=== PATIENT | female | born 1985 | race Caucasian/White ===

== ENCOUNTER 2024-08-16 07:22 | Inpatient (IN) | payer OTHER ==
[~2024-08-16] VITALS: Ht 152.4 cm; Wt 67.4 kg
--- NOTE | 2024-08-16 07:36 | ED.PDOC ---
GI ASSESSMENT HPI Comments 38 year old female MARIZA presents to the ED with chief complaint of N/V, abdominal pain, and dysuria. Patient reports that she has been experiencing dysuria and flank pain for the past 2 days, being diagnosed with a UTI and prescribed Cipro. Patient relays that she soon started to experience associated nausea, vomiting, and suprapubic pain, being unable to swallow her antibiotics. Patient denies any fever, chills, hematuria, diarrhea, hematemesis, or SOB. Time Seen by MD: 07:24 Primary Care Provider: JOURDAN Reviewed Notes: Nurses Notes, Canceling And Cutting Control Clerk Notes, Medications, Allergies Allergies: Coded Allergies: Codeine (Verified Allergy, Unknown, 03/25/14) Sulfamethoxazole w/Trimethoprim (Verified Allergy, Unknown, 03/25/14) Home Meds Unable to Obtain Active Prescriptions or Reported Meds Information Source: Patient, Emergency Med Personnel Mode of Arrival: EMS Timing: Days Duration: Since onset Prehospital treatment: None Quality: Sharp Vomitus: Watery Stool: Normal Severity: Moderate Recent: None Pain Location: Suprapubic Associated sign and symptoms: Nausea, Vomiting, Abdominal Pain, Other (Flank pain, dysuria) Past Medical History PAST MEDICAL HISTORY: UTI'S Past Medical History (Other): Spinal Bifida, Paraplegia, staghorn calculi Surgical History (Other): Bladder expansion surgery BOX STACKER History: No Pertinent BOX STACKER History Family History Family History: Reviewed,noncontributory to illness, Unknown Social History Smoker: Non-Smoker Alcohol: Denies ETOH Use Drugs: Marijuana Lives In: Home Constitutional: reports: weakness; denies: chills, diaphoresis, fatigue, fever, malaise, sweats, others EENTM: denies: blurred vision, double vision, ear bleeding, ear discharge, ear drainage, ear pain, ear ringing, eye pain, eye redness, hearing loss, mouth pain, mouth swelling, nasal discharge, nose bleeding, nose congestion, nose pain, photophobia, tearing, throat pain, throat swelling, voice changes, others Respiratory: denies: cough, hemoptysis, orthopnea, SOB at rest, shortness of breath, SOB with excertion, stridor, wheezing, others Cardiovascular: denies: chest pain, dizzy spells, diaphoresis, Dyspnea on exertion, edema, irregular heart beat, left arm pain, lightheadedness, palpitations, PND, syncope, others Gastrointestinal: reports: abdominal pain, nausea, vomiting; denies: abdomen distended, blood streaked bowels, constipated, diarrhea, dysphagia, difficulty swallowing, hematemesis, melena, poor appetite, poor fluid intake, rectal bleeding, rectal pain, others Genitourinary: reports: dysuria, flank pain; denies: abnormal vagina bleeding, burning, dyspareunia, frequency, hematuria, incontinence, pain, , vagina discharge, urgency, others Neurological: denies: dizziness, fainting, headache, left sided numbness, left sided weakness, numbness, paresthesia, pre-existing deficit, right sided numbness, right sided weakness, seizure, speech problems, tingling, tremors, weakness, others Musculoskeletal: denies: back pain, gout, joint pain, joint swelling, muscle pain, muscle stiffness, neck pain, others Integumetry: denies: bruises, change in color, change in hair/nails, dryness, laceration, lesions, lumps, rash, wounds, others Allergic/Immunocompromised: denies: Difficulty Healing, Frequent Infections, Hives, Itching, others Hematologic/Lymphatic: denies: anemia, blood clots, easy bleeding, easy bruising, swollen glands, others Endocrine: denies: excessive hunger, excessive sweating, excessive thirst, excessive urination, flushing, intolerance to cold, intolerance to heat, unexplained weight gain, unexplained weight loss, others Psychiatric: denies: anxiety, bipolar disorder, depression, hopeless, panic disorder, schizophrenia, sleepless, suicidal, others All Other Systems: Reviewed and Negative Physical Exam General Appearance: Normal, Other (Appears uncomfortable, holding emesis bag) HEENT: Normal ENT Inspection, Pharynx Normal, TMs Normal Neck: Full Range of Motion, Non-Tender, Normal, Normal Inspection Respiratory: Chest Non-Tender, Lungs Clear, No Accessory Muscle Use, No Respiratory Distress, Normal Breath Sounds Cardiovascular: No Edema, No JVD, No Murmur, No Gallop, Normal Peripheral Pulses, Regular Rate/Rhythm Breast Exam: Deferred Gastrointestinal: No Organomegaly, Non Tender, No Pulsatile Mass, Soft, Other (Rt CVA tenderness. Decreased bowel sounds.) Genitalia: Deferred Pelvic: Deferred Rectal: Deferred Extremities: No calf tenderness, Normal capillary refill, Normal inspection, Normal range of motion, Non-tender, No pedal edema Musculoskeletal : Apperance: Normal Neurologic: Alert, university registrar II-XII nml as Tested, Normal Affect, Normal Mood, No Sensory Deficits, Other (Paraplegic) Cerebellar Function: Normal Reflexes: Normal Skin: Dry, Normal Color, Warm Lymphatic: No Adenopathy Was a procedure done? Was a procedure done?: No GI differential Dx Differential Diagnosis: Appendicitis, Bowel Obstruction, Cholangitis, Cholecystitis, Constipation, Diverticular disease, Ectopic , Gastritis/PUD, Gastroenteritis, Hepatitis, Inflammatory BD, Ischemic Bowel, Ovarian cyst/torsion, Pancreatitis, Urinary Obstruction, UTI, Urolithiasis, Dehydration, Electrolyte Imbalance, Food Poisoning, , Hypovolemia, Impaction, Renal Failure, Ischemic Bowel, Anemia, Stress Ulcer, Kidney Stone Other Differential Diagnosis Pyelonephritis X-Ray, Labs, Meds, VS Vital Signs Date Time Temp Pulse Resp B/P (MAP) Pulse Ox O2 Delivery O2 Flow Rate FiO2 08/16/24 10:00 97.9 92 24 154/82 (106) 98 97.9 08/16/24 07:45 97.9 88 19 162/91 (114) 98 97.9 08/16/24 07:45 88 19 98 Room Air* 0 21 08/16/24 07:44 99.0 80 26 141/79 (99) 95 99.0 Lab Test 08/16/24 09:54 08/16/24 07:53 Range/Units Urine Color Dark-brown Yellow Urine Clarity Ex.turbid Clear Urine pH 7.5 5.0-9.0 Urine Specific [place] 1.018 1.001-1.035 Urine Protein 2+ H Negative Urine Ketones Negative Negative Urine Blood 1+ H Negative /uL Urine Nitrite Negative Negative Urine Bilirubin Negative Negative Urine Urobilinogen Normal Negative mg/dL Urine Leukocyte Esterase 3+ Negative /uL Urine RBC 104 0 - 4 /hpf Urine WBC Clumps Present None Seen /hpf Urine Microscopic WBC 760 H 0-5 /HPF Urine Squamous Epithelial Cells None seen <5 /hpf Urine Bacteria Many H None Seen /hpf Urine Mucus Many None Seen Urine Glucose Normal Normal mg/dL Urine Test Negative Negative White Blood Count 17.5 H 4.4-10.8 10^3/uL Red Blood Count 3.81 L 4.0-5.20 10^6/uL Hemoglobin 8.9 L 12.2-16.2 g/dL Hematocrit 31.4 L 36.0-46.0 % Mean Corpuscular Volume 82.5 80.0-100.0 fL Mean Corpuscular Hemoglobin 23.4 L 28.0-32.0 pg Mean Corpuscular Hemoglobin Concent 28.4 L 32.0-36.0 g/dL Red Cell Distribution Width 21.6 H 11.8-14.3 % Platelet Count 749 H 140-450 10^3/uL Mean Platelet Volume 6.2 L 6.9-10.8 fL Neutrophils (%) (Auto) 92.2 H 37.0-80.0 % Lymphocytes (%) (Auto) 2.4 L 10.0-50.0 % Monocytes (%) (Auto) 4.9 0.0-12.0 % Eosinophils (%) (Auto) 0.1 0.0-7.0 % Basophils (%) (Auto) 0.4 0.0-2.0 % Neutrophils # (Auto) 16.1 H 1.6-8.6 10 ^3/uL Lymphocytes # (Auto) 0.4 0.4-5.4 10 ^3/uL Monocytes # (Auto) 0.9 0-1.3 10 ^3/uL Eosinophils # (Auto) 0 0-0.8 10 ^3/uL Basophils # (Auto) 0.1 0-0.2 10 ^3/uL Nucleated Red Blood Cells 0.2 % Platelet Estimate Increased Reticulocyte Count (auto) 1.80 H 0.5-1.5 % Sodium Level 136 136-145 mmol/L Potassium Level 4.5 3.5-5.1 mmol/L Chloride Level 117 H 98-107 mmol/L Carbon Dioxide Level < 10 *L 20-31 mmol/L Anion Gap 9.32024 5-15 Blood Urea Nitrogen 85 *H 9-23 mg/dL Creatinine 4.13 H 0.550-1.02 mg/dL Glomerular Filtration Rate Calc 14 >90 mL/min BUN/Creatinine Ratio 20.6 H 10.0-20.0 Serum Glucose 158 H 74-106 mg/dL Lactic Acid Level 1.2 0.4-2.0 mmol/L Calcium Level 8.6 L 8.7-10.4 mg/dL Iron Level 28 L 50-170 ug/dL Total Iron Binding Capacity 310 250-425 ug/dL Percent Iron Saturation 9.0 L 15-50 % Ferritin 30.0 10-291 ng/mL Aspartate Amino Transferase (AST) < 8 L 13-40 U/L Alanine Aminotransferase (ALT) 10 7-40 U/L Lactate Dehydrogenase 134 120-246 U/L Vitamin B12 Level 573 211-911 pg/mL Folic Acid Pending Current Medications Medications (Trade) Dose Ordered Sig/Leeanne Route Start Time Stop Time Status Last Admin Sodium Chloride 1,700 ml @ 1,700 mls/hr ONCE ONCE IV 08/16/24 07:30 08/16/24 08:29 DC 08/16/24 08:03 Ketorolac Tromethamine (Toradol Injection) 15 mg ONCE ONCE IV 08/16/24 07:30 08/16/24 07:32 DC 08/16/24 08:03 Ondansetron HCl (Zofran) 4 mg ONCE ONCE IV 08/16/24 07:30 08/16/24 07:32 DC 08/16/24 08:03 Cefepime HCl 50 ml @ 12.5 mls/hr DAILY IV 08/16/24 10:15 08/16/24 10:18 Time of 1ST Reevaluation: 08:24 Reevaluation 1ST: Improved Time of 2ND Reevaluation: 08:56 Reevaluation 2ND: Improved Patient Education/Counseling: Diagnosis, Treatment, Prognosis, Need For Follow Up Family Education/Counseling: No Family Present Additional Information Previous visits: 12/17/15 for Pyelonephritis The following tests were ordered, and results were reviewed by me: CT Abd/Pel, Preg urine, UA, BMP, CBC Additional Information was gathered from interviewing the following independent historians: EMS I reviewed and agreed with the following test results read by other providers: CT Abd/Pel I discussed treatment and results with medical personnel and: Patient Comprehensive systems review obtained and negative except for what is stated in the HPI. pt denies history of renal failure. last labs were from 2016, with normal renal functions. pt now appears septic. she has a history of pyelonephritis and s tones. she has Anthony, severe dehydration. she is also anemic and acidotic, which may suggest the renal failure may be chronic, or these changes are secondary to sepsis. she has elevated wbc, plat, all acute inflammatory reactants, but dehydration also plays a part. i have started sepsis orders, including lactate, ivf, abx. pt will be admitted for anthony, sepsis Sepsis Sepsis Reasesment Focused Exam Sepsis focused exam: focus exam completed (stable BP, cap refill<2 secs, alert oriented), time: (929) Departure 1 Departure Time of Disposition: 13:26 Impression: Primary Impression: Sepsis Qualified Codes: A41.9 - Sepsis, unspecified organism Additional Impressions: Acute renal failure Qualified Codes: N17.9 - Acute kidney failure, unspecified Anemia Qualified Codes: D64.9 - Anemia, unspecified Dehydration UTI with possible pyelonephritis Disposition: ADMITTED INPATIENT Admit to: Tele Condition: Serious e-Prescriptions Unable to Obtain Active Prescriptions or Reported Meds Discharged With: Self Critical Care Note Critical Care Time?: Yes (1 hr-critical care time only) Critical care comment: Due to concerns for patients condition deteriorating, the care required my highest level of attention and readiness to intervene. I assessed the patient, reviewed the medical records, ordered the appropriate tests and treatments, then reassessed for results and responsiveness. I communicated with medical personnel and consultants and formulated a plan of care. Total critical care time excludes any procedures Stability Stability form required: No Heart Score Heart Score: Heart Score Response (Comments) Value History N/A 0 EKG N/A 0 Age N/A 0 Risk Factors N/A 0 Troponin N/A 0 Total 0 I personally scribed for CELESTINA GONZALEZ MD ([email or web address]) on 08/16/24 at 07:36. Electronically submitted by Jay Michel ([email or web address]). CELESTINA GONZALEZ MD Aug 16, 2024 07:36
[2024-08-16 07:45] VITALS: PULSE 88; RESP 19; O2SAT 98
[2024-08-16] MEDS: ONDANSETRON HCL 4 MG/2 ML VIAL IV ONE (08:03)
[2024-08-16] MEDS: KETOROLAC TROMETH 30 MG/ML 1ML VIAL IV ONE (08:03)
[2024-08-16] MEDS: SODIUM CHLORIDE 0.9% 1,700 ML IV ONE (08:03)
[2024-08-16 08:36] LABS: Anion Gap 9.00001 (5-15); Potassium 4.5 mmol/L (3.5-5.1); Sodium 136 mmol/L (136-145)
[2024-08-16 08:37] LABS: Basophils # (auto) 0.1 10 ^3/uL (0-0.2); Eosinophils # (auto) 0 10 ^3/uL (0-0.8); Eosinophils % (auto) 0.1 % (0.0-7.0); Lymphocytes # (auto) 0.4 10 ^3/uL (0.4-5.4); White Blood Cell 17.5 10^3/uL (4.4-10.8)
[2024-08-16 08:39] LABS: Basophils % (auto) 0.4 % (0.0-2.0); Hematocrit 31.4 % (36.0-46.0); Hemoglobin 8.9 g/dL (12.2-16.2); Lymphocytes % (auto) 2.4 % (10.0-50.0); Mean Corpuscular Hemoglobin 23.4 pg (28.0-32.0); Mean Corpuscular Hgb Conc. 28.4 g/dL (32.0-36.0); Mean Corpuscular Volume 82.5 fL (80.0-100.0); Monocytes # (auto) 0.9 10 ^3/uL (0-1.3); Monocytes % (auto) 4.9 % (0.0-12.0); Neutrophils # (auto) 16.1 10 ^3/uL (1.6-8.6); Neutrophils % (auto) 92.2 % (37.0-80.0); Nucleated Red Blood Cells % 0.2 %; Platelet Count (auto) 749 10^3/uL (140-450); Red Blood Cells 3.81 10^6/uL (4.0-5.20); Red Cell Distribution Width 21.6 % (11.8-14.3)
[2024-08-16 08:42] LABS: BUN/Creatinine Ratio 20.6 (10.0-20.0)
[2024-08-16 08:44] LABS: Chloride 117 mmol/L (98-107)
[2024-08-16 08:45] LABS: Blood Urea Nitrogen 85 mg/dL (9-23); Calcium 8.6 mg/dL (8.7-10.4); Carbon Dioxide < 10 mmol/L (20-31); Glucose 158 mg/dL (74-106)
[2024-08-16 09:19] LABS: Platelet Estimate Increased
[2024-08-16 10:11] LABS: Urine Bacteria MANY /hpf (None Seen); Urine Blood 1+ /uL (Negative); Urine Clarity Ex.Turbid (Clear); Urine Color Dark-Brown (Yellow); Urine Mucus MANY (None Seen); Urine Protein, UAD 2+ (Negative); Urine Specific Gravity 1.018 (1.001-1.035); Urine Squamous Epithelial Cell None Seen /hpf (<5); Urine Urobilinogen Normal (Negative); Urine WBC 760 /HPF (0-5); Urine WBC Clumps PRESENT /hpf (None Seen); Urine pH 7.5 (5.0-9.0)
[2024-08-16] MEDS: CEFEPIME 1GM/ 50ML 50 ML IV SCH (10:18)
[2024-08-16] MEDS ORDERED: hydrALAZINE HCL 20 MG/ML VL IV PRN (10:30)
[2024-08-16] MEDS ORDERED: SODIUM CHLORIDE 0.9% 1,000 ML IV SCH (10:30)
--- NOTE | 2024-08-16 10:31 | DVHHP2 ---
History of Present Illness Reason for Visit: bladder infection History of Present Illness This 38-year-old female with past medical history of spina bifida, paraplegia, staghorn calculi, s/p bladder expansion, tobacco and marijuana use, presents to the ED with a chief complaint of abdominal pain. The patient reports symptoms s tarted two days ago with suprapubic pain, dysuria, nausea, and vomiting. The patient reports recently given Cipro for UTI. The patient denies fever, chills, chest pain, or flank pain. Past Medical History As stated in HPI Past Surgical History Bladder expansion Family History None reported Past Social History Smoking cigarettes 1/2 PPD Marijuana Review of Systems Constitutional: Yes: Malaise; No: Fever, Chills, Sweats, Weakness, Other Eyes: No: Pain, Vision change, Conjunctivae inflammation, Eyelid inflammation, Other, Redness ENT: No: Ear pain, Ear discharge, Nose pain, Nose discharge, Nose congestion, Mouth pain, Mouth swelling, Throat pain, Throat swelling, Other Respiratory: No: Cough, Dry, Shortness of breath, SOB with excertion, Wheezing, Hemoptysis, Pleuritic Pain, Sputum, Wheezing, Other Cardiovascular: No: Chest Pain, Palpitations, Orthopnea, Paroxysmal Noc. Dyspnea, Edema, Lt Headedness, Other Gastrointestinal: Nausea, Vomiting, Abdominal Pain; No: Diarrhea, Constipation, Melena, Hematochezia, Other Genitourinary: Dysuria, Hematuria Musculoskeletal: No: other, neck pain, shoulder pain, arm pain, back pain, hand pain, leg pain, foot pain Skin: No: Rash, Lesions, Jaundice, Bruising, Other Neurological: No: Weakness, Numbness, Incoordination, Change in speech, Confusion, Seizures, Other Allergies: Coded Allergies: Codeine (Verified Allergy, Unknown, 03/25/14) Sulfamethoxazole w/Trimethoprim (Verified Allergy, Unknown, 03/25/14) Medications Current Medications Medications Dose Ordered Sig/Leeanne Route Start Time Stop Time Status Last Admin Dose Admin Cefepime HCl 50 ml @ 12.5 mls/hr DAILY IV 08/16/24 10:15 08/16/24 10:18 12.5 MLS/HR Exam Vital Signs Vital Signs Date Time Temp Pulse Resp B/P (MAP) Pulse Ox O2 Delivery O2 Flow Rate FiO2 08/16/24 10:00 92 24 154/82 (106) 98 08/16/24 07:45 97.9 97.9 08/16/24 07:45 Room Air* 0 21 General Appearance: Alert, Oriented X3, Cooperative, mild distress HEENT: Atraumatic, PERRLA Respiratory: Clear to auscultation, Normal air movement Cardiovascular: Regular rate, Normal S1, Normal S2 Abdominal: Normal bowel sounds, Soft, No tenderness Neuro: Other (Paraplegia) Psych/Mental Status: Mental status NL Labs/Xrays Labs Test 08/16/24 09:54 08/16/24 07:53 Range/Units Urine Color Dark-brown Yellow Urine Clarity Ex.turbid Clear Urine pH 7.5 5.0-9.0 Urine Specific [place] 1.018 1.001-1.035 Urine Protein 2+ H Negative Urine Ketones Negative Negative Urine Blood 1+ H Negative /uL Urine Nitrite Negative Negative Urine Bilirubin Negative Negative Urine Urobilinogen Normal Negative mg/dL Urine Leukocyte Esterase 3+ Negative /uL Urine RBC 104 0 - 4 /hpf Urine WBC Clumps Present None Seen /hpf Urine Microscopic WBC 760 H 0-5 /HPF Urine Squamous Epithelial Cells None seen <5 /hpf Urine Bacteria Many H None Seen /hpf Urine Mucus Many None Seen Urine Glucose Normal Normal mg/dL Urine Test Negative Negative White Blood Count 17.5 H 4.4-10.8 10^3/uL Red Blood Count 3.81 L 4.0-5.20 10^6/uL Hemoglobin 8.9 L 12.2-16.2 g/dL Hematocrit 31.4 L 36.0-46.0 % Mean Corpuscular Volume 82.5 80.0-100.0 fL Mean Corpuscular Hemoglobin 23.4 L 28.0-32.0 pg Mean Corpuscular Hemoglobin Concent 28.4 L 32.0-36.0 g/dL Red Cell Distribution Width 21.6 H 11.8-14.3 % Platelet Count 749 H 140-450 10^3/uL Mean Platelet Volume 6.2 L 6.9-10.8 fL Neutrophils (%) (Auto) 92.2 H 37.0-80.0 % Lymphocytes (%) (Auto) 2.4 L 10.0-50.0 % Monocytes (%) (Auto) 4.9 0.0-12.0 % Eosinophils (%) (Auto) 0.1 0.0-7.0 % Basophils (%) (Auto) 0.4 0.0-2.0 % Neutrophils # (Auto) 16.1 H 1.6-8.6 10 ^3/uL Lymphocytes # (Auto) 0.4 0.4-5.4 10 ^3/uL Monocytes # (Auto) 0.9 0-1.3 10 ^3/uL Eosinophils # (Auto) 0 0-0.8 10 ^3/uL Basophils # (Auto) 0.1 0-0.2 10 ^3/uL Nucleated Red Blood Cells 0.2 % Platelet Estimate Increased Sodium Level 136 136-145 mmol/L Potassium Level 4.5 3.5-5.1 mmol/L Chloride Level 117 H 98-107 mmol/L Carbon Dioxide Level < 10 *L 20-31 mmol/L Anion Gap 9.26068 5-15 Blood Urea Nitrogen 85 *H 9-23 mg/dL Creatinine 4.13 H 0.550-1.02 mg/dL Glomerular Filtration Rate Calc 14 >90 mL/min BUN/Creatinine Ratio 20.6 H 10.0-20.0 Serum Glucose 158 H 74-106 mg/dL Lactic Acid Level 1.2 0.4-2.0 mmol/L Calcium Level 8.6 L 8.7-10.4 mg/dL Assessment/Plan Assessment/Plan # Sepsis, like due to complicated UTI # acute cystitis Admit to Medical unit Cefepime IV fluid Blood and urine culture # acute renal failure # hematuria # proteinuria # rule out kidney stones given hx of staghorn calculi # hx of bladder expansion Nephrology consult Kidney ultrasound IV fluid Avoid nephrotoxins # anemia Iron logistics engineer H&H # tobacco depend, 1/2 PPD # marijuana use Nicotine patch Smoking cessation and marijuana use counseled # spina bifida # paraplegic Medical plan discussed with patient and RN Plan discussed with: Patient My Orders Orders - LOWELL SCHMITZ Procedure Category Date Status Time *[facility] CONS 08/16/24 Transmitted -[place] 10:17 Kidney US 08/16/24 Logged 10:18 Sodium Chloride 0.9% PHA 08/16/24 Logged 10:30 Urine Bacterial BRI 08/16/24 Logged Culture 10:18 Admit ADMIT 08/16/24 Transmitted 10:18 Code Status CODE 08/16/24 Transmitted 10:18 Renal DIET 08/16/24 Transmitted Standard(2gna,3gk,Lopho) Lunch Hydrocodone-Acet PHA 08/16/24 Logged 5/325mg Tab ([place] 10:30 Ondansetron Hcl PHA 08/16/24 Logged (Zofran) 10:30 Complete Blood Count LAB 08/17/24 Verified 04:00 Comprehensive LAB 08/17/24 Verified Metabolic Panel 04:00 Condition: Fair DIANNA 08/16/24 In Process 10:18 Acetaminophen Tablet PHA 08/16/24 Logged (Tylenol Tablet) 10:30 Morphine Sulfate PHA 08/16/24 Logged Injection 10:30 Hydralazine Injection PHA 08/16/24 Logged (Apresoline Inject 10:30 Date of Service: Aug 16, 2024 Billing Provider: LOWELL SCHMITZ Common Visit Codes: [id number] INP/OBS CARE (HIGH) LOWELL SCHMITZP Aug 16, 2024 10:31
[2024-08-16 11:12] LABS: Alanine Aminotransferase 10 U/L (7-40)
[2024-08-16 11:13] LABS: Aspartate Aminotransferase < 8 U/L (13-40)
--- NOTE | 2024-08-16 11:23 | DVH ---
CLINICAL INFORMATION: 38 years old, Female; right flank pain. TECHNIQUE: Axial CT images of the abdomen and pelvis were obtained without IV contrast. Coronal and s agittal reformatted images were obtained, reviewed, and stored. Evaluation of the parenchymal organs is limited without IV contrast. Evaluation of the bowel and mesentery is limited without oral contras t. All CT scans at this medical facility are performed using dose modulation techniques as appropriat e to a performed exam including the following: Automated exposure control was utilized; adjustment of the MA and/or KV according to patient size; and use of iterative reconstruction technique. CTDIvol = 7.18 mGy DLP = 393.2 mGy-cm COMPARISON: None FINDINGS: Lung bases: Lung bases are clear. Liver: Grossly unremarkable in its noncontrast enhanced appearance. No abnormal density or focal lesi on identified. Biliary: No calcified gallstones or biliary ductal dilatation. Spleen: Unremarkable. Pancreas: Grossly unremarkable in its noncontrast enhanced appearance. Adrenal glands: Unremarkable. No mass. Kidneys and bladder: Markedly abnormal left kidney with markedly dilated renal collecting system and hydroureter with moderate to marked stranding adjacent to the left kidney and along the course of the left ureter. There are multiple left renal calculi, including staghorn calculi. A large staghorn kyleigh culus in the midpole of the left kidney measures up to 4.4 cm in greatest dimension. There is moderat e right hydronephrosis and hydroureter with no right ureteral calculus. The bladder is lobulated and irregular in contour, and there is moderate bladder wall thickening and mild adjacent stranding. Por tions of the bladder extend into the right anterior pelvis. Aorta/Vascular: No aneurysm or significant calcification. Retroperitoneum: No mass or lymphadenopathy. Bowel/mesentery: No small bowel obstruction. Appendix is visualized and appears unremarkable. Pelvic organs: Grossly unremarkable. Abdominal wall: No mass or hernia. Bones: Bilateral dislocations, with a femoral heads positioned superiorly with respect to the acetabu lar fossae. IMPRESSION: 1. Severe left hydronephrosis and hydroureter with moderate to marked inflammatory stranding adjacent to the left kidney and along the course of the left ureter, suspected ascending urinary tract infect ion in the appropriate clinical setting. Multiple left renal calculi, including staghorn calculi. No ureteral calculi are seen. Correlate with clinical findings. 2. Moderate right hydronephrosis and hydroureter with no obstructing right ureteral calculus 3. Bladder wall thickening and stranding, suspected cystitis in the appropriate clinical setting. 4. Lobulated contour of the right kidney, may be due to multiple 5. Renal lesions, although poorly delineated on noncontrast enhanced exam. 6. Bilateral hip dislocations, possibly chronic. Correlate with clinical findings. 7. Additional findings as detailed above
--- NOTE | 2024-08-16 11:35 | DVH ---
CLINICAL INFORMATION: 38 years old, Female; acute renal failure. TECHNIQUE: Grayscale sonographic imaging of the kidneys and bladder was performed, assisted by color Doppler technique. COMPARISON: None FINDINGS: The right kidney measures 8.8 cm in length. Moderate hydronephrosis. Increased cortical echogenicity of the right kidney with cortical thickness within the range of normal. The left kidney measures 17.7 cm in length. Severe left hydronephrosis. Multiple large left renal c alculi, corresponding to staghorn calculi on same day CT exam. Increased echogenicity of the left cece al cortex and areas of cortical thinning. Prevoid bladder volume measured 78 mL. No bladder wall thickening or mass visualized. Reported histor y of bladder expansion surgery, with lobulated, irregular contour of the bladder better seen on same- day CT. Bladder wall thickening up to 8.4 mm. IMPRESSION: 1. Markedly enlarged left kidney. 2. Bilateral hydronephrosis, left greater than right. 3. Left renal calculi. 4. Abnormal increased echogenicity of both kidneys. 5. Bladder wall thickening. 6. Additional findings as described above.
[2024-08-16] MEDS: NICOTINE 14 MG/24HR TOPICAL PATCH TD ONE (11:42)
[2024-08-16] MEDS: ONDANSETRON HCL 4 MG/2 ML VIAL IV PRN (11:43)
--- NOTE | 2024-08-16 11:45 | DVHINCON2 ---
Date of service: Aug 16, 2024 Reason for Consultation Acute kidney injury History of Present Illness Patient was a poor historian and has not followed up with medical doctors . 38-year-old female past medical history of spinal bifida, paraplegia, chronic urinary retention who is straight caths multiple times per day presents to the hospital complaining of several days of weakness with nausea and decreased p.o. intake. She notes that she has had less urine output over the last several days. She was denying any history of diabetes in his not on any medication for it. She denies any history of kidney disease however has not seen a doctor for regular routine labs in more than a year. She presents to the hospital with creatinine greater than three and severe metabolic acidosis. Urinalysis shows evidence of the urinary tract infection Allergies: Coded Allergies: Codeine (Verified Allergy, Unknown, 03/25/14) Sulfamethoxazole w/Trimethoprim (Verified Allergy, Unknown, 03/25/14) Home Meds Unable to Obtain Active Prescriptions or Reported Meds Current Medications Current Medications Medications (Trade) Dose Ordered Sig/Leeanne Route PRN Reason Start Time Stop Time Status Last Admin Cefepime HCl 50 ml @ 12.5 mls/hr DAILY IV 08/16/24 10:15 08/16/24 10:18 Sodium Chloride 1,000 ml @ 100 mls/hr Q10H IV 08/16/24 10:30 08/16/24 11:29 DC Acetaminophen/ Hydrocodone Bitart ([place]unden 5/325MG Tab) 1 tab Q4HP PRN PO MODERATE PAIN (4-6 PAIN SCALE) 08/16/24 10:30 UNV Ondansetron HCl (Zofran) 4 mg Q4HP PRN IV NAUSEA / VOMITING 08/16/24 10:30 Acetaminophen (Tylenol Tablet) 650 mg Q6HP PRN PO PAIN SCALE 1-3 OR TEMP>100.4 08/16/24 10:30 Morphine Sulfate 2 mg Q4HPRN PRN IV SEVERE PAIN (7-10 PAIN SCALE) 08/16/24 10:30 UNV Hydralazine HCl (Apresoline Injection) 10 mg Q6HP PRN IV SBP>150 08/16/24 10:30 Nicotine (Nicoderm 14MG/ 24HR) 1 patch DAILY TD 08/17/24 10:00 Lactated Ringer's 1,000 ml @ 100 mls/hr Q10H IV 08/16/24 11:15 Family History: Family history: Diabetes mellitus G8 MOTHER, Onset:30's - 40 Family history: Hypertension G8 MOTHER, Onset:30's - 40 Ischemic heart disease No Family History of: Alcoholism Cancer Cancer of colon Chronic obstructive lung disease (situation) Family history: Alzheimer's disease Family history: Arthritis Family history: Asthma Family history: Autoimmune disease (situation) Family history: Blood disorder Family history: Cardiovascular disease Family history: Congenital anomaly Family history: Coronary thrombosis Family history: Depression (situation) Family history: Diabetes in Family history: Glaucoma Family history: Hypercholesterolemia (situation) Family history: Osteoporosis Family history: Suicide (situation) Family history: Thyroid disorder Malignant melanoma Malignant neoplasm of breast Malignant neoplasm of lung Malignant neoplasm of ovary Prostate cancer Renal stone Seizure disorder (situation) Stroke Review of Systems Weakness and decreased p.o. intake H&P Exam Vital Signs/I&O Vital Sign Date Time Temp Pulse Resp B/P (MAP) Pulse Ox O2 Delivery O2 Flow Rate FiO2 08/16/24 10:00 97.9 92 24 154/82 (106) 98 97.9 08/16/24 07:45 Room Air* 0 21 Physical Exam Middle-aged female Appears stated age Decreased muscle tone Paraplegia Does not to appear to be in respiratory distress Labs/Diagnostic Data Labs/Diagnostic Data Laboratory Tests Test 08/16/24 09:54 08/16/24 07:53 Range/Units Urine Color Dark-brown Yellow Urine Clarity Ex.turbid Clear Urine pH 7.5 5.0-9.0 Urine Specific [place] 1.018 1.001-1.035 Urine Protein 2+ H Negative Urine Ketones Negative Negative Urine Blood 1+ H Negative /uL Urine Nitrite Negative Negative Urine Bilirubin Negative Negative Urine Urobilinogen Normal Negative mg/dL Urine Leukocyte Esterase 3+ Negative /uL Urine RBC 104 0 - 4 /hpf Urine WBC Clumps Present None Seen /hpf Urine Microscopic WBC 760 H 0-5 /HPF Urine Squamous Epithelial Cells None seen <5 /hpf Urine Bacteria Many H None Seen /hpf Urine Mucus Many None Seen Urine Glucose Normal Normal mg/dL Urine Test Negative Negative White Blood Count 17.5 H 4.4-10.8 10^3/uL Red Blood Count 3.81 L 4.0-5.20 10^6/uL Hemoglobin 8.9 L 12.2-16.2 g/dL Hematocrit 31.4 L 36.0-46.0 % Mean Corpuscular Volume 82.5 80.0-100.0 fL Mean Corpuscular Hemoglobin 23.4 L 28.0-32.0 pg Mean Corpuscular Hemoglobin Concent 28.4 L 32.0-36.0 g/dL Red Cell Distribution Width 21.6 H 11.8-14.3 % Platelet Count 749 H 140-450 10^3/uL Mean Platelet Volume 6.2 L 6.9-10.8 fL Neutrophils (%) (Auto) 92.2 H 37.0-80.0 % Lymphocytes (%) (Auto) 2.4 L 10.0-50.0 % Monocytes (%) (Auto) 4.9 0.0-12.0 % Eosinophils (%) (Auto) 0.1 0.0-7.0 % Basophils (%) (Auto) 0.4 0.0-2.0 % Neutrophils # (Auto) 16.1 H 1.6-8.6 10 ^3/uL Lymphocytes # (Auto) 0.4 0.4-5.4 10 ^3/uL Monocytes # (Auto) 0.9 0-1.3 10 ^3/uL Eosinophils # (Auto) 0 0-0.8 10 ^3/uL Basophils # (Auto) 0.1 0-0.2 10 ^3/uL Nucleated Red Blood Cells 0.2 % Platelet Estimate Increased Reticulocyte Count (auto) 1.80 H 0.5-1.5 % Sodium Level 136 136-145 mmol/L Potassium Level 4.5 3.5-5.1 mmol/L Chloride Level 117 H 98-107 mmol/L Carbon Dioxide Level < 10 *L 20-31 mmol/L Anion Gap 9.11646 5-15 Blood Urea Nitrogen 85 *H 9-23 mg/dL Creatinine 4.13 H 0.550-1.02 mg/dL Glomerular Filtration Rate Calc 14 >90 mL/min BUN/Creatinine Ratio 20.6 H 10.0-20.0 Serum Glucose 158 H 74-106 mg/dL Lactic Acid Level 1.2 0.4-2.0 mmol/L Calcium Level 8.6 L 8.7-10.4 mg/dL Iron Level 28 L 50-170 ug/dL Total Iron Binding Capacity 310 250-425 ug/dL Percent Iron Saturation 9.0 L 15-50 % Aspartate Amino Transferase (AST) < 8 L 13-40 U/L Alanine Aminotransferase (ALT) 10 7-40 U/L Lactate Dehydrogenase 134 120-246 U/L Assessment Acute kidney injury multifactorial in the setting of prerenal sepsis as well as chronic obstruction Chronic kidney disease due to chronic urinary retention however baseline is unknown Sepsis secondary to urinary tract infection Metabolic acidosis Paraplegia and spina bifida Anemia due to iron deficiency Recommend aggressive IV fluid hydration due to volume depletion Place Marte catheter due to chronic urinary retention and continue strict Is&Os Send urine culture and continue with IV antibiotics Recommend IV iron replacement due to significant anemia This is presumed JOSE we will do trial of medical therapy to assess for response Guarded prognosis Rest of care as per primary medical doctor Plan discussed with: Patient RILEY NAIR MD Aug 16, 2024 11:45
[2024-08-16] MEDS: MORPHINE SULFATE INJ 2 MG/ml SYRG IV PRN (12:24)
[2024-08-16 12:36] LABS: Potassium 4.9 mmol/L (3.5-5.1); Sodium 138 mmol/L (136-145)
[2024-08-16 12:37] LABS: Anion Gap 7.00001 (5-15)
[2024-08-16 12:49] LABS: Blood Urea Nitrogen 77 mg/dL (9-23); Calcium 8.5 mg/dL (8.7-10.4); Chloride 121 mmol/L (98-107); Glucose 107 mg/dL (74-106)
[2024-08-16 12:52] LABS: Carbon Dioxide < 10 mmol/L (20-31)
--- NOTE | 2024-08-16 14:02 | DVH ---
EXAM: XY CHEST XRAY 1 VIEW TECHNIQUE: Single frontal chest radiograph CLINICAL HISTORY: sob COMPARISON: None Findings/Impression: Frontal chest radiograph demonstrates no acute osseous or superficial soft tissue abnormalities. The trachea is midline. The cardiac silhouette and mediastinum are within normal limits. No pneumothorax, pleural effusions, or consolidations.
[2024-08-16] MEDS: LACTATED RINGER'S 1,000 ML IV SCH ×2 (14:30→18:00)
[2024-08-16] MEDS: IRON SUCROSE COMPLEX 110 ML IV SCH (14:30)
[2024-08-16 15:12] LABS: Albumin 3.7 g/dL (3.2-4.8); Anion Gap 8.00001 (5-15); Glucose 100 mg/dL (74-106); Potassium 4.8 mmol/L (3.5-5.1); Sodium 139 mmol/L (136-145); Total Protein 7.4 g/dL (5.7-8.2)
[2024-08-16 15:18] LABS: Alanine Aminotransferase < 9 U/L (7-40); Alkaline Phosphatase 183 U/L (46-116); Aspartate Aminotransferase 11 U/L (13-40); Bilirubin, Total < 0.2 mg/dL (0.2-1.0); Calcium 8.5 mg/dL (8.7-10.4); Chloride 121 mmol/L (98-107)
[2024-08-16 15:19] LABS: Blood Urea Nitrogen 82 mg/dL (9-23); Carbon Dioxide < 10 mmol/L (20-31)
[2024-08-16] MEDS: SODIUM BICARB 8.4% 50Meq/50ml SYR Vial IV ONE ×3 (16:04→20:26)
[2024-08-16] MEDS: acetaZOLAMIDE SODIUM 500 MG VL IV ONE (17:12)
[2024-08-16] MEDS: HYDROcodone-ACET 5/325MG TAB PO PRN (17:13)
[2024-08-16 17:43] VITALS: BP 145/73; PULSE 111; RESP 20; TEMP 97.5; O2SAT 98
[2024-08-16 18:21] VITALS: PULSE 111; RESP 20; O2SAT 98
--- NOTE | 2024-08-16 18:43 | DVHINCON2 ---
Date of service: Aug 16, 2024 Referring Physician Hospitalist Reason for Consultation bilateral hydronephrosis History of Present Illness History Source: Patient, RN Notes, MD Notes, Old Records Exam Limitations: Physical impairment HPI 38 YO female PMH spina bifida, paraplegia, UTI, kidney stones admitted for sepsis. pt has bilateral renal stones and bilateral hydro right >left with s/s of ascending infection/pyelonephritis. Hx of bladder augmentation surgery patient self caths Home Meds Unable to Obtain Active Prescriptions or Reported Meds Past Medical History Patient Family History: Family history: Diabetes mellitus G8 MOTHER, Onset: - Family history: Hypertension G8 MOTHER, Onset: - Ischemic heart disease No Family History of: Alcoholism Cancer Cancer of colon Chronic obstructive lung disease (situation) Family history: Alzheimer's disease Family history: Arthritis Family history: Asthma Family history: Autoimmune disease (situation) Family history: Blood disorder Family history: Cardiovascular disease Family history: Congenital anomaly Family history: Coronary thrombosis Family history: Depression (situation) Family history: Diabetes in Family history: Glaucoma Family history: Hypercholesterolemia (situation) Family history: Osteoporosis Family history: Suicide (situation) Family history: Thyroid disorder Malignant melanoma Malignant neoplasm of breast Malignant neoplasm of lung Malignant neoplasm of ovary Prostate cancer Renal stone Seizure disorder (situation) Stroke Smoker: Positive Drugs: Marijuana Review of Systems Gastrointestinal: Nausea, Vomiting, Abdominal Pain Genitourinary: Pain H&P Exam Vital Signs Vital Signs Date Time Temp Pulse Resp B/P (MAP) Pulse Ox O2 Delivery O2 Flow Rate FiO2 08/16/24 17:12 126/86 08/16/24 14:00 92 18 99 08/16/24 12:00 97.9 97.9 08/16/24 07:45 Room Air* 0 21 General Appeara: Mild distress Pulmonary/Respiratory: Normal inspection, Normal breath sounds, Chest non- tender, Lungs clear Neuro/Mental St: Alert, Oriented Skin Exam: Normal inspection, Normal color, Warm/dry Labs/Xrays [address] [address] Ph: [phone] DIAGNOSTIC IMAGING Diagnostic Imaging Report : [id number] Signed PATIENT: MARLIN MILLER ACCT: [id number] UNIT: [id number] : 1985 LOC: OVERFLOW ROOM / BED: [facility] / A AGE / SEX: 38 / F ADM STATUS: ADM IN SERVICE 1018 ORDERING PHYSICIAN: LOWELL SCHMITZ PE TEACHER PROCEDURE(s): KIDUS - KIDNEY REASON: acute renal failure ORDER NUMBER(s): [id number], ACCESSION NUMBER(s): [id number] CLINICAL INFORMATION: 38 years old, Female; acute renal failure. TECHNIQUE: Grayscale sonographic imaging of the kidneys and bladder was performed, assisted by color Doppler technique. COMPARISON: None FINDINGS: The right kidney measures 8.8 cm in length. Moderate hydronephrosis. Increased cortical echogenicity of the right kidney with cortical thickness within the range of normal. The left kidney measures 17.7 cm in length. Severe left hydronephrosis. Multiple large left renal calculi, corresponding to staghorn calculi on same day CT exam. Increased echogenicity of the left renal cortex and areas of cortical thinning. Prevoid bladder volume measured 78 mL. No bladder wall thickening or mass visualized. Reported history of bladder expansion surgery, with lobulated, irregular contour of the bladder better seen on same-day CT. Bladder wall t hickening up to 8.4 mm. IMPRESSION: 1. Markedly enlarged left kidney. 2. Bilateral hydronephrosis, left greater than right. 3. Left renal calculi. 4. Abnormal increased echogenicity of both kidneys. 5. Bladder wall thickening. 6. Additional findings as described above. ATED BY: IBAN PINO DO DICTATED DATE/TIME: 08/16/24 113 SIGNED BY: IBAN PINO DO SIGNED DATE/TIME: 08/16/24 113 CC: [place] [id number] Ph: [phone] DIAGNOSTIC IMAGING Diagnostic Imaging Report : [id number] Signed PATIENT: MARLIN MILLER ACCT: [id number] UNIT: [id number] : 1985 [facility] AGE / SEX: 38 / F ADM STATUS: ADM IN SERVICE 0729 ORDERING PHYSICIAN: CELESTINA GONZALEZ MD PROCEDURE(s): ABPL - CT AB PEL WO CON-NO ORAL OR IV REASON: right flank pain ORDER NUMBER(s): [id number], ACCESSION NUMBER(s): [id number] CLINICAL INFORMATION: 38 years old, Female; right flank pain. TECHNIQUE: Axial CT images of the abdomen and pelvis were obtained without IV contrast. Coronal and sagittal reformatted images were obtained, reviewed, and stored. Evaluation of the parenchymal organs is limited without IV contrast. Evaluation of the bowel and mesentery is limited without oral contrast. All CT scans at this medical facility are performed using dose modulation techniques as appropriate to a performed exam including the following: Automated exposure control was utilized; adjustment of the MA and/or KV according to patient size; and use of iterative reconstruction technique. CTDIvol = 7.18 mGy DLP = 393.2 mGy-cm COMPARISON: None FINDINGS: Lung bases: Lung bases are clear. Liver: Grossly unremarkable in its noncontrast enhanced appearance. No abnormal density or focal lesion identified. Biliary: No calcified gallstones or biliary ductal dilatation. Spleen: Unremarkable. Pancreas: Grossly unremarkable in its noncontrast enhanced appearance. Adrenal glands: Unremarkable. No mass. Kidneys and bladder: Markedly abnormal left kidney with markedly dilated renal collecting system and hydroureter with moderate to marked stranding adjacent to the left kidney and along the course of the left ureter. There are multiple left renal calculi, including staghorn calculi. A large staghorn calculus in the midpole of the left kidney measures up to 4.4 cm in greatest dimension. There is moderate right hydronephrosis and hydroureter with no right ureteral calculus. The bladder is lobulated and irregular in contour, and there is moderate bladder wall thickening and mild adjacent stranding. Portions of the bladder extend into the right anterior pelvis. Aorta/Vascular: No aneurysm or significant calcification. Retroperitoneum: No mass or lymphadenopathy. Bowel/mesentery: No small bowel obstruction. Appendix is visualized and appears unremarkable. Pelvic organs: Grossly unremarkable. Abdominal wall: No mass or hernia. Bones: Bilateral dislocations, with a femoral heads positioned superiorly with respect to the acetabular fossae. IMPRESSION: 1. Severe left hydronephrosis and hydroureter with moderate to marked inflammatory stranding adjacent to the left kidney and along the course of the left ureter, suspected ascending urinary tract infection in the appropriate clinical setting. Multiple left renal calculi, including staghorn calculi. No ureteral calculi are seen. Correlate with clinical findings. 2. Moderate right hydronephrosis and hydroureter with no obstructing right ureteral calculus 3. Bladder wall thickening and stranding, suspected cystitis in the appropriate clinical setting. 4. Lobulated contour of the right kidney, may be due to multiple 5. Renal lesions, although poorly delineated on noncontrast enhanced exam. 6. Bilateral hip dislocations, possibly chronic. Correlate with clinical findings. 7. Additional findings as detailed above ATED BY: IBAN PINO DO DICTATED DATE/TIME: 08/16/24 112 SIGNED BY: IBAN PINO DO SIGNED DATE/TIME: 08/16/24 112 CC: Labs Test 08/16/24 14:43 08/16/24 14:09 08/16/24 11:56 08/16/24 09:54 Range/Units Sodium Level 139 136-145 mmol/L Potassium Level 4.8 3.5-5.1 mmol/L Chloride Level 121 H 98-107 mmol/L Carbon Dioxide Level < 10 *L 20-31 mmol/L Anion Gap 8.39907 5-15 Blood Urea Nitrogen 82 *H 9-23 mg/dL Creatinine 3.90 H 0.550-1.02 mg/dL Glomerular Filtration Rate Calc 15 >90 mL/min BUN/Creatinine Ratio 21.0 H 10.0-20.0 Serum Glucose 100 74-106 mg/dL Calcium Level 8.5 L 8.7-10.4 mg/dL Total Bilirubin < 0.2 L 0.2-1.0 mg/dL Aspartate Amino Transferase (AST) 11 L 13-40 U/L Alanine Aminotransferase (ALT) < 9 7-40 U/L Alkaline Phosphatase 183 H 46-116 U/L Total Protein 7.4 5.7-8.2 g/dL Albumin 3.7 3.2-4.8 g/dL Blood Gas Specimen Type Arterial Blood Gas Sample Site Right radial Blood Gas Patient Temperature 37.0 Arterial Blood Date Drawn [id number] Arterial Blood pH 7.160 *L 7.350-7.450 Arterial Blood Partial Pressure CO2 < 12.6 *L 32.0-45.0 mmHg Arterial Blood Partial Pressure O2 117.7 H 83.0-108.0 mmHg Arterial Blood Oxygen Saturation 92.6 L 94.0-98.0 % Arterial Blood Oxyhemoglobin 92.1 L 94.0-98.0 % Arterial Blood Carboxyhemoglobin 0.5 0.5-1.5 % Arterial Blood Methemoglobin 0.0 0.0-1.5 % Geraldo Test Yes Blood Gas Total Hemoglobin 7.30 L 12.0-16.0 g/dL Blood Gas Liter Flow 0.00 Blood Gas Modality Room air FiO2 % 21.0 Blood Gas Critical Value Read Back Yes Blood Gas Notified Whom Laina henderson Blood Gas Notified Time [id number] Blood Gas Notified By antonio toure Hemoglobin A1c 4.3 <5.7 % A1C Urine Color Dark-brown Yellow Urine Clarity Ex.turbid Clear Urine pH 7.5 5.0-9.0 Urine Specific [place] 1.018 1.001-1.035 Urine Protein 2+ H Negative Urine Ketones Negative Negative Urine Blood 1+ H Negative /uL Urine Nitrite Negative Negative Urine Bilirubin Negative Negative Urine Urobilinogen Normal Negative mg/dL Urine Leukocyte Esterase 3+ Negative /uL Urine RBC 104 0 - 4 /hpf Urine WBC Clumps Present None Seen /hpf Urine Microscopic WBC 760 H 0-5 /HPF Urine Squamous Epithelial Cells None seen <5 /hpf Urine Bacteria Many H None Seen /hpf Urine Mucus Many None Seen Urine Glucose Normal Normal mg/dL Urine Test Negative Negative Test 08/16/24 07:53 Range/Units White Blood Count 17.5 H 4.4-10.8 10^3/uL Red Blood Count 3.81 L 4.0-5.20 10^6/uL Hemoglobin 8.9 L 12.2-16.2 g/dL Hematocrit 31.4 L 36.0-46.0 % Mean Corpuscular Volume 82.5 80.0-100.0 fL Mean Corpuscular Hemoglobin 23.4 L 28.0-32.0 pg Mean Corpuscular Hemoglobin Concent 28.4 L 32.0-36.0 g/dL Red Cell Distribution Width 21.6 H 11.8-14.3 % Platelet Count 749 H 140-450 10^3/uL Mean Platelet Volume 6.2 L 6.9-10.8 fL Neutrophils (%) (Auto) 92.2 H 37.0-80.0 % Lymphocytes (%) (Auto) 2.4 L 10.0-50.0 % Monocytes (%) (Auto) 4.9 0.0-12.0 % Eosinophils (%) (Auto) 0.1 0.0-7.0 % Basophils (%) (Auto) 0.4 0.0-2.0 % Neutrophils # (Auto) 16.1 H 1.6-8.6 10 ^3/uL Lymphocytes # (Auto) 0.4 0.4-5.4 10 ^3/uL Monocytes # (Auto) 0.9 0-1.3 10 ^3/uL Eosinophils # (Auto) 0 0-0.8 10 ^3/uL Basophils # (Auto) 0.1 0-0.2 10 ^3/uL Nucleated Red Blood Cells 0.2 % Platelet Estimate Increased Reticulocyte Count (auto) 1.80 H 0.5-1.5 % Lactic Acid Level 1.2 0.4-2.0 mmol/L Phosphorus Level 6.5 H 2.4-5.1 mg/dL Iron Level 28 L 50-170 ug/dL Total Iron Binding Capacity 310 250-425 ug/dL Percent Iron Saturation 9.0 L 15-50 % Ferritin 30.0 10-291 ng/mL Lactate Dehydrogenase 134 120-246 U/L Vitamin B12 Level 573 211-911 pg/mL Assessment/Plan Problem List: (1) UTI with possible pyelonephritis (2) Staghorn calculus (3) Leukocytosis (4) Nausea & vomiting (5) Sepsis (6) acute dehydration (7) Malnutrition (8) history of spina bifida (9) Acute renal failure (10) Anemia Plan NPO AFTER MIDNIGHT CONSULT ID - BROAD SPECTRUM ABX EMPIRICALLY IR CONSULTED OR BILATERAL PCN PLACEMENT MEDICAL MANAGEMENT OF OTHER CONDITIONS NEPHROLOGY RECS APPRECIATED AGREE WITH VERO FOR DECOMPRESSION AND I&OS Plan discussed with: Patient, Other TIMA MARX GOLF C[employer] MECHANIC Aug 16, 2024 18:43
[2024-08-16 20:00] VITALS: PULSE 109; RESP 20
[2024-08-16 21:00] VITALS: BP 116/80; PULSE 107; RESP 20; TEMP 98.5; O2SAT 98
[2024-08-16 21:37] LABS: Anion Gap 19 (5-15); Sodium 144 mmol/L (136-145)
[2024-08-16 21:43] LABS: BUN/Creatinine Ratio 20.1 (10.0-20.0); Glucose 80 mg/dL (74-106)
[2024-08-16 21:47] LABS: Blood Urea Nitrogen 73 mg/dL (9-23); Calcium 7.4 mg/dL (8.7-10.4); Carbon Dioxide 15 mmol/L (20-31); Chloride 110 mmol/L (98-107); Potassium 2.7 mmol/L (3.5-5.1)
[2024-08-16] MEDS: POTASSIUM CHL 20MEQ/50ML 50 ML IV SCH (23:05)
[2024-08-17] VITALS (14 sets, daily range): BP systolic 96–120; BP diastolic 65–88; PULSE 98–114; RESP 12–20; TEMP 98.2–99.2; O2SAT 94–100
[2024-08-17 06:57] LABS: Basophils # (auto) 0 10 ^3/uL (0-0.2); Basophils % (auto) 0.2 % (0.0-2.0); Eosinophils # (auto) 0 10 ^3/uL (0-0.8); Hematocrit 22.7 % (36.0-46.0); Monocytes # (auto) 0.6 10 ^3/uL (0-1.3); Nucleated Red Blood Cells % 0.1 %; Red Blood Cells 2.76 10^6/uL (4.0-5.20)
[2024-08-17 06:59] LABS: Eosinophils % (auto) 0.3 % (0.0-7.0); Lymphocytes # (auto) 0.4 10 ^3/uL (0.4-5.4); Lymphocytes % (auto) 3.5 % (10.0-50.0); Mean Corpuscular Hemoglobin 24.1 pg (28.0-32.0); Mean Corpuscular Hgb Conc. 29.4 g/dL (32.0-36.0); Mean Corpuscular Volume 82.1 fL (80.0-100.0); Monocytes % (auto) 4.9 % (0.0-12.0); Neutrophils # (auto) 10.8 10 ^3/uL (1.6-8.6); Neutrophils % (auto) 91.1 % (37.0-80.0); Platelet Count (auto) 434 10^3/uL (140-450); White Blood Cell 11.8 10^3/uL (4.4-10.8)
[2024-08-17 07:22] LABS: Anion Gap 14 (5-15); Aspartate Aminotransferase 15 U/L (13-40); BUN/Creatinine Ratio 19.8 (10.0-20.0); Glucose 87 mg/dL (74-106); Sodium 141 mmol/L (136-145)
[2024-08-17 07:24] LABS: Carbon Dioxide 18 mmol/L (20-31); Chloride 109 mmol/L (98-107); Potassium 2.7 mmol/L (3.5-5.1)
[2024-08-17 07:25] LABS: Alanine Aminotransferase 9 U/L (7-40); Albumin 2.6 g/dL (3.2-4.8); Alkaline Phosphatase 133 U/L (46-116); Bilirubin, Total < 0.2 mg/dL (0.2-1.0); Blood Urea Nitrogen 71 mg/dL (9-23); Calcium 6.1 mg/dL (8.7-10.4); Total Protein 5.2 g/dL (5.7-8.2)
[2024-08-17 07:28] LABS: Red Cell Distribution Width 21.1 % (11.8-14.3)
[2024-08-17 07:31] LABS: Hemoglobin 6.7 g/dL (12.2-16.2)
[2024-08-17] MEDS ORDERED: POTASSIUM CHL 20MEQ/100ML 100 ML IV SCH (08:30)
[2024-08-17 09:02] LABS: Triglycerides 132 mg/dL (< 150)
[2024-08-17 09:03] LABS: LDL Cholesterol 65 mg/dL (< 100)
[2024-08-17 09:04] LABS: Cholesterol 104 mg/dL (< 200)
[2024-08-17 09:05] LABS: HDL Cholesterol 21 mg/dL (40-59)
[2024-08-17 09:08] LABS: Anisocytosis Slight; Hypochromia Moderate; Platelet Estimate Adequate
[2024-08-17] MEDS: fentaNYL CITRATE 100 MCG/2 ML VL ONE (09:34)
[2024-08-17] MEDS: MIDAZOLAM HCL 2MG/2ML 2ml VIAL (1mg/ml) ONE (09:35)
[2024-08-17] MEDS: LIDOCAINE 2%HCL (LOCAL ANESTH.) INJ 20ML MDV ONE ×2 (09:35→15:08)
[2024-08-17] MEDS: POTASSIUM CHL 20MEQ/50ML 50 ML IV SCH (09:42)
[2024-08-17] MEDS: PANTOPRAZOLE 40 MG/10 ML VIAL INJ IV SCH (10:00)
[2024-08-17] MEDS: NICOTINE 14 MG/24HR TOPICAL PATCH TD SCH (10:00)
[2024-08-17 10:11] LABS: INR 1.22 (0.9-1.15); Partial Thromboplastin Time 48.1 SEC (24.5-34.5); Prothrombin Time 12.7 sec (9.3-11.8)
[2024-08-17 10:15] LABS: % Iron Saturation 169.6 % (15-50)
[2024-08-17 10:18] LABS: Folate (Folic Acid) 13.21 ng/mL (>5.38)
[2024-08-17] MEDS: MAGNESIUM SULFATE 1GM/100ML 100 ML IV ONE (10:30)
[2024-08-17] MEDS: SEVELAMER 800 MG TAB PO SCH (12:00)
[2024-08-17] MEDS ORDERED: D5W 5% IV ONE ×2 (13:00→17:30)
[2024-08-17] MEDS ORDERED: DEFEROXAMINE IV ONE ×2 (13:00→17:30)
[2024-08-17] MEDS: SODIUM BICARBONATE 650 MG TAB PO SCH (14:00)
[2024-08-17] MEDS: ONDANSETRON HCL 4 MG/2 ML VIAL ONE (15:18)
--- NOTE | 2024-08-17 16:20 | DVHPNRES ---
Progress Note Date Seen: Aug 17, 2024 Resident Creating Document: MIGUEL KRUEGER RESIDENT Medical Necessity Reason Pt with a Central, PICC or Fol: No Subjective Review of Systems Patient is a 38-year-old female with past medical history of paraplegia, staghorn renal calculi, hydronephrosis, status post bladder expansion, tobacco and marijuana use who came to the hospital with a chief complaint of generalized abdominal pain which was mainly located in the suprapubic area radiating to right and upper quadrant abdominal pain. With further evaluation patient found to have urinary infection with bilateral renal calculi, status post nephrostomy tube, received a IV iron, Lasix to IV iron overload. No any other new complaints. ROS Eyes: No Pain, No Vision change, No Conjunctivae inflammation, No Eyelid inflammation, No Other, No Redness ENT: No Ear pain, No Ear discharge, No Nose pain, No Nose discharge, No Nose congestion, No Mouth pain, No Mouth swelling, No Throat pain, No Throat swelling, No Other Cardiovascular: No Chest Pain, No Palpitations, No Orthopnea, No Paroxysmal Noc. Dyspnea, No Edema, No Lt Headedness, No Other Respiratory: No Cough, No Dry, No Shortness of breath, No SOB with excertion, No Wheezing, No Hemoptysis, No Pleuritic Pain, No Sputum, No Other Gastrointestinal: No Nausea, Vomiting, Abdominal Pain, No Diarrhea, No Constipation, No Melena, No Hematochezia, No Other Genitourinary: Dysuria, No Frequency, No Incontinence, No Hematuria, No Retention, No Other Musculoskeletal: No other, No neck pain, No shoulder pain, No arm pain, No back pain, No hand pain, No leg pain, No foot pain Skin: No Rash, No Lesions, No Jaundice, No Bruising, No Other Objective vital signs Vital Sign Date Time Temp Pulse Resp B/P (MAP) Pulse Ox O2 Delivery O2 Flow Rate FiO2 08/17/24 11:48 111 15 96/66 (76) 95 08/17/24 09:00 98.6 98.6 08/17/24 08:00 Room Air* 0 21 Total Intake and Output 08/16/24 08/16/24 08/17/24 14:59 22:59 06:59 Intake Total 1750.0 ml 610 ml 1450 ml Output Total 300 ml 450 ml 1550 ml Balance 1450.0 ml 160 ml -100 ml medications Current Medications Medications Dose Ordered Sig/Leeanne Route Start Time Stop Time Status Last Admin Dose Admin Cefepime HCl 50 ml @ 12.5 mls/hr DAILY IV 08/16/24 10:15 08/16/24 10:18 12.5 MLS/HR Acetaminophen/ Hydrocodone Bitart 1 tab Q4HP PRN PO 08/16/24 10:30 08/17/24 03:30 1 TAB Ondansetron HCl 4 mg Q4HP PRN IV 08/16/24 10:30 08/17/24 11:46 4 MG Acetaminophen 650 mg Q6HP PRN PO 08/16/24 10:30 Morphine Sulfate 2 mg Q4HPRN PRN IV 08/16/24 10:30 08/17/24 01:53 2 MG Hydralazine HCl 10 mg Q6HP PRN IV 08/16/24 10:30 Nicotine 1 patch DAILY TD 08/17/24 10:00 Lactated Ringer's 1,000 ml @ 150 mls/hr Q6H40M IV 08/16/24 18:00 08/17/24 02:27 150 MLS/HR Pantoprazole Sodium 40 mg DAILY IV 08/17/24 10:00 Sevelamer HCl 800 mg TIDWM PO 08/17/24 12:00 Sodium Bicarbonate 650 mg TID PO 08/17/24 14:00 Potassium Chloride 100 ml @ 50 mls/hr Q2H IV 08/17/24 08:30 08/17/24 12:29 UNV Ergocalciferol 50,000 unit Q7D PO 08/17/24 12:00 Examination General Appearance: Cooperative. Well developed. Well nourished. NAD Head Exam: Normal inspection Neck Exam: Normal inspection. Non-tender. Normal alignment Pulmonary/Respiratory: Chest non-tender. Clear bilateral breath sounds Cardiovascular/Chest: Regular rate and rhythm. No murmurs. No JVD. Peripheral Pulses: 2+ Radial (R). 2+ Radial (L). 2+ Pedal (R). 2+ Pedal (L) Abdominal Exam: Normal bowel sounds. Soft. Nontender. No hepatosplenomegaly. No masses Ankle Exam: Negative ankle edema Lower extremities: Negative lower extremity edema Neuro/Mental Status: A&O x4. Coherent, paraplegia Thoughts/Psych: Normal thought pattern. Appropriate mood and affect. Good judgement and insight Appearance: In no acute distress Skin Exam: Normal inspection. Normal color. Warm. Dry laboratory and microbiology Laboratory Tests 08/17/24 06:33 Test 08/17/24 06:33 Range/Units Serum Glucose 87 74-106 mg/dL Microbiology Date/Time Source Procedure Growth Status 08/16/24 10:05 Blood Blood Culture - Preliminary NO GROWTH AFTER 24 HOURS OF INCUBATION. Resulted 08/16/24 09:54 Voided Urine Urine Culture - Preliminary Resulted Labs and/or images reviewed: Labs reviewed by me, Image(s) reviewed by me Problem List/Assessment/Plan Problem List/Assessment/Plan Sepsis due to UTI -IV cefepime -IV LR 150 mL/hour -pending urine culture -urologic consultation: Plan for bilateral nephrostomy ultrasound-guided -radiologic consultation has been done Acute complication or cystitis -see the management of sepsis Hematuria likely due to above -Continue with ABx JOSE likely related to hemodynamically mediated and obstruction with CKD unknown stage -continue monitor kidney function, status post Marte insertion -CT scan showed bilateral renal calculi with hydronephrosis. -continue IV fluid -trend kidney function -follow nephrology recommendation Metabolic acidosis due to CKD -sodium bicarbonate Left-sided staghorn calculi with moderate hydronephrosis -as per urology Moderate right hydronephrosis and hydroureter -as per Neurology Severe anemia of chronic disease, status post IV iron load -received 5 bags of IV iron, status post deferoxamine -repeat Iron panel Chronic bilateral hip dislocation -Stable History of spina bifida with Paraplegia -Stable Hypomagnesemia -IV mag Hypokalemia -IV potassium 40 meq Hyperphosphatemia -sevelamer 800 mg p.o. t.i.d. Vitamin-D deficiency -Vitamin d 50,000 IU every week once Marijuana use disorder -counseled on cessation for 16 minutes PUD prophylaxis with Protonix Goals of care discussion for 20 minutes, full code status. Plan discussed with Dr. Howell Plan discussed with: Patient, Other (RN; mother) My Orders My Orders Orders - MIGUEL KRUEGER Procedure Category Date Status Time Stool Occult Blood LAB 08/17/24 Logged 07:57 Type And Screen BBK 08/17/24 In Process 07:57 Pantoprazole PHA 08/17/24 In Process (Protonix) 10:00 Sevelamer (Renagel) PHA 08/17/24 In Process 12:00 Sodium Bicarb Tab PHA 08/17/24 In Process 14:00 Drug Screen LAB 08/17/24 Logged 08:34 Ergocalciferol PHA 08/17/24 In Process (Vitamin D 50,000 12:00 Comprehensive LAB 08/17/24 Logged Metabolic Panel 13:09 Addendum Addendum Addendum I was physically present for the avendano portions of the service provided to patient by THE RESIDENT. I have reviewed the documentation, discussed the case with resident and agree with the resident's documentation except as noted. Also the patient's clinical case was discussed with the patient's nurse. This medical document was created using an electronic medical record system with computerized dictation system. Although this document has been carefully reviewed, there might still be some phonetic and typographical errors. These areas are purely typographical due to imperfections of the software programs, and do not reflect any compromise in the patient's medical care. Late signature. Date of Service: Aug 17, 2024 Billing Provider: DEBORAH HOWELL MD Common Visit Codes: [id number] INP/OBS CARE(HIGH) Secondary Visit Codes: 65318-[id number] CHNG SMOKING >10MIN (Counseled on marijuana use cessation for 16 minutes), [id number] CARE PLAN 30 MINUTES (20 minutes) MIGUEL KRUEGER RESIDENT Aug 17, 2024 16:20 DEBORAH HOWELL MD Aug 19, 2024 06:09
[2024-08-17] MEDS: ERGOCALCIFEROL 50,000 UNIT(1.25MG) CAP PO SCH (17:52)
--- NOTE | 2024-08-17 18:50 | DVHPN2 ---
Progress Note Date Seen: Aug 17, 2024 Medical Necessity Reason Pt with a Central, PICC or Fol: No Subjective Patient reports: No new complaints Review of Systems: Deferred Objective vital signs Vital Sign Date Time Temp Pulse Resp B/P (MAP) Pulse Ox O2 Delivery O2 Flow Rate FiO2 08/17/24 18:48 106 20 107/65 08/17/24 16:58 99 08/17/24 16:48 98.8 98.8 08/17/24 08:00 Room Air* 0 21 Total Intake and Output 08/16/24 08/16/24 08/17/24 15:00 23:00 07:00 Intake Total 1750.0 ml 610 ml 1450 ml Output Total 300 ml 450 ml 1550 ml Balance 1450.0 ml 160 ml -100 ml medications Current Medications Medications Dose Ordered Sig/Leeanne Route Start Time Stop Time Status Last Admin Dose Admin Cefepime HCl 50 ml @ 12.5 mls/hr DAILY IV 08/16/24 10:15 08/16/24 10:18 12.5 MLS/HR Acetaminophen/ Hydrocodone Bitart 1 tab Q4HP PRN PO 08/16/24 10:30 08/17/24 16:57 1 TAB Ondansetron HCl 4 mg Q4HP PRN IV 08/16/24 10:30 08/17/24 11:46 4 MG Acetaminophen 650 mg Q6HP PRN PO 08/16/24 10:30 Morphine Sulfate 2 mg Q4HPRN PRN IV 08/16/24 10:30 08/17/24 18:48 2 MG Hydralazine HCl 10 mg Q6HP PRN IV 08/16/24 10:30 Nicotine 1 patch DAILY TD 08/17/24 10:00 Lactated Ringer's 1,000 ml @ 150 mls/hr Q6H40M IV 08/16/24 18:00 08/17/24 02:27 150 MLS/HR Pantoprazole Sodium 40 mg DAILY IV 08/17/24 10:00 Sevelamer HCl 800 mg TIDWM PO 08/17/24 12:00 08/17/24 17:53 800 MG Sodium Bicarbonate 650 mg TID PO 08/17/24 14:00 Potassium Chloride 100 ml @ 50 mls/hr Q2H IV 08/17/24 08:30 08/17/24 12:29 UNV Ergocalciferol 50,000 unit Q7D PO 08/17/24 12:00 08/17/24 17:52 50,000 UNIT Examination: GENERAL:Normal, LUNGS:Normal, MSK:Abnormal, NEURO:Normal, :Abnormal laboratory and microbiology Laboratory Tests 08/17/24 06:33 Test 08/17/24 06:33 Range/Units Serum Glucose 87 74-106 mg/dL Microbiology Date/Time Source Procedure Growth Status 08/16/24 10:05 Blood Blood Culture - Preliminary NO GROWTH AFTER 24 HOURS OF INCUBATION. Resulted 08/16/24 09:54 Voided Urine Urine Culture - Preliminary Resulted Problem List/Assessment/Plan Problem List/Assessment/Plan Acute kidney injury multifactorial in the setting of prerenal sepsis as well as chronic obstruction Chronic kidney disease due to chronic urinary retention however baseline is unknown Sepsis secondary to urinary tract infection Metabolic acidosis Paraplegia and spina bifida Anemia due to iron deficiency s/p iron overload and desferoxime recs today pcnt uop + will f/u Plan discussed with: Patient, Other (mom) HAYLIE GRAY MD Aug 17, 2024 18:50
[2024-08-17] MEDS: DEFEROXAMINE IV ONE (21:56)
[2024-08-17] MEDS: D5W 5% IV ONE (21:56)
[2024-08-17 22:05] LABS: Basophils # (auto) 0 10 ^3/uL (0-0.2); Basophils % (auto) 0.2 % (0.0-2.0); Eosinophils # (auto) 0 10 ^3/uL (0-0.8); Lymphocytes # (auto) 0.4 10 ^3/uL (0.4-5.4); Lymphocytes % (auto) 3.6 % (10.0-50.0); Monocytes # (auto) 0.5 10 ^3/uL (0-1.3); Monocytes % (auto) 4.8 % (0.0-12.0); Neutrophils # (auto) 10.1 10 ^3/uL (1.6-8.6); Neutrophils % (auto) 91.4 % (37.0-80.0); White Blood Cell 11.1 10^3/uL (4.4-10.8)
[2024-08-17 22:06] LABS: Hematocrit 26.3 % (36.0-46.0); Hemoglobin 8.3 g/dL (12.2-16.2); Mean Corpuscular Hemoglobin 25.3 pg (28.0-32.0); Mean Corpuscular Hgb Conc. 31.5 g/dL (32.0-36.0); Mean Corpuscular Volume 80.5 fL (80.0-100.0); Nucleated Red Blood Cells % 0.1 %; Platelet Count (auto) 402 10^3/uL (140-450); Red Blood Cells 3.27 10^6/uL (4.0-5.20)
[2024-08-17 22:07] LABS: Red Cell Distribution Width 20.8 % (11.8-14.3)
[2024-08-17 22:13] LABS: Potassium 3.9 mmol/L (3.5-5.1); Sodium 143 mmol/L (136-145)
[2024-08-17 22:14] LABS: Anion Gap 14 (5-15)
[2024-08-17 22:19] LABS: BUN/Creatinine Ratio 17.6 (10.0-20.0); Glucose 95 mg/dL (74-106)
[2024-08-17 22:22] LABS: Blood Urea Nitrogen 65 mg/dL (9-23); Calcium 6.7 mg/dL (8.7-10.4); Carbon Dioxide 20 mmol/L (20-31); Chloride 109 mmol/L (98-107)
[2024-08-18] VITALS (9 sets, daily range): BP systolic 101–120; BP diastolic 64–76; PULSE 105–118; RESP 16–20; TEMP 98.4–100.5; O2SAT 93–96
[2024-08-18 06:28] LABS: Basophils # (auto) 0 10 ^3/uL (0-0.2); Basophils % (auto) 0.1 % (0.0-2.0); Eosinophils # (auto) 0 10 ^3/uL (0-0.8); Eosinophils % (auto) 0.1 % (0.0-7.0); Hemoglobin 7.8 g/dL (12.2-16.2); Lymphocytes # (auto) 0.3 10 ^3/uL (0.4-5.4); Platelet Count (auto) 357 10^3/uL (140-450); White Blood Cell 7.2 10^3/uL (4.4-10.8)
[2024-08-18 06:32] LABS: Hematocrit 24.9 % (36.0-46.0); Lymphocytes % (auto) 4.4 % (10.0-50.0); Mean Corpuscular Hemoglobin 25.2 pg (28.0-32.0); Mean Corpuscular Hgb Conc. 31.3 g/dL (32.0-36.0); Mean Corpuscular Volume 80.3 fL (80.0-100.0); Monocytes # (auto) 0.3 10 ^3/uL (0-1.3); Monocytes % (auto) 4.4 % (0.0-12.0); Neutrophils # (auto) 6.6 10 ^3/uL (1.6-8.6); Nucleated Red Blood Cells % 0.1 %; Red Cell Distribution Width 21.3 % (11.8-14.3)
[2024-08-18 06:56] LABS: % Iron Saturation 21.3 % (15-50)
[2024-08-18] MEDS: MAGNESIUM SULFATE 1GM/100ML 100 ML IV SCH (08:40)
--- NOTE | 2024-08-18 09:02 | ECG ---
[facility] Test Date: 2024-08-18 Test Time: 09:01:00 Pat Name: MARLIN MILLER Department: Respiratoy Room: 0240 A Gender: F Substitute Teacher: EDITH : 1985 Requested By: MIGUEL KRUEGER Order Number: [id number] Reading MD: Collin Santamaria Measurements Intervals [place] Rate: 113 P: 49 [place]: 116 QRS: 44 QRSD: 92 T: 40 QT: 386 QTc: 530 Interpretive Statements Sinus tachycardia Prolonged QT interval Electronically Signed On 08-19-2024 15:52:31 PDT by Collin Santamaria Please click the below link to view image of tracing.
[2024-08-18] MEDS: PROCHLORPERAZINE EDISYLATE 5 MG/ML 2ML VIAL IV ONE (10:50)
--- NOTE | 2024-08-18 10:50 | DVH ---
XY PERCUTANEOUS NEPHROSTOMY, HISTORY: NEPH TUBE PROCEDURE: Informed consent was obtained. The patient was placed on the fluoroscopic table in a prone position and IV sedation administered. The bilateral flank was prepped with chlorhexidine which was allowed to dry and draped in the usual sterile fashion. Time out was performed. and the soft tissues infiltrated with 1% lidocaine local anesthetic. Utilizing ultrasound guidance, a 21 gauge Accu Stick needle was advanced from a posterolateral approach into an left upper pole calyx, and a small amount of contrast was injected under fluoroscopy to confirm positioning. Over a mandril wire, exchange was made to a non-vascular access set, through which was advanced an 0.035 wire. Following serial dilatio n, an 8.5 Latvian multipurpose nephrostomy catheter was placed with tip pigtailed within the renal pel vis. Position was confirmed with antegrade nephrostogram. The catheter was secured in place and conne cted to gravity drainage. Utilizing ultrasound guidance, a 21 gauge Accu Stick needle was advanced from a posterolateral approa ch into an right lower pole calyx, and a small amount of contrast was injected under fluoroscopy to c onfirm positioning. Over a mandril wire, exchange was made to a non-vascular access set, through whic h was advanced an 0.035 wire. Following serial dilation, an 8.[address] [place]vian multipurpose nephrost[address] was placed with tip pigtailed within the renal pelvis. Position was confirmed with antegrade neph rostogram. The catheter was secured in place and connected to gravity drainage. A sterile dressing wa s applied. No immediate complication was identified. DAP 832 FLUOROSCOPY TIME: 6.2 minutes. CONTRAST USED: 20 mL . SEDATION: Dr. Daphnie Rao was personally responsible for the administration of moderate sedation during the procedure performed, including the use of an independent trained observer who had no other duties during the procedure. The drugs utilized were IV fentanyl and versed (see nursing log for details). The total time of supervision by the attending physician was approximately 60 minutes. FINDINGS: Moderately dilated left renal collecting system with debris and foul urine. Placement of th e left-sided nephrostomy tube into the renal pelvis. Severely dilated right renal collecting system w ith placement of a right-sided nephrostomy tube into the renal pelvis. IMPRESSION: Moderately dilated left renal collecting system with debris and foul urine. A sample is collected for analysis. Placement of the left-sided nephrostomy tube into the renal pelvis. Severely dilated right renal collecting system with placement of a right-sided nephrostomy tube into the renal pelvis. PLAN: Routine catheter care. Routine catheter exchanges every 3 months.
--- NOTE | 2024-08-18 14:33 | DVHPNRES ---
Progress Note Date Seen: Aug 18, 2024 Resident Creating Document: MIGUEL KRUEGER RESIDENT Medical Necessity Reason Pt with a Central, PICC or Fol: No Subjective Review of Systems Patient is a 38-year-old female with past medical history of paraplegia, staghorn renal calculi, hydronephrosis, status post bladder expansion, tobacco and marijuana use who came to the hospital with a chief complaint of generalized abdominal pain which was mainly located in the suprapubic area radiating to right and upper quadrant abdominal pain. With further evaluation patient found to have urinary infection with bilateral renal calculi, status post nephrostomy tube, received a IV iron, IV iron overload. No any other new complaints. S/P nephrostomy tube bilateral. Clear urine drained from right nephrostomy, hematuria from left nephrostomy tube. Pain from the same lab nephrostomy tube. Denying any other complaints. ROS Eyes: No Pain, No Vision change, No Conjunctivae inflammation, No Eyelid inflammation, No Other, No Redness ENT: No Ear pain, No Ear discharge, No Nose pain, No Nose discharge, No Nose congestion, No Mouth pain, No Mouth swelling, No Throat pain, No Throat swelling, No Other Cardiovascular: No Chest Pain, No Palpitations, No Orthopnea, No Paroxysmal Noc. Dyspnea, No Edema, No Lt Headedness, No Other Respiratory: No Cough, No Dry, No Shortness of breath, No SOB with excertion, No Wheezing, No Hemoptysis, No Pleuritic Pain, No Sputum, No Other Gastrointestinal: No Nausea, Vomiting, Abdominal Pain, No Diarrhea, No Constipation, No Melena, No Hematochezia, No Other Genitourinary: Dysuria, No Frequency, No Incontinence, No Hematuria, No Retention, No Other Musculoskeletal: No other, No neck pain, No shoulder pain, No arm pain, No back pain, No hand pain, No leg pain, No foot pain Skin: No Rash, No Lesions, No Jaundice, No Bruising, No Other Objective vital signs Vital Sign Date Time Temp Pulse Resp B/P (MAP) Pulse Ox O2 Delivery O2 Flow Rate FiO2 08/18/24 13:00 99.4 112 19 110/68 (82) 94 99.4 08/18/24 08:00 Room Air* 0 21 Total Intake and Output 08/17/24 08/17/24 08/18/24 15:00 23:00 07:00 Intake Total 350 ml 250 ml Output Total 800 ml 750 ml Balance -450 ml -500 ml medications Current Medications Medications Dose Ordered Sig/Leeanne Route Start Time Stop Time Status Last Admin Dose Admin Cefepime HCl 50 ml @ 12.5 mls/hr DAILY IV 08/16/24 10:15 08/18/24 12:00 12.5 MLS/HR Acetaminophen/ Hydrocodone Bitart 1 tab Q4HP PRN PO 08/16/24 10:30 08/18/24 05:03 1 TAB Ondansetron HCl 4 mg Q4HP PRN IV 08/16/24 10:30 Hold 08/18/24 01:31 4 MG Acetaminophen 650 mg Q6HP PRN PO 08/16/24 10:30 Morphine Sulfate 2 mg Q4HPRN PRN IV 08/16/24 10:30 08/18/24 09:12 2 MG Hydralazine HCl 10 mg Q6HP PRN IV 08/16/24 10:30 Nicotine 1 patch DAILY TD 08/17/24 10:00 08/18/24 08:41 1 PATCH Lactated Ringer's 1,000 ml @ 150 mls/hr Q6H40M IV 08/16/24 18:00 08/18/24 05:03 150 MLS/HR Pantoprazole Sodium 40 mg DAILY IV 08/17/24 10:00 08/18/24 08:40 40 MG Sevelamer HCl 800 mg TIDWM PO 08/17/24 12:00 08/18/24 12:08 800 MG Sodium Bicarbonate 650 mg TID PO 08/17/24 14:00 08/18/24 14:01 650 MG Potassium Chloride 100 ml @ 50 mls/hr Q2H IV 08/17/24 08:30 08/17/24 12:29 UNV Ergocalciferol 50,000 unit Q7D PO 08/17/24 12:00 08/17/24 17:52 50,000 UNIT Prochlorperazine Edisylate 5 mg Q4HPRN PRN IV 08/18/24 13:00 Examination General Appearance: Cooperative. Well developed. Well nourished. NAD Head Exam: Normal inspection Neck Exam: Normal inspection. Non-tender. Normal alignment Pulmonary/Respiratory: Chest non-tender. Clear bilateral breath sounds Cardiovascular/Chest: Regular rate and rhythm. No murmurs. No JVD. Peripheral Pulses: 2+ Radial (R). 2+ Radial (L). 2+ Pedal (R). 2+ Pedal (L) Abdominal Exam: Bilateral nephrostomy tube in place; normal bowel sounds. Soft. Nontender. No hepatosplenomegaly. No masses Ankle Exam: Negative ankle edema Lower extremities: Negative lower extremity edema with sub-grown lower extremities Neuro/Mental Status: A&O x4. Coherent, paraplegia Thoughts/Psych: Normal thought pattern. Appropriate mood and affect. Good judgement and insight Appearance: In no acute distress Skin Exam: Normal inspection. Normal color. Warm. Dry laboratory and microbiology Laboratory Tests 08/18/24 05:36 08/17/24 21:51 Test 08/17/24 21:51 Range/Units Serum Glucose 95 74-106 mg/dL Microbiology Date/Time Source Procedure Growth Status 08/16/24 10:05 Blood Blood Culture - Preliminary NO GROWTH AFTER 48 HOURS OF INCUBATION. Resulted 08/16/24 09:54 Voided Urine Urine Culture - Final Complete Labs and/or images reviewed: Labs reviewed by me, Image(s) reviewed by me Problem List/Assessment/Plan Problem List/Assessment/Plan Sepsis due to UTI -IV cefepime -IV LR 150 mL/hour -pending urine culture -urologic consultation: Plan for bilateral nephrostomy ultrasound-guided -radiologic consultation has been done Acute complication or cystitis -see the management of sepsis Hematuria likely due to above -Continue with ABx JOSE likely related to hemodynamically mediated and obstruction with CKD unknown stage -continue monitor kidney function, status post Marte insertion -CT scan showed bilateral renal calculi with hydronephrosis. -continue IV fluid -trend kidney function -follow nephrology recommendation Metabolic acidosis due to CKD -sodium bicarbonate Left-sided staghorn calculi with moderate hydronephrosis -as per urology Moderate right hydronephrosis and hydroureter -as per Neurology Severe anemia of chronic disease, status post IV iron load -received 5 bags of IV iron, status post deferoxamine -repeat Iron panel Chronic bilateral hip dislocation -Stable History of spina bifida with Paraplegia -Stable Hypomagnesemia -IV mag Hypokalemia -IV potassium 40 meq Hyperphosphatemia -sevelamer 800 mg p.o. t.i.d. Vitamin-D deficiency -Vitamin d 50,000 IU every week once Sinus tachycardia with QTC prolongation -Continue monitor Marijuana use disorder -counseled on cessation PUD prophylaxis with Protonix Plan discussed with Dr. Howell Plan discussed with: Patient, Other (RN) My Orders My Orders Orders - MIGUEL KRUEGER RESIDENT Procedure Category Date Status Time Prochlorperazine Inj PHA 08/18/24 In Process (Compazine Inj) 13:00 Addendum Addendum Addendum I was physically present for the avendano portions of the service provided to patient by THE RESIDENT. I have reviewed the documentation, discussed the case with resident and agree with the resident's documentation except as noted. Also the patient's clinical case was discussed with the patient's nurse. This medical document was created using an electronic medical record system with computerized dictation system. Although this document has been carefully reviewed, there might still be some phonetic and typographical errors. These areas are purely typographical due to imperfections of the software programs, and do not reflect any compromise in the patient's medical care. Late signature. Date of Service: Aug 18, 2024 Billing Provider: DEBORAH HOWELL MD Common Visit Codes: [id number] INP/OBS CARE(HIGH) MIGUEL KRUEGER RESIDENT Aug 18, 2024 14:33 DEBORAH HOWELL MD Aug 19, 2024 06:12
--- NOTE | 2024-08-18 19:01 | DVHPN2 ---
Progress Note Date Seen: Aug 18, 2024 Medical Necessity Reason Pt with a Central, PICC or Fol: Yes Subjective Patient reports: Other (pain left side pcnt site) Objective vital signs Vital Sign Date Time Temp Pulse Resp B/P (MAP) Pulse Ox O2 Delivery O2 Flow Rate FiO2 08/18/24 18:38 100.1 100.1 08/18/24 17:00 118 16 116/68 (84) 96 08/18/24 08:00 Room Air* 0 21 Total Intake and Output 08/17/24 08/17/24 08/18/24 15:00 23:00 07:00 Intake Total 350 ml 250 ml Output Total 800 ml 750 ml Balance -450 ml -500 ml medications Current Medications Medications Dose Ordered Sig/Leeanne Route Start Time Stop Time Status Last Admin Dose Admin Cefepime HCl 50 ml @ 12.5 mls/hr DAILY IV 08/16/24 10:15 08/18/24 12:00 12.5 MLS/HR Acetaminophen/ Hydrocodone Bitart 1 tab Q4HP PRN PO 08/16/24 10:30 08/18/24 05:03 1 TAB Ondansetron HCl 4 mg Q4HP PRN IV 08/16/24 10:30 Hold 08/18/24 01:31 4 MG Acetaminophen 650 mg Q6HP PRN PO 08/16/24 10:30 Morphine Sulfate 2 mg Q4HPRN PRN IV 08/16/24 10:30 08/18/24 09:12 2 MG Hydralazine HCl 10 mg Q6HP PRN IV 08/16/24 10:30 Nicotine 1 patch DAILY TD 08/17/24 10:00 08/18/24 08:41 1 PATCH Lactated Ringer's 1,000 ml @ 150 mls/hr Q6H40M IV 08/16/24 18:00 08/18/24 17:36 150 MLS/HR Pantoprazole Sodium 40 mg DAILY IV 08/17/24 10:00 08/18/24 08:40 40 MG Sevelamer HCl 800 mg TIDWM PO 08/17/24 12:00 08/18/24 17:36 800 MG Sodium Bicarbonate 650 mg TID PO 08/17/24 14:00 08/18/24 14:01 650 MG Potassium Chloride 100 ml @ 50 mls/hr Q2H IV 08/17/24 08:30 08/17/24 12:29 UNV Ergocalciferol 50,000 unit Q7D PO 08/17/24 12:00 08/17/24 17:52 50,000 UNIT Prochlorperazine Edisylate 5 mg Q4HPRN PRN IV 08/18/24 13:00 laboratory and microbiology Laboratory Tests 08/18/24 05:36 08/17/24 21:51 Test 08/17/24 21:51 Range/Units Serum Glucose 95 74-106 mg/dL Microbiology Date/Time Source Procedure Growth Status 08/16/24 10:05 Blood Blood Culture - Preliminary NO GROWTH AFTER 48 HOURS OF INCUBATION. Resulted 08/16/24 09:54 Voided Urine Urine Culture - Final Complete Problem List/Assessment/Plan Problem List/Assessment/Plan Acute kidney injury multifactorial in the setting of prerenal sepsis as well as chronic obstruction Chronic kidney disease due to chronic urinary retention however baseline is unknown Sepsis secondary to urinary tract infection Metabolic acidosis Paraplegia and spina bifida Anemia due to iron deficiency s/p iron overload and desferoxime recs s/p b/l pcnt uop + will f/u Plan discussed with: Patient HAYLIE GRAY MD Aug 18, 2024 19:01
[2024-08-18] MEDS: LACTATED RINGER'S 1,000 ML IV SCH (19:15)
[2024-08-18] MEDS: MELATONIN 5 MG TAB PO ONE (22:10)
[2024-08-19] VITALS (9 sets, daily range): BP systolic 106–121; BP diastolic 68–80; PULSE 70–115; RESP 15–19; TEMP 98.1–99.1; O2SAT 93–98
[2024-08-19] MEDS: PROCHLORPERAZINE EDISYLATE 5 MG/ML 2ML VIAL IV PRN (05:24)
[2024-08-19 06:07] LABS: Basophils # (auto) 0 10 ^3/uL (0-0.2); Basophils % (auto) 0.2 % (0.0-2.0); Eosinophils # (auto) 0 10 ^3/uL (0-0.8); Eosinophils % (auto) 0.5 % (0.0-7.0); Hematocrit 24.6 % (36.0-46.0); Hemoglobin 7.7 g/dL (12.2-16.2); Lymphocytes # (auto) 0.4 10 ^3/uL (0.4-5.4); Lymphocytes % (auto) 4.8 % (10.0-50.0); Mean Corpuscular Hemoglobin 24.8 pg (28.0-32.0); Mean Corpuscular Hgb Conc. 31.1 g/dL (32.0-36.0); Mean Corpuscular Volume 79.7 fL (80.0-100.0); Monocytes # (auto) 0.7 10 ^3/uL (0-1.3); Monocytes % (auto) 8.8 % (0.0-12.0); Neutrophils # (auto) 6.6 10 ^3/uL (1.6-8.6); Neutrophils % (auto) 85.7 % (37.0-80.0); Nucleated Red Blood Cells % 0.1 %; Platelet Count (auto) 334 10^3/uL (140-450); Red Blood Cells 3.09 10^6/uL (4.0-5.20); Red Cell Distribution Width 20.7 % (11.8-14.3); White Blood Cell 7.7 10^3/uL (4.4-10.8)
[2024-08-19 06:15] LABS: Chloride 103 mmol/L (98-107)
[2024-08-19 06:20] LABS: Carbon Dioxide 21 mmol/L (20-31)
[2024-08-19 06:26] LABS: BUN/Creatinine Ratio 15.4 (10.0-20.0); Glucose 102 mg/dL (74-106); Magnesium 1.7 mg/dL (1.6-2.6)
[2024-08-19 06:33] LABS: Blood Urea Nitrogen 55 mg/dL (9-23); Calcium 7.7 mg/dL (8.7-10.4); Potassium 2.9 mmol/L (3.5-5.1)
[2024-08-19 06:37] LABS: Anion Gap 10 (5-15); Sodium 134 mmol/L (136-145)
[2024-08-19] MEDS: MAGNESIUM OXIDE 400 MG TAB PO ONE (08:24)
--- NOTE | 2024-08-19 13:25 | DVHPNRES ---
Progress Note Date Seen: Aug 19, 2024 Resident Creating Document: MIGUEL KRUEGER RESIDENT Medical Necessity Reason Pt with a Central, PICC or Fol: Yes Subjective Review of Systems Patient is a 38-year-old female with past medical history of paraplegia, staghorn renal calculi, hydronephrosis, status post bladder expansion, tobacco and marijuana use who came to the hospital with a chief complaint of generalized abdominal pain which was mainly located in the suprapubic area radiating to right and upper quadrant abdominal pain. With further evaluation patient found to have urinary infection with bilateral renal calculi, status post nephrostomy tube, received a IV iron, IV iron overload. No any other new complaints. S/P nephrostomy tube bilateral. Draining both nephrostomy tubes, also presence of urine in urinary bag with Marte catheter. Patient's abdominal pain is improving. Able to tolerate water and diet. Denying any other complaints . No fever, no chills, no nausea, no vomiting. ROS: Eyes: No Pain, No Vision change, No Conjunctivae inflammation, No Eyelid inflammation, No Other, No Redness ENT: No Ear pain, No Ear discharge, No Nose pain, No Nose discharge, No Nose congestion, No Mouth pain, No Mouth swelling, No Throat pain, No Throat swelling, No Other Cardiovascular: No Chest Pain, No Palpitations, No Orthopnea, No Paroxysmal Noc. Dyspnea, No Edema, No Lt Headedness, No Other Respiratory: No Cough, No Dry, No Shortness of breath, No SOB with excertion, No Wheezing, No Hemoptysis, No Pleuritic Pain, No Sputum, No Other Gastrointestinal: No Nausea, Vomiting, Abdominal Pain, No Diarrhea, No Constipation, No Melena, No Hematochezia, No Other Genitourinary: Dysuria, No Frequency, No Incontinence, No Hematuria, No Retention, No Other Musculoskeletal: No other, No neck pain, No shoulder pain, No arm pain, No back pain, No hand pain, No leg pain, No foot pain Skin: No Rash, No Lesions, No Jaundice, No Bruising, No Other Objective vital signs Vital Sign Date Time Temp Pulse Resp B/P (MAP) Pulse Ox O2 Delivery O2 Flow Rate FiO2 08/19/24 09:00 98.6 70 17 108/80 (89) 96 98.6 08/19/24 08:00 Room Air* 0 21 Total Intake and Output 08/18/24 08/18/24 08/19/24 15:00 23:00 07:00 Intake Total 100 ml 50 ml 400 ml Output Total 350 ml 1050 ml 2150 ml Balance -250 ml -1000 ml -1750 ml medications Current Medications Medications Dose Ordered Sig/Leeanne Route Start Time Stop Time Status Last Admin Dose Admin Cefepime HCl 50 ml @ 12.5 mls/hr DAILY IV 08/16/24 10:15 08/19/24 08:23 12.5 MLS/HR Acetaminophen/ Hydrocodone Bitart 1 tab Q4HP PRN PO 08/16/24 10:30 08/19/24 05:24 1 TAB Acetaminophen 650 mg Q6HP PRN PO 08/16/24 10:30 Morphine Sulfate 2 mg Q4HPRN PRN IV 08/16/24 10:30 08/18/24 09:12 2 MG Hydralazine HCl 10 mg Q6HP PRN IV 08/16/24 10:30 Nicotine 1 patch DAILY TD 08/17/24 10:00 08/19/24 08:24 1 PATCH Pantoprazole Sodium 40 mg DAILY IV 08/17/24 10:00 08/19/24 08:22 40 MG Sevelamer HCl 800 mg TIDWM PO 08/17/24 12:00 08/19/24 12:00 800 MG Sodium Bicarbonate 650 mg TID PO 08/17/24 14:00 08/19/24 05:02 650 MG Potassium Chloride 100 ml @ 50 mls/hr Q2H IV 08/17/24 08:30 08/17/24 12:29 UNV Ergocalciferol 50,000 unit Q7D PO 08/17/24 12:00 08/17/24 17:52 50,000 UNIT Prochlorperazine Edisylate 5 mg Q4HPRN PRN IV 08/18/24 13:00 08/19/24 10:28 5 MG Lactated Ringer's 1,000 ml @ 75 mls/hr [id number] IV 08/18/24 19:15 08/19/24 05:02 75 MLS/HR Examination General Appearance: Cooperative. Well developed. Well nourished. NAD Head Exam: Normal inspection Neck Exam: Normal inspection. Non-tender. Normal alignment Pulmonary/Respiratory: Chest non-tender. Clear bilateral breath sounds Cardiovascular/Chest: Regular rate and rhythm. No murmurs. No JVD. Peripheral Pulses: 2+ Radial (R). 2+ Radial (L). 2+ Pedal (R). 2+ Pedal (L) Abdominal Exam: Bilateral nephrostomy tube in place with draining urine in bags; normal bowel sounds. Soft. Nontender. No hepatosplenomegaly. No masses Ankle Exam: Negative ankle edema Lower extremities: Negative lower extremity edema with sub-grown lower extremities Neuro/Mental Status: A&O x4. Coherent, paraplegia Thoughts/Psych: Normal thought pattern. Appropriate mood and affect. Good judgement and insight Appearance: In no acute distress Skin Exam: Normal inspection. Normal color. Warm. Dry laboratory and microbiology Laboratory Tests 08/19/24 05:20 Test 08/19/24 05:20 Range/Units Serum Glucose 102 74-106 mg/dL Microbiology Date/Time Source Procedure Growth Status 08/17/24 15:45 Aspirate Gram Stain - Final Resulted 08/17/24 15:45 Aspirate Body Fluid Culture - Preliminary Resulted 08/16/24 10:05 Blood Blood Culture - Preliminary NO GROWTH AFTER 72 HOURS OF INCUBATION. Resulted 08/16/24 09:54 Voided Urine Urine Culture - Final Complete Labs and/or images reviewed: Labs reviewed by me, Image(s) reviewed by me Problem List/Assessment/Plan Problem List/Assessment/Plan Sepsis due to UTI -IV cefepime -IV LR 150 mL/hour -pending urine culture -urologic consultation: Plan for bilateral nephrostomy ultrasound-guided -radiologic consultation has been done Acute complication or cystitis -see the management of sepsis Hematuria likely due to above -Continue with ABx JOSE likely related to hemodynamically mediated and obstruction with CKD unknown stage -continue monitor kidney function, status post Marte insertion -CT scan showed bilateral renal calculi with hydronephrosis. -continue IV fluid -trend kidney function -follow nephrology recommendation Metabolic acidosis due to CKD -sodium bicarbonate Left-sided staghorn calculi with moderate hydronephrosis -as per urology Moderate right hydronephrosis and hydroureter -as per Neurology Severe anemia of chronic disease, status post IV iron load, IV Iron toxicity -received 5 bags of IV iron, status post deferoxamine -repeat Iron panel:Iron level normalized 51 Chronic bilateral hip dislocation -Stable History of spina bifida with Paraplegia -Stable Hypomagnesemia -IV mag Hypokalemia -IV potassium 40 meq repeat Hyperphosphatemia -sevelamer 800 mg p.o. t.i.d. Vitamin-D deficiency -Vitamin d 50,000 IU every week once Sinus tachycardia with QTC prolongation -Continue monitor Marijuana use disorder -counseled on cessation PUD prophylaxis with Protonix Plan discussed with Dr. Howell Plan discussed with: Patient, Other (RN) Addendum Addendum Addendum I was physically present for the avendano portions of the service provided to patient by THE RESIDENT. I have reviewed the documentation, discussed the case with resident and agree with the resident's documentation except as noted. Also the patient's clinical case was discussed with the patient's nurse. This medical document was created using an electronic medical record system with computerized dictation system. Although this document has been carefully reviewed, there might still be some phonetic and typographical errors. These areas are purely typographical due to imperfections of the software programs, and do not reflect any compromise in the patient's medical care. Late signature. Date of Service: Aug 19, 2024 Billing Provider: DEBORAH HOWELL MD Common Visit Codes: [id number] INP/OBS CARE(HIGH) MIGUEL KRUEGER RESIDENT Aug 19, 2024 13:25 DEBORAH HOWELL MD August 21, 2024 09:26
[2024-08-19] MEDS: POTASSIUM CHL 20 Meq TABLET PO ONE (13:45)
[2024-08-19] MEDS: POTASSIUM CHL 20MEQ/50ML 50 ML IV SCH (14:44)
[2024-08-19] MEDS: LACTATED RINGER'S 1,000 ML IV SCH (17:45)
--- NOTE | 2024-08-19 18:07 | DVHPN2 ---
Progress Note Date Seen: Aug 19, 2024 Medical Necessity Reason Pt with a Central, PICC or Fol: Yes Subjective Patient reports: No new complaints Review of Systems: :Abnormal Objective vital signs Vital Sign Date Time Temp Pulse Resp B/P (MAP) Pulse Ox O2 Delivery O2 Flow Rate FiO2 08/19/24 17:00 98.7 104 17 111/76 (88) 95 98.7 08/19/24 08:00 Room Air* 0 21 Total Intake and Output 08/18/24 08/18/24 08/19/24 15:00 23:00 07:00 Intake Total 100 ml 50 ml 400 ml Output Total 350 ml 1050 ml 2150 ml Balance -250 ml -1000 ml -1750 ml medications Current Medications Medications Dose Ordered Sig/Leeanne Route Start Time Stop Time Status Last Admin Dose Admin Cefepime HCl 50 ml @ 12.5 mls/hr DAILY IV 08/16/24 10:15 08/19/24 08:23 12.5 MLS/HR Acetaminophen/ Hydrocodone Bitart 1 tab Q4HP PRN PO 08/16/24 10:30 08/19/24 05:24 1 TAB Acetaminophen 650 mg Q6HP PRN PO 08/16/24 10:30 Morphine Sulfate 2 mg Q4HPRN PRN IV 08/16/24 10:30 08/18/24 09:12 2 MG Hydralazine HCl 10 mg Q6HP PRN IV 08/16/24 10:30 Nicotine 1 patch DAILY TD 08/17/24 10:00 08/19/24 08:24 1 PATCH Pantoprazole Sodium 40 mg DAILY IV 08/17/24 10:00 08/19/24 08:22 40 MG Sevelamer HCl 800 mg TIDWM PO 08/17/24 12:00 08/19/24 12:00 800 MG Sodium Bicarbonate 650 mg TID PO 08/17/24 14:00 08/19/24 14:44 650 MG Potassium Chloride 100 ml @ 50 mls/hr Q2H IV 08/17/24 08:30 08/17/24 12:29 UNV Ergocalciferol 50,000 unit Q7D PO 08/17/24 12:00 08/17/24 17:52 50,000 UNIT Prochlorperazine Edisylate 5 mg Q4HPRN PRN IV 08/18/24 13:00 08/19/24 10:28 5 MG Lactated Ringer's 1,000 ml @ 75 mls/hr [id number] IV 08/19/24 17:45 Examination: :Abnormal laboratory and microbiology Laboratory Tests 08/19/24 05:20 Test 08/19/24 05:20 Range/Units Serum Glucose 102 74-106 mg/dL Microbiology Date/Time Source Procedure Growth Status 08/17/24 15:45 Aspirate Gram Stain - Final Resulted 08/17/24 15:45 Aspirate Body Fluid Culture - Preliminary Resulted 08/16/24 10:05 Blood Blood Culture - Preliminary NO GROWTH AFTER 72 HOURS OF INCUBATION. Resulted 08/16/24 09:54 Voided Urine Urine Culture - Final Complete Problem List/Assessment/Plan Problem List/Assessment/Plan Acute kidney injury multifactorial in the setting of sepsis as well as chronic obstruction Chronic kidney disease due to chronic urinary retention however baseline is unknown Sepsis secondary to urinary tract infection //staghorn calciuli Metabolic acidosis Paraplegia and spina bifida Anemia due to iron deficiency s/p iron overload and desferoxime recs s/p b/l pcnt uop + in b/l NT will f/u k replace outpt anthony f/u Plan discussed with: Other My Orders My Orders Orders - HAYLIE GRAY MD Procedure Category Date Status Time Lactated Ringer's PHA 08/19/24 In Process 17:45 HAYLIE GRAY MD Aug 19, 2024 18:07
[2024-08-19] MEDS: MELATONIN 5 MG TAB PO ONE (21:16)
[2024-08-20] VITALS (8 sets, daily range): BP systolic 113–120; BP diastolic 69–82; PULSE 94–114; RESP 17–19; TEMP 97.8–98.6; O2SAT 95–99
[2024-08-20 06:31] LABS: Basophils # (auto) 0 10 ^3/uL (0-0.2); Chloride 106 mmol/L (98-107); Eosinophils # (auto) 0 10 ^3/uL (0-0.8); Monocytes # (auto) 0.8 10 ^3/uL (0-1.3); Neutrophils # (auto) 10.5 10 ^3/uL (1.6-8.6); Sodium 136 mmol/L (136-145); White Blood Cell 11.8 10^3/uL (4.4-10.8)
[2024-08-20 06:32] LABS: Anion Gap 8 (5-15); Carbon Dioxide 22 mmol/L (20-31)
[2024-08-20 06:35] LABS: Basophils % (auto) 0.1 % (0.0-2.0); Calcium 7.8 mg/dL (8.7-10.4); Eosinophils % (auto) 0.3 % (0.0-7.0); Hematocrit 24.3 % (36.0-46.0); Hemoglobin 7.5 g/dL (12.2-16.2); Lymphocytes # (auto) 0.4 10 ^3/uL (0.4-5.4); Lymphocytes % (auto) 3.6 % (10.0-50.0); Mean Corpuscular Hemoglobin 24.8 pg (28.0-32.0); Mean Corpuscular Hgb Conc. 31.1 g/dL (32.0-36.0); Mean Corpuscular Volume 79.7 fL (80.0-100.0); Monocytes % (auto) 6.9 % (0.0-12.0); Neutrophils % (auto) 89.1 % (37.0-80.0); Nucleated Red Blood Cells % 0.1 %; Platelet Count (auto) 327 10^3/uL (140-450); Potassium 3.2 mmol/L (3.5-5.1); Red Blood Cells 3.04 10^6/uL (4.0-5.20); Red Cell Distribution Width 20.1 % (11.8-14.3)
[2024-08-20 06:37] LABS: BUN/Creatinine Ratio 14.4 (10.0-20.0); Glucose 98 mg/dL (74-106)
[2024-08-20 06:38] LABS: Blood Urea Nitrogen 51 mg/dL (9-23)
[2024-08-20] MEDS: POTASSIUM EFFERVESENT TAB 25 MEQ PO ONE (07:06)
[2024-08-20] MEDS ORDERED: POTASSIUM EFFERVESENT TAB 25 MEQ PO ONE (07:45)
[2024-08-20] MEDS: MAGNESIUM OXIDE 400 MG TAB PO ONE (08:38)
--- NOTE | 2024-08-20 10:49 | DVHPN2 ---
Progress Note Date Seen: August 20, 2024 Medical Necessity Reason Pt with a Central, PICC or Fol: Yes Subjective Patient reports: No new complaints Review of Systems: Deferred Objective vital signs Vital Sign Date Time Temp Pulse Resp B/P (MAP) Pulse Ox O2 Delivery O2 Flow Rate FiO2 08/20/24 09:04 97.8 94 17 116/76 (89) 99 97.8 08/19/24 19:40 Room Air* 0 21 Total Intake and Output 08/19/24 08/19/24 08/20/24 15:00 23:00 07:00 Intake Total 50 ml 600 ml 800 ml Output Total 1900 ml 1950 ml Balance 50 ml -1300 ml -1150 ml medications Current Medications Medications Dose Ordered Sig/Leeanne Route Start Time Stop Time Status Last Admin Dose Admin Cefepime HCl 50 ml @ 12.5 mls/hr DAILY IV 08/16/24 10:15 08/20/24 08:30 12.5 MLS/HR Acetaminophen/ Hydrocodone Bitart 1 tab Q4HP PRN PO 08/16/24 10:30 08/20/24 04:03 1 TAB Acetaminophen 650 mg Q6HP PRN PO 08/16/24 10:30 Morphine Sulfate 2 mg Q4HPRN PRN IV 08/16/24 10:30 08/20/24 05:15 2 MG Hydralazine HCl 10 mg Q6HP PRN IV 08/16/24 10:30 Nicotine 1 patch DAILY TD 08/17/24 10:00 08/20/24 08:30 1 PATCH Pantoprazole Sodium 40 mg DAILY IV 08/17/24 10:00 08/20/24 08:30 40 MG Sevelamer HCl 800 mg TIDWM PO 08/17/24 12:00 08/19/24 18:21 800 MG Sodium Bicarbonate 650 mg TID PO 08/17/24 14:00 08/20/24 05:15 650 MG Potassium Chloride 100 ml @ 50 mls/hr Q2H IV 08/17/24 08:30 08/17/24 12:29 UNV Ergocalciferol 50,000 unit Q7D PO 08/17/24 12:00 08/17/24 17:52 50,000 UNIT Prochlorperazine Edisylate 5 mg Q4HPRN PRN IV 08/18/24 13:00 08/20/24 08:30 5 MG Lactated Ringer's 1,000 ml @ 75 mls/hr [id number] IV 08/19/24 17:45 08/19/24 21:32 75 MLS/HR Examination Patient has two nephrostomy tubes and Marte catheter General-not in any distress HEENT-normocephalic, no icterus, no pallor, neck supple Respiratory-fair air entry bilateral, no rhonchi, no wheeze [id number] heard, no murmurs appreciated Abdominal-soft, nontender, nondistended Musculoskeletal-no pedal edema, laboratory and microbiology Laboratory Tests 08/20/24 05:35 Test 08/20/24 05:35 Range/Units Serum Glucose 98 74-106 mg/dL Microbiology Date/Time Source Procedure Growth Status 08/17/24 15:45 Aspirate Gram Stain - Final Resulted 08/17/24 15:45 Aspirate Body Fluid Culture - Preliminary Resulted 08/16/24 10:05 Blood Blood Culture - Preliminary NO GROWTH AFTER 72 HOURS OF INCUBATION. Resulted 08/16/24 09:54 Voided Urine Urine Culture - Final Complete Problem List/Assessment/Plan Problem List/Assessment/Plan Acute kidney injury multifactorial in the setting of sepsis as well as chronic obstruction Chronic kidney disease due to chronic urinary retention however baseline is unknown Sepsis secondary to urinary tract infection //staghorn calculi Metabolic acidosis Paraplegia and spina bifida Anemia due to iron deficiency s/p iron overload and desferoxime recs s/p b/l pcnt uop + in b/l NT will f/u k replace outpt anthony f/u Stable for discharge from Nephrology standpoint with close outpatient Acute kidney injury follow-up No indication for dialysis for now Antibiotics for UTI Plan discussed with: Patient My Orders My Orders Orders - HAYLIE GRAY MD Procedure Category Date Status Time Lactated Ringer's PHA 08/19/24 In Process 17:45 HAYLIE GRAY MD August 20, 2024 10:49
--- NOTE | 2024-08-20 17:46 | DVHPNRES ---
Progress Note Date Seen: August 20, 2024 Resident Creating Document: MIGUEL KRUEGER RESIDENT Medical Necessity Reason Pt with a Central, PICC or Fol: Yes Subjective Review of Systems Patient is a 38-year-old female with past medical history of paraplegia, staghorn renal calculi, hydronephrosis, status post bladder expansion, tobacco and marijuana use who came to the hospital with a chief complaint of generalized abdominal pain which was mainly located in the suprapubic area radiating to right and upper quadrant abdominal pain. With further evaluation patient found to have urinary infection with bilateral renal calculi, status post nephrostomy tube, received a IV iron, IV iron overload. No any other new complaints. S/P nephrostomy tube bilateral. Draining both nephrostomy tube, also presence of urine in urinary bag with Marte catheter. Patient is feeling well, but complaining of generalized weakness. Plan for continue physical therapy ROS: Eyes: No Pain, No Vision change, No Conjunctivae inflammation, No Eyelid inflammation, No Other, No Redness ENT: No Ear pain, No Ear discharge, No Nose pain, No Nose discharge, No Nose congestion, No Mouth pain, No Mouth swelling, No Throat pain, No Throat swelling, No Other Cardiovascular: No Chest Pain, No Palpitations, No Orthopnea, No Paroxysmal Noc. Dyspnea, No Edema, No Lt Headedness, No Other Respiratory: No Cough, No Dry, No Shortness of breath, No SOB with excertion, No Wheezing, No Hemoptysis, No Pleuritic Pain, No Sputum, No Other Gastrointestinal: No Nausea, Vomiting, Abdominal Pain, No Diarrhea, No Constipation, No Melena, No Hematochezia, No Other Genitourinary: Dysuria, No Frequency, No Incontinence, No Hematuria, No Retention, No Other Musculoskeletal: No other, No neck pain, No shoulder pain, No arm pain, No back pain, No hand pain, No leg pain, No foot pain Skin: No Rash, No Lesions, No Jaundice, No Bruising, No Other Objective vital signs Vital Sign Date Time Temp Pulse Resp B/P (MAP) Pulse Ox O2 Delivery O2 Flow Rate FiO2 08/20/24 17:00 98.6 114 18 117/69 (85) 96 98.6 08/20/24 08:00 Room Air* 0 21 Total Intake and Output 08/19/24 08/19/24 08/20/24 15:00 23:00 07:00 Intake Total 50 ml 600 ml 800 ml Output Total 1900 ml 1950 ml Balance 50 ml -1300 ml -1150 ml medications Current Medications Medications Dose Ordered Sig/Leeanne Route Start Time Stop Time Status Last Admin Dose Admin Cefepime HCl 50 ml @ 12.5 mls/hr DAILY IV 08/16/24 10:15 08/20/24 08:30 12.5 MLS/HR Acetaminophen/ Hydrocodone Bitart 1 tab Q4HP PRN PO 08/16/24 10:30 08/20/24 13:47 1 TAB Acetaminophen 650 mg Q6HP PRN PO 08/16/24 10:30 Morphine Sulfate 2 mg Q4HPRN PRN IV 08/16/24 10:30 08/20/24 11:12 2 MG Hydralazine HCl 10 mg Q6HP PRN IV 08/16/24 10:30 Nicotine 1 patch DAILY TD 08/17/24 10:00 08/20/24 08:30 1 PATCH Pantoprazole Sodium 40 mg DAILY IV 08/17/24 10:00 08/20/24 08:30 40 MG Sevelamer HCl 800 mg TIDWM PO 08/17/24 12:00 08/20/24 13:38 800 MG Sodium Bicarbonate 650 mg TID PO 08/17/24 14:00 08/20/24 13:38 650 MG Potassium Chloride 100 ml @ 50 mls/hr Q2H IV 08/17/24 08:30 08/17/24 12:29 UNV Ergocalciferol 50,000 unit Q7D PO 08/17/24 12:00 08/17/24 17:52 50,000 UNIT Prochlorperazine Edisylate 5 mg Q4HPRN PRN IV 08/18/24 13:00 08/20/24 08:30 5 MG Lactated Ringer's 1,000 ml @ 75 mls/hr [id number] IV 08/19/24 17:45 08/19/24 21:32 75 MLS/HR Examination General Appearance: Cooperative. Well developed. Well nourished. NAD Head Exam: Normal inspection Neck Exam: Normal inspection. Non-tender. Normal alignment Pulmonary/Respiratory: Chest non-tender. Clear bilateral breath sounds Cardiovascular/Chest: Regular rate and rhythm. No murmurs. No JVD. Peripheral Pulses: 2+ Radial (R). 2+ Radial (L). 2+ Pedal (R). 2+ Pedal (L) Abdominal Exam: Increase urine output, Bilateral nephrostomy tube in place with draining urine in bags; normal bowel sounds. Soft. Nontender. No hepatosplenomegaly. No masses Ankle Exam: Negative ankle edema Lower extremities: Negative lower extremity edema with sub-grown lower extremities Neuro/Mental Status: A&O x4. Coherent, paraplegia Thoughts/Psych: Normal thought pattern. Appropriate mood and affect. Good judgement and insight Appearance: In no acute distress Skin Exam: Normal inspection. Normal color. Warm. Dry laboratory and microbiology Laboratory Tests 08/20/24 05:35 Test 08/20/24 05:35 Range/Units Serum Glucose 98 74-106 mg/dL Microbiology Date/Time Source Procedure Growth Status 08/17/24 15:45 Aspirate Gram Stain - Final Resulted 08/17/24 15:45 Aspirate Body Fluid Culture - Preliminary Resulted 08/16/24 10:05 Blood Blood Culture - Preliminary NO GROWTH AFTER 72 HOURS OF INCUBATION. Resulted 08/16/24 09:54 Voided Urine Urine Culture - Final Complete Labs and/or images reviewed: Labs reviewed by me, Image(s) reviewed by me Problem List/Assessment/Plan Problem List/Assessment/Plan Sepsis due to UTI -IV cefepime -IV LR 150 mL/hour -No growth in urine and blood culture -urologic consultation: Plan for bilateral nephrostomy ultrasound-guided -radiologic consultation has been done Acute complication or cystitis -see the management of sepsis Hematuria likely due to above -Continue with ABx JOSE likely related to hemodynamically mediated and obstruction with CKD unknown stage -continue monitor kidney function, status post Marte insertion -CT scan showed bilateral renal calculi with hydronephrosis. -continue IV fluid -trend kidney function -follow nephrology recommendation Metabolic acidosis due to CKD -sodium bicarbonate Left-sided staghorn calculi with moderate hydronephrosis -as per urology Moderate right hydronephrosis and hydroureter -as per Neurology Severe anemia of chronic disease, status post IV iron load, IV Iron toxicity -received 5 bags of IV iron, status post deferoxamine -repeat Iron panel:Iron level normalized 51 Chronic bilateral hip dislocation -Stable History of spina bifida with Paraplegia -Stable Hypomagnesemia -IV mag Hypokalemia -IV potassium 40 meq repeat Hyperphosphatemia -sevelamer 800 mg p.o. t.i.d. Vitamin-D deficiency -Vitamin d 50,000 IU every week once Sinus tachycardia with QTC prolongation -Continue monitor Marijuana use disorder -counseled on cessation PUD prophylaxis with Protonix Plan for PT today, Possible Dc tomorrow Plan discussed with Dr. Howell Plan discussed with: Patient, Other (RN) My Orders My Orders Orders - MIGUEL KRUEGER RESIDENT Procedure Category Date Status Time Pt Request For Service PT 08/20/24 Logged 08:59 Dietary Evaluation Review Comments: 1. Disagree with Renal Standard diet for JOSE, +hypokalmeia; would change to Regular diet 2. Suggest daily bowel regimen while on opiods, +constipation 3. Monitor BMP/lytes - consistently low K, liberalize diet and replace per protocol to WNL 4. PO intakes improving; will assess need for ONS on FU Expected Outcomes/Goals: Improved lab values, adequate nutrition. Addendum Addendum Addendum I was physically present for the avendano portions of the service provided to patient by THE RESIDENT. I have reviewed the documentation, discussed the case with resident and agree with the resident's documentation except as noted. Also the patient's clinical case was discussed with the patient's nurse. This medical document was created using an electronic medical record system with computerized dictation system. Although this document has been carefully reviewed, there might still be some phonetic and typographical errors. These areas are purely typographical due to imperfections of the software programs, and do not reflect any compromise in the patient's medical care. Late signature. Date of Service: August 20, 2024 Billing Provider: DBEORAH HOWELL MD Common Visit Codes: [id number] INP/OBS CARE(HIGH) MIGUEL KRUEGER RESIDENT August 20, 2024 17:46 DEBORAH HOWELL MD August 21, 2024 09:22
[2024-08-21] VITALS (8 sets, daily range): BP systolic 106–128; BP diastolic 70–98; PULSE 101–127; RESP 16–19; TEMP 98–98.8; O2SAT 91–97
[2024-08-21 06:46] LABS: Eosinophils # (auto) 0.1 10 ^3/uL (0-0.8); Hemoglobin 8.1 g/dL (12.2-16.2); Lymphocytes # (auto) 0.6 10 ^3/uL (0.4-5.4); Lymphocytes % (auto) 3.6 % (10.0-50.0)
[2024-08-21 06:47] LABS: Basophils # (auto) 0.1 10 ^3/uL (0-0.2); Basophils % (auto) 0.4 % (0.0-2.0); Eosinophils % (auto) 0.6 % (0.0-7.0); Hematocrit 26.9 % (36.0-46.0); Mean Corpuscular Volume 83.2 fL (80.0-100.0); Monocytes # (auto) 1.5 10 ^3/uL (0-1.3); Monocytes % (auto) 8.4 % (0.0-12.0); Neutrophils # (auto) 15.5 10 ^3/uL (1.6-8.6); Nucleated Red Blood Cells % 0.1 %; Platelet Count (auto) 344 10^3/uL (140-450); Red Blood Cells 3.23 10^6/uL (4.0-5.20); White Blood Cell 17.8 10^3/uL (4.4-10.8)
[2024-08-21 06:49] LABS: Red Cell Distribution Width 20.4 % (11.8-14.3)
[2024-08-21 06:56] LABS: Chloride 105 mmol/L (98-107); Potassium 3.6 mmol/L (3.5-5.1); Sodium 136 mmol/L (136-145)
[2024-08-21 06:57] LABS: Anion Gap 11 (5-15)
[2024-08-21 07:03] LABS: BUN/Creatinine Ratio 13.4 (10.0-20.0); Blood Urea Nitrogen 45 mg/dL (9-23); Carbon Dioxide 20 mmol/L (20-31); Glucose 89 mg/dL (74-106)
--- NOTE | 2024-08-21 11:22 | DVHPNRES ---
Progress Note Date Seen: August 21, 2024 Resident Creating Document: MIGUEL KRUEGER RESIDENT Medical Necessity Reason Pt with a Central, PICC or Fol: Yes Subjective Review of Systems Patient is a 38-year-old female with past medical history of paraplegia, staghorn renal calculi, hydronephrosis, status post bladder expansion, tobacco and marijuana use who came to the hospital with a chief complaint of generalized abdominal pain which was mainly located in the suprapubic area radiating to right and upper quadrant abdominal pain. With further evaluation patient found to have urinary infection with bilateral renal calculi, status post nephrostomy tube, received a IV iron, IV iron overload. No any other new complaints. S/P nephrostomy tube bilateral. Draining both nephrostomy tube, also presence of urine in urinary bag with Marte catheter. Patient is feeling well, but complaining of generalized weakness. Plan for continue physical therapy, elevated WBC , But no fever, chills, no abdominal pain. ROS: Eyes: No Pain, No Vision change, No Conjunctivae inflammation, No Eyelid inflammation, No Other, No Redness ENT: No Ear pain, No Ear discharge, No Nose pain, No Nose discharge, No Nose congestion, No Mouth pain, No Mouth swelling, No Throat pain, No Throat swelling, No Other Cardiovascular: No Chest Pain, No Palpitations, No Orthopnea, No Paroxysmal Noc. Dyspnea, No Edema, No Lt Headedness, No Other Respiratory: No Cough, No Dry, No Shortness of breath, No SOB with excertion, No Wheezing, No Hemoptysis, No Pleuritic Pain, No Sputum, No Other Gastrointestinal: No Nausea, Vomiting, Abdominal Pain, No Diarrhea, No Constipation, No Melena, No Hematochezia, No Other Genitourinary: Dysuria, No Frequency, No Incontinence, No Hematuria, No Retention, No Other Musculoskeletal: No other, No neck pain, No shoulder pain, No arm pain, No back pain, No hand pain, No leg pain, No foot pain Skin: No Rash, No Lesions, No Jaundice, No Bruising, No Other Objective vital signs Vital Sign Date Time Temp Pulse Resp B/P (MAP) Pulse Ox O2 Delivery O2 Flow Rate FiO2 08/21/24 09:39 92 18 117/75 08/21/24 09:00 98.1 97 98.1 08/21/24 08:00 Room Air* 0 21 Total Intake and Output 08/20/24 08/20/24 08/21/24 15:00 23:00 07:00 Intake Total 50 ml 1850 ml 1600 ml Output Total 1250 ml 2125 ml Balance 50 ml 600 ml -525 ml medications Current Medications Medications Dose Ordered Sig/Leeanne Route Start Time Stop Time Status Last Admin Dose Admin Cefepime HCl 50 ml @ 12.5 mls/hr DAILY IV 08/16/24 10:15 08/21/24 09:01 12.5 MLS/HR Acetaminophen/ Hydrocodone Bitart 1 tab Q4HP PRN PO 08/16/24 10:30 08/20/24 22:26 1 TAB Acetaminophen 650 mg Q6HP PRN PO 08/16/24 10:30 Morphine Sulfate 2 mg Q4HPRN PRN IV 08/16/24 10:30 08/21/24 09:39 2 MG Hydralazine HCl 10 mg Q6HP PRN IV 08/16/24 10:30 Nicotine 1 patch DAILY TD 08/17/24 10:00 08/21/24 09:01 1 PATCH Pantoprazole Sodium 40 mg DAILY IV 08/17/24 10:00 08/21/24 09:01 40 MG Sevelamer HCl 800 mg TIDWM PO 08/17/24 12:00 08/21/24 09:01 800 MG Sodium Bicarbonate 650 mg TID PO 08/17/24 14:00 08/21/24 05:14 650 MG Potassium Chloride 100 ml @ 50 mls/hr Q2H IV 08/17/24 08:30 08/17/24 12:29 UNV Ergocalciferol 50,000 unit Q7D PO 08/17/24 12:00 08/17/24 17:52 50,000 UNIT Prochlorperazine Edisylate 5 mg Q4HPRN PRN IV 08/18/24 13:00 08/21/24 05:54 5 MG Lactated Ringer's 1,000 ml @ 75 mls/hr [id number] IV 08/19/24 17:45 08/20/24 18:11 75 MLS/HR Examination General Appearance: Cooperative. Well developed. Well nourished. NAD Head Exam: Normal inspection Neck Exam: Normal inspection. Non-tender. Normal alignment Pulmonary/Respiratory: Chest non-tender. Clear bilateral breath sounds Cardiovascular/Chest: Regular rate and rhythm. No murmurs. No JVD. Peripheral Pulses: 2+ Radial (R). 2+ Radial (L). 2+ Pedal (R). 2+ Pedal (L) Abdominal Exam: Increase urine output, clear urine,no hematuria, Bilateral nephrostomy tube in place with draining urine in bags; normal bowel sounds. Soft. Nontender. No hepatosplenomegaly. No masses Ankle Exam: Negative ankle edema Lower extremities: Negative lower extremity edema with sub-grown lower extremities Neuro/Mental Status: A&O x4. Coherent, paraplegia Thoughts/Psych: Normal thought pattern. Appropriate mood and affect. Good judgement and insight Appearance: In no acute distress laboratory and microbiology Laboratory Tests 08/21/24 05:33 Test 08/21/24 05:33 Range/Units Serum Glucose 89 74-106 mg/dL Microbiology Date/Time Source Procedure Growth Status 08/17/24 15:45 Aspirate Gram Stain - Final Complete 08/17/24 15:45 Aspirate Body Fluid Culture - Final Complete 08/16/24 10:05 Blood Blood Culture - Final NO GROWTH AFTER 5 DAYS OF INCUBATION. Complete 08/16/24 09:54 Voided Urine Urine Culture - Final Complete Labs and/or images reviewed: Labs reviewed by me, Image(s) reviewed by me Problem List/Assessment/Plan Problem List/Assessment/Plan Sepsis due to UTI -IV cefepime -IV LR 150 mL/hour -No growth in urine and blood culture -Urologic consultation: Plan for bilateral nephrostomy ultrasound-guided -Radiologic consultation has been done Acute complication or cystitis -see the management of sepsis Hematuria likely due to above -Continue with ABx JOSE likely related to hemodynamically mediated and obstruction with CKD unknown stage -continue monitor kidney function, status post Marte insertion -CT scan showed bilateral renal calculi with hydronephrosis. -continue IV fluid -trend kidney function -follow nephrology recommendation Metabolic acidosis due to CKD -sodium bicarbonate Left-sided staghorn calculi with moderate hydronephrosis -as per urology Moderate right hydronephrosis and hydroureter -as per Neurology Severe anemia of chronic disease, status post IV iron load, IV Iron toxicity -received 5 bags of IV iron, status post deferoxamine -repeat Iron panel:Iron level normalized 51 Chronic bilateral hip dislocation -Stable History of spina bifida with Paraplegia -Stable Hypomagnesemia -IV mag Hypokalemia -IV potassium 40 meq repeat Hyperphosphatemia -sevelamer 800 mg p.o. t.i.d. Vitamin-D deficiency -Vitamin d 50,000 IU every week once Sinus tachycardia with QTC prolongation -Continue monitor Marijuana use disorder -counseled on cessation PUD prophylaxis with Protonix Continue Physical therapy, elevated WBC, repeat urine culture and urine analysis. Plan discussed with Dr. Howell Plan discussed with: Patient, Other (RN) Dietary Evaluation Review Comments: 1. Disagree with Renal Standard diet for JOSE, +hypokalmeia; would change to Regular diet 2. Suggest daily bowel regimen while on opiods, +constipation 3. Monitor BMP/lytes - consistently low K, liberalize diet and replace per protocol to WNL 4. PO intakes improving; will assess need for ONS on FU Expected Outcomes/Goals: Improved lab values, adequate nutrition. Addendum Addendum Addendum I was physically present for the avendano portions of the service provided to patient by THE RESIDENT. I have reviewed the documentation, discussed the case with resident and agree with the resident's documentation except as noted. Also the patient's clinical case was discussed with the patient's nurse. This medical document was created using an electronic medical record system with computerized dictation system. Although this document has been carefully reviewed, there might still be some phonetic and typographical errors. These areas are purely typographical due to imperfections of the software programs, and do not reflect any compromise in the patient's medical care. Late signature. Date of Service: August 21, 2024 Billing Provider: DEBORAH HOWELL MD Common Visit Codes: [id number] INP/OBS CARE(HIGH) MIGUEL KRUEGER RESIDENT August 21, 2024 11:22 DEBORAH HOWELL MD August 22, 2024 05:07
--- NOTE | 2024-08-21 13:36 | DVHPN2 ---
Progress Note Date Seen: August 21, 2024 Medical Necessity Reason Pt with a Central, PICC or Fol: Yes Subjective Patient reports: No new complaints, Feels better Review of Systems: HEENT:Normal, CVS:Normal, RESPIRATORY:Normal, GI:Normal, :Normal, MSK:Normal, NEURO:Normal Objective vital signs Vital Sign Date Time Temp Pulse Resp B/P (MAP) Pulse Ox O2 Delivery O2 Flow Rate FiO2 08/21/24 09:39 92 18 117/75 08/21/24 09:00 98.1 97 98.1 08/21/24 08:00 Room Air* 0 21 Total Intake and Output 08/20/24 08/20/24 08/21/24 15:00 23:00 07:00 Intake Total 50 ml 1850 ml 1600 ml Output Total 1250 ml 2125 ml Balance 50 ml 600 ml -525 ml medications Current Medications Medications Dose Ordered Sig/Leeanne Route Start Time Stop Time Status Last Admin Dose Admin Cefepime HCl 50 ml @ 12.5 mls/hr DAILY IV 08/16/24 10:15 08/21/24 09:01 12.5 MLS/HR Acetaminophen/ Hydrocodone Bitart 1 tab Q4HP PRN PO 08/16/24 10:30 08/20/24 22:26 1 TAB Acetaminophen 650 mg Q6HP PRN PO 08/16/24 10:30 Morphine Sulfate 2 mg Q4HPRN PRN IV 08/16/24 10:30 08/21/24 09:39 2 MG Hydralazine HCl 10 mg Q6HP PRN IV 08/16/24 10:30 Nicotine 1 patch DAILY TD 08/17/24 10:00 08/21/24 09:01 1 PATCH Pantoprazole Sodium 40 mg DAILY IV 08/17/24 10:00 08/21/24 09:01 40 MG Sevelamer HCl 800 mg TIDWM PO 08/17/24 12:00 08/21/24 12:39 800 MG Sodium Bicarbonate 650 mg TID PO 08/17/24 14:00 08/21/24 12:39 650 MG Potassium Chloride 100 ml @ 50 mls/hr Q2H IV 08/17/24 08:30 08/17/24 12:29 UNV Ergocalciferol 50,000 unit Q7D PO 08/17/24 12:00 08/17/24 17:52 50,000 UNIT Prochlorperazine Edisylate 5 mg Q4HPRN PRN IV 08/18/24 13:00 08/21/24 12:38 5 MG Lactated Ringer's 1,000 ml @ 75 mls/hr [id number] IV 08/19/24 17:45 08/20/24 18:11 75 MLS/HR Examination: GENERAL:Normal, NECK:Normal, MSK:Abnormal, NEURO:Normal, :Abnormal laboratory and microbiology Laboratory Tests 08/21/24 05:33 Test 08/21/24 05:33 Range/Units Serum Glucose 89 74-106 mg/dL Microbiology Date/Time Source Procedure Growth Status 08/17/24 15:45 Aspirate Gram Stain - Final Complete 08/17/24 15:45 Aspirate Body Fluid Culture - Final Complete 08/16/24 10:05 Blood Blood Culture - Final NO GROWTH AFTER 5 DAYS OF INCUBATION. Complete 08/16/24 09:54 Voided Urine Urine Culture - Final Complete Problem List/Assessment/Plan Problem List/Assessment/Plan Acute kidney injury multifactorial in the setting of sepsis as well as chronic obstruction Chronic kidney disease due to chronic urinary retention however baseline is unknown Sepsis secondary to urinary tract infection //staghorn calculi Metabolic acidosis Paraplegia and spina bifida Anemia due to iron deficiency s/p iron overload and desferoxime recs s/p b/l pcnt uop + in b/l NT will f/u k replace outpt jose f/u Stable for discharge from Nephrology standpoint with close outpatient Acute kidney injury follow-up No indication for dialysis for now Antibiotics for UTI urology f/u on ivf Plan discussed with: Patient, Other Dietary Evaluation Review Comments: 1. Disagree with Renal Standard diet for JOSE, +hypokalmeia; would change to Regular diet 2. Suggest daily bowel regimen while on opiods, +constipation 3. Monitor BMP/lytes - consistently low K, liberalize diet and replace per protocol to WNL 4. PO intakes improving; will assess need for ONS on FU Expected Outcomes/Goals: Improved lab values, adequate nutrition. HAYLIE GRAY MD August 21, 2024 13:36
[2024-08-21] MEDS: LACTULOSE 20Gm/30ML SOLN PO ONE (19:52)
[2024-08-21] MEDS: MEROPENEM 1GM IVPB 50 ML IV SCH (21:04)
[2024-08-22] VITALS (9 sets, daily range): BP systolic 109–131; BP diastolic 77–93; PULSE 93–128; RESP 17–19; TEMP 97.8–99.4; O2SAT 95–97
[2024-08-22] MEDS: MELATONIN 5 MG TAB PO SCH ×2 (00:28→21:50)
[2024-08-22 05:50] LABS: Basophils # (auto) 0 10 ^3/uL (0-0.2); Eosinophils # (auto) 0 10 ^3/uL (0-0.8); Eosinophils % (auto) 0.1 % (0.0-7.0); Hematocrit 23.5 % (36.0-46.0); Hemoglobin 7.2 g/dL (12.2-16.2); Lymphocytes # (auto) 0.5 10 ^3/uL (0.4-5.4); Lymphocytes % (auto) 3.2 % (10.0-50.0); Mean Corpuscular Hemoglobin 25.1 pg (28.0-32.0); Mean Corpuscular Hgb Conc. 30.8 g/dL (32.0-36.0); Mean Corpuscular Volume 81.4 fL (80.0-100.0); Monocytes # (auto) 1.4 10 ^3/uL (0-1.3); Monocytes % (auto) 8.6 % (0.0-12.0); Neutrophils # (auto) 14.1 10 ^3/uL (1.6-8.6); Neutrophils % (auto) 88.1 % (37.0-80.0); Platelet Count (auto) 307 10^3/uL (140-450); Red Blood Cells 2.89 10^6/uL (4.0-5.20); Red Cell Distribution Width 20.3 % (11.8-14.3)
[2024-08-22 06:04] LABS: Chloride 107 mmol/L (98-107); Potassium 3.7 mmol/L (3.5-5.1); Sodium 139 mmol/L (136-145)
[2024-08-22 06:05] LABS: Anion Gap 10 (5-15); Carbon Dioxide 22 mmol/L (20-31)
[2024-08-22 06:10] LABS: BUN/Creatinine Ratio 13.3 (10.0-20.0); Glucose 91 mg/dL (74-106)
[2024-08-22 06:14] LABS: Blood Urea Nitrogen 41 mg/dL (9-23)
[2024-08-22] MEDS: ONDANSETRON HCL 4 MG/2 ML VIAL IV PRN (09:17)
[2024-08-22] MEDS: POLYETHYLENE GLYCOL 17 GM PWDR PO SCH (09:18)
--- NOTE | 2024-08-22 13:35 | DVHPNRES ---
Progress Note Date Seen: August 22, 2024 Resident Creating Document: LOCO SÁNCHEZ RESIDENT Medical Necessity Reason Pt with a Central, PICC or Fol: Yes Subjective Review of Systems Patient is a 38-year-old female with past medical history of paraplegia, staghorn renal calculi, hydronephrosis, status post bladder expansion, tobacco and marijuana use who came to the hospital with a chief complaint of generalized abdominal pain which was mainly located in the suprapubic area radiating to right and upper quadrant abdominal pain. With further evaluation patient found to have urinary infection with bilateral renal calculi, status post nephrostomy tube, received a IV iron, IV iron overload. No any other new complaints. S/P nephrostomy tube bilateral. Draining both nephrostomy tube, also presence of urine in urinary bag with Marte catheter. Patient is feeling well, but complaining of generalized weakness. Plan for continue physical therapy, elevated WBC , but no fever, chills, no abdominal pain. Objective vital signs Vital Sign Date Time Temp Pulse Resp B/P (MAP) Pulse Ox O2 Delivery O2 Flow Rate FiO2 08/22/24 08:55 98.5 115 18 125/86 (99) 95 98.5 08/22/24 08:05 Room Air* 0 21 Total Intake and Output 08/21/24 08/21/24 08/22/24 15:00 23:00 07:00 Intake Total 50 ml 1200 ml 600 ml Output Total 800 ml 450 ml Balance 50 ml 400 ml 150 ml medications Current Medications Medications Dose Ordered Sig/Leeanne Route Start Time Stop Time Status Last Admin Dose Admin Acetaminophen/ Hydrocodone Bitart 1 tab Q4HP PRN PO 08/16/24 10:30 08/21/24 17:08 1 TAB Acetaminophen 650 mg Q6HP PRN PO 08/16/24 10:30 Morphine Sulfate 2 mg Q4HPRN PRN IV 08/16/24 10:30 08/22/24 05:59 2 MG Hydralazine HCl 10 mg Q6HP PRN IV 08/16/24 10:30 Nicotine 1 patch DAILY TD 08/17/24 10:00 08/22/24 09:18 1 PATCH Pantoprazole Sodium 40 mg DAILY IV 08/17/24 10:00 08/22/24 09:18 40 MG Sevelamer HCl 800 mg TIDWM PO 08/17/24 12:00 08/22/24 11:40 800 MG Sodium Bicarbonate 650 mg TID PO 08/17/24 14:00 08/22/24 05:41 650 MG Potassium Chloride 100 ml @ 50 mls/hr Q2H IV 08/17/24 08:30 08/17/24 12:29 UNV Ergocalciferol 50,000 unit Q7D PO 08/17/24 12:00 08/17/24 17:52 50,000 UNIT Prochlorperazine Edisylate 5 mg Q4HPRN PRN IV 08/18/24 13:00 Hold 08/21/24 12:38 5 MG Polyethylene Glycol 17 gm DAILY PO 08/22/24 10:00 08/22/24 09:18 17 GM Meropenem 50 ml @ 17 mls/hr Q12HR IV 08/21/24 22:00 08/22/24 09:18 17 MLS/HR Melatonin 5 mg HS PO 08/22/24 22:00 Melatonin 5 mg NOW PO 08/22/24 00:30 08/22/24 00:28 5 MG Ondansetron HCl 4 mg Q8HPRN PRN IV 08/22/24 08:30 08/22/24 09:17 4 MG Examination Examination General Appearance: Cooperative. Well developed. Well nourished. NAD Head Exam: Normal inspection Neck Exam: Normal inspection. Non-tender. Normal alignment Pulmonary/Respiratory: Chest non-tender. Clear bilateral breath sounds Cardiovascular/Chest: Regular rate and rhythm. No murmurs. No JVD. Peripheral Pulses: 2+ Radial (R). 2+ Radial (L). 2+ Pedal (R). 2+ Pedal (L) Abdominal Exam: Increase urine output, clear urine,no hematuria, Bilateral nephrostomy tube in place with draining urine in bags; normal bowel sounds. Soft. Nontender. No hepatosplenomegaly. No masses Ankle Exam: Negative ankle edema Lower extremities: Negative lower extremity edema with sub-grown lower extremities Neuro/Mental Status: A&O x4. Coherent, paraplegia Thoughts/Psych: Normal thought pattern. Appropriate mood and affect. Good judgement and insight Appearance: In no acute distress laboratory and microbiology Laboratory Tests 08/22/24 05:15 Test 08/22/24 05:15 Range/Units Serum Glucose 91 74-106 mg/dL Microbiology Date/Time Source Procedure Growth Status 08/17/24 15:45 Aspirate Gram Stain - Final Complete 08/17/24 15:45 Aspirate Body Fluid Culture - Final Complete 08/16/24 10:05 Blood Blood Culture - Final NO GROWTH AFTER 5 DAYS OF INCUBATION. Complete 08/16/24 09:54 Voided Urine Urine Culture - Final Complete Labs and/or images reviewed: Labs reviewed by me, Image(s) reviewed by me Problem List/Assessment/Plan Problem List/Assessment/Plan Assessment and plan: Sepsis due to UTI -IV cefepime -IV LR 150 mL/hour -No growth in urine and blood culture -Urologic consultation: Plan for bilateral nephrostomy ultrasound-guided -Radiologic consultation has been done Acute complication or cystitis -see the management of sepsis Hematuria likely due to above -Continue with ABx JOSE likely related to hemodynamically mediated and obstruction with CKD unknown stage -continue monitor kidney function, status post Marte insertion -CT scan showed bilateral renal calculi with hydronephrosis. -continue IV fluid -trend kidney function -follow nephrology recommendation Metabolic acidosis due to CKD -sodium bicarbonate Left-sided staghorn calculi with moderate hydronephrosis -as per urology Moderate right hydronephrosis and hydroureter -as per Urology Severe anemia of chronic disease, status post IV iron load, IV Iron toxicity -received 5 bags of IV iron, status post deferoxamine -repeat Iron panel:Iron level normalized 51 Chronic bilateral hip dislocation -Stable History of spina bifida with Paraplegia -Stable Hypomagnesemia -IV mag Hypokalemia -IV potassium 40 meq repeat Hyperphosphatemia -sevelamer 800 mg p.o. t.i.d. Vitamin-D deficiency -Vitamin d 50,000 IU every week once Sinus tachycardia with QTC prolongation -Continue monitor Marijuana and tobacco use disorder -counseled on cessation PUD prophylaxis with Protonix Continue Physical therapy, elevated WBC, pending repeat urine cultures. Plan discussed with Dr. Howell Plan discussed with: Patient, Other (Nurse) My Orders My Orders Orders - LOCO SÁNCHEZ RESIDENT Procedure Category Date Status Time Ondansetron Hcl PHA 08/22/24 In Process (Zofran) 08:30 Dietary Evaluation Review Comments: 1. Disagree with Renal Standard diet for JOSE, +hypokalmeia; would change to Regular diet 2. Suggest daily bowel regimen while on opiods, +constipation 3. Monitor BMP/lytes - consistently low K, liberalize diet and replace per protocol to WNL 4. PO intakes improving; will assess need for ONS on FU Expected Outcomes/Goals: Improved lab values, adequate nutrition. Addendum Addendum Addendum I was physically present for the avendano portions of the service provided to patient by THE RESIDENT. I have reviewed the documentation, discussed the case with resident and agree with the resident's documentation except as noted. Also the patient's clinical case was discussed with the patient's nurse. This medical document was created using an electronic medical record system with computerized dictation system. Although this document has been carefully reviewed, there might still be some phonetic and typographical errors. These areas are purely typographical due to imperfections of the software programs, and do not reflect any compromise in the patient's medical care. Late signature. Date of Service: August 22, 2024 Billing Provider: DEBORAH HOWELL MD Common Visit Codes: [id number] INP/OBS CARE(HIGH) LOCO SÁNCHEZ RESIDENT August 22, 2024 13:35 DEBORAH HOWELL MD August 23, 2024 12:36
--- NOTE | 2024-08-22 15:15 | DVHPN2 ---
Progress Note Date Seen: August 22, 2024 Medical Necessity Reason Pt with a Central, PICC or Fol: Yes Subjective Patient reports: No new complaints, Other Review of Systems: Deferred Objective vital signs Vital Sign Date Time Temp Pulse Resp B/P (MAP) Pulse Ox O2 Delivery O2 Flow Rate FiO2 08/22/24 13:00 98.1 116 17 128/93 (105) 95 98.1 08/22/24 08:05 Room Air* 0 21 Total Intake and Output 08/21/24 08/21/24 08/22/24 15:00 23:00 07:00 Intake Total 50 ml 1200 ml 600 ml Output Total 800 ml 450 ml Balance 50 ml 400 ml 150 ml medications Current Medications Medications Dose Ordered Sig/Leeanne Route Start Time Stop Time Status Last Admin Dose Admin Acetaminophen/ Hydrocodone Bitart 1 tab Q4HP PRN PO 08/16/24 10:30 08/21/24 17:08 1 TAB Acetaminophen 650 mg Q6HP PRN PO 08/16/24 10:30 Morphine Sulfate 2 mg Q4HPRN PRN IV 08/16/24 10:30 08/22/24 05:59 2 MG Hydralazine HCl 10 mg Q6HP PRN IV 08/16/24 10:30 Nicotine 1 patch DAILY TD 08/17/24 10:00 08/22/24 09:18 1 PATCH Pantoprazole Sodium 40 mg DAILY IV 08/17/24 10:00 08/22/24 09:18 40 MG Sevelamer HCl 800 mg TIDWM PO 08/17/24 12:00 08/22/24 11:40 800 MG Sodium Bicarbonate 650 mg TID PO 08/17/24 14:00 08/22/24 13:37 650 MG Potassium Chloride 100 ml @ 50 mls/hr Q2H IV 08/17/24 08:30 08/17/24 12:29 UNV Ergocalciferol 50,000 unit Q7D PO 08/17/24 12:00 08/17/24 17:52 50,000 UNIT Prochlorperazine Edisylate 5 mg Q4HPRN PRN IV 08/18/24 13:00 Hold 08/21/24 12:38 5 MG Polyethylene Glycol 17 gm DAILY PO 08/22/24 10:00 08/22/24 09:18 17 GM Meropenem 50 ml @ 17 mls/hr Q12HR IV 08/21/24 22:00 08/22/24 09:18 17 MLS/HR Melatonin 5 mg HS PO 08/22/24 22:00 Melatonin 5 mg NOW PO 08/22/24 00:30 08/22/24 00:28 5 MG Ondansetron HCl 4 mg Q8HPRN PRN IV 08/22/24 08:30 08/22/24 09:17 4 MG Examination: GENERAL:Normal, MSK:Abnormal, NEURO:Normal, :Abnormal laboratory and microbiology Laboratory Tests 08/22/24 05:15 Test 08/22/24 05:15 Range/Units Serum Glucose 91 74-106 mg/dL Microbiology Date/Time Source Procedure Growth Status 08/17/24 15:45 Aspirate Gram Stain - Final Complete 08/17/24 15:45 Aspirate Body Fluid Culture - Final Complete 08/16/24 10:05 Blood Blood Culture - Final NO GROWTH AFTER 5 DAYS OF INCUBATION. Complete 08/16/24 09:54 Voided Urine Urine Culture - Final Complete Problem List/Assessment/Plan Problem List/Assessment/Plan Acute kidney injury multifactorial in the setting of sepsis as well as chronic obstruction Chronic kidney disease due to chronic urinary retention however baseline is unknown Sepsis secondary to urinary tract infection //staghorn calculi Metabolic acidosis Paraplegia and spina bifida Anemia due to iron deficiency s/p iron overload and desferoxime recs s/p b/l pcnt No indication for dialysis for now Antibiotics for UTI on ivf Plan discussed with: Patient, Other Dietary Evaluation Review Comments: 1. Disagree with Renal Standard diet for JOSE, +hypokalmeia; would change to Regular diet 2. Suggest daily bowel regimen while on opiods, +constipation 3. Monitor BMP/lytes - consistently low K, liberalize diet and replace per protocol to WNL 4. PO intakes improving; will assess need for ONS on FU Expected Outcomes/Goals: Improved lab values, adequate nutrition. HAYLIE GRAY MD August 22, 2024 15:15
[2024-08-23] VITALS (8 sets, daily range): BP systolic 100–126; BP diastolic 70–88; PULSE 92–125; RESP 16–20; TEMP 98–98.9; O2SAT 93–98
[2024-08-23 05:59] LABS: Basophils # (auto) 0 10 ^3/uL (0-0.2); Basophils % (auto) 0.1 % (0.0-2.0); Eosinophils # (auto) 0 10 ^3/uL (0-0.8); Hemoglobin 7.8 g/dL (12.2-16.2); Monocytes # (auto) 1.4 10 ^3/uL (0-1.3); Monocytes % (auto) 8.5 % (0.0-12.0)
[2024-08-23 06:01] LABS: Eosinophils % (auto) 0.2 % (0.0-7.0); Hematocrit 25.2 % (36.0-46.0); Lymphocytes # (auto) 0.6 10 ^3/uL (0.4-5.4); Lymphocytes % (auto) 3.6 % (10.0-50.0); Mean Corpuscular Hemoglobin 25.2 pg (28.0-32.0); Mean Corpuscular Volume 81.3 fL (80.0-100.0); Neutrophils # (auto) 14.9 10 ^3/uL (1.6-8.6); Neutrophils % (auto) 87.6 % (37.0-80.0); Platelet Count (auto) 353 10^3/uL (140-450); Red Cell Distribution Width 19.8 % (11.8-14.3); White Blood Cell 16.9 10^3/uL (4.4-10.8)
[2024-08-23 06:02] LABS: Chloride 103 mmol/L (98-107); Potassium 3.8 mmol/L (3.5-5.1)
[2024-08-23 06:03] LABS: Anion Gap 11 (5-15); Carbon Dioxide 21 mmol/L (20-31)
[2024-08-23 06:08] LABS: BUN/Creatinine Ratio 12.8 (10.0-20.0); Glucose 89 mg/dL (74-106)
[2024-08-23 06:09] LABS: Blood Urea Nitrogen 39 mg/dL (9-23); Calcium 8.4 mg/dL (8.7-10.4); Sodium 135 mmol/L (136-145)
--- NOTE | 2024-08-23 07:59 | DVHPN2 ---
Subjective Complaining of urine leaking from left nephrostomy tube with hematuria in the urine bag of the left nephrostomy tube Reviewed: Care Plan, H&P, Labs, Medications, Previous Orders, Radiology, Other (Consultation) Changes from previous H/P or p: Changes Objective Vitals Vital Signs Date Time Temp Pulse Resp B/P (MAP) Pulse Ox O2 Delivery O2 Flow Rate FiO2 08/23/24 06:06 107 18 124/37 08/23/24 05:00 98.0 96 98.0 08/22/24 20:00 Room Air* 0 21 Intake/Output Intake and Output 08/23/24 06:59 Intake Total 2540 ml Output Total 2600 ml Balance -60 ml Intake Oral 2440 ml IV Total 100 ml Output Urine Total 100 ml Drainage Total 1500 ml Other 1000 ml General Appearance: Alert, Oriented X3, Cooperative, No acute distress HEENT: Atraumatic Lungs: Clear to auscultation, Normal air movement Cardiovascular: Regular rate, Normal S1, Normal S2 Abdomen: Normal bowel sounds, Soft, Other (Leaking left nephrostomy tube with hematuria in the left nephrostomy tube urine bag; clear urine from the right nephrostomy tube and Marte's catheter; mild bilateral CVA tenderness) Genitourinary: Other (Marte's in place) Extremities: Other (Deformed lower extremities) Neuro: Cranial nerves 3-12 NL, Other (Paraplegia due to deformed lower extremities secondary to spina bifida) Psych/Mental Status: Mental status NL, Mood NL Medications Current Medications Medications Dose Ordered Sig/Leeanne Route Start Time Stop Time Status Last Admin Dose Admin Acetaminophen/ Hydrocodone Bitart 1 tab Q4HP PRN PO 08/16/24 10:30 08/21/24 17:08 1 TAB Acetaminophen 650 mg Q6HP PRN PO 08/16/24 10:30 Morphine Sulfate 2 mg Q4HPRN PRN IV 08/16/24 10:30 08/23/24 05:36 2 MG Hydralazine HCl 10 mg Q6HP PRN IV 08/16/24 10:30 Nicotine 1 patch DAILY TD 08/17/24 10:00 08/22/24 09:18 1 PATCH Pantoprazole Sodium 40 mg DAILY IV 08/17/24 10:00 08/22/24 09:18 40 MG Sevelamer HCl 800 mg TIDWM PO 08/17/24 12:00 08/22/24 18:08 800 MG Sodium Bicarbonate 650 mg TID PO 08/17/24 14:00 08/23/24 05:33 650 MG Potassium Chloride 100 ml @ 50 mls/hr Q2H IV 08/17/24 08:30 08/17/24 12:29 UNV Ergocalciferol 50,000 unit Q7D PO 08/17/24 12:00 08/17/24 17:52 50,000 UNIT Prochlorperazine Edisylate 5 mg Q4HPRN PRN IV 08/18/24 13:00 Hold 08/21/24 12:38 5 MG Polyethylene Glycol 17 gm DAILY PO 08/22/24 10:00 08/22/24 09:18 17 GM Meropenem 50 ml @ 17 mls/hr Q12HR IV 08/21/24 22:00 08/22/24 21:50 17 MLS/HR Melatonin 5 mg HS PO 08/22/24 22:00 08/22/24 21:50 5 MG Melatonin 5 mg NOW PO 08/22/24 00:30 08/22/24 00:28 5 MG Ondansetron HCl 4 mg Q8HPRN PRN IV 08/22/24 08:30 08/22/24 09:17 4 MG Laboratory Results Laboratory Tests 08/23/24 05:25 Chemistry Test 08/23/24 05:25 Calcium Level 8.4 mg/dL (8.7-10.4) L Urinalysis Test 08/16/24 09:54 Urine Color Dark-brown (Yellow) Urine Clarity Ex.turbid (Clear) Urine pH 7.5 (5.0-9.0) Urine Specific [place] 1.018 (1.001-1.035) Urine Protein 2+ (Negative) H Urine Ketones Negative (Negative) Urine Blood 1+ /uL (Negative) H Urine Nitrite Negative (Negative) Urine Bilirubin Negative (Negative) Urine Urobilinogen Normal mg/dL (Negative) Urine Leukocyte Esterase 3+ /uL (Negative) Urine RBC 104 /hpf (0 - 4) Urine WBC Clumps Present /hpf (None Seen) Urine Microscopic WBC 760 /HPF (0-5) H Urine Squamous Epithelial Cells None seen /hpf (<5) Urine Bacteria Many /hpf (None Seen) H Urine Mucus Many (None Seen) Urine Glucose Normal mg/dL (Normal) Urine Test Negative (Negative) Microbiology Microbiology Date/Time Source Procedure Growth Status 08/17/24 15:45 Aspirate Gram Stain - Final Complete 08/17/24 15:45 Aspirate Body Fluid Culture - Final Complete 08/16/24 10:05 Blood Blood Culture - Final NO GROWTH AFTER 5 DAYS OF INCUBATION. 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 calculus status post bilateral nephrostomy tubes by IR JOSE and CKD; multifactorial in the setting of sepsis (vasomotor nephropathy) as well as bilateral obstructive uropathy CKD in the setting of bilateral urinary obstruction due to staghorn calculi; unknown baseline of renal function Sepsis with leukocytosis and metabolic acidosis due to complicated UTI Metabolic acidosis due to above; on sodium bicarbonate by Nephrology Iron-deficiency anemia due to hematuria; status post iron overload (given five of daily doses at the same time) and status post deferoxamine (antidote of iron toxicity); status post transfusion 1 unit of packed RBCs Marijuana and tobacco use disorder Paraplegia due to spina bifida; no active issues Prolonged QTc with episodic tachycardia; to avoid QTc prolonging agents Electrolytes abnormalities Overweight Urology ordered abdomen/pelvis CT along with KUB for leaking left nephrostomy tube Nephrology is following Reviewed the available imaging studies Reviewed lab work Reviewed cultures; reordered urine cultures due to worsening leukocytosis Avoid nephrotoxic agents Continue IV antibiotics Stable hemoglobin Renal function; slowly improving Continue nicotine patch Counseled on tobacco on marijuana use cessation To replace/correct electrolytes as indicated Counseled on the importance of adopting healthy lifestyle with diet and exercise in order to lose weight Telemetry Continue monitoring Late Entry. This medical document was created using an electronic medical record system with computerized dictation system. Although this document has been carefully reviewed, there might still be some phonetic and typographical errors. These areas are purely typographical due to imperfections of the software programs, and do not reflect any compromise in the patient's medical care. Plan discussed with: Patient, Other (Nurse) Date of Service: August 23, 2024 Billing Provider: DEBORAH HOWELL MD Common Visit Codes: [id number] INP/OBS CARE(HIGH) DEBORAH HOWELL MD August 23, 2024 07:59
--- NOTE | 2024-08-23 14:10 | DVHPN2 ---
Progress Note Date Seen: August 23, 2024 Medical Necessity Reason Pt with a Central, PICC or Fol: Yes Subjective Patient reports: Other Review of Systems: Deferred Objective vital signs Vital Sign Date Time Temp Pulse Resp B/P (MAP) Pulse Ox O2 Delivery O2 Flow Rate FiO2 08/23/24 13:00 98.2 124 17 121/79 (93) 95 98.2 08/23/24 08:00 Room Air* 0 21 Total Intake and Output 08/22/24 08/22/24 08/23/24 15:00 23:00 07:00 Intake Total 50 ml 2200 ml 290 ml Output Total 1725 ml 875 ml Balance 50 ml 475 ml -585 ml medications Current Medications Medications Dose Ordered Sig/Leeanne Route Start Time Stop Time Status Last Admin Dose Admin Acetaminophen/ Hydrocodone Bitart 1 tab Q4HP PRN PO 08/16/24 10:30 08/21/24 17:08 1 TAB Acetaminophen 650 mg Q6HP PRN PO 08/16/24 10:30 Morphine Sulfate 2 mg Q4HPRN PRN IV 08/16/24 10:30 08/23/24 10:06 2 MG Hydralazine HCl 10 mg Q6HP PRN IV 08/16/24 10:30 Nicotine 1 patch DAILY TD 08/17/24 10:00 08/23/24 10:09 1 PATCH Pantoprazole Sodium 40 mg DAILY IV 08/17/24 10:00 08/23/24 10:07 40 MG Sevelamer HCl 800 mg TIDWM PO 08/17/24 12:00 08/23/24 12:11 800 MG Sodium Bicarbonate 650 mg TID PO 08/17/24 14:00 08/23/24 13:47 650 MG Potassium Chloride 100 ml @ 50 mls/hr Q2H IV 08/17/24 08:30 08/17/24 12:29 UNV Ergocalciferol 50,000 unit Q7D PO 08/17/24 12:00 08/17/24 17:52 50,000 UNIT Polyethylene Glycol 17 gm DAILY PO 08/22/24 10:00 08/23/24 10:11 17 GM Meropenem 50 ml @ 17 mls/hr Q12HR IV 08/21/24 22:00 08/23/24 10:11 17 MLS/HR Melatonin 5 mg HS PO 08/22/24 22:00 5/3/25 21:50 5 MG Melatonin 5 mg NOW PO 08/22/24 00:30 08/22/24 00:28 5 MG Ondansetron HCl 4 mg Q4HPRN PRN IV 08/23/24 12:00 laboratory and microbiology Laboratory Tests 08/23/24 05:25 Test 08/23/24 05:25 Range/Units Serum Glucose 89 74-106 mg/dL Microbiology Date/Time Source Procedure Growth Status 08/17/24 15:45 Aspirate Gram Stain - Final Complete 08/17/24 15:45 Aspirate Body Fluid Culture - Final Complete 08/16/24 10:05 Blood Blood Culture - Final NO GROWTH AFTER 5 DAYS OF INCUBATION. Complete 08/16/24 09:54 Voided Urine Urine Culture - Final Complete Problem List/Assessment/Plan Problem List/Assessment/Plan Acute kidney injury multifactorial in the setting of sepsis as well as chronic obstruction Chronic kidney disease due to chronic urinary retention however baseline is unknown Sepsis secondary to urinary tract infection //staghorn calculi Metabolic acidosis Paraplegia and spina bifida Anemia due to iron deficiency s/p iron overload and desferoxime recs s/p b/l pcnt-- No indication for dialysis for now Antibiotics for UTI on ivf improving renal funtion urology f/u Plan discussed with: Patient Dietary Evaluation Review Comments: 1. Disagree with Renal Standard diet for JOSE, +hypokalmeia; would change to Regular diet 2. Suggest daily bowel regimen while on opiods, +constipation 3. Monitor BMP/lytes - consistently low K, liberalize diet and replace per protocol to WNL 4. PO intakes improving; will assess need for ONS on FU Expected Outcomes/Goals: Improved lab values, adequate nutrition. HAYLIE GRAY MD August 23, 2024 14:10
--- NOTE | 2024-08-23 15:14 | DVH ---
Exam: XY KUB ABDOMEN SINGLE VIEW Indication: nephrostomy tubes Comparison: None Technique: 1 radiographic views of the abdomen. Findings: Bilateral nephrostomies. Marte catheter. Nonobstructive bowel gas pattern noted. Large volume colonic stool. There is no definite evidence for pneumoperitoneum. No abnormal calcifications noted. Impression: Large volume colonic stool.
[2024-08-23] MEDS: ALPRAZolam 0.5 MG TAB PO ONE (17:21)
--- NOTE | 2024-08-23 17:56 | DVH ---
CLINICAL HISTORY: obstructive uropathy s/p bilateral nephrostomy TECHNIQUE: CT of the abdomen and pelvis was performed without intravenous contrast. This exam was per formed according to our departmental dose optimization program. Up-to-date CT equipment and radiation dose reduction techniques are utilized as appropriate. CTDI: 9.16 DLP: 481.3 WID: COMPARISON: CT CT AB PEL WO CON-NO ORAL OR IV on DOS: 08/16/24 FINDINGS: Lower Thorax: There is eventration of the left hemidiaphragm. Normal-sized heart. Linear basilar left lower lobe scarring or atelectasis. Linear basilar right lower lobe atelectasis or scarring. Hypoden sity of the blood pool relative to the myocardium indicative of anemia. Liver and Biliary system: Normal-sized liver. No definite hepatic lesion. Decompressed gallbladder. T here is no biliary ductal dilatation. Spleen: Unremarkable. Adrenal Glands and Kidneys: Normal adrenal glands. Placement of posterior approach bilateral percutan eous nephrostomy tubes. Resolution of hydronephrosis. Bilateral urothelial thickening is seen. Redemo nstration of multiple low-attenuation areas within the left kidney. A staghorn appearing calculus ag ain seen in the mid and lower pole of the left kidney. Additional nonobstructing left renal calculi. There is soft tissue stranding in the left renal pelvis and about the left ureter and in the left per inephric space. There has been development of a multiloculated fluid and gas collection in the laboratory geneticist ior left pararenal space measuring 11.4 x 3.9 cm on series 2, image 37. Atrophic cortices of the bila teral kidneys. Bilateral renal cortical scarring. Pancreas and Retroperitoneum: Lipomatosis in the left perinephric space. Mildly prominent retroperito smitha lymph nodes. Normal pancreas. Aorta and Major Vessels: Aortoiliac vessels are normal in caliber. Bowel, Mesentery and Peritoneal space: Normal caliber small and large bowel. Moderate retained stool in the colon. Prior appendectomy. No free air or fluid collection. Pelvis: Urinary bladder is decompressed about a Marte catheter. A few mildly prominent pelvic lymph n odes. The uterus and ovaries are grossly unremarkable. Abdominal wall and Osseous Structures: No destructive osseous lesion. Body wall edema is present. Chr onic posterior /superior dislocation of the bilateral hips. IMPRESSION: 1. Placement of posterior approach bilateral percutaneous nephrostomy tubes with resolution of hydron ephrosis. 2. Development of a loculated fluid and gas collection in the posterior left pararenal space likely a bscess. 3. Persistent multiple low-attenuation areas within the left kidney and staghorn appearing calculus i n the mid and lower pole of the left kidney as well as additional left nonobstructing renal calculi. 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 The le ft perirenal lipomatosis and soft tissue stranding is unchanged. 4. Bilateral urothelial thickening which may be reactive in the setting of percutaneous nephrostomy t ubes, scarring, or related to infection. Correlate with urinalysis. 5. Anemia suggested. Correlate with CBC. 6. Marte catheter decompresses the urinary bladder. 7. Moderate retained stool in the colon. 8. 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
[2024-08-23] MEDS: ONDANSETRON HCL 4 MG/2 ML VIAL IV PRN (18:43)
[2024-08-24] VITALS (8 sets, daily range): BP systolic 98–109; BP diastolic 63–75; PULSE 76–121; RESP 16–20; TEMP 97.9–99.5; O2SAT 93–99
[2024-08-24 07:06] LABS: Anion Gap 9 (5-15); Basophils # (auto) 0 10 ^3/uL (0-0.2); Basophils % (auto) 0.1 % (0.0-2.0); Carbon Dioxide 20 mmol/L (20-31); Chloride 105 mmol/L (98-107); Eosinophils # (auto) 0.1 10 ^3/uL (0-0.8); Eosinophils % (auto) 1.2 % (0.0-7.0); Hemoglobin 7.4 g/dL (12.2-16.2); Red Blood Cells 2.93 10^6/uL (4.0-5.20)
[2024-08-24 07:12] LABS: BUN/Creatinine Ratio 11.4 (10.0-20.0); Glucose 92 mg/dL (74-106)
[2024-08-24 07:14] LABS: Blood Urea Nitrogen 36 mg/dL (9-23); Calcium 8.3 mg/dL (8.7-10.4); Hematocrit 24.4 % (36.0-46.0); Lymphocytes # (auto) 0.7 10 ^3/uL (0.4-5.4); Lymphocytes % (auto) 5.8 % (10.0-50.0); Mean Corpuscular Hemoglobin 25.3 pg (28.0-32.0); Mean Corpuscular Hgb Conc. 30.4 g/dL (32.0-36.0); Mean Corpuscular Volume 83.3 fL (80.0-100.0); Monocytes # (auto) 1.9 10 ^3/uL (0-1.3); Monocytes % (auto) 16.3 % (0.0-12.0); Neutrophils # (auto) 8.8 10 ^3/uL (1.6-8.6); Neutrophils % (auto) 76.6 % (37.0-80.0); Platelet Count (auto) 336 10^3/uL (140-450); Red Cell Distribution Width 19.8 % (11.8-14.3); Sodium 134 mmol/L (136-145); White Blood Cell 11.5 10^3/uL (4.4-10.8)
--- NOTE | 2024-08-24 10:24 | DVHPN2 ---
Progress Note - Dictate Date Seen: August 24, 2024 Medical Necessity Reason Pt with a Central, PICC or Fol: Yes The following are medically ne: Wilcox Catheter Reason for wilcox catheter: Bladder Retention/Obstruc, Total Immobilization vital signs Vital Sign Date Time Temp Pulse Resp B/P (MAP) Pulse Ox O2 Delivery O2 Flow Rate FiO2 08/24/24 09:51 101 16 110/82 08/24/24 09:15 98.1 97 98.1 08/24/24 08:00 Room Air* 0 21 Total Intake and Output 08/23/24 08/23/24 08/24/24 15:00 23:00 07:00 Intake Total 50 ml 2025 ml 850 ml Output Total 1100 ml 250 ml Balance 50 ml 925 ml 600 ml medications Current Medications Medications Dose Ordered Sig/Leeanne Route Start Time Stop Time Status Last Admin Dose Admin Acetaminophen/ Hydrocodone Bitart 1 tab Q4HP PRN PO 08/16/24 10:30 08/21/24 17:08 1 TAB Acetaminophen 650 mg Q6HP PRN PO 08/16/24 10:30 Morphine Sulfate 2 mg Q4HPRN PRN IV 08/16/24 10:30 08/24/24 09:51 2 MG Hydralazine HCl 10 mg Q6HP PRN IV 08/16/24 10:30 Nicotine 1 patch DAILY TD 08/17/24 10:00 08/24/24 09:51 1 PATCH Pantoprazole Sodium 40 mg DAILY IV 08/17/24 10:00 08/23/24 10:07 40 MG Sevelamer HCl 800 mg TIDWM PO 08/17/24 12:00 08/24/24 08:21 800 MG Sodium Bicarbonate 650 mg TID PO 08/17/24 14:00 08/24/24 05:45 650 MG Potassium Chloride 100 ml @ 50 mls/hr Q2H IV 08/17/24 08:30 08/17/24 12:29 UNV Ergocalciferol 50,000 unit Q7D PO 08/17/24 12:00 08/17/24 17:52 50,000 UNIT Polyethylene Glycol 17 gm DAILY PO 08/22/24 10:00 08/24/24 09:49 17 GM Meropenem 50 ml @ 17 mls/hr Q12HR IV 08/21/24 22:00 08/24/24 09:52 17 MLS/HR Melatonin 5 mg HS PO 08/22/24 22:00 08/23/24 21:57 5 MG Melatonin 5 mg NOW PO 08/22/24 00:30 08/22/24 00:28 5 MG Ondansetron HCl 4 mg Q4HPRN PRN IV 08/23/24 12:00 08/23/24 18:43 4 MG objective marked improvement in hydronephrosis bilaterally persistent left renal staghorn left perirenal gas and fluid collection concerning for abscess bilateral cortical scarring, urothelial thickening, and XGP appearance of left kidney wilcox catheter in place with decompressed bladder laboratory and microbiology Laboratory Tests 08/24/24 05:42 Test 08/24/24 05:42 Range/Units Serum Glucose 92 74-106 mg/dL Assessment/Plan obstructive uropathy with left staghorn - post bilateral PCN with improved hydro perinephric absess on the left - IR consulted for drainage chronic pyelonephritis/XGP changes - left kidney appears chronically damaged possibly non functional - NM renal scan ordered bilateral urothelial thickening - likely reactive anemia - likely chronic Plan - consider left nephrectomy on outpt basis is confirmed to be non functional Problems(with codes): (1) Spina bifida (2) Anemia (3) Sepsis (4) Staghorn calculus (5) Nausea & vomiting (6) UTI with possible pyelonephritis (7) Nephrostomy status Prognosis fair Dietary Evaluation Review Comments: 1. Disagree with Renal Standard diet for JOSE, +hypokalmeia; would change to Regular diet 2. Suggest daily bowel regimen while on opiods, +constipation 3. Monitor BMP/lytes - consistently low K, liberalize diet and replace per protocol to WNL 4. PO intakes improving; will assess need for ONS on FU Expected Outcomes/Goals: Improved lab values, adequate nutrition. Plan discussed with: Patient, Other Total Time (mins): 28 TIMA MARX NP August 24, 2024 10:24
--- NOTE | 2024-08-24 16:04 | DVHPN2 ---
Progress Note Date Seen: August 24, 2024 Medical Necessity Reason Pt with a Central, PICC or Fol: Yes The following are medically ne: Wilcox Catheter Reason for wilcox catheter: Bladder Retention/Obstruc, Total Immobilization Subjective Patient reports: Other (events noted) Review of Systems: Deferred Objective vital signs Vital Sign Date Time Temp Pulse Resp B/P (MAP) Pulse Ox O2 Delivery O2 Flow Rate FiO2 08/24/24 15:12 115 16 109/75 08/24/24 13:00 98.3 99 98.3 08/24/24 08:00 Room Air* 0 21 Total Intake and Output 08/23/24 08/23/24 08/24/24 15:00 23:00 07:00 Intake Total 50 ml 2025 ml 850 ml Output Total 1100 ml 250 ml Balance 50 ml 925 ml 600 ml medications Current Medications Medications Dose Ordered Sig/Leeanne Route Start Time Stop Time Status Last Admin Dose Admin Acetaminophen/ Hydrocodone Bitart 1 tab Q4HP PRN PO 08/16/24 10:30 08/21/24 17:08 1 TAB Acetaminophen 650 mg Q6HP PRN PO 08/16/24 10:30 Morphine Sulfate 2 mg Q4HPRN PRN IV 08/16/24 10:30 08/24/24 15:12 2 MG Hydralazine HCl 10 mg Q6HP PRN IV 08/16/24 10:30 Nicotine 1 patch DAILY TD 08/17/24 10:00 08/24/24 09:51 1 PATCH Pantoprazole Sodium 40 mg DAILY IV 08/17/24 10:00 08/23/24 10:07 40 MG Sevelamer HCl 800 mg TIDWM PO 08/17/24 12:00 08/24/24 11:26 800 MG Sodium Bicarbonate 650 mg TID PO 08/17/24 14:00 08/24/24 15:04 650 MG Potassium Chloride 100 ml @ 50 mls/hr Q2H IV 08/17/24 08:30 08/17/24 12:29 UNV Ergocalciferol 50,000 unit Q7D PO 08/17/24 12:00 08/24/24 11:26 50,000 UNIT Polyethylene Glycol 17 gm DAILY PO 08/22/24 10:00 08/24/24 09:49 17 GM Meropenem 50 ml @ 17 mls/hr Q12HR IV 08/21/24 22:00 08/24/24 09:52 17 MLS/HR Melatonin 5 mg HS PO 08/22/24 22:00 08/23/24 21:57 5 MG Melatonin 5 mg NOW PO 08/22/24 00:30 08/22/24 00:28 5 MG Ondansetron HCl 4 mg Q4HPRN PRN IV 08/23/24 12:00 08/23/24 18:43 4 MG Examination: GENERAL:Normal, LUNGS:Normal, :Abnormal laboratory and microbiology Laboratory Tests 08/24/24 05:42 Test 08/24/24 05:42 Range/Units Serum Glucose 92 74-106 mg/dL Microbiology Date/Time Source Procedure Growth Status 08/23/24 12:50 Other Urine Culture - Preliminary Resulted 08/17/24 15:45 Aspirate Gram Stain - Final Complete 08/17/24 15:45 Aspirate Body Fluid Culture - Final Complete 08/16/24 10:05 Blood Blood Culture - Final NO GROWTH AFTER 5 DAYS OF INCUBATION. Complete 08/16/24 09:54 Voided Urine Urine Culture - Final Complete Problem List/Assessment/Plan Problem List/Assessment/Plan Acute kidney injury multifactorial in the setting of sepsis as well as chronic obstruction Chronic kidney disease due to chronic urinary retention however baseline is unknown Sepsis secondary to urinary tract infection //staghorn calculi Metabolic acidosis Paraplegia and spina bifida Anemia due to iron deficiency s/p iron overload and desferoxime Perinephric abscess recs IR consulted for perinephric abscess, CT scan findings noted hydronephrosis resolved s/p b/l pcnt-- No indication for dialysis for now Antibiotics for UTI on ivf improving renal funtion urology f/u Plan discussed with: Patient Dietary Evaluation Review Comments: 1. Disagree with Renal Standard diet for JOSE, +hypokalmeia; would change to Regular diet 2. Suggest daily bowel regimen while on opiods, +constipation 3. Monitor BMP/lytes - consistently low K, liberalize diet and replace per protocol to WNL 4. PO intakes improving; will assess need for ONS on FU Expected Outcomes/Goals: Improved lab values, adequate nutrition. HAYLIE GRAY MD August 24, 2024 16:04
--- NOTE | 2024-08-24 16:14 | DVHPNRES ---
Progress Note Date Seen: August 24, 2024 Resident Creating Document: MIGUEL KRUEGER RESIDENT Medical Necessity Reason Pt with a Central, PICC or Fol: Yes The following are medically ne: Wilcox Catheter Reason for wilcox catheter: Bladder Retention/Obstruc, Total Immobilization Subjective Review of Systems Patient is a 38-year-old female with past medical history of paraplegia, staghorn renal calculi, hydronephrosis, status post bladder expansion, tobacco and marijuana use who came to the hospital with a chief complaint of generalized abdominal pain which was mainly located in the suprapubic area radiating to right and upper quadrant abdominal pain. With further evaluation patient found to have urinary infection with bilateral renal calculi, status post nephrostomy tube, received a IV iron, IV iron overload. No any other new complaints. S/P nephrostomy tube bilateral. Draining both nephrostomy tube, also presence of urine in urinary bag with Wilcox catheter. Patient complaining of left flank pain, located at the insertion of left nephrostomy tube. However patient denying any other complaint chronic fever, chills, other complaint ROS: Eyes: No Pain, No Vision change, No Conjunctivae inflammation, No Eyelid inflammation, No Other, No Redness ENT: No Ear pain, No Ear discharge, No Nose pain, No Nose discharge, No Nose congestion, No Mouth pain, No Mouth swelling, No Throat pain, No Throat swelling, No Other Cardiovascular: No Chest Pain, No Palpitations, No Orthopnea, No Paroxysmal Noc. Dyspnea, No Edema, No Lt Headedness, No Other Respiratory: No Cough, No Dry, No Shortness of breath, No SOB with excertion, No Wheezing, No Hemoptysis, No Pleuritic Pain, No Sputum, No Other Gastrointestinal: No Nausea, Vomiting, Abdominal Pain, No Diarrhea, No Constipation, No Melena, No Hematochezia, No Other Genitourinary: Dysuria, No Frequency, No Incontinence, No Hematuria, No Retention, No Other Musculoskeletal: No other, No neck pain, No shoulder pain, No arm pain, No back pain, No hand pain, No leg pain, No foot pain Skin: No Rash, No Lesions, No Jaundice, No Bruising, No Other Objective vital signs Vital Sign Date Time Temp Pulse Resp B/P (MAP) Pulse Ox O2 Delivery O2 Flow Rate FiO2 08/24/24 15:12 115 16 109/75 5/5/25 13:00 98.3 99 98.3 08/24/24 08:00 Room Air* 0 21 Total Intake and Output 08/23/24 08/23/24 08/24/24 15:00 23:00 07:00 Intake Total 50 ml 2025 ml 850 ml Output Total 1100 ml 250 ml Balance 50 ml 925 ml 600 ml medications Current Medications Medications Dose Ordered Sig/Leeanne Route Start Time Stop Time Status Last Admin Dose Admin Acetaminophen/ Hydrocodone Bitart 1 tab Q4HP PRN PO 08/16/24 10:30 08/21/24 17:08 1 TAB Acetaminophen 650 mg Q6HP PRN PO 08/16/24 10:30 Morphine Sulfate 2 mg Q4HPRN PRN IV 08/16/24 10:30 08/24/24 15:12 2 MG Hydralazine HCl 10 mg Q6HP PRN IV 08/16/24 10:30 Nicotine 1 patch DAILY TD 08/17/24 10:00 08/24/24 09:51 1 PATCH Pantoprazole Sodium 40 mg DAILY IV 08/17/24 10:00 08/23/24 10:07 40 MG Sevelamer HCl 800 mg TIDWM PO 08/17/24 12:00 08/24/24 11:26 800 MG Sodium Bicarbonate 650 mg TID PO 08/17/24 14:00 08/24/24 15:04 650 MG Potassium Chloride 100 ml @ 50 mls/hr Q2H IV 08/17/24 08:30 08/17/24 12:29 UNV Ergocalciferol 50,000 unit Q7D PO 08/17/24 12:00 08/24/24 11:26 50,000 UNIT Polyethylene Glycol 17 gm DAILY PO 08/22/24 10:00 08/24/24 09:49 17 GM Meropenem 50 ml @ 17 mls/hr Q12HR IV 08/21/24 22:00 08/24/24 09:52 17 MLS/HR Melatonin 5 mg HS PO 08/22/24 22:00 08/23/24 21:57 5 MG Melatonin 5 mg NOW PO 08/22/24 00:30 08/22/24 00:28 5 MG Ondansetron HCl 4 mg Q4HPRN PRN IV 08/23/24 12:00 08/23/24 18:43 4 MG Examination General Appearance: Cooperative. Well developed. Well nourished. NAD Head Exam: Normal inspection Neck Exam: Normal inspection. Non-tender. Normal alignment Pulmonary/Respiratory: Chest non-tender. Clear bilateral breath sounds Cardiovascular/Chest: Regular rate and rhythm. No murmurs. No JVD. Peripheral Pulses: 2+ Radial (R). 2+ Radial (L). 2+ Pedal (R). 2+ Pedal (L) Abdominal Exam: Increase urine output, clear urine,no hematuria, Bilateral nephrostomy tube in place with draining urine in bags; normal bowel sounds. Soft. Nontender. No hepatosplenomegaly. No masses Ankle Exam: Negative ankle edema Lower extremities: Negative lower extremity edema with sub-grown lower extremities Neuro/Mental Status: A&O x4. Coherent, paraplegia Thoughts/Psych: Normal thought pattern. Appropriate mood and affect. Good judgement and insight Appearance: In no acute distress laboratory and microbiology Laboratory Tests 08/24/24 05:42 Test 08/24/24 05:42 Range/Units Serum Glucose 92 74-106 mg/dL Microbiology Date/Time Source Procedure Growth Status 08/23/24 12:50 Other Urine Culture - Preliminary Resulted 08/17/24 15:45 Aspirate Gram Stain - Final Complete 08/17/24 15:45 Aspirate Body Fluid Culture - Final Complete 08/16/24 10:05 Blood Blood Culture - Final NO GROWTH AFTER 5 DAYS OF INCUBATION. Complete 08/16/24 09:54 Voided Urine Urine Culture - Final Complete Problem List/Assessment/Plan Problem List/Assessment/Plan Sepsis due to UTI -IV cefepime -IV LR 150 mL/hour -No growth in urine and blood culture -Urologic consultation: Plan for bilateral nephrostomy ultrasound-guided -Radiologic consultation has been done Acute left peripnephric abscess -Iv abx:meropenam -IR consulted for drainage Non functional left kidney -Outpatient folloe up for nepretomy Acute complication or cystitis -see the management of sepsis Hematuria likely due to above -Continue with ABx JOSE likely related to hemodynamically mediated and obstruction with CKD unknown stage -continue monitor kidney function, status post Wilcox insertion -CT scan showed bilateral renal calculi with hydronephrosis. -continue IV fluid -trend kidney function -follow nephrology recommendation Metabolic acidosis due to CKD -sodium bicarbonate Left-sided staghorn calculi with moderate hydronephrosis -as per urology Moderate right hydronephrosis and hydroureter -as per Neurology Severe anemia of chronic disease, status post IV iron load, IV Iron toxicity -received 5 bags of IV iron, status post deferoxamine -repeat Iron panel:Iron level normalized 51 Chronic bilateral hip dislocation -Stable History of spina bifida with Paraplegia -Stable Hypomagnesemia -IV mag Hypokalemia -IV potassium 40 meq repeat Hyperphosphatemia -sevelamer 800 mg p.o. t.i.d. Vitamin-D deficiency -Vitamin d 50,000 IU every week once Sinus tachycardia with QTC prolongation -Continue monitor Marijuana use disorder -counseled on cessation PUD prophylaxis with Protonix plan discussed with Dr Solis Plan discussed with: Patient Dietary Evaluation Review Comments: 1. Disagree with Renal Standard diet for JOSE, +hypokalmeia; would change to Regular diet 2. Suggest daily bowel regimen while on opiods, +constipation 3. Monitor BMP/lytes - consistently low K, liberalize diet and replace per protocol to WNL 4. PO intakes improving; will assess need for ONS on FU Expected Outcomes/Goals: Improved lab values, adequate nutrition. Date of Service: August 24, 2024 Billing Provider: RAJWINDER SOLIS DO Common Visit Codes: [id number] INP/OBS CARE(HIGH) MIGUEL KRUEGER RESIDENT August 24, 2024 16:14 RAJWINDER SOLIS DO August 24, 2024 20:34
[2024-08-25] VITALS (9 sets, daily range): BP systolic 103–118; BP diastolic 61–84; PULSE 98–111; RESP 16–20; TEMP 97.8–98.4; O2SAT 95–99
--- NOTE | 2024-08-25 11:52 | DVHPN2 ---
Progress Note Date Seen: August 25, 2024 Resident Creating Document: URMILA HASKINS RESIDENT Medical Necessity Reason Pt with a Central, PICC or Fol: Yes The following are medically ne: Wilcox Catheter Reason for wilcox catheter: Bladder Retention/Obstruc, Total Immobilization Subjective Review of Systems This is a 38-year-old female with past medical history of paraplegia, staghorn calculi, hydronephrosis who presented to the ER with chief complaint of suprapubic pain. Patient was diagnosed with UTI along with bilateral kidney stones. Nephrology was consulted. Patient underwent bilateral nephrostomy tube placement 08/18 by IR, repeat CT scan showed resolving hydronephrosis. Left perirenal abscess was also seen on the repeat CT scan for which IR was consulted but patient declined any treatment. Prelim urine cultures are negative. Prelim blood cultures are negative. Patient was started on IV cefepime which was switched to IV meropenem. Given the iron-deficiency, patient received 5 bags of iron and later iron chelator deferoxamine. Patient seen and examined at the bedside. Overnight, left nephrostomy tube draining 275 cc, right draining 350 cc. Patient agreed to be seen by IR. Creatinine downtrending Objective vital signs Vital Sign Date Time Temp Pulse Resp B/P (MAP) Pulse Ox O2 Delivery O2 Flow Rate FiO2 08/25/24 09:10 104 16 105/75 08/25/24 08:47 97.9 97 97.9 08/25/24 07:43 Room Air* 0 21 Total Intake and Output 08/24/24 08/24/24 08/25/24 15:00 23:00 07:00 Intake Total 50 ml 1400 ml 550 ml Output Total 450 ml 800 ml 550 ml Balance -400 ml 600 ml 0 ml medications Current Medications Medications Dose Ordered Sig/Leeanne Route Start Time Stop Time Status Last Admin Dose Admin Acetaminophen/ Hydrocodone Bitart 1 tab Q4HP PRN PO 08/16/24 10:30 08/21/24 17:08 1 TAB Acetaminophen 650 mg Q6HP PRN PO 08/16/24 10:30 Morphine Sulfate 2 mg Q4HPRN PRN IV 08/16/24 10:30 08/25/24 09:10 2 MG Hydralazine HCl 10 mg Q6HP PRN IV 08/16/24 10:30 Nicotine 1 patch DAILY TD 08/17/24 10:00 08/25/24 09:10 1 PATCH Pantoprazole Sodium 40 mg DAILY IV 08/17/24 10:00 08/25/24 09:11 40 MG Sevelamer HCl 800 mg TIDWM PO 08/17/24 12:00 08/25/24 08:21 800 MG Sodium Bicarbonate 650 mg TID PO 08/17/24 14:00 08/25/24 05:21 650 MG Potassium Chloride 100 ml @ 50 mls/hr Q2H IV 08/17/24 08:30 08/17/24 12:29 UNV Ergocalciferol 50,000 unit Q7D PO 08/17/24 12:00 08/24/24 11:26 50,000 UNIT Polyethylene Glycol 17 gm DAILY PO 08/22/24 10:00 08/25/24 09:09 17 GM Meropenem 50 ml @ 17 mls/hr Q12HR IV 08/21/24 22:00 08/25/24 09:11 17 MLS/HR Melatonin 5 mg HS PO 08/22/24 22:00 08/24/24 23:42 5 MG Melatonin 5 mg NOW PO 08/22/24 00:30 08/22/24 00:28 5 MG Ondansetron HCl 4 mg Q4HPRN PRN IV 08/23/24 12:00 08/23/24 18:43 4 MG Examination Patient lying in bed, in no acute distress General: Well-built, afebrile, mucosae are moist Cardiovascular: Regular S1 and S2. No murmurs, gallops or rubs. No JVD elevation. No pedal edema Respiratory: Normal B/L air entry on room air. Clear lung sounds on auscultation Abdomen: Soft, nontender, nondistended, normoactive bowel sounds, no rebound tenderness, no organomegaly, no masses. Bilateral nephrostomy tube draining serous Genitourinary: Deferred MSK/skin: Skin is dry and warm Lower side Psych/Mental Status: A/Ox3 laboratory and microbiology Laboratory Tests 08/24/24 05:42 Test 08/24/24 05:42 Range/Units Serum Glucose 92 74-106 mg/dL Microbiology Date/Time Source Procedure Growth Status 08/23/24 12:50 Other Urine Culture - Final Complete 08/17/24 15:45 Aspirate Gram Stain - Final Complete 08/17/24 15:45 Aspirate Body Fluid Culture - Final Complete 08/16/24 10:05 Blood Blood Culture - Final NO GROWTH AFTER 5 DAYS OF INCUBATION. Complete 08/16/24 09:54 Voided Urine Urine Culture - Final Complete Labs and/or images reviewed: Labs reviewed by me, Image(s) reviewed by me Problem List/Assessment/Plan Problem List/Assessment/Plan Acute kidney injury multifactorial in the setting of sepsis as well as chronic obstruction Chronic kidney disease due to chronic urinary retention however baseline is unknown Sepsis secondary to urinary tract infection //staghorn calculi Bilateral hydronephrosis secondary to above Acute left perinephric abscess Chronic bilateral hip dislocation Metabolic acidosis Paraplegia and spina bifida Anemia due to iron deficiency s/p iron overload and desferoxime Hypomagnesemia Hypokalemia Plan Patient refusing IR guided abscess drainage, risk and benefits discussed with the patient. Bilateral percutaneous nephrostomy tube draining serous secretion Prelim urine and blood cultures were negative Continue IV meropenem, holding IV fluids No indication for dialysis for now Creatinine decreased to 2.84 from 3.9 on arrival Plan discussed with patient in which all questions have been answered Plan discussed with Dr. Gray Addendum Patient seen and examined, plan discussed with resident. Agree with above, we will follow closely Plan discussed with: Patient Dietary Evaluation Review Comments: 1. Disagree with Renal Standard diet for JOSE, +hypokalmeia; would change to Regular diet 2. Suggest daily bowel regimen while on opiods, +constipation 3. Monitor BMP/lytes - consistently low K, liberalize diet and replace per protocol to WNL 4. PO intakes improving; will assess need for ONS on FU Expected Outcomes/Goals: Improved lab values, adequate nutrition. URMILA HASKINS RESIDENT August 25, 2024 11:52 HAYLIE GRAY MD August 25, 2024 16:55
[2024-08-25 12:15] LABS: Alanine Aminotransferase 12 U/L (7-40); Anion Gap 10 (5-15); Aspartate Aminotransferase 14 U/L (13-40); Chloride 106 mmol/L (98-107); Glucose 96 mg/dL (74-106); Potassium 4.5 mmol/L (3.5-5.1); Total Protein 6.8 g/dL (5.7-8.2)
[2024-08-25 12:18] LABS: Albumin 3.1 g/dL (3.2-4.8); Alkaline Phosphatase 130 U/L (46-116); Bilirubin, Total 0.2 mg/dL (0.2-1.0); Blood Urea Nitrogen 34 mg/dL (9-23); Calcium 8.1 mg/dL (8.7-10.4); Carbon Dioxide 18 mmol/L (20-31); Sodium 134 mmol/L (136-145)
--- NOTE | 2024-08-25 15:07 | DVHPNRES ---
Progress Note Date Seen: August 25, 2024 Resident Creating Document: MIGUEL KRUEGER RESIDENT Medical Necessity Reason Pt with a Central, PICC or Fol: Yes The following are medically ne: Wilcox Catheter Reason for wilcox catheter: Bladder Retention/Obstruc, Total Immobilization Subjective Review of Systems Patient is a 38-year-old female with past medical history of paraplegia, staghorn renal calculi, hydronephrosis, status post bladder expansion, tobacco and marijuana use who came to the hospital with a chief complaint of generalized abdominal pain which was mainly located in the suprapubic area radiating to right and upper quadrant abdominal pain. With further evaluation patient found to have urinary infection with bilateral renal calculi, status post nephrostomy tube, received a IV iron, IV iron overload. No any other new complaints. S/P nephrostomy tube bilateral. Draining both nephrostomy tube, also presence of urine in urinary bag with Wilcox catheter. Continue to have pain over left nephrostomy tube inserion site, No fever Refused IR intervention for abscess for today ROS: Eyes: No Pain, No Vision change, No Conjunctivae inflammation, No Eyelid inflammation, No Other, No Redness ENT: No Ear pain, No Ear discharge, No Nose pain, No Nose discharge, No Nose congestion, No Mouth pain, No Mouth swelling, No Throat pain, No Throat swelling, No Other Cardiovascular: No Chest Pain, No Palpitations, No Orthopnea, No Paroxysmal Noc. Dyspnea, No Edema, No Lt Headedness, No Other Respiratory: No Cough, No Dry, No Shortness of breath, No SOB with excertion, No Wheezing, No Hemoptysis, No Pleuritic Pain, No Sputum, No Other Gastrointestinal: No Nausea, Vomiting, Abdominal Pain, No Diarrhea, No Constipation, No Melena, No Hematochezia, No Other Genitourinary: Dysuria, No Frequency, No Incontinence, No Hematuria, No Retention, No Other Musculoskeletal: No other, No neck pain, No shoulder pain, No arm pain, No back pain, No hand pain, No leg pain, No foot pain Skin: No Rash, No Lesions, No Jaundice, No Bruising, No Other Objective vital signs Vital Sign Date Time Temp Pulse Resp B/P (MAP) Pulse Ox O2 Delivery O2 Flow Rate FiO2 08/25/24 14:13 102 16 107/73 08/25/24 13:00 98.3 96 98.3 08/25/24 07:43 Room Air* 0 21 Total Intake and Output 08/24/24 08/24/24 08/25/24 15:00 23:00 07:00 Intake Total 50 ml 1400 ml 550 ml Output Total 450 ml 800 ml 550 ml Balance -400 ml 600 ml 0 ml medications Current Medications Medications Dose Ordered Sig/Leeanne Route Start Time Stop Time Status Last Admin Dose Admin Acetaminophen/ Hydrocodone Bitart 1 tab Q4HP PRN PO 08/16/24 10:30 08/21/24 17:08 1 TAB Acetaminophen 650 mg Q6HP PRN PO 08/16/24 10:30 Morphine Sulfate 2 mg Q4HPRN PRN IV 08/16/24 10:30 08/25/24 14:13 2 MG Hydralazine HCl 10 mg Q6HP PRN IV 08/16/24 10:30 Nicotine 1 patch DAILY TD 08/17/24 10:00 08/25/24 09:10 1 PATCH Pantoprazole Sodium 40 mg DAILY IV 08/17/24 10:00 08/25/24 09:11 40 MG Sevelamer HCl 800 mg TIDWM PO 08/17/24 12:00 08/25/24 14:11 800 MG Sodium Bicarbonate 650 mg TID PO 08/17/24 14:00 08/25/24 14:11 650 MG Potassium Chloride 100 ml @ 50 mls/hr Q2H IV 08/17/24 08:30 08/17/24 12:29 UNV Ergocalciferol 50,000 unit Q7D PO 08/17/24 12:00 08/24/24 11:26 50,000 UNIT Polyethylene Glycol 17 gm DAILY PO 08/22/24 10:00 08/25/24 09:09 17 GM Meropenem 50 ml @ 17 mls/hr Q12HR IV 08/21/24 22:00 08/25/24 09:11 17 MLS/HR Melatonin 5 mg HS PO 08/22/24 22:00 08/24/24 23:42 5 MG Melatonin 5 mg NOW PO 08/22/24 00:30 08/22/24 00:28 5 MG Ondansetron HCl 4 mg Q4HPRN PRN IV 08/23/24 12:00 08/23/24 18:43 4 MG Examination General Appearance: Cooperative. Well developed. Well nourished. NAD Head Exam: Normal inspection Neck Exam: Normal inspection. Non-tender. Normal alignment Pulmonary/Respiratory: Chest non-tender. Clear bilateral breath sounds Cardiovascular/Chest: Regular rate and rhythm. No murmurs. No JVD. Peripheral Pulses: 2+ Radial (R). 2+ Radial (L). 2+ Pedal (R). 2+ Pedal (L) Abdominal Exam: Increase urine output, clear urine,no hematuria, Bilateral nephrostomy tube in place with draining urine in bags; normal bowel sounds. Soft. Nontender. No hepatosplenomegaly. No masses Ankle Exam: Negative ankle edema Lower extremities: Negative lower extremity edema with sub-grown lower extremities Neuro/Mental Status: A&O x4. Coherent, paraplegia Thoughts/Psych: Normal thought pattern. Appropriate mood and affect. Good judgement and insight Appearance: In no acute distress laboratory and microbiology Laboratory Tests 08/25/24 11:39 08/24/24 05:42 Test 08/25/24 11:39 Range/Units Serum Glucose 96 74-106 mg/dL Microbiology Date/Time Source Procedure Growth Status 08/23/24 12:50 Other Urine Culture - Final Complete 08/17/24 15:45 Aspirate Gram Stain - Final Complete 08/17/24 15:45 Aspirate Body Fluid Culture - Final Complete 08/16/24 10:05 Blood Blood Culture - Final NO GROWTH AFTER 5 DAYS OF INCUBATION. Complete 08/16/24 09:54 Voided Urine Urine Culture - Final Complete Problem List/Assessment/Plan Problem List/Assessment/Plan Sepsis due to UTI -IV meropenam -No growth in urine and blood culture -Urologic consultation: s/p bilateral nephrostomy tube -Radiologic consultation has been done Acute left peripnephric abscess -Iv abx:meropenam -IR consulted for drainage:patient refused treatment Non functional left kidney -Outpatient folloe up for nepretomy Acute complication or cystitis -see the management of sepsis Hematuria likely due to above -Continue with ABx JOSE likely related to hemodynamically mediated and obstruction with CKD unknown stage -continue monitor kidney function, status post Wilcox insertion -CT scan showed bilateral renal calculi with hydronephrosis. -continue IV fluid -trend kidney function -follow nephrology recommendation Metabolic acidosis due to CKD -sodium bicarbonate Left-sided staghorn calculi with moderate hydronephrosis -as per urology Moderate right hydronephrosis and hydroureter -as per Neurology Severe anemia of chronic disease, status post IV iron load, IV Iron toxicity -received 5 bags of IV iron, status post deferoxamine -repeat Iron panel:Iron level normalized 51 Chronic bilateral hip dislocation -Stable History of spina bifida with Paraplegia -Stable Hypomagnesemia -IV mag Hypokalemia -IV potassium 40 meq repeat Hyperphosphatemia -sevelamer 800 mg p.o. t.i.d. Vitamin-D deficiency -Vitamin d 50,000 IU every week once Sinus tachycardia with QTC prolongation -Continue monitor Marijuana use disorder -counseled on cessation PUD prophylaxis with Protonix plan discussed with Dr David Plan discussed with: Patient Dietary Evaluation Review Comments: 1. Disagree with Renal Standard diet for JOSE, +hypokalmeia; would change to Regular diet 2. Suggest daily bowel regimen while on opiods, +constipation 3. Monitor BMP/lytes - consistently low K, liberalize diet and replace per protocol to WNL 4. PO intakes improving; will assess need for ONS on FU Expected Outcomes/Goals: Improved lab values, adequate nutrition. Date of Service: August 25, 2024 Billing Provider: SID DAVID MD Common Visit Codes: [id number] INP/OBS CARE(HIGH) MIGUEL KRUEGER RESIDENT August 25, 2024 15:07 SID DAVID MD August 26, 2024 08:36
[2024-08-26] VITALS (8 sets, daily range): BP systolic 101–127; BP diastolic 69–82; PULSE 74–119; RESP 16–20; TEMP 97.3–98.2; O2SAT 96–99
[2024-08-26 07:38] LABS: Basophils # (auto) 0 10 ^3/uL (0-0.2); Eosinophils # (auto) 0.3 10 ^3/uL (0-0.8); Hemoglobin 7.6 g/dL (12.2-16.2); Lymphocytes # (auto) 0.6 10 ^3/uL (0.4-5.4); Nucleated Red Blood Cells % 0.1 %
[2024-08-26 07:39] LABS: Basophils % (auto) 0.3 % (0.0-2.0); Eosinophils % (auto) 3.4 % (0.0-7.0); Hematocrit 24.9 % (36.0-46.0); Lymphocytes % (auto) 6.4 % (10.0-50.0); Mean Corpuscular Hemoglobin 25.6 pg (28.0-32.0); Mean Corpuscular Hgb Conc. 30.6 g/dL (32.0-36.0); Mean Corpuscular Volume 83.9 fL (80.0-100.0); Monocytes # (auto) 1.4 10 ^3/uL (0-1.3); Monocytes % (auto) 14.4 % (0.0-12.0); Neutrophils # (auto) 7.3 10 ^3/uL (1.6-8.6); Neutrophils % (auto) 75.5 % (37.0-80.0); Platelet Count (auto) 435 10^3/uL (140-450); Red Blood Cells 2.97 10^6/uL (4.0-5.20); Red Cell Distribution Width 19.4 % (11.8-14.3); White Blood Cell 9.7 10^3/uL (4.4-10.8)
[2024-08-26 08:00] LABS: Alanine Aminotransferase 10 U/L (7-40); Anion Gap 9 (5-15); Aspartate Aminotransferase 14 U/L (13-40); BUN/Creatinine Ratio 13.4 (10.0-20.0); Chloride 105 mmol/L (98-107); Glucose 99 mg/dL (74-106); Potassium 4.3 mmol/L (3.5-5.1); Total Protein 6.7 g/dL (5.7-8.2)
[2024-08-26 08:07] LABS: Albumin 3.1 g/dL (3.2-4.8); Alkaline Phosphatase 126 U/L (46-116); Bilirubin, Total < 0.2 mg/dL (0.2-1.0); Blood Urea Nitrogen 38 mg/dL (9-23); Calcium 7.8 mg/dL (8.7-10.4); Carbon Dioxide 19 mmol/L (20-31); Sodium 133 mmol/L (136-145)
[2024-08-26] MEDS: LACTULOSE 20Gm/30ML SOLN PO ONE (13:39)
[2024-08-26] MEDS: hydrOXYzine HCL 10 MG TAB PO ONE (13:40)
--- NOTE | 2024-08-26 14:04 | DVHPN2 ---
Progress Note Date Seen: August 26, 2024 Resident Creating Document: URMILA HASKINS RESIDENT Medical Necessity Reason Pt with a Central, PICC or Fol: Yes The following are medically ne: Wilcox Catheter Reason for wilcox catheter: Bladder Retention/Obstruc, Total Immobilization Subjective Review of Systems This is a 38-year-old female with past medical history of paraplegia, staghorn calculi, hydronephrosis who presented to the ER with chief complaint of suprapubic pain. Patient was diagnosed with UTI along with bilateral kidney stones. Nephrology was consulted. Patient underwent bilateral nephrostomy tube placement 08/18 by IR, repeat CT scan showed resolving hydronephrosis. Left perirenal abscess was also seen on the repeat CT scan for which IR was consulted but patient declined any treatment. Prelim urine cultures are negative. Prelim blood cultures are negative. Patient was started on IV cefepime which was switched to IV meropenem. Given the iron-deficiency, patient received 5 bags of iron and later iron chelator deferoxamine. 08/25 - Patient seen and examined at the bedside. Overnight, left nephrostomy tube draining 275 cc, right draining 350 cc. Patient agreed to be seen by IR. Creatinine downtrending 08/26 - Patient seen and examined at the bedside. Increasing u/o via blnt. Pending IR drainage Objective vital signs Vital Sign Date Time Temp Pulse Resp B/P (MAP) Pulse Ox O2 Delivery O2 Flow Rate FiO2 08/26/24 13:00 98.2 105 16 127/74 (91) 98 98.2 08/26/24 08:00 Room Air* 0 21 Total Intake and Output 08/25/24 08/25/24 08/26/24 15:00 23:00 07:00 Intake Total 50 ml 550 ml 850 ml Output Total 650 ml 300 ml Balance 50 ml -100 ml 550 ml medications Current Medications Medications Dose Ordered Sig/Leeanne Route Start Time Stop Time Status Last Admin Dose Admin Acetaminophen/ Hydrocodone Bitart 1 tab Q4HP PRN PO 08/16/24 10:30 08/21/24 17:08 1 TAB Acetaminophen 650 mg Q6HP PRN PO 08/16/24 10:30 Morphine Sulfate 2 mg Q4HPRN PRN IV 08/16/24 10:30 08/26/24 10:26 2 MG Hydralazine HCl 10 mg Q6HP PRN IV 08/16/24 10:30 Nicotine 1 patch DAILY TD 08/17/24 10:00 08/26/24 09:29 1 PATCH Pantoprazole Sodium 40 mg DAILY IV 08/17/24 10:00 08/26/24 09:28 40 MG Sevelamer HCl 800 mg TIDWM PO 08/17/24 12:00 08/26/24 11:25 800 MG Sodium Bicarbonate 650 mg TID PO 08/17/24 14:00 08/26/24 13:40 650 MG Potassium Chloride 100 ml @ 50 mls/hr Q2H IV 08/17/24 08:30 08/17/24 12:29 UNV Ergocalciferol 50,000 unit Q7D PO 08/17/24 12:00 08/24/24 11:26 50,000 UNIT Polyethylene Glycol 17 gm DAILY PO 08/22/24 10:00 08/25/24 09:09 17 GM Meropenem 50 ml @ 17 mls/hr Q12HR IV 08/21/24 22:00 08/26/24 09:29 17 MLS/HR Melatonin 5 mg HS PO 08/22/24 22:00 08/25/24 22:17 5 MG Ondansetron HCl 4 mg Q4HPRN PRN IV 08/23/24 12:00 08/23/24 18:43 4 MG Hydroxyzine HCl 20 mg Q6HP PRN PO 08/26/24 13:15 Examination Patient lying in bed, in no acute distress General: Well-built, afebrile, mucosae are moist Cardiovascular: Regular S1 and S2. No murmurs, gallops or rubs. No JVD elevation. No pedal edema Respiratory: Normal B/L air entry on room air. Clear lung sounds on auscultation Abdomen: Soft, nontender, nondistended, normoactive bowel sounds, no rebound tenderness, no organomegaly, no masses. B/L cva tenderness. Bilateral nephrostomy tube draining serous Genitourinary: Deferred MSK/skin: Skin is dry and warm Lower side Psych/Mental Status: A/Ox3 laboratory and microbiology Laboratory Tests 08/26/24 06:59 Test 08/26/24 06:59 Range/Units Serum Glucose 99 74-106 mg/dL Microbiology Date/Time Source Procedure Growth Status 08/23/24 12:50 Other Urine Culture - Final Complete 08/17/24 15:45 Aspirate Gram Stain - Final Complete 08/17/24 15:45 Aspirate Body Fluid Culture - Final Complete 08/16/24 10:05 Blood Blood Culture - Final NO GROWTH AFTER 5 DAYS OF INCUBATION. Complete 08/16/24 09:54 Voided Urine Urine Culture - Final Complete Labs and/or images reviewed: Labs reviewed by me, Image(s) reviewed by me Problem List/Assessment/Plan Problem List/Assessment/Plan Acute kidney injury multifactorial in the setting of sepsis as well as chronic obstruction Chronic kidney disease due to chronic urinary retention however baseline is unknown Sepsis secondary to urinary tract infection //staghorn calculi Bilateral hydronephrosis secondary to above Acute left perinephric abscess Chronic bilateral hip dislocation Metabolic acidosis Paraplegia and spina bifida Anemia due to iron deficiency s/p iron overload and desferoxime Hypomagnesemia Hypokalemia Plan Patient refusing IR guided abscess drainage, risk and benefits discussed with the patient. Bilateral percutaneous nephrostomy tube draining serous secretion Prelim urine and blood cultures were negative Continue IV meropenem, holding IV fluids No indication for dialysis for now Creatinine decreased to 2.84 from 3.9 on arrival Fluid restriction 2L / day Plan discussed with patient in which all questions have been answered Plan discussed with Dr. Gray Addendum Patient seen and examined, plan discussed with resident. Agree with above, we will follow closely Plan discussed with: Patient Dietary Evaluation Review Comments: 1. Disagree with Renal Standard diet for JOSE, +hypokalmeia; would change to Regular diet 2. Suggest daily bowel regimen while on opiods, +constipation 3. Monitor BMP/lytes - consistently low K, liberalize diet and replace per protocol to WNL 4. PO intakes improving; will assess need for ONS on FU Expected Outcomes/Goals: Improved lab values, adequate nutrition. URMILA HASKINS RESIDENT August 26, 2024 14:04 HAYLIE GRAY MD August 26, 2024 15:55
[2024-08-26] MEDS: FUROSEMIDE 40 MG/4 ML VIAL ONE (14:27)
[2024-08-26] MEDS: FUROSEMIDE 40 MG/4 ML VIAL IV ONE (14:30)
--- NOTE | 2024-08-26 18:12 | DVH ---
EXAM: NM NM MAG3 RENAL SCAN DATE OF SERVICE: 08/26/2024 02:05 PM ORDERING PHYSICIAN: MIGUEL KRUEGER REASON FOR EXAM: split function, JOSE on CKD TECHNIQUE: During the injection of radiopharmaceutical, posterior flow images of the kidneys were ac quired immediately at one frame per second for one minute, immediately followed by posterior imaging at 30 seconds per frame for 30 minutes. Approximately 20 minutes after the radiopharmaceutical admini stration, the indicated dose of lasix was administered. Regions of interest were drawn around the kid neys and time activity curves were generated. Differential function was calculated. COMPARISON: None FINDINGS: Blood flow images demonstrate delayed and asymmetric flow to the kidneys. Functional images demonstrate a cortical transit time (qmgj-zj-dtau) of 13.4 on the right and 1.4 on the left (normal is < 6 minutes). There is no adequate spontaneous excretion from the kidneys. Differential function (uptake %) is 93.9 % by the right kidney and 6.1 % by the left kidney. After Lasix administration, there was mild excretion from the right collecting system. The post-Lasix half-emptying time (diuretic T1/2) was 55.9 minutes on the right and not calculable on the left. IMPRESSION: 1. Delayed perfusion and function of the right kidney with mild response to Lasix. Favored high-grade functional obstruction. 2. Minimal radiotracer uptake in the left kidney. Favored to reflect a nonfunctioning kidney. 3. Differential renal function (uptake percent) of 93.9 % by the right kidney and 6.1 % by the left.
--- NOTE | 2024-08-26 18:47 | DVHPNRES ---
Progress Note Date Seen: August 26, 2024 Resident Creating Document: MIGUEL KRUEGER RESIDENT Medical Necessity Reason Pt with a Central, PICC or Fol: Yes The following are medically ne: Wilcox Catheter Reason for wilcox catheter: Bladder Retention/Obstruc, Total Immobilization Subjective Review of Systems Patient is a 38-year-old female with past medical history of paraplegia, staghorn renal calculi, hydronephrosis, status post bladder expansion, tobacco and marijuana use who came to the hospital with a chief complaint of generalized abdominal pain which was mainly located in the suprapubic area radiating to right and upper quadrant abdominal pain. With further evaluation patient found to have urinary infection with bilateral renal calculi, status post nephrostomy tube, received a IV iron, IV iron overload. No any other new complaints. S/P nephrostomy tube bilateral. Draining both nephrostomy tube, also presence of urine in urinary bag with Wilcox catheter. Continue to have pain over left nephrostomy tube inserion site, No fever, nausea or vomiiting., Underewent renal scan. No new complains. ROS: Eyes: No Pain, No Vision change, No Conjunctivae inflammation, No Eyelid inflammation, No Other, No Redness ENT: No Ear pain, No Ear discharge, No Nose pain, No Nose discharge, No Nose congestion, No Mouth pain, No Mouth swelling, No Throat pain, No Throat swelling, No Other Cardiovascular: No Chest Pain, No Palpitations, No Orthopnea, No Paroxysmal Noc. Dyspnea, No Edema, No Lt Headedness, No Other Respiratory: No Cough, No Dry, No Shortness of breath, No SOB with excertion, No Wheezing, No Hemoptysis, No Pleuritic Pain, No Sputum, No Other Gastrointestinal: No Nausea, Vomiting, Abdominal Pain, No Diarrhea, No Constipation, No Melena, No Hematochezia, No Other Genitourinary: Dysuria, No Frequency, No Incontinence, No Hematuria, No Retention, No Other Musculoskeletal: No other, No neck pain, No shoulder pain, No arm pain, No back pain, No hand pain, No leg pain, No foot pain Skin: No Rash, No Lesions, No Jaundice, No Bruising, No Other Objective vital signs Vital Sign Date Time Temp Pulse Resp B/P (MAP) Pulse Ox O2 Delivery O2 Flow Rate FiO2 08/26/24 16:23 106 16 128/84 5/7/25 16:00 98.1 97 98.1 08/26/24 08:00 Room Air* 0 21 Total Intake and Output 08/25/24 08/25/24 08/26/24 15:00 23:00 07:00 Intake Total 50 ml 550 ml 850 ml Output Total 650 ml 300 ml Balance 50 ml -100 ml 550 ml medications Current Medications Medications Dose Ordered Sig/Leeanne Route Start Time Stop Time Status Last Admin Dose Admin Acetaminophen/ Hydrocodone Bitart 1 tab Q4HP PRN PO 08/16/24 10:30 08/21/24 17:08 1 TAB Acetaminophen 650 mg Q6HP PRN PO 08/16/24 10:30 Morphine Sulfate 2 mg Q4HPRN PRN IV 08/16/24 10:30 08/26/24 15:32 2 MG Hydralazine HCl 10 mg Q6HP PRN IV 08/16/24 10:30 Nicotine 1 patch DAILY TD 08/17/24 10:00 08/26/24 09:29 1 PATCH Pantoprazole Sodium 40 mg DAILY IV 08/17/24 10:00 08/26/24 09:28 40 MG Sevelamer HCl 800 mg TIDWM PO 08/17/24 12:00 08/26/24 17:05 800 MG Sodium Bicarbonate 650 mg TID PO 08/17/24 14:00 08/26/24 13:40 650 MG Potassium Chloride 100 ml @ 50 mls/hr Q2H IV 08/17/24 08:30 08/17/24 12:29 UNV Ergocalciferol 50,000 unit Q7D PO 08/17/24 12:00 08/24/24 11:26 50,000 UNIT Polyethylene Glycol 17 gm DAILY PO 08/22/24 10:00 08/25/24 09:09 17 GM Meropenem 50 ml @ 17 mls/hr Q12HR IV 08/21/24 22:00 08/26/24 09:29 17 MLS/HR Melatonin 5 mg HS PO 08/22/24 22:00 08/25/24 22:17 5 MG Ondansetron HCl 4 mg Q4HPRN PRN IV 08/23/24 12:00 08/23/24 18:43 4 MG Hydroxyzine HCl 20 mg Q6HP PRN PO 08/26/24 13:15 Examination General Appearance: Cooperative. Well developed. Well nourished. NAD Head Exam: Normal inspection Neck Exam: Normal inspection. Non-tender. Normal alignment Pulmonary/Respiratory: Chest non-tender. Clear bilateral breath sounds Cardiovascular/Chest: Regular rate and rhythm. No murmurs. No JVD. Peripheral Pulses: 2+ Radial (R). 2+ Radial (L). 2+ Pedal (R). 2+ Pedal (L) Abdominal Exam: Increase urine output, clear urine,no hematuria, Bilateral nephrostomy tube in place with draining urine in bags; normal bowel sounds. Soft. Nontender. No hepatosplenomegaly. No masses Ankle Exam: Negative ankle edema Lower extremities: Negative lower extremity edema with sub-grown lower extremities Neuro/Mental Status: A&O x4. Coherent, paraplegia Thoughts/Psych: Normal thought pattern. Appropriate mood and affect. Good judgement and insight Appearance: In no acute distress laboratory and microbiology Laboratory Tests 08/26/24 06:59 Test 08/26/24 06:59 Range/Units Serum Glucose 99 74-106 mg/dL Microbiology Date/Time Source Procedure Growth Status 08/23/24 12:50 Other Urine Culture - Final Complete 08/17/24 15:45 Aspirate Gram Stain - Final Complete 08/17/24 15:45 Aspirate Body Fluid Culture - Final Complete 08/16/24 10:05 Blood Blood Culture - Final NO GROWTH AFTER 5 DAYS OF INCUBATION. Complete 08/16/24 09:54 Voided Urine Urine Culture - Final Complete Problem List/Assessment/Plan Problem List/Assessment/Plan Sepsis due to UTI -IV meropenam -No growth in urine and blood culture -Urologic consultation: s/p bilateral nephrostomy tube -Radiologic consultation has been done Acute left peripnephric abscess -Iv abx:meropenam -IR consulted for drainage:still pending Non functional left kidney -Outpatient follow up for nepretomy -Renal scan:1. Delayed perfusion and function of the right kidney with mild response to Lasix. Favored high-grade functional obstruction. 2. Minimal radiotracer uptake in the left kidney. Favored to reflect a nonfunctioning kidney. Acute complication or cystitis -see the management of sepsis Hematuria likely due to above -Continue with ABx JOSE likely related to hemodynamically mediated and obstruction with CKD unknown stage -continue monitor kidney function, status post Wilcox insertion -CT scan showed bilateral renal calculi with hydronephrosis. -continue IV fluid -trend kidney function -follow nephrology recommendation Metabolic acidosis due to CKD -sodium bicarbonate Left-sided staghorn calculi with moderate hydronephrosis -as per urology Moderate right hydronephrosis and hydroureter -as per Neurology Severe anemia of chronic disease, status post IV iron load, IV Iron toxicity -received 5 bags of IV iron, status post deferoxamine -repeat Iron panel:Iron level normalized 51 Chronic bilateral hip dislocation -Stable History of spina bifida with Paraplegia -Stable Hypomagnesemia -IV mag Hypokalemia -IV potassium 40 meq repeat Hyperphosphatemia -sevelamer 800 mg p.o. t.i.d. Vitamin-D deficiency -Vitamin d 50,000 IU every week once Sinus tachycardia with QTC prolongation -Continue monitor Marijuana use disorder -counseled on cessation PUD prophylaxis with Protonix plan discussed with Dr David Plan discussed with: Patient, Other My Orders My Orders Orders - MIGUEL KRUEGER Procedure Category Date Status Time Hydroxyzine Oral PHA 08/26/24 In Process (Vistaril Oral) 13:15 * Radiologist Consult CONS 08/26/24 Verified 18:36 Dietary Evaluation Review Comments: 1. Disagree with Renal Standard diet for JOSE, +hypokalmeia; would change to Regular diet 2. Suggest daily bowel regimen while on opiods, +constipation 3. Monitor BMP/lytes - consistently low K, liberalize diet and replace per protocol to WNL 4. PO intakes improving; will assess need for ONS on FU Expected Outcomes/Goals: Improved lab values, adequate nutrition. Date of Service: August 26, 2024 Billing Provider: SID DAVID MD Common Visit Codes: [id number] INP/OBS CARE(HIGH) MIGUEL KRUEGER August 26, 2024 18:47 SID DAVID MD August 29, 2024 15:29
[2024-08-27] VITALS (8 sets, daily range): BP systolic 101–117; BP diastolic 62–84; PULSE 97–120; RESP 13–19; TEMP 98–98.9; O2SAT 95–98
[2024-08-27 09:06] LABS: Basophils # (auto) 0.1 10 ^3/uL (0-0.2); Eosinophils # (auto) 0.3 10 ^3/uL (0-0.8); Eosinophils % (auto) 4.6 % (0.0-7.0); Hematocrit 28.4 % (36.0-46.0); Hemoglobin 8.8 g/dL (12.2-16.2); Lymphocytes # (auto) 0.6 10 ^3/uL (0.4-5.4); Lymphocytes % (auto) 9.6 % (10.0-50.0); Mean Corpuscular Hemoglobin 25.2 pg (28.0-32.0); Mean Corpuscular Hgb Conc. 30.9 g/dL (32.0-36.0); Mean Corpuscular Volume 81.5 fL (80.0-100.0); Neutrophils # (auto) 4.4 10 ^3/uL (1.6-8.6); Neutrophils % (auto) 68.8 % (37.0-80.0); Platelet Count (auto) 485 10^3/uL (140-450); Red Blood Cells 3.48 10^6/uL (4.0-5.20); Red Cell Distribution Width 19.5 % (11.8-14.3); White Blood Cell 6.4 10^3/uL (4.4-10.8)
[2024-08-27 09:16] LABS: Chloride 106 mmol/L (98-107); Potassium 5.1 mmol/L (3.5-5.1); Sodium 136 mmol/L (136-145)
[2024-08-27 09:17] LABS: Anion Gap 8 (5-15); Carbon Dioxide 22 mmol/L (20-31)
[2024-08-27 09:18] LABS: Calcium 8.9 mg/dL (8.7-10.4)
[2024-08-27 09:23] LABS: BUN/Creatinine Ratio 14.1 (10.0-20.0); Blood Urea Nitrogen 39 mg/dL (9-23); Glucose 113 mg/dL (74-106)
--- NOTE | 2024-08-27 14:21 | DVHINCON2 ---
Date of service: August 27, 2024 Family History: Family history: Diabetes mellitus G8 MOTHER, Onset:s - 40 Family history: Hypertension G8 MOTHER, Onset:30s - 40 Ischemic heart disease No Family History of: Alcoholism Cancer Cancer of colon Chronic obstructive lung disease (situation) Family history: Alzheimer's disease Family history: Arthritis Family history: Asthma Family history: Autoimmune disease (situation) Family history: Blood disorder Family history: Cardiovascular disease Family history: Congenital anomaly Family history: Coronary thrombosis Family history: Depression (situation) Family history: Diabetes in Family history: Glaucoma Family history: Hypercholesterolemia (situation) Family history: Osteoporosis Family history: Suicide (situation) Family history: Thyroid disorder Malignant melanoma Malignant neoplasm of breast Malignant neoplasm of lung Malignant neoplasm of ovary Prostate cancer Renal stone Seizure disorder (situation) Stroke Allergies: Coded Allergies: Codeine (Verified Allergy, Unknown, 03/25/14) Latex (Verified Allergy, Unknown, 08/26/24) Home Meds Unable to Obtain Active Prescriptions or Reported Meds Vital Signs Vital Signs Date Time Temp Pulse Resp B/P (MAP) Pulse Ox O2 Delivery O2 Flow Rate FiO2 08/27/24 14:01 116 16 117/84 08/27/24 13:00 98.9 95 98.9 08/27/24 08:00 Room Air* 0 21 Labs/Diagnostic Data Labs Test 08/27/24 08:53 08/26/24 06:59 08/19/24 05:20 08/18/24 05:36 Range/Units White Blood Count 6.4 # 4.4-10.8 10^3/uL Red Blood Count 3.48 L 4.0-5.20 10^6/uL Hemoglobin 8.8 #L 12.2-16.2 g/dL Hematocrit 28.4 #L 36.0-46.0 % Mean Corpuscular Volume 81.5 80.0-100.0 fL Mean Corpuscular Hemoglobin 25.2 L 28.0-32.0 pg Mean Corpuscular Hemoglobin Concent 30.9 L 32.0-36.0 g/dL Red Cell Distribution Width 19.5 H 11.8-14.3 % Platelet Count 485 H 140-450 10^3/uL Mean Platelet Volume 6.2 L 6.9-10.8 fL Neutrophils (%) (Auto) 68.8 37.0-80.0 % Lymphocytes (%) (Auto) 9.6 L 10.0-50.0 % Monocytes (%) (Auto) 16.0 H 0.0-12.0 % Eosinophils (%) (Auto) 4.6 0.0-7.0 % Basophils (%) (Auto) 1.0 0.0-2.0 % Neutrophils # (Auto) 4.4 1.6-8.6 10 ^3/uL Lymphocytes # (Auto) 0.6 0.4-5.4 10 ^3/uL Monocytes # (Auto) 1.0 0-1.3 10 ^3/uL Eosinophils # (Auto) 0.3 0-0.8 10 ^3/uL Basophils # (Auto) 0.1 0-0.2 10 ^3/uL Nucleated Red Blood Cells 0.0 % Sodium Level 136 136-145 mmol/L Potassium Level 5.1 3.5-5.1 mmol/L Chloride Level 106 98-107 mmol/L Carbon Dioxide Level 22 20-31 mmol/L Anion Gap 8 5-15 Blood Urea Nitrogen 39 H 9-23 mg/dL Creatinine 2.77 H 0.550-1.02 mg/dL Glomerular Filtration Rate Calc 22 >90 mL/min BUN/Creatinine Ratio 14.1 10.0-20.0 Serum Glucose 113 H 74-106 mg/dL Calcium Level 8.9 8.7-10.4 mg/dL Total Bilirubin < 0.2 L 0.2-1.0 mg/dL Aspartate Amino Transferase (AST) 14 13-40 U/L Alanine Aminotransferase (ALT) 10 7-40 U/L Alkaline Phosphatase 126 H 46-116 U/L Total Protein 6.7 5.7-8.2 g/dL Albumin 3.1 L 3.2-4.8 g/dL Magnesium Level 1.7 1.6-2.6 mg/dL Iron Level 51 50-170 ug/dL Total Iron Binding Capacity 239 L 250-425 ug/dL Percent Iron Saturation 21.3 15-50 % Test 08/17/24 09:40 08/17/24 06:33 08/16/24 23:03 08/16/24 14:09 Range/Units Prothrombin Time 12.7 H 9.3-11.8 sec Prothrombin Time INR 1.22 H 0.9-1.15 Activated Partial Thromboplast Time 48.1 H 24.5-34.5 SEC Platelet Estimate Adequate Hypochromasia (manual) Moderate Anisocytosis (manual) Slight Ferritin 30.4 10-291 ng/mL Triglycerides Level 132 < 150 mg/dL Cholesterol Level 104 < 200 mg/dL LDL Cholesterol 65 < 100 mg/dL HDL Cholesterol 21 L 40-59 mg/dL Vitamin D 25-Hydroxy 9.0 L 30.0-100 ng/mL Thyroid Stimulating Hormone (TSH) 1.57 0.55-4.78 uIU/mL POC Glucose 78 70-106 mg/dl Blood Gas Specimen Type Arterial Blood Gas Sample Site Right radial Blood Gas Patient Temperature 37.0 Arterial Blood Date Drawn [id number] Arterial Blood pH 7.160 *L 7.350-7.450 Arterial Blood Partial Pressure CO2 < 12.6 *L 32.0-45.0 mmHg Arterial Blood Partial Pressure O2 117.7 H 83.0-108.0 mmHg Arterial Blood Oxygen Saturation 92.6 L 94.0-98.0 % Arterial Blood Oxyhemoglobin 92.1 L 94.0-98.0 % Arterial Blood Carboxyhemoglobin 0.5 0.5-1.5 % Arterial Blood Methemoglobin 0.0 0.0-1.5 % Geraldo Test Yes Blood Gas Total Hemoglobin 7.30 L 12.0-16.0 g/dL Blood Gas Liter Flow 0.00 Blood Gas Modality Room air FiO2 % 21.0 Blood Gas Critical Value Read Back Yes Blood Gas Notified Whom Laina henderson Blood Gas Notified Time [id number] Blood Gas Notified By antonio central supply supervisor Test 08/16/24 11:56 08/16/24 09:54 08/16/24 07:53 Range/Units Hemoglobin A1c 4.3 <5.7 % A1C Urine Color Dark-brown Yellow Urine Clarity Ex.turbid Clear Urine pH 7.5 5.0-9.0 Urine Specific [place] 1.018 1.001-1.035 Urine Protein 2+ H Negative Urine Ketones Negative Negative Urine Blood 1+ H Negative /uL Urine Nitrite Negative Negative Urine Bilirubin Negative Negative Urine Urobilinogen Normal Negative mg/dL Urine Leukocyte Esterase 3+ Negative /uL Urine RBC 104 0 - 4 /hpf Urine WBC Clumps Present None Seen /hpf Urine Microscopic WBC 760 H 0-5 /HPF Urine Squamous Epithelial Cells None seen <5 /hpf Urine Bacteria Many H None Seen /hpf Urine Mucus Many None Seen Urine Glucose Normal Normal mg/dL Urine Test Negative Negative Reticulocyte Count (auto) 1.80 H 0.5-1.5 % Lactic Acid Level 1.2 0.4-2.0 mmol/L Phosphorus Level 6.5 H 2.4-5.1 mg/dL Lactate Dehydrogenase 134 120-246 U/L Vitamin B12 Level 573 211-911 pg/mL Folic Acid 13.21 >5.38 ng/mL Microbiology Date/Time Source Procedure Growth Status 08/23/24 12:50 Other Urine Culture - Final Complete 08/17/24 15:45 Aspirate Gram Stain - Final Complete 08/17/24 15:45 Aspirate Body Fluid Culture - Final Complete 08/16/24 10:05 Blood Blood Culture - Final NO GROWTH AFTER 5 DAYS OF INCUBATION. Complete 08/16/24 09:54 Voided Urine Urine Culture - Final Complete Assessment [id number] afebrile UTI B/L NEPHROSTOMY IN PLACE PARAPLEGIA CT SCAN LEFT PERINEPHRIC ABSCESS CONSIDER IR EVAL FOR POSSIBLE DRAINAGE AND CONFIRM PLACEMENT OF NEPHROSTOMY TUBES Plan discussed with: Patient SIRISHA STACK MD August 27, 2024 14:20
--- NOTE | 2024-08-27 17:38 | DVHPN2 ---
Progress Note Date Seen: August 27, 2024 Resident Creating Document: URMILA HASKINS RESIDENT Medical Necessity Reason Pt with a Central, PICC or Fol: Yes The following are medically ne: Wilcox Catheter Reason for wilcox catheter: Bladder Retention/Obstruc, Total Immobilization Subjective Review of Systems This is a 38-year-old female with past medical history of paraplegia, staghorn calculi, hydronephrosis who presented to the ER with chief complaint of suprapubic pain. Patient was diagnosed with UTI along with bilateral kidney stones. Nephrology was consulted. Patient underwent bilateral nephrostomy tube placement 08/18 by IR, repeat CT scan showed resolving hydronephrosis. Left perirenal abscess was also seen on the repeat CT scan for which IR was consulted but patient declined any treatment. Prelim urine cultures are negative. Prelim blood cultures are negative. Patient was started on IV cefepime which was switched to IV meropenem. Given the iron-deficiency, patient received 5 bags of iron and later iron chelator deferoxamine. 08/25 - Patient seen and examined at the bedside. Overnight, left nephrostomy tube draining 275 cc, right draining 350 cc. Patient agreed to be seen by IR. Creatinine downtrending 08/26 - Patient seen and examined at the bedside. Increasing u/o via blnt. Pending IR drainage 08/27 - patient seen and examined at the bedside. Per IR, no percutaneous sepsis, need surgical consult. Surgical consultation pending. Objective vital signs Vital Sign Date Time Temp Pulse Resp B/P (MAP) Pulse Ox O2 Delivery O2 Flow Rate FiO2 08/27/24 17:00 98.4 112 16 101/67 (78) 98 98.4 08/27/24 08:00 Room Air* 0 21 Total Intake and Output 08/26/24 08/26/24 08/27/24 15:00 23:00 07:00 Intake Total 50 ml 800 ml 650 ml Output Total 1000 ml 25 ml 200 ml Balance -950 ml 775 ml 450 ml medications Current Medications Medications Dose Ordered Sig/Leeanne Route Start Time Stop Time Status Last Admin Dose Admin Acetaminophen/ Hydrocodone Bitart 1 tab Q4HP PRN PO 08/16/24 10:30 08/21/24 17:08 1 TAB Acetaminophen 650 mg Q6HP PRN PO 08/16/24 10:30 Morphine Sulfate 2 mg Q4HPRN PRN IV 08/16/24 10:30 08/27/24 14:01 2 MG Hydralazine HCl 10 mg Q6HP PRN IV 08/16/24 10:30 Nicotine 1 patch DAILY TD 08/17/24 10:00 08/27/24 09:26 1 PATCH Pantoprazole Sodium 40 mg DAILY IV 08/17/24 10:00 08/27/24 09:24 40 MG Sevelamer HCl 800 mg TIDWM PO 08/17/24 12:00 08/27/24 17:30 800 MG Sodium Bicarbonate 650 mg TID PO 08/17/24 14:00 08/27/24 14:02 650 MG Potassium Chloride 100 ml @ 50 mls/hr Q2H IV 08/17/24 08:30 08/17/24 12:29 UNV Ergocalciferol 50,000 unit Q7D PO 08/17/24 12:00 08/24/24 11:26 50,000 UNIT Polyethylene Glycol 17 gm DAILY PO 08/22/24 10:00 08/25/24 09:09 17 GM Meropenem 50 ml @ 17 mls/hr Q12HR IV 08/21/24 22:00 08/27/24 09:25 17 MLS/HR Melatonin 5 mg HS PO 08/22/24 22:00 08/27/24 00:16 5 MG Ondansetron HCl 4 mg Q4HPRN PRN IV 08/23/24 12:00 08/23/24 18:43 4 MG Hydroxyzine HCl 20 mg Q6HP PRN PO 08/26/24 13:15 Examination Patient lying in bed, in no acute distress General: Well-built, afebrile, mucosae are moist Cardiovascular: Regular S1 and S2. No murmurs, gallops or rubs. No JVD elevation. No pedal edema Respiratory: Normal B/L air entry on room air. Clear lung sounds on auscultation Abdomen: Soft, nontender, nondistended, normoactive bowel sounds, no rebound tenderness, no organomegaly, no masses. B/L cva tenderness. Bilateral nephrostomy tube draining serous Genitourinary: Deferred MSK/skin: Skin is dry and warm Lower side Psych/Mental Status: A/Ox3 laboratory and microbiology Laboratory Tests 08/27/24 08:53 Test 08/27/24 08:53 Range/Units Serum Glucose 113 H 74-106 mg/dL Microbiology Date/Time Source Procedure Growth Status 08/23/24 12:50 Other Urine Culture - Final Complete 08/17/24 15:45 Aspirate Gram Stain - Final Complete 08/17/24 15:45 Aspirate Body Fluid Culture - Final Complete 08/16/24 10:05 Blood Blood Culture - Final NO GROWTH AFTER 5 DAYS OF INCUBATION. Complete 08/16/24 09:54 Voided Urine Urine Culture - Final Complete Labs and/or images reviewed: Labs reviewed by me, Image(s) reviewed by me Problem List/Assessment/Plan Problem List/Assessment/Plan Acute kidney injury multifactorial in the setting of sepsis as well as chronic obstruction Chronic kidney disease due to chronic urinary retention however baseline is unknown Sepsis secondary to urinary tract infection //staghorn calculi Bilateral hydronephrosis secondary to above Acute left perinephric abscess Chronic bilateral hip dislocation Metabolic acidosis Paraplegia and spina bifida Anemia due to iron deficiency s/p iron overload and desferoxime Hypomagnesemia Hypokalemia Plan Surgeon consulted for left perinephric abscess drainage Patient refusing IR guided abscess drainage, risk and benefits discussed with the patient. Reflects a nonfunctioning left kidney. Differential renal function (uptake percent) of 93.9 % by the right kidney and 6.1 % by the left. Renal NM scan completed by Urology, showed delayed perfusion and function of the right kidney with mild response to Lasix. Bilateral percutaneous nephrostomy tube draining serous secretion Prelim urine and blood cultures were negative Continue IV meropenem, holding IV fluids No indication for dialysis for now Creatinine decreased to 2.84 from 3.9 on arrival Fluid restriction 2L / day Plan discussed with patient in which all questions have been answered Plan discussed with Dr. Gray Addendum Patient seen and examined, plan discussed with resident. Agree with above, we will follow closely Plan discussed with: Patient Dietary Evaluation Review Comments: 1. Disagree with Renal Standard diet for JOSE, +hypokalmeia; would change to Regular diet 2. Suggest daily bowel regimen while on opiods, +constipation 3. Monitor BMP/lytes - consistently low K, liberalize diet and replace per protocol to WNL 4. PO intakes improving; will assess need for ONS on FU Expected Outcomes/Goals: Improved lab values, adequate nutrition. URMILA HASKINS RESIDENT August 27, 2024 17:38 HAYLIE GRAY MD August 27, 2024 18:51
--- NOTE | 2024-08-27 18:37 | DVHPNRES ---
Progress Note Date Seen: August 27, 2024 Resident Creating Document: MIGUEL KRUEGER RESIDENT Medical Necessity Reason Pt with a Central, PICC or Fol: Yes The following are medically ne: Wilcox Catheter Reason for wilcox catheter: Bladder Retention/Obstruc, Total Immobilization Subjective Review of Systems Patient is a 38-year-old female with past medical history of paraplegia, staghorn renal calculi, hydronephrosis, status post bladder expansion, tobacco and marijuana use who came to the hospital with a chief complaint of generalized abdominal pain which was mainly located in the suprapubic area radiating to right and upper quadrant abdominal pain. With further evaluation patient found to have urinary infection with bilateral renal calculi, status post nephrostomy tube, received a IV iron, IV iron overload. No any other new complaints. S/P nephrostomy tube bilateral. Draining both nephrostomy tube, also presence of urine in urinary bag with Wilcox catheter. Continue to have pain over left nephrostomy tube inserion site, No fever, nausea or vomiiting., Continued to be afebrile, no abdominal pain, no fever, chills. Pending surgery consultation. ROS: Eyes: No Pain, No Vision change, No Conjunctivae inflammation, No Eyelid inflammation, No Other, No Redness ENT: No Ear pain, No Ear discharge, No Nose pain, No Nose discharge, No Nose congestion, No Mouth pain, No Mouth swelling, No Throat pain, No Throat swelling, No Other Cardiovascular: No Chest Pain, No Palpitations, No Orthopnea, No Paroxysmal Noc. Dyspnea, No Edema, No Lt Headedness, No Other Respiratory: No Cough, No Dry, No Shortness of breath, No SOB with excertion, No Wheezing, No Hemoptysis, No Pleuritic Pain, No Sputum, No Other Gastrointestinal: No Nausea, Vomiting, Abdominal Pain, No Diarrhea, No Constipation, No Melena, No Hematochezia, No Other Genitourinary: Dysuria, No Frequency, No Incontinence, No Hematuria, No Retention, No Other Musculoskeletal: No other, No neck pain, No shoulder pain, No arm pain, No back pain, No hand pain, No leg pain, No foot pain Skin: No Rash, No Lesions, No Jaundice, No Bruising, No Other Objective vital signs Vital Sign Date Time Temp Pulse Resp B/P (MAP) Pulse Ox O2 Delivery O2 Flow Rate FiO2 5/8/25 17:00 98.4 112 16 101/67 (78) 98 98.4 08/27/24 08:00 Room Air* 0 21 Total Intake and Output 08/26/24 08/26/24 08/27/24 15:00 23:00 07:00 Intake Total 50 ml 800 ml 650 ml Output Total 1000 ml 25 ml 200 ml Balance -950 ml 775 ml 450 ml medications Current Medications Medications Dose Ordered Sig/Leeanne Route Start Time Stop Time Status Last Admin Dose Admin Acetaminophen/ Hydrocodone Bitart 1 tab Q4HP PRN PO 08/16/24 10:30 08/21/24 17:08 1 TAB Acetaminophen 650 mg Q6HP PRN PO 08/16/24 10:30 Morphine Sulfate 2 mg Q4HPRN PRN IV 08/16/24 10:30 08/27/24 14:01 2 MG Hydralazine HCl 10 mg Q6HP PRN IV 08/16/24 10:30 Nicotine 1 patch DAILY TD 08/17/24 10:00 08/27/24 09:26 1 PATCH Pantoprazole Sodium 40 mg DAILY IV 08/17/24 10:00 08/27/24 09:24 40 MG Sevelamer HCl 800 mg TIDWM PO 08/17/24 12:00 08/27/24 17:30 800 MG Sodium Bicarbonate 650 mg TID PO 08/17/24 14:00 08/27/24 14:02 650 MG Potassium Chloride 100 ml @ 50 mls/hr Q2H IV 08/17/24 08:30 08/17/24 12:29 UNV Ergocalciferol 50,000 unit Q7D PO 08/17/24 12:00 08/24/24 11:26 50,000 UNIT Polyethylene Glycol 17 gm DAILY PO 08/22/24 10:00 08/25/24 09:09 17 GM Meropenem 50 ml @ 17 mls/hr Q12HR IV 08/21/24 22:00 08/27/24 09:25 17 MLS/HR Melatonin 5 mg HS PO 08/22/24 22:00 08/27/24 00:16 5 MG Ondansetron HCl 4 mg Q4HPRN PRN IV 08/23/24 12:00 08/23/24 18:43 4 MG Hydroxyzine HCl 20 mg Q6HP PRN PO 08/26/24 13:15 Examination General Appearance: Cooperative. Well developed. Well nourished. NAD Head Exam: Normal inspection Neck Exam: Normal inspection. Non-tender. Normal alignment Pulmonary/Respiratory: Chest non-tender. Clear bilateral breath sounds Cardiovascular/Chest: Regular rate and rhythm. No murmurs. No JVD. Peripheral Pulses: 2+ Radial (R). 2+ Radial (L). 2+ Pedal (R). 2+ Pedal (L) Abdominal Exam: Increase urine output, clear urine,no hematuria, Bilateral nephrostomy tube in place with draining urine in bags; normal bowel sounds. Soft. Nontender. No hepatosplenomegaly. No masses Ankle Exam: Negative ankle edema Lower extremities: Negative lower extremity edema with sub-grown lower extremities Neuro/Mental Status: A&O x4. Coherent, paraplegia Thoughts/Psych: Normal thought pattern. Appropriate mood and affect. Good judgement and insight Appearance: In no acute distress laboratory and microbiology Laboratory Tests 08/27/24 08:53 Test 08/27/24 08:53 Range/Units Serum Glucose 113 H 74-106 mg/dL Microbiology Date/Time Source Procedure Growth Status 08/23/24 12:50 Other Urine Culture - Final Complete 08/17/24 15:45 Aspirate Gram Stain - Final Complete 08/17/24 15:45 Aspirate Body Fluid Culture - Final Complete 08/16/24 10:05 Blood Blood Culture - Final NO GROWTH AFTER 5 DAYS OF INCUBATION. Complete 08/16/24 09:54 Voided Urine Urine Culture - Final Complete Problem List/Assessment/Plan Problem List/Assessment/Plan Sepsis due to UTI -IV meropenam -No growth in urine and blood culture -Urologic consultation: s/p bilateral nephrostomy tube -Radiologic consultation has been done Acute left peripnephric abscess -Iv abx:meropenam -IR consulted for drainage:still pending -surgery has been consulted: Patient refused surgery, does not want to get cut. As per surgeon, follow with IR. Non functional left kidney -Outpatient follow up for nepretomy -Renal scan:1. Delayed perfusion and function of the right kidney with mild response to Lasix. Favored high-grade functional obstruction. 2. Minimal radiotracer uptake in the left kidney. Favored to reflect a nonfunctioning kidney. Acute complication or cystitis -see the management of sepsis Hematuria likely due to above -Continue with ABx JOSE likely related to hemodynamically mediated and obstruction with CKD unknown stage -continue monitor kidney function, status post Wilcox insertion -CT scan showed bilateral renal calculi with hydronephrosis. -continue IV fluid -trend kidney function -follow nephrology recommendation Metabolic acidosis due to CKD -sodium bicarbonate Left-sided staghorn calculi with moderate hydronephrosis -as per urology Moderate right hydronephrosis and hydroureter -as per Neurology Severe anemia of chronic disease, status post IV iron load, IV Iron toxicity -received 5 bags of IV iron, status post deferoxamine -repeat Iron panel:Iron level normalized 51 Chronic bilateral hip dislocation -Stable History of spina bifida with Paraplegia -Stable Hypomagnesemia -IV mag Hypokalemia -IV potassium 40 meq repeat Hyperphosphatemia -sevelamer 800 mg p.o. t.i.d. Vitamin-D deficiency -Vitamin d 50,000 IU every week once Sinus tachycardia with QTC prolongation -Continue monitor Marijuana use disorder -counseled on cessation PUD prophylaxis with Protonix Continue with current management, surgery consultation was done, patient refused any surgical intervention, stating she does not want to get cut, patient also refused IR intervention previously, surgeon recommended further IR evaluation. Patient has been counseled of refusing intervention, possible infection spread, septic shock, also possibility of dying. Patient understood risks and benefits. plan discussed with Dr David Plan discussed with: Patient, Other (RN) My Orders My Orders Orders - MIGUEL KRUEGER Procedure Category Date Status Time * Radiologist Consult CONS 08/26/24 Transmitted 18:36 Blood Culture BRI 08/27/24 In Process 08:28 * Surgical Consult CONS 08/27/24 Transmitted 09:11 Dietary Evaluation Review Comments: 1. Disagree with Renal Standard diet for JOSE, +hypokalmeia; would change to Regular diet 2. Suggest daily bowel regimen while on opiods, +constipation 3. Monitor BMP/lytes - consistently low K, liberalize diet and replace per protocol to WNL 4. PO intakes improving; will assess need for ONS on FU Expected Outcomes/Goals: Improved lab values, adequate nutrition. Date of Service: August 27, 2024 Billing Provider: SID DAVID MD Common Visit Codes: [id number] INP/OBS CARE(HIGH) MIGUEL KRUEGER RESIDENT August 27, 2024 18:37 SID DAVID MD August 29, 2024 15:37
--- NOTE | 2024-08-27 21:59 | DVHINCON2 ---
DATE OF CONSULTATION: 08/27/2024 HISTORY OF PRESENT ILLNESS: A 38 years old with past medical history of spina bifida, paraplegia, and kidney stones, status post bladder extension, tobacco and marijuana use, coming in with abdominal pain. I was asked to see her. No nausea or vomiting. No constipation or diarrhea. No hematemesis or melena. No bleeding per rectum. PAST MEDICAL HISTORY: Spina bifida, paraplegia as mentioned above. PAST SURGICAL HISTORY: Bladder extension, appendectomy, and she has had multiple surgeries also, details are not clear. PHYSICAL EXAMINATION: GENERAL: She has had a nephrostomy tube placed on both the sides and she is afebrile with stable signs with no evidence of pallor, cyanosis or jaundice. NECK: Supple and nontender with no thyromegaly, lymphadenopathy. CHEST AND LUNGS: Clear. HEART: Within normal limits. ABDOMEN: Soft. NEUROLOGIC: Not assessed. CLINICAL IMPRESSION: Pyelonephritis, perinephric abscess noted in the left pararenal space and she has bilateral percutaneous nephrostomy tubes in place for the resolution of hydronephrosis. So my clinical impression is pyelonephritis with perinephric possible abscess. PLAN: The plan will be to consider IR drainage, IR evaluation for assessing the nephrostomy tubes and ensuring that they are in place. No acute surgical intervention is indicated at this time and as indicated, Urology needs to be evaluating for that purpose. MD VICKY Mccloud/JUDITH/NELLIE TID: [id number] RECEIPT: [id number] cc: Katey Marina
[2024-08-28] VITALS (11 sets, daily range): BP systolic 103–131; BP diastolic 71–92; PULSE 81–126; RESP 16–20; TEMP 98.1–99.3; O2SAT 95–98
[2024-08-28 08:41] LABS: Hematocrit 22.6 % (36.0-46.0); Mean Corpuscular Hemoglobin 25.7 pg (28.0-32.0); Mean Corpuscular Volume 82.9 fL (80.0-100.0); Platelet Count (auto) 467 10^3/uL (140-450); Red Blood Cells 2.73 10^6/uL (4.0-5.20); Red Cell Distribution Width 19.4 % (11.8-14.3); White Blood Cell 6.9 10^3/uL (4.4-10.8)
[2024-08-28 08:48] LABS: Potassium 4.9 mmol/L (3.5-5.1)
[2024-08-28 08:49] LABS: Anion Gap 10 (5-15)
[2024-08-28] MEDS: hydrOXYzine HCL 10 MG TAB PO PRN (08:53)
[2024-08-28 08:54] LABS: BUN/Creatinine Ratio 12.9 (10.0-20.0); Glucose 88 mg/dL (74-106)
[2024-08-28 08:57] LABS: Blood Urea Nitrogen 35 mg/dL (9-23); Calcium 8.6 mg/dL (8.7-10.4); Carbon Dioxide 18 mmol/L (20-31); Chloride 107 mmol/L (98-107); Sodium 135 mmol/L (136-145)
[2024-08-28 09:13] LABS: Basophils % (manual) 0 (0.0-2.0); Blast Cells 0; Metamyelocytes % 0; Myelocytes % 0; Promyelocytes % 0; Reactive Lymphocytes 0
[2024-08-28 09:35] LABS: Anisocytosis Slight; Band Neutrophils % (manual) 2; Eosinophils % (manual) 5 (0-7); Lymphocytes % (manual) 13 (10.0-50.0); Monocytes % (manual) 15 (0-12); Platelet Estimate Increased; Smudge Cells 3 /100 WBC
--- NOTE | 2024-08-28 10:54 | DVHPN2 ---
Progress Note Date Seen: August 28, 2024 Resident Creating Document: URMILA HASKINS RESIDENT Medical Necessity Reason Pt with a Central, PICC or Fol: Yes The following are medically ne: Wilcox Catheter Reason for wilcox catheter: Bladder Retention/Obstruc, Total Immobilization Subjective Review of Systems This is a 38-year-old female with past medical history of paraplegia, staghorn calculi, hydronephrosis who presented to the ER with chief complaint of suprapubic pain. Patient was diagnosed with UTI along with bilateral kidney stones. Nephrology was consulted. Patient underwent bilateral nephrostomy tube placement 08/18 by IR, repeat CT scan showed resolving hydronephrosis. Left perirenal abscess was also seen on the repeat CT scan for which IR was consulted but patient declined any treatment. Prelim urine cultures are negative. Prelim blood cultures are negative. Patient was started on IV cefepime which was switched to IV meropenem. Given the iron-deficiency, patient received 5 bags of iron and later iron chelator deferoxamine. 08/25 - Patient seen and examined at the bedside. Overnight, left nephrostomy tube draining 275 cc, right draining 350 cc. Patient agreed to be seen by IR. Creatinine downtrending 08/26 - Patient seen and examined at the bedside. Increasing u/o via blnt. Pending IR drainage 08/27 - patient seen and examined at the bedside. Per IR, no percutaneous sepsis, need surgical consult. Surgical consultation pending. 08/28 - patient seen and examined at the bedside. Surgeon recommended IR. Other Systems: Patient seen and examined by myself today on rounds with the medicine resident, I agree with his assessment and plan as documented in this note Objective vital signs Vital Sign Date Time Temp Pulse Resp B/P (MAP) Pulse Ox O2 Delivery O2 Flow Rate FiO2 08/28/24 09:40 105 18 118/71 08/28/24 09:10 98.1 95 98.1 08/28/24 08:00 Room Air* 0 21 Total Intake and Output 08/27/24 08/27/24 08/28/24 15:00 23:00 07:00 Intake Total 290 ml 600 ml 1650 ml Output Total 700 ml 185 ml 450 ml Balance -410 ml 415 ml 1200 ml medications Current Medications Medications Dose Ordered Sig/Leeanne Route Start Time Stop Time Status Last Admin Dose Admin Acetaminophen/ Hydrocodone Bitart 1 tab Q4HP PRN PO 08/16/24 10:30 08/21/24 17:08 1 TAB Acetaminophen 650 mg Q6HP PRN PO 08/16/24 10:30 Morphine Sulfate 2 mg Q4HPRN PRN IV 08/16/24 10:30 08/28/24 09:40 2 MG Hydralazine HCl 10 mg Q6HP PRN IV 08/16/24 10:30 Nicotine 1 patch DAILY TD 08/17/24 10:00 08/28/24 08:53 1 PATCH Pantoprazole Sodium 40 mg DAILY IV 08/17/24 10:00 08/28/24 08:53 40 MG Sevelamer HCl 800 mg TIDWM PO 08/17/24 12:00 08/28/24 08:52 800 MG Sodium Bicarbonate 650 mg TID PO 08/17/24 14:00 08/28/24 05:11 650 MG Potassium Chloride 100 ml @ 50 mls/hr Q2H IV 08/17/24 08:30 08/17/24 12:29 UNV Ergocalciferol 50,000 unit Q7D PO 08/17/24 12:00 08/24/24 11:26 50,000 UNIT Polyethylene Glycol 17 gm DAILY PO 08/22/24 10:00 08/28/24 08:53 17 GM Meropenem 50 ml @ 17 mls/hr Q12HR IV 08/21/24 22:00 08/28/24 08:53 17 MLS/HR Melatonin 5 mg HS PO 08/22/24 22:00 08/27/24 23:12 5 MG Ondansetron HCl 4 mg Q4HPRN PRN IV 08/23/24 12:00 08/23/24 18:43 4 MG Hydroxyzine HCl 20 mg Q6HP PRN PO 08/26/24 13:15 08/28/24 08:53 20 MG Examination Patient lying in bed, in no acute distress General: Well-built, afebrile, mucosae are moist Cardiovascular: Regular S1 and S2. No murmurs, gallops or rubs. No JVD elevation. No pedal edema Respiratory: Normal B/L air entry on room air. Clear lung sounds on auscultation Abdomen: Soft, nontender, nondistended, normoactive bowel sounds, no rebound tenderness, no organomegaly, no masses. B/L cva tenderness. Bilateral nephrostomy tube draining serous Genitourinary: Deferred MSK/skin: Skin is dry and warm Lower side Psych/Mental Status: A/Ox3 laboratory and microbiology Laboratory Tests 08/28/24 08:29 Test 08/28/24 08:29 Range/Units Serum Glucose 88 74-106 mg/dL Microbiology Date/Time Source Procedure Growth Status 08/27/24 08:53 Blood Blood Culture - Preliminary NO GROWTH AFTER 24 HOURS OF INCUBATION. Resulted 08/23/24 12:50 Other Urine Culture - Final Complete 08/17/24 15:45 Aspirate Gram Stain - Final Complete 08/17/24 15:45 Aspirate Body Fluid Culture - Final Complete 08/16/24 09:54 Voided Urine Urine Culture - Final Complete Labs and/or images reviewed: Labs reviewed by me, Image(s) reviewed by me Problem List/Assessment/Plan Problem List/Assessment/Plan Acute kidney injury multifactorial in the setting of sepsis as well as chronic obstruction Chronic kidney disease due to chronic urinary retention however baseline is unknown Sepsis secondary to urinary tract infection //staghorn calculi Bilateral hydronephrosis secondary to above Acute left perinephric abscess Chronic bilateral hip dislocation Metabolic acidosis Paraplegia and spina bifida Anemia due to iron deficiency s/p iron overload and desferoxime Hypomagnesemia Hypokalemia Plan Surgeon consulted for left perinephric abscess drainage, recommends no surgical intervention indicated at this time. Patient refusing IR guided abscess drainage, risk and benefits discussed with the patient. Reflects a nonfunctioning left kidney. Differential renal function (uptake percent) of 93.9 % by the right kidney and 6.1 % by the left. Renal NM scan completed by Urology, showed delayed perfusion and function of the right kidney with mild response to Lasix. Bilateral percutaneous nephrostomy tube draining serous secretion Prelim urine and blood cultures were negative Continue IV meropenem, holding IV fluids No indication for dialysis for now Creatinine decreased to 2.84 from 3.9 on arrival Fluid restriction 2L / day Plan discussed with patient in which all questions have been answered Plan discussed with Dr. Penn Plan discussed with: Patient Dietary Evaluation Review Comments: 1. Disagree with Renal Standard diet for JOSE, +hypokalmeia; would change to Regular diet 2. Suggest daily bowel regimen while on opiods, +constipation 3. Monitor BMP/lytes - consistently low K, liberalize diet and replace per protocol to WNL 4. PO intakes improving; will assess need for ONS on FU Expected Outcomes/Goals: Improved lab values, adequate nutrition. URMILA HASKINS RESIDENT August 28, 2024 10:54 QUITA PENN MD August 28, 2024 11:47
--- NOTE | 2024-08-28 15:37 | DVHPN2 ---
Progress Note - Dictate Date Seen: August 28, 2024 Medical Necessity Reason Pt with a Central, PICC or Fol: No The following are medically ne: Wilcox Catheter Reason for wilcox catheter: Bladder Retention/Obstruc, Total Immobilization vital signs Vital Sign Date Time Temp Pulse Resp B/P (MAP) Pulse Ox O2 Delivery O2 Flow Rate FiO2 08/28/24 14:51 124 16 106/74 08/28/24 13:00 98.4 97 98.4 08/28/24 08:00 Room Air* 0 21 Total Intake and Output 08/27/24 08/27/24 08/28/24 14:59 22:59 06:59 Intake Total 290 ml 600 ml 1650 ml Output Total 700 ml 185 ml 450 ml Balance -410 ml 415 ml 1200 ml medications Current Medications Medications Dose Ordered Sig/Leeanne Route Start Time Stop Time Status Last Admin Dose Admin Acetaminophen/ Hydrocodone Bitart 1 tab Q4HP PRN PO 08/16/24 10:30 08/21/24 17:08 1 TAB Acetaminophen 650 mg Q6HP PRN PO 08/16/24 10:30 Morphine Sulfate 2 mg Q4HPRN PRN IV 08/16/24 10:30 08/28/24 14:51 2 MG Hydralazine HCl 10 mg Q6HP PRN IV 08/16/24 10:30 Nicotine 1 patch DAILY TD 08/17/24 10:00 08/28/24 08:53 1 PATCH Pantoprazole Sodium 40 mg DAILY IV 08/17/24 10:00 08/28/24 08:53 40 MG Sevelamer HCl 800 mg TIDWM PO 08/17/24 12:00 08/28/24 13:02 800 MG Sodium Bicarbonate 650 mg TID PO 08/17/24 14:00 08/28/24 14:50 650 MG Potassium Chloride 100 ml @ 50 mls/hr Q2H IV 08/17/24 08:30 08/17/24 12:29 UNV Ergocalciferol 50,000 unit Q7D PO 08/17/24 12:00 08/24/24 11:26 50,000 UNIT Polyethylene Glycol 17 gm DAILY PO 08/22/24 10:00 08/28/24 08:53 17 GM Meropenem 50 ml @ 17 mls/hr Q12HR IV 08/21/24 22:00 08/28/24 08:53 17 MLS/HR Melatonin 5 mg HS PO 08/22/24 22:00 08/27/24 23:12 5 MG Ondansetron HCl 4 mg Q4HPRN PRN IV 08/23/24 12:00 08/23/24 18:43 4 MG Hydroxyzine HCl 20 mg Q6HP PRN PO 08/26/24 13:15 08/28/24 08:53 20 MG laboratory and microbiology Laboratory Tests 08/28/24 08:29 Test 08/28/24 08:29 Range/Units Serum Glucose 88 74-106 mg/dL Assessment/Plan 38 Female with left nephrostomy tube placed due to infection of the left kidney and purulent drainage from the left kidney. Recent CT shows it was retracted , additionally there is an adjacent fluid collection. Right kidney had severe hydronephrosis which is why the nephrostomy tube was placed on the right. Both are draining, however both nephrostomy tubes are retracted. Recommend- reposition both nephrostomy tubes and drain the left perirenal fluid collection. Natty Rubio MD Interventional radiology Dietary Evaluation Review Comments: 1. Disagree with Renal Standard diet for JOSE, +hypokalmeia; would change to Regular diet 2. Suggest daily bowel regimen while on opiods, +constipation 3. Monitor BMP/lytes - consistently low K, liberalize diet and replace per protocol to WNL 4. PO intakes improving; will assess need for ONS on FU Expected Outcomes/Goals: Improved lab values, adequate nutrition. Plan discussed with: Patient NATTY RUBIO MD August 28, 2024 15:37
--- NOTE | 2024-08-28 16:47 | DVHPNRES ---
Progress Note Date Seen: August 28, 2024 Resident Creating Document: MIGUEL KRUEGER RESIDENT Medical Necessity Reason Pt with a Central, PICC or Fol: No The following are medically ne: Wilcox Catheter Reason for wilcox catheter: Bladder Retention/Obstruc, Total Immobilization Subjective Review of Systems Patient is a 38-year-old female with past medical history of paraplegia, staghorn renal calculi, hydronephrosis, status post bladder expansion, tobacco and marijuana use who came to the hospital with a chief complaint of generalized abdominal pain which was mainly located in the suprapubic area radiating to right and upper quadrant abdominal pain. With further evaluation patient found to have urinary infection with bilateral renal calculi, status post nephrostomy tube, received a IV iron, IV iron overload. No any other new complaints. S/P nephrostomy tube bilateral. Draining both nephrostomy tube, also presence of urine in urinary bag with Wilcox catheter. Continue to have pain over left nephrostomy tube inserion site, No fever, nausea or vomiiting., Continued to be afebrile, no abdominal pain, no fever, chills. Patient refusing all treatment from surgeon and radiology, requesting process for AMA ROS: Eyes: No Pain, No Vision change, No Conjunctivae inflammation, No Eyelid inflammation, No Other, No Redness ENT: No Ear pain, No Ear discharge, No Nose pain, No Nose discharge, No Nose congestion, No Mouth pain, No Mouth swelling, No Throat pain, No Throat swelling, No Other Cardiovascular: No Chest Pain, No Palpitations, No Orthopnea, No Paroxysmal Noc. Dyspnea, No Edema, No Lt Headedness, No Other Respiratory: No Cough, No Dry, No Shortness of breath, No SOB with excertion, No Wheezing, No Hemoptysis, No Pleuritic Pain, No Sputum, No Other Gastrointestinal: No Nausea, Vomiting, Abdominal Pain, No Diarrhea, No Constipation, No Melena, No Hematochezia, No Other Genitourinary: Dysuria, No Frequency, No Incontinence, No Hematuria, No Retention, No Other Musculoskeletal: No other, No neck pain, No shoulder pain, No arm pain, No back pain, No hand pain, No leg pain, No foot pain Skin: No Rash, No Lesions, No Jaundice, No Bruising, No Other Objective vital signs Vital Sign Date Time Temp Pulse Resp B/P (MAP) Pulse Ox O2 Delivery O2 Flow Rate FiO2 08/28/24 14:51 124 16 106/74 08/28/24 13:00 98.4 97 98.4 08/28/24 08:00 Room Air* 0 21 Total Intake and Output 08/27/24 08/27/24 08/28/24 15:00 23:00 07:00 Intake Total 290 ml 600 ml 1650 ml Output Total 700 ml 185 ml 450 ml Balance -410 ml 415 ml 1200 ml medications Current Medications Medications Dose Ordered Sig/Leeanne Route Start Time Stop Time Status Last Admin Dose Admin Acetaminophen 650 mg Q6HP PRN PO 08/16/24 10:30 Hydralazine HCl 10 mg Q6HP PRN IV 08/16/24 10:30 Nicotine 1 patch DAILY TD 08/17/24 10:00 08/28/24 08:53 1 PATCH Pantoprazole Sodium 40 mg DAILY IV 08/17/24 10:00 08/28/24 08:53 40 MG Sevelamer HCl 800 mg TIDWM PO 08/17/24 12:00 08/28/24 13:02 800 MG Sodium Bicarbonate 650 mg TID PO 08/17/24 14:00 08/28/24 14:50 650 MG Potassium Chloride 100 ml @ 50 mls/hr Q2H IV 08/17/24 08:30 08/17/24 12:29 UNV Ergocalciferol 50,000 unit Q7D PO 08/17/24 12:00 08/24/24 11:26 50,000 UNIT Polyethylene Glycol 17 gm DAILY PO 08/22/24 10:00 08/28/24 08:53 17 GM Meropenem 50 ml @ 17 mls/hr Q12HR IV 08/21/24 22:00 08/28/24 08:53 17 MLS/HR Melatonin 5 mg HS PO 08/22/24 22:00 08/27/24 23:12 5 MG Ondansetron HCl 4 mg Q4HPRN PRN IV 08/23/24 12:00 08/23/24 18:43 4 MG Hydroxyzine HCl 20 mg Q6HP PRN PO 08/26/24 13:15 08/28/24 08:53 20 MG Morphine Sulfate 1 mg Q6HP PRN IV 08/28/24 16:45 UNV Examination General Appearance: Cooperative. Well developed. Well nourished. NAD Head Exam: Normal inspection Neck Exam: Normal inspection. Non-tender. Normal alignment Pulmonary/Respiratory: Chest non-tender. Clear bilateral breath sounds Cardiovascular/Chest: Regular rate and rhythm. No murmurs. No JVD. Peripheral Pulses: 2+ Radial (R). 2+ Radial (L). 2+ Pedal (R). 2+ Pedal (L) Abdominal Exam: Increase urine output, clear urine,no hematuria, Bilateral nephrostomy tube in place with draining urine in bags; normal bowel sounds. Soft. Nontender. No hepatosplenomegaly. No masses Ankle Exam: Negative ankle edema Lower extremities: Negative lower extremity edema with sub-grown lower extremities Neuro/Mental Status: A&O x4. Coherent, paraplegia Thoughts/Psych: Normal thought pattern. Appropriate mood and affect. Good judgement and insight Appearance: In no acute distress laboratory and microbiology Laboratory Tests 08/28/24 08:29 Test 08/28/24 08:29 Range/Units Serum Glucose 88 74-106 mg/dL Microbiology Date/Time Source Procedure Growth Status 08/27/24 08:53 Blood Blood Culture - Preliminary NO GROWTH AFTER 24 HOURS OF INCUBATION. Resulted 08/23/24 12:50 Other Urine Culture - Final Complete 08/17/24 15:45 Aspirate Gram Stain - Final Complete 08/17/24 15:45 Aspirate Body Fluid Culture - Final Complete 08/16/24 09:54 Voided Urine Urine Culture - Final Complete Problem List/Assessment/Plan Problem List/Assessment/Plan Sepsis due to UTI -IV meropenam -No growth in urine and blood culture -Urologic consultation: s/p bilateral nephrostomy tube -Radiologic consultation has been done Acute left peripnephric abscess -Iv abx:meropenam -IR consulted for drainage:still pending -surgery has been consulted: Patient refused surgery, does not want to get cut. As per surgeon, follow with IR. Severe homochromatic and microcytic anemia -Order PRBCs Non functional left kidney -Outpatient follow up for nepretomy -Renal scan:1. Delayed perfusion and function of the right kidney with mild response to Lasix. Favored high-grade functional obstruction. 2. Minimal radiotracer uptake in the left kidney. Favored to reflect a nonfunctioning kidney. Acute complication or cystitis -see the management of sepsis Hematuria likely due to above -Continue with ABx JOSE likely related to hemodynamically mediated and obstruction with CKD unknown stage -continue monitor kidney function, status post Wilcox insertion -CT scan showed bilateral renal calculi with hydronephrosis. -continue IV fluid -trend kidney function -follow nephrology recommendation Metabolic acidosis due to CKD -sodium bicarbonate Left-sided staghorn calculi with moderate hydronephrosis -as per urology Moderate right hydronephrosis and hydroureter -as per Neurology Severe anemia of chronic disease, status post IV iron load, IV Iron toxicity -received 5 bags of IV iron, status post deferoxamine -repeat Iron panel:Iron level normalized 51 Chronic bilateral hip dislocation -Stable History of spina bifida with Paraplegia -Stable Hypomagnesemia -IV mag Hypokalemia -IV potassium 40 meq repeat Hyperphosphatemia -sevelamer 800 mg p.o. t.i.d. Vitamin-D deficiency -Vitamin d 50,000 IU every week once Sinus tachycardia with QTC prolongation -Continue monitor Marijuana use disorder -counseled on cessation PUD prophylaxis with Protonix Continue with current management, surgery consultation was done, patient refused any surgical intervention as well IR intervention. requesting information for AMA, Social service has been consulted, 1 unit of PRBS for anemia. plan discussed with Dr David Plan discussed with: Patient, Other (RN) My Orders My Orders Orders - MIGUEL KRUEGER Procedure Category Date Status Time Type And Screen BBK 08/28/24 In Process 09:48 Morphine Sulfate PHA 08/28/24 Logged Injection 16:45 Dietary Evaluation Review Comments: 1. Disagree with Renal Standard diet for JOSE, +hypokalmeia; would change to Regular diet 2. Suggest daily bowel regimen while on opiods, +constipation 3. Monitor BMP/lytes - consistently low K, liberalize diet and replace per protocol to WNL 4. PO intakes improving; will assess need for ONS on FU Expected Outcomes/Goals: Improved lab values, adequate nutrition. Date of Service: August 28, 2024 Billing Provider: SID DAVID MD Common Visit Codes: [id number] INP/OBS CARE(HIGH) MIGUEL KRUEGER RESIDENT August 28, 2024 16:47 SID DAVID MD August 29, 2024 15:42
[2024-08-28] MEDS: MORPHINE SULFATE INJ 2 MG/ml SYRG IV PRN (18:55)
[2024-08-29] VITALS (7 sets, daily range): BP systolic 112–118; BP diastolic 76–82; PULSE 67–115; RESP 16–19; TEMP 97.5–98.3; O2SAT 95–98
[2024-08-29] MEDS: MEROPENEM 1GM IVPB 50 ML IV SCH (01:58)
[2024-08-29] MEDS: HYDROcodone-ACET 5/325MG TAB PO PRN (05:11)
[2024-08-29 08:11] LABS: Anion Gap 11 (5-15); Potassium 4.8 mmol/L (3.5-5.1); Sodium 137 mmol/L (136-145)
[2024-08-29 08:12] LABS: Basophils # (auto) 0.1 10 ^3/uL (0-0.2); Basophils % (auto) 0.8 % (0.0-2.0); Calcium 8.9 mg/dL (8.7-10.4); Carbon Dioxide 19 mmol/L (20-31); Chloride 107 mmol/L (98-107); Eosinophils # (auto) 0.5 10 ^3/uL (0-0.8); Hematocrit 30.1 % (36.0-46.0); Hemoglobin 9.4 g/dL (12.2-16.2); Lymphocytes # (auto) 0.8 10 ^3/uL (0.4-5.4); Lymphocytes % (auto) 8.3 % (10.0-50.0); Mean Corpuscular Hgb Conc. 31.1 g/dL (32.0-36.0); Mean Corpuscular Volume 83.5 fL (80.0-100.0); Monocytes # (auto) 1.5 10 ^3/uL (0-1.3); Monocytes % (auto) 16.7 % (0.0-12.0); Neutrophils # (auto) 6.4 10 ^3/uL (1.6-8.6); Neutrophils % (auto) 69.2 % (37.0-80.0); Platelet Count (auto) 440 10^3/uL (140-450); Red Blood Cells 3.61 10^6/uL (4.0-5.20); Red Cell Distribution Width 18.4 % (11.8-14.3); White Blood Cell 9.3 10^3/uL (4.4-10.8)
[2024-08-29 08:17] LABS: Glucose 82 mg/dL (74-106)
[2024-08-29 08:26] LABS: Blood Urea Nitrogen 42 mg/dL (9-23)
--- NOTE | 2024-08-29 09:56 | DVHPN2 ---
Progress Note Date Seen: August 29, 2024 Medical Necessity Reason Pt with a Central, PICC or Fol: No The following are medically ne: Wilcox Catheter Reason for wilcox catheter: Bladder Retention/Obstruc, Total Immobilization Subjective Patient reports: No new complaints Other Systems: Patient seen and examined by myself today in follow-up Objective vital signs Vital Sign Date Time Temp Pulse Resp B/P (MAP) Pulse Ox O2 Delivery O2 Flow Rate FiO2 08/29/24 08:53 93 16 114/80 08/29/24 08:20 97.8 95 97.8 08/29/24 08:00 Room Air* 0 21 Total Intake and Output 08/28/24 08/28/24 08/29/24 15:00 23:00 07:00 Intake Total 50 ml 1245 ml 1260 ml Output Total 400 ml 825 ml Balance 50 ml 845 ml 435 ml medications Current Medications Medications Dose Ordered Sig/Leeanne Route Start Time Stop Time Status Last Admin Dose Admin Acetaminophen 650 mg Q6HP PRN PO 08/16/24 10:30 Hydralazine HCl 10 mg Q6HP PRN IV 08/16/24 10:30 Nicotine 1 patch DAILY TD 08/17/24 10:00 08/28/24 08:53 1 PATCH Pantoprazole Sodium 40 mg DAILY IV 08/17/24 10:00 08/28/24 08:53 40 MG Sevelamer HCl 800 mg TIDWM PO 08/17/24 12:00 08/29/24 08:36 800 MG Sodium Bicarbonate 650 mg TID PO 08/17/24 14:00 08/29/24 06:42 650 MG Potassium Chloride 100 ml @ 50 mls/hr Q2H IV 08/17/24 08:30 08/17/24 12:29 UNV Ergocalciferol 50,000 unit Q7D PO 08/17/24 12:00 08/24/24 11:26 50,000 UNIT Polyethylene Glycol 17 gm DAILY PO 08/22/24 10:00 08/28/24 08:53 17 GM Melatonin 5 mg HS PO 08/22/24 22:00 08/28/24 23:24 5 MG Ondansetron HCl 4 mg Q4HPRN PRN IV 08/23/24 12:00 08/23/24 18:43 4 MG Hydroxyzine HCl 20 mg Q6HP PRN PO 08/26/24 13:15 08/28/24 08:53 20 MG Morphine Sulfate 1 mg Q6HP PRN IV 08/28/24 16:45 08/29/24 08:53 1 MG Meropenem 50 ml @ 17 mls/hr Q12HR@0200,1400 IV 08/29/24 02:00 08/29/24 01:58 17 MLS/HR Acetaminophen/ Hydrocodone Bitart 1 tab Q4HPRN PRN PO 08/29/24 05:00 08/29/24 05:11 1 TAB Examination: LUNGS:Normal, CVS:Normal, MSK:Normal laboratory and microbiology Laboratory Tests 08/29/24 07:07 Test 08/29/24 07:07 Range/Units Serum Glucose 82 74-106 mg/dL Microbiology Date/Time Source Procedure Growth Status 08/27/24 08:53 Blood Blood Culture - Preliminary NO GROWTH AFTER 48 HOURS OF INCUBATION. Resulted 08/23/24 12:50 Other Urine Culture - Final Complete 08/17/24 15:45 Aspirate Gram Stain - Final Complete 08/17/24 15:45 Aspirate Body Fluid Culture - Final Complete 08/16/24 09:54 Voided Urine Urine Culture - Final Complete Problem List/Assessment/Plan Problem List/Assessment/Plan Acute kidney injury superimposed Chronic Kidney Disease secondary hemodynamic mediated/obstruction Sepsis secondary to urinary tract infection Staghorn calculi Bilateral hydronephrosis, status post bilateral nephrostomy tube Left perinephric abscess Chronic bilateral hip dislocation Metabolic acidosis Paraplegia and spina bifida Anemia due to iron deficiency s/p iron overload and desferoxime Hypomagnesemia Hypokalemia Nonfunctioning right kidney Recommendations Kidney function slightly improving Increased urine output Strict I&Os IVF half NS with 50 mEq sodium bicarb at 100 cc/hour KCL replacement Magnesium sulfate IV piggyback IV antibiotics Urology on board We will continue to follow up Plan discussed with: Patient Dietary Evaluation Review Comments: 1. Disagree with Renal Standard diet for JOSE, +hypokalmeia; would change to Regular diet 2. Suggest daily bowel regimen while on opiods, +constipation 3. Monitor BMP/lytes - consistently low K, liberalize diet and replace per protocol to WNL 4. PO intakes improving; will assess need for ONS on FU Expected Outcomes/Goals: Improved lab values, adequate nutrition. QUITA PACE MD August 29, 2024 09:56
[2024-08-29] MEDS ORDERED: SODIUM BICARB 50mEq/50ml Vial 50 ML in SOD CHL 0.45% 1,000 ML IV SCH (10:00)
[2024-08-29] MEDS: SODIUM BICARB 50mEq/50ml Vial 50 ML in SOD CHL 0.45% 1,000 ML IV SCH (13:00)
--- NOTE | 2024-08-29 16:49 | DVHPNRES ---
Progress Note Date Seen: August 29, 2024 Resident Creating Document: MIGUEL KRUEGER RESIDENT Medical Necessity Reason Pt with a Central, PICC or Fol: No The following are medically ne: Wilcox Catheter Reason for wilcox catheter: Bladder Retention/Obstruc, Total Immobilization Subjective Review of Systems Patient is a 38-year-old female with past medical history of paraplegia, staghorn renal calculi, hydronephrosis, status post bladder expansion, tobacco and marijuana use who came to the hospital with a chief complaint of generalized abdominal pain which was mainly located in the suprapubic area radiating to right and upper quadrant abdominal pain. With further evaluation patient found to have urinary infection with bilateral renal calculi, status post nephrostomy tube, received a IV iron, IV iron overload. No any other new complaints. S/P nephrostomy tube bilateral. Draining both nephrostomy tube, also presence of urine in urinary bag with Wilcox catheter. Continue to have pain over left nephrostomy tube inserion site, No fever, nausea or vomiiting., Continued to be afebrile, no abdominal pain, no fever, chills. now requesting to get evaluated by providers again. no other new complains ROS: Eyes: No Pain, No Vision change, No Conjunctivae inflammation, No Eyelid inflammation, No Other, No Redness ENT: No Ear pain, No Ear discharge, No Nose pain, No Nose discharge, No Nose congestion, No Mouth pain, No Mouth swelling, No Throat pain, No Throat swelling, No Other Cardiovascular: No Chest Pain, No Palpitations, No Orthopnea, No Paroxysmal Noc. Dyspnea, No Edema, No Lt Headedness, No Other Respiratory: No Cough, No Dry, No Shortness of breath, No SOB with excertion, No Wheezing, No Hemoptysis, No Pleuritic Pain, No Sputum, No Other Gastrointestinal: No Nausea, Vomiting, Abdominal Pain, No Diarrhea, No Constipation, No Melena, No Hematochezia, No Other Genitourinary: Dysuria, No Frequency, No Incontinence, No Hematuria, No Retention, No Other Musculoskeletal: No other, No neck pain, No shoulder pain, No arm pain, No back pain, No hand pain, No leg pain, No foot pain Skin: No Rash, No Lesions, No Jaundice, No Bruising, No Other Objective vital signs Vital Sign Date Time Temp Pulse Resp B/P (MAP) Pulse Ox O2 Delivery O2 Flow Rate FiO2 08/29/24 12:40 97.9 102 16 112/81 (91) 97 97.9 08/29/24 08:00 Room Air* 0 21 Total Intake and Output 08/28/24 08/28/24 08/29/24 15:00 23:00 07:00 Intake Total 50 ml 1245 ml 1260 ml Output Total 400 ml 825 ml Balance 50 ml 845 ml 435 ml medications Current Medications Medications Dose Ordered Sig/Leeanne Route Start Time Stop Time Status Last Admin Dose Admin Acetaminophen 650 mg Q6HP PRN PO 08/16/24 10:30 Hydralazine HCl 10 mg Q6HP PRN IV 08/16/24 10:30 Nicotine 1 patch DAILY TD 08/17/24 10:00 08/29/24 11:10 1 PATCH Pantoprazole Sodium 40 mg DAILY IV 08/17/24 10:00 08/29/24 11:05 40 MG Sevelamer HCl 800 mg TIDWM PO 08/17/24 12:00 08/29/24 12:56 800 MG Sodium Bicarbonate 650 mg TID PO 08/17/24 14:00 08/29/24 06:42 650 MG Potassium Chloride 100 ml @ 50 mls/hr Q2H IV 08/17/24 08:30 08/17/24 12:29 UNV Ergocalciferol 50,000 unit Q7D PO 08/17/24 12:00 08/24/24 11:26 50,000 UNIT Polyethylene Glycol 17 gm DAILY PO 08/22/24 10:00 08/29/24 11:08 17 GM Melatonin 5 mg HS PO 08/22/24 22:00 08/28/24 23:24 5 MG Ondansetron HCl 4 mg Q4HPRN PRN IV 08/23/24 12:00 08/23/24 18:43 4 MG Hydroxyzine HCl 20 mg Q6HP PRN PO 08/26/24 13:15 08/28/24 08:53 20 MG Morphine Sulfate 1 mg Q6HP PRN IV 08/28/24 16:45 08/29/24 08:53 1 MG Meropenem 50 ml @ 17 mls/hr Q12HR@0200,1400 IV 08/29/24 02:00 08/29/24 16:09 17 MLS/HR Acetaminophen/ Hydrocodone Bitart 1 tab Q4HPRN PRN PO 08/29/24 05:00 08/29/24 12:56 1 TAB Sodium Bicarbonate 50 ml/ Sodium Chloride 1,050 ml @ 100 mls/hr [id number] IV 08/29/24 13:00 08/29/24 13:00 100 MLS/HR Examination General Appearance: Cooperative. Well developed. Well nourished. NAD Head Exam: Normal inspection Neck Exam: Normal inspection. Non-tender. Normal alignment Pulmonary/Respiratory: Chest non-tender. Clear bilateral breath sounds Cardiovascular/Chest: Regular rate and rhythm. No murmurs. No JVD. Peripheral Pulses: 2+ Radial (R). 2+ Radial (L). 2+ Pedal (R). 2+ Pedal (L) Abdominal Exam: Increase urine output, clear urine,no hematuria, Bilateral nephrostomy tube in place with draining urine in bags; normal bowel sounds. Soft. Nontender. No hepatosplenomegaly. No masses Ankle Exam: Negative ankle edema Lower extremities: Negative lower extremity edema with sub-grown lower extremities Neuro/Mental Status: A&O x4. Coherent, paraplegia Thoughts/Psych: Normal thought pattern. Appropriate mood and affect. Good judgement and insight Appearance: In no acute distress laboratory and microbiology Laboratory Tests 08/29/24 07:07 Test 08/29/24 07:07 Range/Units Serum Glucose 82 74-106 mg/dL Microbiology Date/Time Source Procedure Growth Status 08/27/24 08:53 Blood Blood Culture - Preliminary NO GROWTH AFTER 48 HOURS OF INCUBATION. Resulted 08/23/24 12:50 Other Urine Culture - Final Complete 08/17/24 15:45 Aspirate Gram Stain - Final Complete 08/17/24 15:45 Aspirate Body Fluid Culture - Final Complete 08/16/24 09:54 Voided Urine Urine Culture - Final Complete Problem List/Assessment/Plan Problem List/Assessment/Plan Sepsis due to UTI -IV meropenam -No growth in urine and blood culture -Urologic consultation: s/p bilateral nephrostomy tube -Radiologic consultation has been done Acute left peripnephric abscess -Iv abx:meropenam -IR consulted for drainage:still pending -surgery has been consulted: Patient refused surgery, does not want to get cut. As per surgeon, follow with IR. Severe homochromatic and microcytic anemia -Order PRBCs Non functional left kidney -Outpatient follow up for nepretomy -Renal scan:1. Delayed perfusion and function of the right kidney with mild response to Lasix. Favored high-grade functional obstruction. 2. Minimal radiotracer uptake in the left kidney. Favored to reflect a nonfunctioning kidney. Acute complication or cystitis -see the management of sepsis Hematuria likely due to above -Continue with ABx JOSE likely related to hemodynamically mediated and obstruction with CKD unknown stage -continue monitor kidney function, status post Wilcox insertion -CT scan showed bilateral renal calculi with hydronephrosis. -continue IV fluid -trend kidney function -follow nephrology recommendation Metabolic acidosis due to CKD -sodium bicarbonate Left-sided staghorn calculi with moderate hydronephrosis -as per urology Moderate right hydronephrosis and hydroureter -as per Neurology Severe anemia of chronic disease, status post IV iron load, IV Iron toxicity -received 5 bags of IV iron, status post deferoxamine -repeat Iron panel:Iron level normalized 51 Chronic bilateral hip dislocation -Stable History of spina bifida with Paraplegia -Stable Hypomagnesemia -IV mag Hypokalemia -IV potassium 40 meq repeat Hyperphosphatemia -sevelamer 800 mg p.o. t.i.d. Vitamin-D deficiency -Vitamin d 50,000 IU every week once Sinus tachycardia with QTC prolongation -Continue monitor Marijuana use disorder -counseled on cessation PUD prophylaxis with Protonix Continue current medical management, continued to be white count low, no fever. Talked on-call urology Dr. Jackson, recommended current conservative management, repeat CT abdomen pelvis without contrast tomorrow , follow with IR if still abscess present, possible re-evaluation by IR for draining. As per IR patient will need reposition of nephrostomy tube as well. Follow with intervention Radiology on Saturday again. plan discussed with Dr David Plan discussed with: Patient, Other (RN) My Orders My Orders Orders - MIGUEL KRUEGER Procedure Category Date Status Time Morphine Sulfate PHA 08/28/24 In Process Injection 16:45 Meropenem 1gm Ivpb PHA 08/29/24 In Process (Merrem 1gm/ Ns) 02:00 * Wound Consult CONS 08/29/24 Transmitted Dietary Evaluation Review Comments: 1. Disagree with Renal Standard diet for JOSE, +hypokalmeia; would change to Regular diet 2. Suggest daily bowel regimen while on opiods, +constipation 3. Monitor BMP/lytes - consistently low K, liberalize diet and replace per protocol to WNL 4. PO intakes improving; will assess need for ONS on FU Expected Outcomes/Goals: Improved lab values, adequate nutrition. Date of Service: August 29, 2024 Billing Provider: SID DAVID MD Common Visit Codes: [id number] INP/OBS CARE(HIGH) MIGUEL KRUEGER RESIDENT August 29, 2024 16:49 SID DAVID MD August 31, 2024 14:12
[2024-08-30 01:00] VITALS: BP 113/78; PULSE 108; RESP 18; TEMP 98.1; O2SAT 98
[2024-08-30 05:00] VITALS: BP 128/85; PULSE 106; RESP 20; TEMP 97.4; O2SAT 100
[2024-08-30 06:28] LABS: Basophils # (auto) 0.1 10 ^3/uL (0-0.2); Basophils % (auto) 0.7 % (0.0-2.0); Eosinophils # (auto) 0.4 10 ^3/uL (0-0.8); Lymphocytes # (auto) 0.8 10 ^3/uL (0.4-5.4); Monocytes # (auto) 1.1 10 ^3/uL (0-1.3); Neutrophils # (auto) 5.7 10 ^3/uL (1.6-8.6)
[2024-08-30 06:30] LABS: Eosinophils % (auto) 5.4 % (0.0-7.0); Hemoglobin 8.4 g/dL (12.2-16.2); Lymphocytes % (auto) 9.5 % (10.0-50.0); Mean Corpuscular Hemoglobin 26.5 pg (28.0-32.0); Mean Corpuscular Hgb Conc. 32.4 g/dL (32.0-36.0); Mean Corpuscular Volume 81.8 fL (80.0-100.0); Monocytes % (auto) 13.8 % (0.0-12.0); Neutrophils % (auto) 70.6 % (37.0-80.0); Platelet Count (auto) 425 10^3/uL (140-450); Red Blood Cells 3.17 10^6/uL (4.0-5.20); Red Cell Distribution Width 18.6 % (11.8-14.3)
[2024-08-30 06:42] LABS: Chloride 106 mmol/L (98-107); Potassium 4.9 mmol/L (3.5-5.1); Sodium 137 mmol/L (136-145)
[2024-08-30 06:43] LABS: Anion Gap 10 (5-15); Carbon Dioxide 21 mmol/L (20-31)
[2024-08-30 06:48] LABS: BUN/Creatinine Ratio 16.7 (10.0-20.0); Glucose 81 mg/dL (74-106)
[2024-08-30 06:55] LABS: Blood Urea Nitrogen 42 mg/dL (9-23); Calcium 8.6 mg/dL (8.7-10.4)
[2024-08-30 08:00] VITALS: PULSE 100
[2024-08-30 09:00] VITALS: BP 115/79; PULSE 112; RESP 18; TEMP 97.4; O2SAT 96
--- NOTE | 2024-08-30 09:31 | DVHPN2 ---
Progress Note Date Seen: August 30, 2024 Medical Necessity Reason Pt with a Central, PICC or Fol: No The following are medically ne: Wilcox Catheter Reason for wilcox catheter: Bladder Retention/Obstruc, Total Immobilization Subjective Patient reports: No new complaints Other Systems: Patient seen and examined by myself today in follow-up Objective vital signs Vital Sign Date Time Temp Pulse Resp B/P (MAP) Pulse Ox O2 Delivery O2 Flow Rate FiO2 08/30/24 08:00 Room Air* 0 21 08/30/24 06:06 106 20 128/85 08/30/24 05:00 97.4 100 97.4 Total Intake and Output 08/29/24 08/29/24 08/30/24 15:00 23:00 07:00 Intake Total 318 ml 480 ml 1955 ml Output Total 1175 ml 600 ml Balance 318 ml -695 ml 1355 ml medications Current Medications Medications Dose Ordered Sig/Leeanne Route Start Time Stop Time Status Last Admin Dose Admin Acetaminophen 650 mg Q6HP PRN PO 08/16/24 10:30 Hydralazine HCl 10 mg Q6HP PRN IV 08/16/24 10:30 Nicotine 1 patch DAILY TD 08/17/24 10:00 08/29/24 11:10 1 PATCH Pantoprazole Sodium 40 mg DAILY IV 08/17/24 10:00 08/29/24 11:05 40 MG Sevelamer HCl 800 mg TIDWM PO 08/17/24 12:00 08/30/24 08:24 800 MG Sodium Bicarbonate 650 mg TID PO 08/17/24 14:00 08/29/24 21:27 650 MG Potassium Chloride 100 ml @ 50 mls/hr Q2H IV 08/17/24 08:30 08/17/24 12:29 UNV Ergocalciferol 50,000 unit Q7D PO 08/17/24 12:00 08/24/24 11:26 50,000 UNIT Polyethylene Glycol 17 gm DAILY PO 08/22/24 10:00 08/29/24 11:08 17 GM Melatonin 5 mg HS PO 08/22/24 22:00 08/29/24 21:28 5 MG Ondansetron HCl 4 mg Q4HPRN PRN IV 08/23/24 12:00 08/23/24 18:43 4 MG Hydroxyzine HCl 20 mg Q6HP PRN PO 08/26/24 13:15 08/30/24 05:41 20 MG Morphine Sulfate 1 mg Q6HP PRN IV 08/28/24 16:45 08/30/24 06:06 1 MG Meropenem 50 ml @ 17 mls/hr Q12HR@0200,1400 IV 08/29/24 02:00 08/30/24 02:05 17 MLS/HR Acetaminophen/ Hydrocodone Bitart 1 tab Q4HPRN PRN PO 08/29/24 05:00 08/30/24 08:24 1 TAB Sodium Bicarbonate 50 ml/ Sodium Chloride 1,050 ml @ 100 mls/hr [id number] IV 08/29/24 13:00 08/30/24 00:07 100 MLS/HR Examination: LUNGS:Normal, CVS:Normal, MSK:Normal laboratory and microbiology Laboratory Tests 08/30/24 05:26 Test 08/30/24 05:26 Range/Units Serum Glucose 81 74-106 mg/dL Microbiology Date/Time Source Procedure Growth Status 08/27/24 08:53 Blood Blood Culture - Preliminary NO GROWTH AFTER 72 HOURS OF INCUBATION. Resulted 08/23/24 12:50 Other Urine Culture - Final Complete 08/17/24 15:45 Aspirate Gram Stain - Final Complete 08/17/24 15:45 Aspirate Body Fluid Culture - Final Complete 08/16/24 09:54 Voided Urine Urine Culture - Final Complete Problem List/Assessment/Plan Problem List/Assessment/Plan Acute kidney injury superimposed Chronic Kidney Disease secondary hemodynamic mediated/obstruction Sepsis secondary to urinary tract infection Staghorn calculi Bilateral hydronephrosis, status post bilateral nephrostomy tube Left perinephric abscess Chronic bilateral hip dislocation Metabolic acidosis Paraplegia and spina bifida Anemia due to iron deficiency s/p iron overload and desferoxime Hypomagnesemia Hypokalemia Nonfunctioning right kidney Recommendations Kidney function slightly improving Increased urine output Strict I&Os IVF half NS with 50 mEq sodium bicarb at 100 cc/hour KCL replacement Magnesium sulfate IV piggyback IV antibiotics Urology on board We will continue to follow up Plan discussed with: Patient My Orders My Orders Orders - QUITA PACE MD Procedure Category Date Status Time Sod Chl 0.45% PHA 08/29/24 In Process (Sodi... W/Sodium 13:00 Dietary Evaluation Review Recommendations by RD: Dietary education by RD, Protein Supplementation Comments: 1) Initiate Nepro qd. Encourage optimal PO intake 2) Continue Renagel @ 800 mg tid. Advise patient about the importance of limiting intake dairy products, nuts, seeds, soy, beans, dark alexandra, bran, chocolate, etc d/t hyperphosphatemia. 3) Follow-up with urology and nephrology 4) Continue to monitor I&O, labs, and skin integrity Expected Outcomes/Goals: 1) appetite and labs to improve 2) wound to improve 3) follow-up in 3-5 days QUITA PACE MD August 30, 2024 09:31
[2024-08-30 15:00] LABS: INR 1.16 (0.9-1.15); Partial Thromboplastin Time 33.9 SEC (24.5-34.5); Prothrombin Time 12.1 sec (9.3-11.8)
--- NOTE | 2024-08-30 17:44 | DVHPNRES ---
Progress Note Date Seen: August 30, 2024 Resident Creating Document: ELEN TAY RESIDENT Medical Necessity Reason Pt with a Central, PICC or Fol: No The following are medically ne: Wilcox Catheter Reason for wilcox catheter: Bladder Retention/Obstruc, Total Immobilization Subjective Review of Systems Patient seen and examined at the bedside Complained of pain in the left flank status post nephrostomy tube with some drainage Patient is scheduled for CT abdomen pelvis with contrast tomorrow No Urine in the Wilcox catheter Bilateral nephrostomy tubes draining well No fever, chills, abdominal pain Objective vital signs Vital Sign Date Time Temp Pulse Resp B/P (MAP) Pulse Ox O2 Delivery O2 Flow Rate FiO2 08/30/24 12:29 112 18 115/79 08/30/24 09:00 97.4 96 97.4 08/30/24 08:00 Room Air* 0 21 Total Intake and Output 08/29/24 08/29/24 08/30/24 15:00 23:00 07:00 Intake Total 318 ml 480 ml 1955 ml Output Total 1175 ml 600 ml Balance 318 ml -695 ml 1355 ml medications Current Medications Medications Dose Ordered Sig/Leeanne Route Start Time Stop Time Status Last Admin Dose Admin Acetaminophen 650 mg Q6HP PRN PO 08/16/24 10:30 Nicotine 1 patch DAILY TD 08/17/24 10:00 08/30/24 11:03 1 PATCH Pantoprazole Sodium 40 mg DAILY IV 08/17/24 10:00 08/30/24 10:56 40 MG Sevelamer HCl 800 mg TIDWM PO 08/17/24 12:00 08/30/24 12:28 800 MG Potassium Chloride 100 ml @ 50 mls/hr Q2H IV 08/17/24 08:30 08/17/24 12:29 UNV Ergocalciferol 50,000 unit Q7D PO 08/17/24 12:00 08/24/24 11:26 50,000 UNIT Polyethylene Glycol 17 gm DAILY PO 08/22/24 10:00 08/29/24 11:08 17 GM Melatonin 5 mg HS PO 08/22/24 22:00 08/29/24 21:28 5 MG Ondansetron HCl 4 mg Q4HPRN PRN IV 08/23/24 12:00 08/23/24 18:43 4 MG Hydroxyzine HCl 20 mg Q6HP PRN PO 08/26/24 13:15 08/30/24 13:30 20 MG Meropenem 50 ml @ 17 mls/hr Q12HR@0200,1400 IV 08/29/24 02:00 08/30/24 15:51 17 MLS/HR Acetaminophen/ Hydrocodone Bitart 1 tab Q4HPRN PRN PO 08/29/24 05:00 08/30/24 15:58 1 TAB Sodium Bicarbonate 50 ml/ Sodium Chloride 1,050 ml @ 100 mls/hr [id number] IV 08/29/24 13:00 08/30/24 10:00 100 MLS/HR Morphine Sulfate 1 mg Q4HP PRN IV 08/30/24 16:30 Examination General Appearance: Cooperative. Well developed. Well nourished. NAD Head Exam: Normal inspection Neck Exam: Normal inspection. Non-tender. Normal alignment Pulmonary/Respiratory: Chest non-tender. Clear bilateral breath sounds Cardiovascular/Chest: Regular rate and rhythm. No murmurs. No JVD. Peripheral Pulses: 2+ Radial (R). 2+ Radial (L). 2+ Pedal (R). 2+ Pedal (L) Abdominal Exam: Increase urine output, clear urine,no hematuria, Bilateral nephrostomy tube in place with draining urine in bags; normal bowel sounds. Soft. Nontender. No hepatosplenomegaly. No masses Ankle Exam: Negative ankle edema Lower extremities: Negative lower extremity edema with sub-grown lower extremities Neuro/Mental Status: A&O x4. Coherent, paraplegia Thoughts/Psych: Normal thought pattern. Appropriate mood and affect. Good judgement and insight Appearance: In no acute distress laboratory and microbiology Laboratory Tests 08/30/24 05:26 Test 08/30/24 05:26 Range/Units Serum Glucose 81 74-106 mg/dL Microbiology Date/Time Source Procedure Growth Status 08/27/24 08:53 Blood Blood Culture - Preliminary NO GROWTH AFTER 72 HOURS OF INCUBATION. Resulted 08/23/24 12:50 Other Urine Culture - Final Complete 08/17/24 15:45 Aspirate Gram Stain - Final Complete 08/17/24 15:45 Aspirate Body Fluid Culture - Final Complete 08/16/24 09:54 Voided Urine Urine Culture - Final Complete Problem List/Assessment/Plan Problem List/Assessment/Plan Sepsis due to UTI -IV meropenam -No growth in urine and blood culture -Urologic consultation: s/p bilateral nephrostomy tube -Radiologic consultation has been done Acute left peripnephric abscess -Iv abx:meropenam -IR consulted for drainage:still pending -surgery has been consulted: Patient refused surgery, does not want to get cut. As per surgeon, follow with IR. Severe homochromatic and microcytic anemia -Order PRBCs Non functional left kidney -Outpatient follow up for nepretomy -Renal scan:1. Delayed perfusion and function of the right kidney with mild response to Lasix. Favored high-grade functional obstruction. 2. Minimal radiotracer uptake in the left kidney. Favored to reflect a nonfunctioning kidney. Acute complication or cystitis -see the management of sepsis Hematuria likely due to above -Continue with ABx JOSE likely related to hemodynamically mediated and obstruction with CKD unknown stage -continue monitor kidney function, status post Wilcox insertion -CT scan showed bilateral renal calculi with hydronephrosis. -continue IV fluid -trend kidney function -follow nephrology recommendation Metabolic acidosis due to CKD -sodium bicarbonate Left-sided staghorn calculi with moderate hydronephrosis -as per urology Moderate right hydronephrosis and hydroureter -as per Neurology Severe anemia of chronic disease, status post IV iron load, IV Iron toxicity -received 5 bags of IV iron, status post deferoxamine -repeat Iron panel:Iron level normalized 51 Chronic bilateral hip dislocation -Stable History of spina bifida with Paraplegia -Stable Hypomagnesemia -IV mag Hypokalemia -IV potassium 40 meq repeat Hyperphosphatemia -sevelamer 800 mg p.o. t.i.d. Vitamin-D deficiency -Vitamin d 50,000 IU every week once Sinus tachycardia with QTC prolongation -Continue monitor Marijuana use disorder -counseled on cessation PUD prophylaxis with Protonix Continue current medical management, continued to be white count low, no fever. Talked on-call urology Dr. Jackson, recommended current conservative management, repeat CT abdomen pelvis without contrast tomorrow , follow with IR if still abscess present, possible re-evaluation by IR for draining. As per IR patient will need reposition of nephrostomy tube as well. Follow with intervention Radiology on Saturday again. plan discussed with Dr David Plan discussed with: Patient My Orders My Orders Orders - ELEN TAY RESIDENT Procedure Category Date Status Time Morphine Sulfate PHA 08/30/24 In Process Injection 16:30 Cleanse Wound With DIANNA 08/30/24 In Process Mild Soap A 12:19 Ct Ab Pel With Iv Con CT 08/30/24 Logged Only 17:15 Ct Ab Pel With Iv Con CT 08/31/24 Logged Only 07:00 Dietary Evaluation Review Recommendations by RD: Dietary education by RD, Protein Supplementation Comments: 1) Initiate Nepro qd. Encourage optimal PO intake 2) Continue Renagel @ 800 mg tid. Advise patient about the importance of limiting intake dairy products, nuts, seeds, soy, beans, dark alexandra, bran, chocolate, etc d/t hyperphosphatemia. 3) Follow-up with urology and nephrology 4) Continue to monitor I&O, labs, and skin integrity Expected Outcomes/Goals: 1) appetite and labs to improve 2) wound to improve 3) follow-up in 3-5 days Date of Service: August 30, 2024 Billing Provider: SID DAVID MD Common Visit Codes: [id number] INP/OBS CARE(HIGH) ELEN TAY RESIDENT August 30, 2024 17:44 SID DAVID MD August 31, 2024 14:19
[2024-08-30] MEDS: MORPHINE SULFATE INJ 2 MG/ml SYRG IV PRN (18:29)
[2024-08-30 20:00] VITALS: PULSE 113
[2024-08-30 21:00] VITALS: BP 124/78; PULSE 118; RESP 18; TEMP 100.3; O2SAT 100
[2024-08-30] MEDS: ACETAMINOPHEN 325 MG TAB PO PRN (23:58)
[2024-08-31] VITALS (8 sets, daily range): BP systolic 107–121; BP diastolic 68–92; PULSE 91–122; RESP 16–19; TEMP 98.2–102.8; O2SAT 92–96
[2024-08-31 06:56] LABS: Calcium 8.9 mg/dL (8.7-10.4); Chloride 107 mmol/L (98-107); Potassium 4.8 mmol/L (3.5-5.1); Sodium 138 mmol/L (136-145)
[2024-08-31 06:57] LABS: Anion Gap 10 (5-15); Carbon Dioxide 21 mmol/L (20-31)
[2024-08-31 07:02] LABS: BUN/Creatinine Ratio 14.2 (10.0-20.0); Glucose 84 mg/dL (74-106); INR 1.21 (0.9-1.15); Partial Thromboplastin Time 35.5 SEC (24.5-34.5); Prothrombin Time 12.6 sec (9.3-11.8)
[2024-08-31 07:03] LABS: Magnesium 1.7 mg/dL (1.6-2.6)
[2024-08-31 07:04] LABS: Blood Urea Nitrogen 38 mg/dL (9-23)
[2024-08-31 07:08] LABS: Basophils # (auto) 0.1 10 ^3/uL (0-0.2); Basophils % (auto) 0.7 % (0.0-2.0); Eosinophils # (auto) 0.4 10 ^3/uL (0-0.8); Eosinophils % (auto) 3.3 % (0.0-7.0); Hematocrit 28.5 % (36.0-46.0); Hemoglobin 8.7 g/dL (12.2-16.2); Lymphocytes # (auto) 1.1 10 ^3/uL (0.4-5.4); Lymphocytes % (auto) 9.5 % (10.0-50.0); Mean Corpuscular Hemoglobin 25.8 pg (28.0-32.0); Mean Corpuscular Hgb Conc. 30.6 g/dL (32.0-36.0); Mean Corpuscular Volume 84.1 fL (80.0-100.0); Monocytes # (auto) 1.5 10 ^3/uL (0-1.3); Monocytes % (auto) 13.6 % (0.0-12.0); Neutrophils % (auto) 72.9 % (37.0-80.0); Platelet Count (auto) 420 10^3/uL (140-450); Red Blood Cells 3.39 10^6/uL (4.0-5.20); Red Cell Distribution Width 18.6 % (11.8-14.3)
[2024-08-31] MEDS: IOHEXOL 300 MG/ML 100ML BOTTLE IJ ONE (09:37)
[2024-08-31] MEDS: LIDOCAINE 2%HCL (LOCAL ANESTH.) INJ 10ml MDV ONE ×2 (10:55→15:35)
[2024-08-31] MEDS: MIDAZOLAM HCL 2MG/2ML 2ml VIAL (1mg/ml) IV ONE ×2 (11:15→15:35)
[2024-08-31] MEDS: fentaNYL CITRATE 100 MCG/2 ML VL IV ONE ×2 (11:15→15:35)
[2024-08-31] MEDS: MIDAZOLAM HCL 2MG/2ML 2ml VIAL (1mg/ml) ONE (11:24)
[2024-08-31] MEDS: fentaNYL CITRATE 100 MCG/2 ML VL ONE (11:27)
--- NOTE | 2024-08-31 12:29 | DVH ---
CT CT AB PEL WO CON-NO ORAL OR IV, HISTORY: left pararenal abscess COMPARISON: CT CT AB PEL WO CON-NO ORAL OR IV on DOS: 08/23/24, CT CT AB PEL WO CON-NO ORAL OR IV on DO S: 08/16/24 PROCEDURE: Informed consent was obtained. The patient was placed oblique on the CT scanner. IV sedati on was administered. The fluid collection was localized under CT scan and the overlying skin prepped with chlorhexidine which was allowed to dry and draped in the usual sterile fashion and infiltrated w ith Xylocaine. Time out was performed. With US/CT guidance, an 8 Fr pigtail drain was placed into the abscess with US guidance. The position was confirmed with CT. Approximately 100 cc of foul purulent fluid was aspirated, with specimen sent for appropriate laboratory/cytology/laboratory and cytology evaluation. The drain was sutured at the skin surface and connected to suction drainage. No immediate complication was noted. Post procedure CT imaging through the drain site was obtained. DLP =1566 mGy-cm. SEDATION: Dr. Daphnie Rao was personally responsible for the administration of moderate sedation during the procedure performed, including the use of an independent trained observer who had no other duties during the procedure. The drugs utilized were IV fentanyl and versed (see nursing log for details). The total time of supervision by the attending physician was approximately 30 minutes. FINDINGS: Limited CT scan of through the abdomen demonstrates a medium sized fluid collection in the left flank. Collection appears complex. Post procedure scan shows pigtail drain within the collection , which is decreased in size. No immediate complication was identified. IMPRESSION: US/CT guided placement of 8 yoruba pigtail drain into a left flank abscess with 100 mL purulent fluid removed. PLAN: Recommend exchange of the left nephrostomy tube due to pus draining along side the tube and is likely infected.
[2024-08-31] MEDS: HYDROmorphone HCL 2 MG/ML VL/or syr IV ONE (12:30)
--- NOTE | 2024-08-31 14:12 | DVHPNRES ---
Progress Note Date Seen: August 31, 2024 Resident Creating Document: URMILA HASKINS RESIDENT Medical Necessity Reason Pt with a Central, PICC or Fol: No The following are medically ne: Wilcox Catheter Reason for wilcox catheter: Bladder Retention/Obstruc, Total Immobilization Subjective Review of Systems This is a 38-year-old female with past medical history of paraplegia, staghorn calculi, hydronephrosis who presented to the ER with chief complaint of suprapubic pain. Patient was diagnosed with UTI along with bilateral kidney stones. Nephrology was consulted. Patient underwent bilateral nephrostomy tube placement 08/18 by IR, repeat CT scan showed resolving hydronephrosis. Left perirenal abscess was also seen on the repeat CT scan for which IR was consulted but patient declined any treatment. Prelim urine cultures are negative. Prelim blood cultures are negative. Patient was started on IV cefepime which was switched to IV meropenem. Given the iron-deficiency, patient received 5 bags of iron and later iron chelator deferoxamine. 08/25 - Patient seen and examined at the bedside. Overnight, left nephrostomy tube draining 275 cc, right draining 350 cc. Patient agreed to be seen by IR. Creatinine downtrending 08/26 - Patient seen and examined at the bedside. Increasing u/o via blnt. Pending IR drainage 08/27 - patient seen and examined at the bedside. Per IR, no percutaneous sepsis, need surgical consult. Surgical consultation pending. 08/28 - patient seen and examined at the bedside. Surgeon recommended IR. 08/31-patient seen and examined at the bedside. Underwent IR guided drainage of the perinephric abscess. Objective vital signs Vital Sign Date Time Temp Pulse Resp B/P (MAP) Pulse Ox O2 Delivery O2 Flow Rate FiO2 08/31/24 13:00 99.4 105 19 121/78 (92) 96 99.4 08/30/24 20:00 Room Air* 0 21 Total Intake and Output 08/30/24 08/30/24 08/31/24 15:00 23:00 07:00 Intake Total 650 ml 805 ml 1380 ml Output Total 200 ml 950 ml Balance 450 ml 805 ml 430 ml medications Current Medications Medications Dose Ordered Sig/Leeanne Route Start Time Stop Time Status Last Admin Dose Admin Acetaminophen 650 mg Q6HP PRN PO 08/16/24 10:30 08/30/24 23:58 650 MG Nicotine 1 patch DAILY TD 08/17/24 10:00 08/31/24 08:45 1 PATCH Pantoprazole Sodium 40 mg DAILY IV 08/17/24 10:00 08/31/24 08:46 40 MG Sevelamer HCl 800 mg TIDWM PO 08/17/24 12:00 08/31/24 12:51 800 MG Potassium Chloride 100 ml @ 50 mls/hr Q2H IV 08/17/24 08:30 08/17/24 12:29 UNV Ergocalciferol 50,000 unit Q7D PO 08/17/24 12:00 08/31/24 12:51 50,000 UNIT Polyethylene Glycol 17 gm DAILY PO 08/22/24 10:00 08/31/24 12:52 17 GM Melatonin 5 mg HS PO 08/22/24 22:00 08/30/24 22:19 5 MG Ondansetron HCl 4 mg Q4HPRN PRN IV 08/23/24 12:00 08/23/24 18:43 4 MG Hydroxyzine HCl 20 mg Q6HP PRN PO 08/26/24 13:15 08/30/24 21:02 20 MG Meropenem 50 ml @ 17 mls/hr Q12HR@0200,1400 IV 08/29/24 02:00 08/31/24 01:40 17 MLS/HR Acetaminophen/ Hydrocodone Bitart 1 tab Q4HPRN PRN PO 08/29/24 05:00 08/31/24 01:38 1 TAB Morphine Sulfate 1 mg Q4HP PRN IV 08/30/24 16:30 08/31/24 08:53 1 MG Examination Patient lying in bed, in no acute distress General: Well-built, afebrile, mucosae are moist Cardiovascular: Regular S1 and S2. No murmurs, gallops or rubs. No JVD elevation. No pedal edema Respiratory: Normal B/L air entry on room air. Clear lung sounds on auscultation Abdomen: Soft, nontender, nondistended, normoactive bowel sounds, no rebound tenderness, no organomegaly, no masses. B/L cva tenderness. Bilateral nephrostomy tube draining serous. Left-sided perinephric drain seen with purulent substance Genitourinary: Deferred MSK/skin: Skin is dry and warm Lower side Psych/Mental Status: A/Ox3 laboratory and microbiology Laboratory Tests 08/31/24 05:56 Test 08/31/24 05:56 Range/Units Serum Glucose 84 74-106 mg/dL Microbiology Date/Time Source Procedure Growth Status 08/27/24 08:53 Blood Blood Culture - Preliminary NO GROWTH AFTER 72 HOURS OF INCUBATION. Resulted 08/23/24 12:50 Other Urine Culture - Final Complete 08/17/24 15:45 Aspirate Gram Stain - Final Complete 08/17/24 15:45 Aspirate Body Fluid Culture - Final Complete 08/16/24 09:54 Voided Urine Urine Culture - Final Complete Labs and/or images reviewed: Labs reviewed by me, Image(s) reviewed by me Problem List/Assessment/Plan Problem List/Assessment/Plan Acute kidney injury multifactorial in the setting of sepsis as well as chronic obstruction Chronic kidney disease due to chronic urinary retention however baseline is unknown Sepsis secondary to urinary tract infection //staghorn calculi Bilateral hydronephrosis status post bilateral nephrostomy tube Acute left perinephric abscess status post drainage 08/31 Chronic bilateral hip dislocation Metabolic acidosis Paraplegia and spina bifida Anemia due to iron deficiency s/p iron overload and desferoxime Hypomagnesemia Hypokalemia Plan BUN/creatinine trending down. Discontinued IV fluids Patient underwent perinephric abscess drainage today by IR. Renal NM scan completed by Urology, showed delayed perfusion and function of the right kidney with mild response to Lasix.Reflects a nonfunctioning left kidney. Differential renal function (uptake percent) of 93.9 % by the right kidney and 6.1 % by the left. Bilateral percutaneous nephrostomy tube draining serous secretion Prelim urine and blood cultures were negative Antibiotics per primary team No indication for dialysis for now Creatinine decreased to 2.84 from 3.9 on arrival Fluid restriction 2L / day Plan discussed with patient in which all questions have been answered Plan discussed with Dr. Gray Addendum Patient seen and examined, plan discussed with resident. Agree with above, we will follow closely Plan discussed with: Patient Dietary Evaluation Review Recommendations by RD: Dietary education by RD, Protein Supplementation Comments: 1) Initiate Nepro qd. Encourage optimal PO intake 2) Continue Renagel @ 800 mg tid. Advise patient about the importance of limiting intake dairy products, nuts, seeds, soy, beans, dark alexandra, bran, chocolate, etc d/t hyperphosphatemia. 3) Follow-up with urology and nephrology 4) Continue to monitor I&O, labs, and skin integrity Expected Outcomes/Goals: 1) appetite and labs to improve 2) wound to improve 3) follow-up in 3-5 days URMILA HASKINS August 31, 2024 14:12 HAYLIE GRAY MD August 31, 2024 15:20
--- NOTE | 2024-08-31 17:26 | DVHPNRES ---
Progress Note Date Seen: August 31, 2024 Resident Creating Document: ELEN TAY RESIDENT Medical Necessity Reason Pt with a Central, PICC or Fol: No The following are medically ne: Wilcox Catheter Reason for wilcox catheter: Bladder Retention/Obstruc, Total Immobilization Subjective Review of Systems Patient seen and examined at the bedside underwent U.S./CT-guided placement of 8 Sami pigtail drain into the left flank abscess with removal of about 100 mL of fluid which was sent for culture and other studies Patient reports pain in the left flank improved after drainage of the abscess Bilateral nephrostomy tubes draining urine well Patient had few episode of fever up to 101.5 F overnight Objective vital signs Vital Sign Date Time Temp Pulse Resp B/P (MAP) Pulse Ox O2 Delivery O2 Flow Rate FiO2 08/31/24 17:00 102.8 122 19 118/92 (101) 96 102.8 08/31/24 08:00 Room Air* 0 21 Total Intake and Output 08/30/24 08/30/24 08/31/24 15:00 23:00 07:00 Intake Total 650 ml 805 ml 1380 ml Output Total 200 ml 950 ml Balance 450 ml 805 ml 430 ml medications Current Medications Medications Dose Ordered Sig/Leeanne Route Start Time Stop Time Status Last Admin Dose Admin Acetaminophen 650 mg Q6HP PRN PO 08/16/24 10:30 08/31/24 16:52 650 MG Nicotine 1 patch DAILY TD 08/17/24 10:00 08/31/24 08:45 1 PATCH Pantoprazole Sodium 40 mg DAILY IV 08/17/24 10:00 08/31/24 08:46 40 MG Sevelamer HCl 800 mg TIDWM PO 08/17/24 12:00 08/31/24 16:52 800 MG Potassium Chloride 100 ml @ 50 mls/hr Q2H IV 08/17/24 08:30 08/17/24 12:29 UNV Ergocalciferol 50,000 unit Q7D PO 08/17/24 12:00 08/31/24 12:51 50,000 UNIT Polyethylene Glycol 17 gm DAILY PO 08/22/24 10:00 08/31/24 12:52 17 GM Melatonin 5 mg HS PO 08/22/24 22:00 08/30/24 22:19 5 MG Ondansetron HCl 4 mg Q4HPRN PRN IV 08/23/24 12:00 08/23/24 18:43 4 MG Hydroxyzine HCl 20 mg Q6HP PRN PO 08/26/24 13:15 08/30/24 21:02 20 MG Meropenem 50 ml @ 17 mls/hr Q12HR@0200,1400 IV 08/29/24 02:00 08/31/24 14:30 17 MLS/HR Acetaminophen/ Hydrocodone Bitart 1 tab Q4HPRN PRN PO 08/29/24 05:00 08/31/24 01:38 1 TAB Morphine Sulfate 1 mg Q4HP PRN IV 08/30/24 16:30 08/31/24 15:47 1 MG Examination Gen - no pallor, no icterus, no cyanosis, no clubbing, no LAD, no edema . Skin - Patients skin is warm and dry. HEENT - normocephalic, atraumatic, moist mucous membranes. Neck - full ROM, no LAD, no JVD Pulmonary - B/L equal breath sounds, no crackles , no wheezing, no stridor. cardiovascular - regular S1,S2 heard, no added sounds, no murmurs heard. GI - soft, nontender abdomen. no hepatospleenomegaly. Bowel sounds normoactive - bilateral nephrostomy tubes with bag and draining well. Left flank 8 Sami pigtail draining greenish pus with the about 150 mL drained during the day Neurological - Patient is A/O X 3 . Bilateral upper extremity strength 5/5, paraplegia, no facial droop, normal speech laboratory and microbiology Laboratory Tests 08/31/24 05:56 Test 08/31/24 05:56 Range/Units Serum Glucose 84 74-106 mg/dL Microbiology Date/Time Source Procedure Growth Status 08/27/24 08:53 Blood Blood Culture - Preliminary NO GROWTH AFTER 72 HOURS OF INCUBATION. Resulted 08/23/24 12:50 Other Urine Culture - Final Complete 08/17/24 15:45 Aspirate Gram Stain - Final Complete 08/17/24 15:45 Aspirate Body Fluid Culture - Final Complete 08/16/24 09:54 Voided Urine Urine Culture - Final Complete Problem List/Assessment/Plan Problem List/Assessment/Plan Sepsis due to UTI/perinephric abscess left peripnephric abscess Hematuria likely due to above -IV meropenam -No growth in urine and blood culture -Urologic consultation: s/p bilateral nephrostomy tube -status post drainage of the perinephric abscess with IR, drainage catheter in place Non functional left kidney -Outpatient follow up for nephrectomy -Renal scan:1. Delayed perfusion and function of the right kidney with mild response to Lasix. Favored high-grade functional obstruction. 2. Minimal radiotracer uptake in the left kidney. Favored to reflect a nonfunctioning kidney. JOSE likely related to hemodynamically mediated and obstruction with CKD unknown stage Left-sided staghorn calculi with moderate hydronephrosis Moderate right hydronephrosis and hydroureter Metabolic acidosis due to CKD, resolved Hyperphosphatemia Vitamin-D deficiency -continue monitor kidney function, status post Wilcox insertion and B/L nephrostomy tubes -CT scan showed bilateral renal calculi with hydronephrosis. -follow nephrology recommendation Severe anemia of chronic disease, status post IV iron load, IV Iron toxicity -received 5 bags of IV iron, status post deferoxamine -repeat Iron panel:Iron level normalized 51 Chronic bilateral hip dislocation -Stable History of spina bifida with Paraplegia -Stable Marijuana use disorder -counseled on cessation PUD prophylaxis with Protonix Goals of care discussed with the patient for over 25 minutes. Full code plan discussed with Dr David Plan discussed with: Patient, Other (RN ( Myesha)) My Orders My Orders Orders - ELEN TAY RESIDENT Procedure Category Date Status Time Greta; Comprehensive LAB 08/31/24 In Process Panel 09:44 Dietary Evaluation Review Recommendations by RD: Dietary education by RD, Protein Supplementation Comments: 1) Initiate Nepro qd. Encourage optimal PO intake 2) Continue Renagel @ 800 mg tid. Advise patient about the importance of limiting intake dairy products, nuts, seeds, soy, beans, dark alexandra, bran, chocolate, etc d/t hyperphosphatemia. 3) Follow-up with urology and nephrology 4) Continue to monitor I&O, labs, and skin integrity Expected Outcomes/Goals: 1) appetite and labs to improve 2) wound to improve 3) follow-up in 3-5 days Date of Service: August 31, 2024 Billing Provider: SID DAVID MD Common Visit Codes: [id number] INP/OBS CARE(HIGH) ELEN TAY RESIDENT August 31, 2024 17:26 SID DAVID MD September 07, 2024 22:35
[2024-08-31] MEDS: LINEZOLID 600MG TABLET PO SCH (22:03)
[2024-08-31] MEDS: SODIUM CHLORIDE 0.9% 500 ML IV ONE (23:09)
[2024-09-01] VITALS (11 sets, daily range): BP systolic 105–124; BP diastolic 68–87; PULSE 93–114; RESP 12–20; TEMP 98–99.4; O2SAT 95–100
[2024-09-01] MEDS: PANTOPRAZOLE 40 MG TAB PO SCH (05:29)
[2024-09-01 07:17] LABS: Basophils # (auto) 0.1 10 ^3/uL (0-0.2); Basophils % (auto) 1.9 % (0.0-2.0); Eosinophils # (auto) 0.5 10 ^3/uL (0-0.8); Neutrophils # (auto) 3.8 10 ^3/uL (1.6-8.6); Nucleated Red Blood Cells % 0.2 %
[2024-09-01 07:21] LABS: Hematocrit 29.6 % (36.0-46.0); Hemoglobin 8.9 g/dL (12.2-16.2); Lymphocytes # (auto) 0.5 10 ^3/uL (0.4-5.4); Lymphocytes % (auto) 9.4 % (10.0-50.0); Mean Corpuscular Hemoglobin 25.6 pg (28.0-32.0); Mean Corpuscular Volume 85.4 fL (80.0-100.0); Monocytes # (auto) 0.8 10 ^3/uL (0-1.3); Monocytes % (auto) 13.5 % (0.0-12.0); Neutrophils % (auto) 67.2 % (37.0-80.0); Platelet Count (auto) 448 10^3/uL (140-450); Red Blood Cells 3.47 10^6/uL (4.0-5.20); Red Cell Distribution Width 18.8 % (11.8-14.3); White Blood Cell 5.7 10^3/uL (4.4-10.8)
[2024-09-01 07:25] LABS: Anion Gap 11 (5-15); Chloride 106 mmol/L (98-107); Potassium 4.6 mmol/L (3.5-5.1)
[2024-09-01 07:26] LABS: Calcium 8.7 mg/dL (8.7-10.4)
[2024-09-01 07:31] LABS: BUN/Creatinine Ratio 14.4 (10.0-20.0); Glucose 80 mg/dL (74-106)
[2024-09-01 07:33] LABS: Blood Urea Nitrogen 39 mg/dL (9-23); Carbon Dioxide 19 mmol/L (20-31); Phosphorus 4.2 mg/dL (2.4-5.1); Sodium 136 mmol/L (136-145)
[2024-09-01] MEDS: IODIXANOL 320MG/ML 100ML BTL IV ONE (10:35)
--- NOTE | 2024-09-01 10:41 | DVHPN2 ---
Progress Note Date Seen: September 01, 2024 Resident Creating Document: URMILA HASKINS RESIDENT Medical Necessity Reason Pt with a Central, PICC or Fol: No The following are medically ne: Wilcox Catheter Reason for wilcox catheter: Bladder Retention/Obstruc, Total Immobilization Subjective Review of Systems This is a 38-year-old female with past medical history of paraplegia, staghorn calculi, hydronephrosis who presented to the ER with chief complaint of suprapubic pain. Patient was diagnosed with UTI along with bilateral kidney stones. Nephrology was consulted. Patient underwent bilateral nephrostomy tube placement 08/18 by IR, repeat CT scan showed resolving hydronephrosis. Left perirenal abscess was also seen on the repeat CT scan for which IR was consulted but patient declined any treatment. Prelim urine cultures are negative. Prelim blood cultures are negative. Patient was started on IV cefepime which was switched to IV meropenem. Given the iron-deficiency, patient received 5 bags of iron and later iron chelator deferoxamine. 08/25 - Patient seen and examined at the bedside. Overnight, left nephrostomy tube draining 275 cc, right draining 350 cc. Patient agreed to be seen by IR. Creatinine downtrending 08/26 - Patient seen and examined at the bedside. Increasing u/o via blnt. Pending IR drainage 08/27 - patient seen and examined at the bedside. Per IR, no percutaneous sepsis, need surgical consult. Surgical consultation pending. 08/28 - patient seen and examined at the bedside. Surgeon recommended IR. 08/31-patient seen and examined at the bedside. Underwent IR guided drainage of the perinephric abscess. 09/01 - patient is seen and examined at the bedside. Objective vital signs Vital Sign Date Time Temp Pulse Resp B/P (MAP) Pulse Ox O2 Delivery O2 Flow Rate FiO2 09/01/24 09:00 98.2 101 19 105/73 (84) 97 98.2 08/31/24 20:00 Room Air* 0 21 Total Intake and Output 08/31/24 08/31/24 09/01/24 15:00 23:00 07:00 Intake Total 1300 ml 200 ml Output Total 550 ml 800 ml 220 ml Balance -550 ml 500 ml -20 ml medications Current Medications Medications Dose Ordered Sig/Leeanne Route Start Time Stop Time Status Last Admin Dose Admin Acetaminophen 650 mg Q6HP PRN PO 08/16/24 10:30 08/31/24 16:52 650 MG Nicotine 1 patch DAILY TD 08/17/24 10:00 08/31/24 08:45 1 PATCH Sevelamer HCl 800 mg TIDWM PO 08/17/24 12:00 08/31/24 16:52 800 MG Potassium Chloride 100 ml @ 50 mls/hr Q2H IV 08/17/24 08:30 08/17/24 12:29 UNV Ergocalciferol 50,000 unit Q7D PO 08/17/24 12:00 08/31/24 12:51 50,000 UNIT Polyethylene Glycol 17 gm DAILY PO 08/22/24 10:00 08/31/24 12:52 17 GM Melatonin 5 mg HS PO 08/22/24 22:00 08/31/24 22:03 5 MG Ondansetron HCl 4 mg Q4HPRN PRN IV 08/23/24 12:00 08/23/24 18:43 4 MG Hydroxyzine HCl 20 mg Q6HP PRN PO 08/26/24 13:15 08/31/24 22:19 20 MG Meropenem 50 ml @ 17 mls/hr Q12HR@0200,1400 IV 08/29/24 02:00 09/01/24 02:29 17 MLS/HR Acetaminophen/ Hydrocodone Bitart 1 tab Q4HPRN PRN PO 08/29/24 05:00 09/01/24 05:31 1 TAB Morphine Sulfate 1 mg Q4HP PRN IV 08/30/24 16:30 09/01/24 02:37 1 MG Linezolid 600 mg BID PO 08/31/24 22:00 08/31/24 22:03 600 MG Pantoprazole Sodium 40 mg DAILY@0600 PO 09/01/24 06:00 09/01/24 05:29 40 MG Examination Patient lying in bed, in no acute distress General: Well-built, afebrile, mucosae are moist Cardiovascular: Regular S1 and S2. No murmurs, gallops or rubs. No JVD elevation. No pedal edema Respiratory: Normal B/L air entry on room air. Clear lung sounds on auscultation Abdomen: Soft, nontender, nondistended, normoactive bowel sounds, no rebound tenderness, no organomegaly, no masses. B/L cva tenderness. Bilateral nephrostomy tube draining serous. Left-sided perinephric drain seen with purulent substance Genitourinary: Deferred MSK/skin: Skin is dry and warm Lower side Psych/Mental Status: A/Ox3 laboratory and microbiology Laboratory Tests 09/01/24 05:58 Test 09/01/24 05:58 Range/Units Serum Glucose 80 74-106 mg/dL Microbiology Date/Time Source Procedure Growth Status 08/27/24 08:53 Blood Blood Culture - Final NO GROWTH AFTER 5 DAYS OF INCUBATION. Complete 08/23/24 12:50 Other Urine Culture - Final Complete 08/17/24 15:45 Aspirate Gram Stain - Final Complete 08/17/24 15:45 Aspirate Body Fluid Culture - Final Complete 08/16/24 09:54 Voided Urine Urine Culture - Final Complete Labs and/or images reviewed: Labs reviewed by me, Image(s) reviewed by me Problem List/Assessment/Plan Problem List/Assessment/Plan Acute kidney injury multifactorial in the setting of sepsis as well as chronic obstruction Chronic kidney disease due to chronic urinary retention however baseline is unknown Sepsis secondary to urinary tract infection //staghorn calculi Bilateral hydronephrosis status post bilateral nephrostomy tube Acute left perinephric abscess status post drainage 08/31 Chronic bilateral hip dislocation Metabolic acidosis Paraplegia and spina bifida Anemia due to iron deficiency s/p iron overload and desferoxime Hypomagnesemia Hypokalemia Plan Given the BUN/creatinine trending down, no acute nephrology intervention needed at this point, we will sign off. Please reconsult if deemed necessary. Patient underwent perinephric abscess drainage 08/31 by IR. Follow up with culture and sensitivity report Renal NM scan completed by Urology, showed delayed perfusion and function of the right kidney with mild response to Lasix.Reflects a nonfunctioning left kidney. Differential renal function (uptake percent) of 93.9 % by the right kidney and 6.1 % by the left. Bilateral percutaneous nephrostomy tube draining serous secretion Prelim urine and blood cultures were negative Antibiotics per primary team No indication for dialysis for now Creatinine decreased to 2.84 from 3.9 on arrival Fluid restriction 2L / day Plan discussed with patient in which all questions have been answered Plan discussed with Dr. Gray Addendum Patient seen and examined, plan discussed with resident. Agree with above, we will sign off the case Plan discussed with: Patient Dietary Evaluation Review Recommendations by RD: Dietary education by RD, Protein Supplementation Comments: 1) Initiate Nepro qd. Encourage optimal PO intake 2) Continue Renagel @ 800 mg tid. Advise patient about the importance of limiting intake dairy products, nuts, seeds, soy, beans, dark alexandra, bran, chocolate, etc d/t hyperphosphatemia. 3) Follow-up with urology and nephrology 4) Continue to monitor I&O, labs, and skin integrity Expected Outcomes/Goals: 1) appetite and labs to improve 2) wound to improve 3) follow-up in 3-5 days URMILA HASKINS September 01, 2024 10:41 HAYLIE GRAY MD September 01, 2024 13:36
[2024-09-01] MEDS: MIDAZOLAM HCL 2MG/2ML 2ml VIAL (1mg/ml) ONE (11:36)
[2024-09-01] MEDS: LIDOCAINE 2%HCL (LOCAL ANESTH.) INJ 20ML MDV ONE (11:36)
[2024-09-01] MEDS: fentaNYL CITRATE 100 MCG/2 ML VL ONE (11:36)
--- NOTE | 2024-09-01 12:11 | DVHPNRES ---
Progress Note Date Seen: September 01, 2024 Resident Creating Document: ELEN TAY RESIDENT Medical Necessity Reason Pt with a Central, PICC or Fol: No The following are medically ne: Wilcox Catheter Reason for wilcox catheter: Bladder Retention/Obstruc, Total Immobilization Subjective Review of Systems Patient seen and examined at the bedside Today the patient went underwent percutaneous nephrostomy with the exchange and reposition of the left nephrostomy tube into the left renal pelvis, reposition of the right nephrostomy tube into the right renal pelvis Patient reports pain in the left flank improved Bilateral nephrostomy tubes draining urine well Patient yesterday in the evening had episode of fever up to 102.8 degree F but during the day today she did not have any fever Objective vital signs Vital Sign Date Time Temp Pulse Resp B/P (MAP) Pulse Ox O2 Delivery O2 Flow Rate FiO2 09/01/24 09:00 98.2 101 19 105/73 (84) 97 98.2 08/31/24 20:00 Room Air* 0 21 Total Intake and Output 08/31/24 08/31/24 09/01/24 15:00 23:00 07:00 Intake Total 1300 ml 200 ml Output Total 550 ml 800 ml 220 ml Balance -550 ml 500 ml -20 ml medications Current Medications Medications Dose Ordered Sig/Leeanne Route Start Time Stop Time Status Last Admin Dose Admin Acetaminophen 650 mg Q6HP PRN PO 08/16/24 10:30 08/31/24 16:52 650 MG Nicotine 1 patch DAILY TD 08/17/24 10:00 08/31/24 08:45 1 PATCH Sevelamer HCl 800 mg TIDWM PO 08/17/24 12:00 08/31/24 16:52 800 MG Potassium Chloride 100 ml @ 50 mls/hr Q2H IV 08/17/24 08:30 08/17/24 12:29 UNV Ergocalciferol 50,000 unit Q7D PO 08/17/24 12:00 08/31/24 12:51 50,000 UNIT Polyethylene Glycol 17 gm DAILY PO 08/22/24 10:00 08/31/24 12:52 17 GM Melatonin 5 mg HS PO 08/22/24 22:00 08/31/24 22:03 5 MG Ondansetron HCl 4 mg Q4HPRN PRN IV 08/23/24 12:00 08/23/24 18:43 4 MG Hydroxyzine HCl 20 mg Q6HP PRN PO 08/26/24 13:15 08/31/24 22:19 20 MG Meropenem 50 ml @ 17 mls/hr Q12HR@0200,1400 IV 08/29/24 02:00 09/01/24 02:29 17 MLS/HR Acetaminophen/ Hydrocodone Bitart 1 tab Q4HPRN PRN PO 08/29/24 05:00 09/01/24 11:19 1 TAB Morphine Sulfate 1 mg Q4HP PRN IV 08/30/24 16:30 09/01/24 02:37 1 MG Linezolid 600 mg BID PO 08/31/24 22:00 08/31/24 22:03 600 MG Pantoprazole Sodium 40 mg DAILY@0600 PO 09/01/24 06:00 09/01/24 05:29 40 MG Examination Gen - no pallor, no icterus, no cyanosis, no clubbing, no LAD, no edema . Skin - Patients skin is warm and dry. HEENT - normocephalic, atraumatic, moist mucous membranes. Neck - full ROM, no LAD, no JVD Pulmonary - B/L equal breath sounds, no crackles , no wheezing, no stridor. cardiovascular - regular S1,S2 heard, no added sounds, no murmurs heard. GI - soft, nontender abdomen. no hepatospleenomegaly. Bowel sounds normoactive - bilateral nephrostomy tubes with bag and draining well. Left flank 8 Angolan pigtail draining greenish pus Neurological - Patient is A/O X 3 . Bilateral upper extremity strength 5/5, paraplegia, no facial droop, normal speech laboratory and microbiology Laboratory Tests 09/01/24 05:58 Test 09/01/24 05:58 Range/Units Serum Glucose 80 74-106 mg/dL Microbiology Date/Time Source Procedure Growth Status 08/31/24 12:00 Aspirate Gram Stain Pending Resulted 08/31/24 12:00 Aspirate Body Fluid Culture - Preliminary Resulted 08/27/24 08:53 Blood Blood Culture - Final NO GROWTH AFTER 5 DAYS OF INCUBATION. Complete 08/23/24 12:50 Other Urine Culture - Final Complete 08/16/24 09:54 Voided Urine Urine Culture - Final Complete Problem List/Assessment/Plan Problem List/Assessment/Plan Sepsis due to UTI/perinephric abscess left peripnephric abscess Hematuria likely due to above -IV meropenam -No growth in urine and blood culture -Urologic consultation: s/p bilateral nephrostomy tube -status post drainage of the perinephric abscess with IR, drainage catheter in place, cultures pending Non functional left kidney -Outpatient follow up for nephrectomy -Renal scan:1. Delayed perfusion and function of the right kidney with mild response to Lasix. Favored high-grade functional obstruction. 2. Minimal radiotracer uptake in the left kidney. Favored to reflect a nonfunctioning kidney. JOSE likely related to hemodynamically mediated and obstruction with CKD unknown stage Left-sided staghorn calculi with moderate hydronephrosis Moderate right hydronephrosis and hydroureter Metabolic acidosis due to CKD, resolved Hyperphosphatemia Vitamin-D deficiency -continue monitor kidney function, status post Wilcox insertion and B/L nephrostomy tubes -CT scan showed bilateral renal calculi with hydronephrosis. -monitoring BUN creatinine Severe anemia of chronic disease, status post IV iron load, IV Iron toxicity -received 5 bags of IV iron, status post deferoxamine -repeat Iron panel:Iron level normalized 51 Chronic bilateral hip dislocation -Stable History of spina bifida with Paraplegia -Stable Marijuana use disorder -counseled on cessation PUD prophylaxis with Protonix Goals of care discussed with the patient for over 23 minutes. Full code Plan discussed with Dr David Plan discussed with: Patient My Orders My Orders Orders - ELEN TAY RESIDENT Procedure Category Date Status Time Linezolid Tablet PHA 08/31/24 In Process (Zyvox Tablet) 22:00 Pantoprazole Tablet PHA 09/01/24 In Process (Protonix Tablet) 06:00 Dietary Evaluation Review Recommendations by RD: Dietary education by RD, Protein Supplementation Comments: 1) Initiate Nepro qd. Encourage optimal PO intake 2) Continue Renagel @ 800 mg tid. Advise patient about the importance of limiting intake dairy products, nuts, seeds, soy, beans, dark alexandra, bran, chocolate, etc d/t hyperphosphatemia. 3) Follow-up with urology and nephrology 4) Continue to monitor I&O, labs, and skin integrity Expected Outcomes/Goals: 1) appetite and labs to improve 2) wound to improve 3) follow-up in 3-5 days Date of Service: September 01, 2024 Billing Provider: SID DAVID MD Common Visit Codes: [id number] INP/OBS CARE(HIGH) ELEN TAY RESIDENT September 01, 2024 12:11 SID DAVID MD September 07, 2024 22:59
[2024-09-01 13:07] LABS: Anti-Centromere B Antibody <0.2 AI (0.0-0.9); Anti-Jo-1 Antibody <0.2 AI (0.0-0.9); Anti-dsDNA Antibody <1 IU/mL (0-9); Antichromatin Antibody 0.2 AI (0.0-0.9); Antiscleroderma-70 Antibody <0.2 AI (0.0-0.9); RNP Antibody <0.2 AI (0.0-0.9); Sjogren's Anti-SS-A Antibody <0.2 AI (0.0-0.9); Sjogren's Anti-SS-B Antibody <0.2 AI (0.0-0.9); Smith Antibody <0.2 AI (0.0-0.9)
--- NOTE | 2024-09-01 14:56 | DVH ---
XY PERCUTANEOUS NEPHROSTOMY, HISTORY: NEPHROSTOMY TUBE EXCHANGE PROCEDURE: Informed consent was obtained. The patient was placed on the fluoroscopic table in a prone position and IV sedation administered. The right and left flank was prepped with chlorhexidine which was allowed to dry and draped in the usual sterile fashion. Time out was performed and the soft tiss ues infiltrated with 1% lidocaine local anesthetic. An antegrade nephrostogram was performed to confi rm position of the previous nephrostomy tube. The tube was cut and a stiff glidewire was inserted thr ough the nephrostomy tube into the renal pelvis. The glide wires was exchanged for an amplatz wire us ing a burn catheter. A new 8.5 Romanian multipurpose nephrostomy tube was placed into the left renal pe lvis. And antegrade nephrostogram was performed to confirmed positioning. The catheter was secured i n place and connected to gravity drainage. A sterile dressing was applied. No immediate complication was identified. Next an antegrade nephrogram was performed of the right nephrostomy tube. The right nephrostomy tube was pushed further into the renal pelvis and secured. An antegrade nephrostogram was performed to con firmed positioning. The catheter was secured in place and connected to gravity drainage. A sterile d ressing was applied. No immediate complication was identified. DAP 235 FLUOROSCOPY TIME: 2.1 minutes. CONTRAST USED: 15 mL . SEDATION: Dr. Daphnie Rao was personally responsible for the administration of moderate sedation during the procedure performed, including the use of an independent trained observer who had no other duties during the procedure. The drugs utilized were IV fentanyl and versed (see nursing log for details). The total time of supervision by the attending physician was approximately 45 minutes. FINDINGS: The left nephrostomy tube had been retracted. The left nephrostomy tube was exchanged and r epositioned into the left renal pelvis. The right nephrostomy pigtail was uncurled. The right nephros lynette tube was repositioned further into the renal pelvis and secured. Moderate left and moderate to s evere right hydronephrosis. IMPRESSION: Exchange and reposition of the left nephrostomy tube into the left renal pelvis. Reposition of the ri ght nephrostomy tube into the right renal pelvis.
[2024-09-02] VITALS (8 sets, daily range): BP systolic 109–124; BP diastolic 72–84; PULSE 90–119; RESP 15–18; TEMP 98.1–99.8; O2SAT 96–100
[2024-09-02 06:36] LABS: Basophils # (auto) 0.1 10 ^3/uL (0-0.2); Eosinophils # (auto) 0.3 10 ^3/uL (0-0.8); Eosinophils % (auto) 5.1 % (0.0-7.0); Hematocrit 34.7 % (36.0-46.0); Hemoglobin 11.6 g/dL (12.2-16.2); Lymphocytes # (auto) 1.4 10 ^3/uL (0.4-5.4); Lymphocytes % (auto) 24.8 % (10.0-50.0); Mean Corpuscular Hemoglobin 29.2 pg (28.0-32.0); Mean Corpuscular Hgb Conc. 33.4 g/dL (32.0-36.0); Mean Corpuscular Volume 87.3 fL (80.0-100.0); Monocytes # (auto) 0.5 10 ^3/uL (0-1.3); Monocytes % (auto) 8.6 % (0.0-12.0); Neutrophils # (auto) 3.4 10 ^3/uL (1.6-8.6); Neutrophils % (auto) 60.5 % (37.0-80.0); Platelet Count (auto) 251 10^3/uL (140-450); Red Blood Cells 3.97 10^6/uL (4.0-5.20); Red Cell Distribution Width 15.5 % (11.8-14.3); White Blood Cell 5.6 10^3/uL (4.4-10.8)
[2024-09-02 06:45] LABS: Chloride 102 mmol/L (98-107); Potassium 4.9 mmol/L (3.5-5.1); Sodium 139 mmol/L (136-145)
[2024-09-02 06:46] LABS: Anion Gap 7 (5-15); Calcium 9.5 mg/dL (8.7-10.4); Carbon Dioxide 30 mmol/L (20-31)
[2024-09-02 06:51] LABS: BUN/Creatinine Ratio 21.1 (10.0-20.0); Blood Urea Nitrogen 20 mg/dL (9-23)
[2024-09-02 06:52] LABS: Glucose 110 mg/dL (74-106); Magnesium 1.8 mg/dL (1.6-2.6)
[2024-09-02 06:53] LABS: Phosphorus 3.8 mg/dL (2.4-5.1)
--- NOTE | 2024-09-02 22:43 | DVHPNRES ---
Progress Note Date Seen: September 02, 2024 Resident Creating Document: ELEN TAY RESIDENT Medical Necessity Reason Pt with a Central, PICC or Fol: No The following are medically ne: Wilcox Catheter Reason for wilcox catheter: Bladder Retention/Obstruc, Total Immobilization Subjective Review of Systems Patient seen and examined at the bedside Bilateral nephrostomy tubes draining well, no blood-tinged urine Patient reports pain in the left flank improved No fever during the day but the patient reported that overnight she had an episode of hot flash and sweating Objective vital signs Vital Sign Date Time Temp Pulse Resp B/P (MAP) Pulse Ox O2 Delivery O2 Flow Rate FiO2 09/02/24 21:00 99.6 119 17 124/84 (97) 99 99.6 09/02/24 08:30 Room Air* 0 21 Total Intake and Output 09/01/24 09/01/24 09/02/24 15:00 23:00 07:00 Intake Total 1200 ml 300 ml Output Total 1025 ml Balance 1200 ml -725 ml medications Current Medications Medications Dose Ordered Sig/Leeanne Route Start Time Stop Time Status Last Admin Dose Admin Acetaminophen 650 mg Q6HP PRN PO 08/16/24 10:30 08/31/24 16:52 650 MG Nicotine 1 patch DAILY TD 08/17/24 10:00 09/02/24 08:52 1 PATCH Potassium Chloride 100 ml @ 50 mls/hr Q2H IV 08/17/24 08:30 08/17/24 12:29 UNV Ergocalciferol 50,000 unit Q7D PO 08/17/24 12:00 08/31/24 12:51 50,000 UNIT Polyethylene Glycol 17 gm DAILY PO 08/22/24 10:00 09/01/24 14:31 17 GM Melatonin 5 mg HS PO 08/22/24 22:00 09/02/24 22:17 5 MG Ondansetron HCl 4 mg Q4HPRN PRN IV 08/23/24 12:00 08/23/24 18:43 4 MG Hydroxyzine HCl 20 mg Q6HP PRN PO 08/26/24 13:15 09/02/24 13:17 20 MG Meropenem 50 ml @ 17 mls/hr Q12HR@0200,1400 IV 08/29/24 02:00 09/02/24 15:27 17 MLS/HR Acetaminophen/ Hydrocodone Bitart 1 tab Q4HPRN PRN PO 08/29/24 05:00 09/02/24 22:18 1 TAB Morphine Sulfate 1 mg Q4HP PRN IV 08/30/24 16:30 09/01/24 21:58 1 MG Linezolid 600 mg BID PO 08/31/24 22:00 09/02/24 21:36 600 MG Pantoprazole Sodium 40 mg DAILY@0600 PO 09/01/24 06:00 09/02/24 05:24 40 MG Sevelamer HCl 800 mg DAILY@BREAKFAST PO 09/03/24 08:00 Examination Gen - no pallor, no icterus, no cyanosis, no clubbing, no LAD, no edema . Skin - Patients skin is warm and dry. HEENT - normocephalic, atraumatic, moist mucous membranes. Neck - full ROM, no LAD, no JVD Pulmonary - B/L equal breath sounds, no crackles , no wheezing, no stridor. cardiovascular - regular S1,S2 heard, no added sounds, no murmurs heard. GI - soft, nontender abdomen. no hepatospleenomegaly. Bowel sounds normoactive - bilateral nephrostomy tubes with bag and draining well. Left flank 8 Dutch pigtail draining greenish pus Neurological - Patient is A/O X 3 . Bilateral upper extremity strength 5/5, paraplegia, no facial droop, normal speech laboratory and microbiology Laboratory Tests 09/02/24 05:57 Test 09/02/24 05:57 Range/Units Serum Glucose 110 H 74-106 mg/dL Microbiology Date/Time Source Procedure Growth Status 08/31/24 12:00 Aspirate Gram Stain - Final Resulted 08/31/24 12:00 Aspirate Body Fluid Culture - Preliminary Resulted 08/27/24 08:53 Blood Blood Culture - Final NO GROWTH AFTER 5 DAYS OF INCUBATION. Complete 08/23/24 12:50 Other Urine Culture - Final Complete 08/16/24 09:54 Voided Urine Urine Culture - Final Complete Problem List/Assessment/Plan Problem List/Assessment/Plan Sepsis due to UTI/perinephric abscess left peripnephric abscess Hematuria likely due to above -IV meropenam -No growth in urine and blood culture -Urologic consultation: s/p bilateral nephrostomy tube -status post drainage of the perinephric abscess with IR, drainage catheter in place, cultures pending Non functional left kidney -Outpatient follow up for nephrectomy -Renal scan: 1. Delayed perfusion and function of the right kidney with mild response to Lasix. Favored high-grade functional obstruction. 2. Minimal radiotracer uptake in the left kidney. Favored to reflect a nonfunctioning kidney. JOSE likely related to hemodynamically mediated and obstruction with CKD unknown stage Left-sided staghorn calculi with moderate hydronephrosis Moderate right hydronephrosis and hydroureter Metabolic acidosis due to CKD, resolved Hyperphosphatemia Vitamin-D deficiency -continue monitor kidney function, status post Wilcox insertion and B/L nephrostomy tubes -CT scan showed bilateral renal calculi with hydronephrosis. -monitoring BUN creatinine Severe anemia of chronic disease, status post IV iron load, IV Iron toxicity -received 5 bags of IV iron, status post deferoxamine -repeat Iron panel:Iron level normalized 51 Chronic bilateral hip dislocation -Stable History of spina bifida with Paraplegia -Stable Marijuana use disorder -counseled on cessation PUD prophylaxis with Protonix Goals of care discussed with the patient for over 31 minutes. Full code Plan discussed with Dr David Plan discussed with: Patient, Other (RN ( Florecita )) My Orders My Orders Orders - ELEN TAY RESIDENT Procedure Category Date Status Time Sevelamer (Renagel) PHA 09/03/24 In Process 08:00 Dietary Evaluation Review Recommendations by RD: Dietary education by RD, Protein Supplementation Comments: 1) Initiate Nepro qd. Encourage optimal PO intake 2) Continue Renagel @ 800 mg tid. Advise patient about the importance of limiting intake dairy products, nuts, seeds, soy, beans, dark alexandra, bran, chocolate, etc d/t hyperphosphatemia. 3) Follow-up with urology and nephrology 4) Continue to monitor I&O, labs, and skin integrity Expected Outcomes/Goals: 1) appetite and labs to improve 2) wound to improve 3) follow-up in 3-5 days Date of Service: September 02, 2024 Billing Provider: SID DAVID MD Common Visit Codes: [id number] INP/OBS CARE(HIGH) ELEN TAY RESIDENT September 02, 2024 22:43 SID DAVID MD September 08, 2024 09:09
[2024-09-03] VITALS (8 sets, daily range): BP systolic 98–125; BP diastolic 64–85; PULSE 92–109; RESP 16–22; TEMP 97.7–98.2; O2SAT 96–100
--- NOTE | 2024-09-03 00:43 | DVH ---
LEFT UPPER EXTREMITY VENOUS ULTRASOUND CLINICAL HISTORY: R/O DVT COMPARISON: None TECHNIQUE: Grayscale ultrasound with compression, color Doppler, and spectral Doppler of the deep ethan ous system of the left upper extremity from the base of the neck through the elbow performed. FINDINGS: Left internal jugular vein: Negative Left subclavian vein: Negative Left axillary vein: Negative Left brachial veins: Negative Left basilic vein: Not imaged due to overlying bandage. Left cephalic vein: Negative IMPRESSION: Basilic vein not imaged due to overlying bandaging. Otherwise no evidence of deep venous thrombosis in the imaged left upper extremity venous structures.
[2024-09-03] MEDS: SODIUM CHLORIDE 0.9% 750 ML IV ONE (05:23)
[2024-09-03 06:27] LABS: Basophils # (auto) 0 10 ^3/uL (0-0.2); Eosinophils # (auto) 0.5 10 ^3/uL (0-0.8); Eosinophils % (auto) 10.5 % (0.0-7.0); Hematocrit 28.7 % (36.0-46.0); Lymphocytes # (auto) 0.5 10 ^3/uL (0.4-5.4); Lymphocytes % (auto) 9.7 % (10.0-50.0); Mean Corpuscular Hemoglobin 25.7 pg (28.0-32.0); Mean Corpuscular Hgb Conc. 31.3 g/dL (32.0-36.0); Mean Corpuscular Volume 82.2 fL (80.0-100.0); Monocytes # (auto) 0.3 10 ^3/uL (0-1.3); Monocytes % (auto) 5.7 % (0.0-12.0); Neutrophils # (auto) 3.6 10 ^3/uL (1.6-8.6); Neutrophils % (auto) 73.1 % (37.0-80.0); Nucleated Red Blood Cells % 0.5 %; Platelet Count (auto) 435 10^3/uL (140-450); Red Blood Cells 3.49 10^6/uL (4.0-5.20); Red Cell Distribution Width 18.4 % (11.8-14.3); White Blood Cell 4.9 10^3/uL (4.4-10.8)
[2024-09-03 06:37] LABS: Chloride 103 mmol/L (98-107); Potassium 4.7 mmol/L (3.5-5.1)
[2024-09-03 06:38] LABS: Anion Gap 11 (5-15)
[2024-09-03 06:41] LABS: Calcium 8.2 mg/dL (8.7-10.4); Carbon Dioxide 18 mmol/L (20-31); Sodium 132 mmol/L (136-145)
[2024-09-03 06:43] LABS: BUN/Creatinine Ratio 10.8 (10.0-20.0); Glucose 85 mg/dL (74-106)
[2024-09-03 06:44] LABS: Blood Urea Nitrogen 34 mg/dL (9-23)
[2024-09-03 06:45] LABS: Phosphorus 3.8 mg/dL (2.4-5.1)
[2024-09-03] MEDS: SEVELAMER 800 MG TAB PO SCH (08:00)
[2024-09-03 13:13] LABS: Protein, Urine 223.1 mg/dL (1-14)
[2024-09-03 13:16] LABS: Creatinine, Urine 20.02 mg/dL (30.0-125.0); Urine Protein/Creatinine Ratio 11.14
--- NOTE | 2024-09-03 18:20 | DVHPN2 ---
Progress Note Date Seen: September 03, 2024 Resident Creating Document: URMILA HASKINS RESIDENT Medical Necessity Reason Pt with a Central, PICC or Fol: No The following are medically ne: Wilcox Catheter Reason for wilcox catheter: Bladder Retention/Obstruc, Total Immobilization Subjective Review of Systems This is a 38-year-old female with past medical history of paraplegia, staghorn calculi, hydronephrosis who presented to the ER with chief complaint of suprapubic pain. Patient was diagnosed with UTI along with bilateral kidney stones. Nephrology was consulted. Patient underwent bilateral nephrostomy tube placement 08/18 by IR, repeat CT scan showed resolving hydronephrosis. Left perirenal abscess was also seen on the repeat CT scan for which IR was consulted but patient declined any treatment. Prelim urine cultures are negative. Prelim blood cultures are negative. Patient was started on IV cefepime which was switched to IV meropenem. Given the iron-deficiency, patient received 5 bags of iron and later iron chelator deferoxamine. 08/25 - Patient seen and examined at the bedside. Overnight, left nephrostomy tube draining 275 cc, right draining 350 cc. Patient agreed to be seen by IR. Creatinine downtrending 08/26 - Patient seen and examined at the bedside. Increasing u/o via blnt. Pending IR drainage 08/27 - patient seen and examined at the bedside. Per IR, no percutaneous sepsis, need surgical consult. Surgical consultation pending. 08/28 - patient seen and examined at the bedside. Surgeon recommended IR. 08/31-patient seen and examined at the bedside. Underwent IR guided drainage of the perinephric abscess. 09/01 - patient is seen and examined at the bedside. 09/03-patient seen and examined. Reports feeling warm and cold, sweating. Overnight low-grade fever 99.8 F. patient received 750 cc of NS overnight given tachycardia and fever episodes. Creatinine trending up to 3.1. Left perirenal abscess drainage growing Gram-positive glen. Blood cultures negative. Wilcox output is improving Objective vital signs Vital Sign Date Time Temp Pulse Resp B/P (MAP) Pulse Ox O2 Delivery O2 Flow Rate FiO2 09/03/24 17:30 98.0 94 20 125/75 (92) 100 98.0 09/03/24 08:00 Room Air* 0 21 Total Intake and Output 09/02/24 09/02/2425 15:00 23:00 07:00 Intake Total 1000 ml 538 ml Output Total 250 ml 1350 ml Balance 750 ml -812 ml medications Current Medications Medications Dose Ordered Sig/Leeanne Route Start Time Stop Time Status Last Admin Dose Admin Acetaminophen 650 mg Q6HP PRN PO 08/16/24 10:30 08/31/24 16:52 650 MG Nicotine 1 patch DAILY TD 08/17/24 10:00 09/03/24 09:21 1 PATCH Potassium Chloride 100 ml @ 50 mls/hr Q2H IV 08/17/24 08:30 08/17/24 12:29 UNV Ergocalciferol 50,000 unit Q7D PO 08/17/24 12:00 08/31/24 12:51 50,000 UNIT Polyethylene Glycol 17 gm DAILY PO 08/22/24 10:00 09/01/24 14:31 17 GM Melatonin 5 mg HS PO 08/22/24 22:00 09/02/24 22:17 5 MG Ondansetron HCl 4 mg Q4HPRN PRN IV 08/23/24 12:00 08/23/24 18:43 4 MG Hydroxyzine HCl 20 mg Q6HP PRN PO 08/26/24 13:15 09/03/24 09:43 20 MG Meropenem 50 ml @ 17 mls/hr Q12HR@0200,1400 IV 08/29/24 02:00 09/03/24 15:20 17 MLS/HR Acetaminophen/ Hydrocodone Bitart 1 tab Q4HPRN PRN PO 08/29/24 05:00 09/03/24 18:11 1 TAB Morphine Sulfate 1 mg Q4HP PRN IV 08/30/24 16:30 09/03/24 09:18 1 MG Linezolid 600 mg BID PO 08/31/24 22:00 09/03/24 09:18 600 MG Pantoprazole Sodium 40 mg DAILY@0600 PO 09/01/24 06:00 09/03/24 05:45 40 MG Sevelamer HCl 800 mg DAILY@BREAKFAST PO 09/03/24 08:00 09/03/24 08:00 800 MG Lactated Ringer's 1,000 ml @ 60 mls/hr [id number] IV 09/03/24 12:00 Examination Patient lying in bed, in no acute distress General: Well-built, afebrile, mucosae are moist Cardiovascular: Regular S1 and S2. No murmurs, gallops or rubs. No JVD elevation. No pedal edema Respiratory: Normal B/L air entry on room air. Clear lung sounds on auscultation Abdomen: Soft, nontender, nondistended, normoactive bowel sounds, no rebound tenderness, no organomegaly, no masses. B/L cva tenderness. Bilateral nephrostomy tube draining serous. Left-sided perinephric drain seen with purulent substance Genitourinary: Deferred MSK/skin: Skin is dry and warm. Diffuse erythema and seen on right arm. Lower side Psych/Mental Status: A/Ox3 laboratory and microbiology Laboratory Tests 09/03/24 05:30 Test 09/03/24 05:30 Range/Units Serum Glucose 85 74-106 mg/dL Microbiology Date/Time Source Procedure Growth Status 08/31/24 12:00 Aspirate Gram Stain - Final Resulted 08/31/24 12:00 Aspirate Body Fluid Culture - Preliminary Resulted 08/27/24 08:53 Blood Blood Culture - Final NO GROWTH AFTER 5 DAYS OF INCUBATION. Complete 08/23/24 12:50 Other Urine Culture - Final Complete 08/16/24 09:54 Voided Urine Urine Culture - Final Complete Labs and/or images reviewed: Labs reviewed by me, Image(s) reviewed by me Problem List/Assessment/Plan Problem List/Assessment/Plan Acute kidney injury multifactorial in the setting of sepsis as well as chronic obstruction Chronic kidney disease due to chronic urinary retention however baseline is unknown Sepsis secondary to urinary tract infection //staghorn calculi Bilateral hydronephrosis status post bilateral nephrostomy tube Acute left perinephric abscess status post drainage 08/31 Chronic bilateral hip dislocation Metabolic acidosis Paraplegia and spina bifida Anemia due to iron deficiency s/p iron overload and desferoxime Hypomagnesemia Hypokalemia Plan BUN/creatinine slightly trending up. Started LR at 60 cc/hour. Patient received 750 cc of NS 09/02 Patient underwent perinephric abscess drainage 08/31 by IR. Prelim culture growing Gram-positive glen. Follow up with culture and sensitivity report Renal NM scan completed by Urology, showed delayed perfusion and function of the right kidney with mild response to Lasix.Reflects a nonfunctioning left kidney. Differential renal function (uptake percent) of 93.9 % by the right kidney and 6.1 % by the left. Bilateral percutaneous nephrostomy tube draining serous secretion Prelim urine and blood cultures were negative Antibiotics per primary team No indication for dialysis for now Creatinine decreased to 2.84 from 3.9 on arrival Fluid restriction 2L / day We will continue to follow up Plan discussed with patient in which all questions have been answered Plan discussed with Dr. Gray Addendum Patient seen and examined, plan discussed with resident. Agree with above, we will follow closely Plan discussed with: Patient My Orders My Orders Orders - URMILA HASKINS Procedure Category Date Status Time Lactated Ringer's PHA 09/03/24 In Process 12:00 Dietary Evaluation Review Recommendations by RD: Dietary education by RD, Protein Supplementation Comments: 1) Initiate Nepro qd. Encourage optimal PO intake 2) Continue Renagel @ 800 mg tid. Advise patient about the importance of limiting intake dairy products, nuts, seeds, soy, beans, dark alexandra, bran, chocolate, etc d/t hyperphosphatemia. 3) Follow-up with urology and nephrology 4) Continue to monitor I&O, labs, and skin integrity Expected Outcomes/Goals: 1) appetite and labs to improve 2) wound to improve 3) follow-up in 3-5 days URMILA HASKINS September 03, 2024 18:20 HAYLIE GRAY MD September 03, 2024 20:10
--- NOTE | 2024-09-03 18:42 | DVHPNRES ---
Progress Note Date Seen: September 03, 2024 Resident Creating Document: ELEN TAY RESIDENT Medical Necessity Reason Pt with a Central, PICC or Fol: No The following are medically ne: Wilcox Catheter Reason for wilcox catheter: Bladder Retention/Obstruc, Total Immobilization Subjective Review of Systems Patient seen and examined at the bedside Bilateral nephrostomy tubes draining well, no blood-tinged urine Patient reports pain in the left flank improved No fever during the day but overnight she had an episode of fever Objective vital signs Vital Sign Date Time Temp Pulse Resp B/P (MAP) Pulse Ox O2 Delivery O2 Flow Rate FiO2 09/03/24 17:30 98.0 94 20 125/75 (92) 100 98.0 09/03/24 08:00 Room Air* 0 21 Total Intake and Output 09/02/24 09/02/24 09/03/24 15:00 23:00 07:00 Intake Total 1000 ml 538 ml Output Total 250 ml 1350 ml Balance 750 ml -812 ml medications Current Medications Medications Dose Ordered Sig/Leeanne Route Start Time Stop Time Status Last Admin Dose Admin Acetaminophen 650 mg Q6HP PRN PO 08/16/24 10:30 08/31/24 16:52 650 MG Nicotine 1 patch DAILY TD 08/17/24 10:00 09/03/24 09:21 1 PATCH Potassium Chloride 100 ml @ 50 mls/hr Q2H IV 08/17/24 08:30 08/17/24 12:29 UNV Ergocalciferol 50,000 unit Q7D PO 08/17/24 12:00 08/31/24 12:51 50,000 UNIT Polyethylene Glycol 17 gm DAILY PO 08/22/24 10:00 09/01/24 14:31 17 GM Melatonin 5 mg HS PO 08/22/24 22:00 09/02/24 22:17 5 MG Ondansetron HCl 4 mg Q4HPRN PRN IV 08/23/24 12:00 08/23/24 18:43 4 MG Hydroxyzine HCl 20 mg Q6HP PRN PO 08/26/24 13:15 09/03/24 09:43 20 MG Meropenem 50 ml @ 17 mls/hr Q12HR@0200,1400 IV 08/29/24 02:00 09/03/24 15:20 17 MLS/HR Acetaminophen/ Hydrocodone Bitart 1 tab Q4HPRN PRN PO 08/29/24 05:00 09/03/24 18:11 1 TAB Morphine Sulfate 1 mg Q4HP PRN IV 08/30/24 16:30 09/03/24 09:18 1 MG Linezolid 600 mg BID PO 08/31/24 22:00 09/03/24 09:18 600 MG Pantoprazole Sodium 40 mg DAILY@0600 PO 09/01/24 06:00 09/03/24 05:45 40 MG Sevelamer HCl 800 mg DAILY@BREAKFAST PO 09/03/24 08:00 09/03/24 08:00 800 MG Lactated Ringer's 1,000 ml @ 60 mls/hr [id number] IV 09/03/24 12:00 Examination Gen - no pallor, no icterus, no cyanosis, no clubbing, no LAD, no edema . Skin - Patients skin is warm and dry. HEENT - normocephalic, atraumatic, moist mucous membranes. Neck - full ROM, no LAD, no JVD Pulmonary - B/L equal breath sounds, no crackles , no wheezing, no stridor. cardiovascular - regular S1,S2 heard, no added sounds, no murmurs heard. GI - soft, nontender abdomen. no hepatospleenomegaly. Bowel sounds normoactive - bilateral nephrostomy tubes with bag and draining well. Left flank 8 [place] pigtail draining greenish pus Neurological - Patient is A/O X 3 . Bilateral upper extremity strength 5/5, paraplegia, no facial droop, normal speech laboratory and microbiology Laboratory Tests 09/03/24 05:30 Test 09/03/24 05:30 Range/Units Serum Glucose 85 74-106 mg/dL Microbiology Date/Time Source Procedure Growth Status 08/31/24 12:00 Aspirate Gram Stain - Final Resulted 08/31/24 12:00 Aspirate Body Fluid Culture - Preliminary Resulted 08/27/24 08:53 Blood Blood Culture - Final NO GROWTH AFTER 5 DAYS OF INCUBATION. Complete 08/23/24 12:50 Other Urine Culture - Final Complete 08/16/24 09:54 Voided Urine Urine Culture - Final Complete Problem List/Assessment/Plan Problem List/Assessment/Plan Sepsis due to UTI/perinephric abscess left peripnephric abscess Hematuria likely due to above -IV meropenam -No growth in urine and blood culture -Urologic consultation: s/p bilateral nephrostomy tube -status post drainage of the perinephric abscess with IR, drainage catheter in place, cultures pending Non functional left kidney -Outpatient follow up for nephrectomy -Renal scan: 1. Delayed perfusion and function of the right kidney with mild response to Lasix. Favored high-grade functional obstruction. 2. Minimal radiotracer uptake in the left kidney. Favored to reflect a nonfunctioning kidney. JOSE likely related to hemodynamically mediated and obstruction with CKD unknown stage Left-sided staghorn calculi with moderate hydronephrosis Moderate right hydronephrosis and hydroureter Metabolic acidosis due to CKD, resolved Hyperphosphatemia Vitamin-D deficiency -continue monitor kidney function, status post Wilcox insertion and B/L nephrostomy tubes -CT scan showed bilateral renal calculi with hydronephrosis. -monitoring BUN creatinine Severe anemia of chronic disease, status post IV iron load, IV Iron toxicity -received 5 bags of IV iron, status post deferoxamine -repeat Iron panel:Iron level normalized 51 Chronic bilateral hip dislocation -Stable History of spina bifida with Paraplegia -Stable Marijuana use disorder -counseled on cessation PUD prophylaxis with Protonix Goals of care discussed with the patient for over 33 minutes. Full code Plan discussed with Dr David Plan discussed with: Patient My Orders My Orders Orders - ELEN TAY RESIDENT Procedure Category Date Status Time Blood Culture BRI 09/02/24 In Process 22:32 Urine Bacterial BRI 09/02/24 Uncollected Culture 22:32 Lt Upper Dvt US 09/02/24 Resulted 22:32 * Wound Consult CONS 09/03/24 Transmitted * Infectious Depue- CONS 09/03/24 Transmitted K Raul 11:53 Dietary Evaluation Review Recommendations by RD: Dietary education by RD, Protein Supplementation Comments: 1) Initiate Nepro qd. Encourage optimal PO intake 2) Continue Renagel @ 800 mg tid. Advise patient about the importance of limiting intake dairy products, nuts, seeds, soy, beans, dark alexandra, bran, chocolate, etc d/t hyperphosphatemia. 3) Follow-up with urology and nephrology 4) Continue to monitor I&O, labs, and skin integrity Expected Outcomes/Goals: 1) appetite and labs to improve 2) wound to improve 3) follow-up in 3-5 days Date of Service: September 03, 2024 Billing Provider: SID DAVID MD Common Visit Codes: [id number] INP/OBS CARE(HIGH) ELEN TAY RESIDENT September 03, 2024 18:42 SID DAVID MD September 08, 2024 09:18
[2024-09-03] MEDS: LACTATED RINGER'S 1,000 ML IV SCH (23:37)
[2024-09-04] VITALS (8 sets, daily range): BP systolic 94–111; BP diastolic 56–73; PULSE 90–103; RESP 16–20; TEMP 97.8–98.4; O2SAT 91–99
[2024-09-04 07:13] LABS: Glucose 85 mg/dL (74-106)
[2024-09-04 07:15] LABS: Potassium 4.5 mmol/L (3.5-5.1)
[2024-09-04 07:16] LABS: Anion Gap 10 (5-15); Blood Urea Nitrogen 37 mg/dL (9-23); Calcium 7.6 mg/dL (8.7-10.4); Carbon Dioxide 18 mmol/L (20-31); Chloride 108 mmol/L (98-107); Sodium 136 mmol/L (136-145)
[2024-09-04 07:17] LABS: White Blood Cell 5.2 10^3/uL (4.4-10.8)
[2024-09-04 07:22] LABS: Hematocrit 23.9 % (36.0-46.0); Hemoglobin 7.8 g/dL (12.2-16.2); Mean Corpuscular Hemoglobin 26.7 pg (28.0-32.0); Mean Corpuscular Hgb Conc. 32.5 g/dL (32.0-36.0); Mean Corpuscular Volume 82.1 fL (80.0-100.0); Platelet Count (auto) 349 10^3/uL (140-450); Red Blood Cells 2.92 10^6/uL (4.0-5.20); Red Cell Distribution Width 17.8 % (11.8-14.3)
[2024-09-04 07:32] LABS: Band Neutrophils % (manual) 0; Basophils % (manual) 0 (0.0-2.0); Blast Cells 0; Metamyelocytes % 0; Myelocytes % 0; Promyelocytes % 0; Reactive Lymphocytes 0
[2024-09-04 09:54] LABS: Eosinophils % (manual) 16 (0-7); Lymphocytes % (manual) 6 (10.0-50.0); Monocytes % (manual) 7 (0-12); Platelet Estimate Adequate
--- NOTE | 2024-09-04 16:23 | DVHPN2 ---
Progress Note Date Seen: September 04, 2024 Resident Creating Document: URMILA HASKINS RESIDENT Medical Necessity Reason Pt with a Central, PICC or Fol: No The following are medically ne: Wilcox Catheter Reason for wilcox catheter: Bladder Retention/Obstruc, Total Immobilization Subjective Review of Systems This is a 38-year-old female with past medical history of paraplegia, staghorn calculi, hydronephrosis who presented to the ER with chief complaint of suprapubic pain. Patient was diagnosed with UTI along with bilateral kidney stones. Nephrology was consulted. Patient underwent bilateral nephrostomy tube placement 08/18 by IR, repeat CT scan showed resolving hydronephrosis. Left perirenal abscess was also seen on the repeat CT scan for which IR was consulted but patient declined any treatment. Prelim urine cultures are negative. Prelim blood cultures are negative. Patient was started on IV cefepime which was switched to IV meropenem. Given the iron-deficiency, patient received 5 bags of iron and later iron chelator deferoxamine. 08/25 - Patient seen and examined at the bedside. Overnight, left nephrostomy tube draining 275 cc, right draining 350 cc. Patient agreed to be seen by IR. Creatinine downtrending 08/26 - Patient seen and examined at the bedside. Increasing u/o via blnt. Pending IR drainage 08/27 - patient seen and examined at the bedside. Per IR, no percutaneous sepsis, need surgical consult. Surgical consultation pending. 08/28 - patient seen and examined at the bedside. Surgeon recommended IR. 08/31-patient seen and examined at the bedside. Underwent IR guided drainage of the perinephric abscess. 09/01 - patient is seen and examined at the bedside. 09/03-patient seen and examined. Reports feeling warm and cold, sweating. Overnight low-grade fever 99.8 F. patient received 750 cc of NS overnight given tachycardia and fever episodes. Creatinine trending up to 3.1. Left perirenal abscess drainage growing Gram-positive glen. Blood cultures negative. Wilcox output is improving 09/04-patient seen and examined at the bedside. Reports feeling better. Vitally stable. Urine output 800 cc. Left upper extremity bruising resolving. GFR steadily decreasing. H&H downtrending. Iron p.o. started Objective vital signs Vital Sign Date Time Temp Pulse Resp B/P (MAP) Pulse Ox O2 Delivery O2 Flow Rate FiO2 09/04/24 13:00 98.1 94 18 94/56 (69) 97 98.1 09/04/24 08:00 Room Air* 0 21 Total Intake and Output 09/03/24 09/03/24 09/04/24 15:00 23:00 07:00 Intake Total 250 ml 650 ml Output Total 300 ml 525 ml Balance -50 ml 125 ml medications Current Medications Medications Dose Ordered Sig/Leeanne Route Start Time Stop Time Status Last Admin Dose Admin Acetaminophen 650 mg Q6HP PRN PO 08/16/24 10:30 09/04/24 12:22 650 MG Nicotine 1 patch DAILY TD 08/17/24 10:00 09/04/24 10:28 1 PATCH Potassium Chloride 100 ml @ 50 mls/hr Q2H IV 08/17/24 08:30 08/17/24 12:29 UNV Ergocalciferol 50,000 unit Q7D PO 08/17/24 12:00 08/31/24 12:51 50,000 UNIT Polyethylene Glycol 17 gm DAILY PO 08/22/24 10:00 09/01/24 14:31 17 GM Melatonin 5 mg HS PO 08/22/24 22:00 09/03/24 23:18 5 MG Ondansetron HCl 4 mg Q4HPRN PRN IV 08/23/24 12:00 08/23/24 18:43 4 MG Hydroxyzine HCl 20 mg Q6HP PRN PO 08/26/24 13:15 09/04/24 13:34 20 MG Meropenem 50 ml @ 17 mls/hr Q12HR@0200,1400 IV 08/29/24 02:00 09/04/24 13:35 17 MLS/HR Acetaminophen/ Hydrocodone Bitart 1 tab Q4HPRN PRN PO 08/29/24 05:00 09/04/24 10:43 1 TAB Morphine Sulfate 1 mg Q4HP PRN IV 08/30/24 16:30 09/04/24 02:30 1 MG Linezolid 600 mg BID PO 08/31/24 22:00 09/04/24 10:27 600 MG Pantoprazole Sodium 40 mg DAILY@0600 PO 09/01/24 06:00 09/04/24 06:26 40 MG Sevelamer HCl 800 mg DAILY@BREAKFAST PO 09/03/24 08:00 09/04/24 10:26 800 MG Lactated Ringer's 1,000 ml @ 60 mls/hr [id number] IV 09/03/24 12:00 09/04/24 04:40 60 MLS/HR Examination Patient lying in bed, in no acute distress General: Well-built, afebrile, mucosae are moist Cardiovascular: Regular S1 and S2. No murmurs, gallops or rubs. No JVD elevation. No pedal edema Respiratory: Normal B/L air entry on room air. Clear lung sounds on auscultation Abdomen: Soft, nontender, nondistended, normoactive bowel sounds, no rebound tenderness, no organomegaly, no masses. B/L cva tenderness. Bilateral nephrostomy tube draining serous. Left-sided perinephric drain seen with purulent substance Genitourinary: Deferred MSK/skin: Skin is dry and warm. Diffuse erythema and seen on right arm. Lower side Psych/Mental Status: A/Ox3 laboratory and microbiology Laboratory Tests 09/04/24 06:22 Test 09/04/24 06:22 Range/Units Serum Glucose 85 74-106 mg/dL Microbiology Date/Time Source Procedure Growth Status 09/02/24 23:15 Blood Blood Culture - Preliminary NO GROWTH AFTER 24 HOURS OF INCUBATION. Resulted 08/31/24 12:00 Aspirate Gram Stain - Final Complete 08/31/24 12:00 Aspirate Body Fluid Culture - Final Complete 08/23/24 12:50 Other Urine Culture - Final Complete 08/16/24 09:54 Voided Urine Urine Culture - Final Complete Labs and/or images reviewed: Labs reviewed by me, Image(s) reviewed by me Problem List/Assessment/Plan Problem List/Assessment/Plan Acute kidney injury multifactorial in the setting of sepsis as well as chronic obstruction Chronic kidney disease due to chronic urinary retention however baseline is unknown Sepsis secondary to urinary tract infection //staghorn calculi Bilateral hydronephrosis status post bilateral nephrostomy tube Acute left perinephric abscess status post drainage 08/31 Chronic bilateral hip dislocation Metabolic acidosis Paraplegia and spina bifida Anemia due to iron deficiency s/p iron overload and desferoxime Hypomagnesemia Hypokalemia Plan BUN/creatinine slightly trending up. GFR 17. Continue LR at 60 cc/hour. FENA 10% which is intrinsic. Urine protein/creatinine 11 g per day. Given the downtrending hemoglobin, Started oral iron daily, Epogen once administered SC We will continue to monitor, with a GFR drops less than 15 patient may require renal replacement therapy Patient received 750 cc of NS 09/02 Patient underwent perinephric abscess drainage 08/31 by IR. Prelim culture growing Gram-positive glen. Follow up with culture and sensitivity report Renal NM scan completed by Urology, showed delayed perfusion and function of the right kidney with mild response to Lasix.Reflects a nonfunctioning left kidney. Differential renal function (uptake percent) of 93.9 % by the right kidney and 6.1 % by the left. Bilateral percutaneous nephrostomy tube draining serous secretion Prelim urine and blood cultures were negative Antibiotics per primary team No indication for dialysis for now Creatinine decreased to 2.84 from 3.9 on arrival Fluid restriction 2L / day Plan discussed with patient in which all questions have been answered Plan discussed with Dr. Gray Addendum Patient seen and examined, plan discussed with resident. Agree with above, we will follow closely Plan discussed with: Patient Dietary Evaluation Review Recommendations by RD: Dietary education by RD, Protein Supplementation Comments: 1) Initiate Nepro qd. Encourage optimal PO intake 2) Continue Renagel @ 800 mg tid. Advise patient about the importance of limiting intake dairy products, nuts, seeds, soy, beans, dark alexandra, bran, chocolate, etc d/t hyperphosphatemia. 3) Follow-up with urology and nephrology 4) Continue to monitor I&O, labs, and skin integrity Expected Outcomes/Goals: 1) appetite and labs to improve 2) wound to improve 3) follow-up in 3-5 days URMILA HASKINS RESIDENT September 04, 2024 16:23 HAYLIE GRAY MD September 04, 2024 20:48
[2024-09-04] MEDS: FERROUS SULFATE 325mg EC TAB PO ONE (17:44)
[2024-09-04] MEDS: EPOETIN ALFA-EPBX 4,000 UNIT/ML VIAL SC ONE (21:04)
--- NOTE | 2024-09-04 21:18 | DVHINCON2 ---
Date of service: September 04, 2024 Family History: Family history: Diabetes mellitus G8 MOTHER, Onset:s - 40 Family history: Hypertension G8 MOTHER, Onset:30s - 40 Ischemic heart disease No Family History of: Alcoholism Cancer Cancer of colon Chronic obstructive lung disease (situation) Family history: Alzheimer's disease Family history: Arthritis Family history: Asthma Family history: Autoimmune disease (situation) Family history: Blood disorder Family history: Cardiovascular disease Family history: Congenital anomaly Family history: Coronary thrombosis Family history: Depression (situation) Family history: Diabetes in Family history: Glaucoma Family history: Hypercholesterolemia (situation) Family history: Osteoporosis Family history: Suicide (situation) Family history: Thyroid disorder Malignant melanoma Malignant neoplasm of breast Malignant neoplasm of lung Malignant neoplasm of ovary Prostate cancer Renal stone Seizure disorder (situation) Stroke Allergies: Coded Allergies: Codeine (Verified Allergy, Unknown, 03/25/14) Latex (Verified Allergy, Unknown, 08/26/24) Home Meds Unable to Obtain Active Prescriptions or Reported Meds Current Medications Current Medications Medications (Trade) Dose Ordered Sig/Leeanne Route PRN Reason Start Time Stop Time Status Last Admin Ferrous Sulfate 325 mg DAILY PO 09/05/24 10:00 Vital Signs Vital Signs Date Time Temp Pulse Resp B/P (MAP) Pulse Ox O2 Delivery O2 Flow Rate FiO2 09/04/24 17:00 97.8 96 20 95/58 (70) 99 97.8 09/04/24 08:00 Room Air* 0 21 Labs/Diagnostic Data Labs Test 09/04/24 06:29 09/04/24 06:22 09/03/24 12:40 09/03/24 10:44 Range/Units POC Glucose 78 70-106 mg/dl White Blood Count 5.2 4.4-10.8 10^3/uL Red Blood Count 2.92 L 4.0-5.20 10^6/uL Hemoglobin 7.8 L 12.2-16.2 g/dL Hematocrit 23.9 #L 36.0-46.0 % Mean Corpuscular Volume 82.1 80.0-100.0 fL Mean Corpuscular Hemoglobin 26.7 L 28.0-32.0 pg Mean Corpuscular Hemoglobin Concent 32.5 32.0-36.0 g/dL Red Cell Distribution Width 17.8 H 11.8-14.3 % Platelet Count 349 140-450 10^3/uL Mean Platelet Volume 6.6 L 6.9-10.8 fL Neutrophils (%) (Auto) 37.0-80.0 % Lymphocytes (%) (Auto) 10.0-50.0 % Monocytes (%) (Auto) 0.0-12.0 % Eosinophils (%) (Auto) 0.0-7.0 % Basophils (%) (Auto) 0.0-2.0 % Neutrophils # (Auto) 1.6-8.6 10 ^3/uL Lymphocytes # (Auto) 0.4-5.4 10 ^3/uL Monocytes # (Auto) 0-1.3 10 ^3/uL Differential Total Cells Counted 100.0 100 Neutrophils % (Manual) 71 37.0-80.0 Band Neutrophils % (Manual) 0 Lymphocytes % (Manual) 6 L 10.0-50.0 Monocytes % (Manual) 7 0-12 Eosinophils % (Manual) 16 H 0-7 Basophils % (Manual) 0 0.0-2.0 Metamyelocytes % (manual) 0 Myelocytes % (Manual) 0 Promyelocytes % (Manual) 0 Blast Cells % (Manual) 0 Reactive Lymphocytes 0 Platelet Estimate Adequate Sodium Level 136 136-145 mmol/L Potassium Level 4.5 3.5-5.1 mmol/L Chloride Level 108 H 98-107 mmol/L Carbon Dioxide Level 18 L 20-31 mmol/L Anion Gap 10 5-15 Blood Urea Nitrogen 37 H 9-23 mg/dL Creatinine 3.35 H 0.550-1.02 mg/dL Glomerular Filtration Rate Calc 17 >90 mL/min BUN/Creatinine Ratio 11.0 10.0-20.0 Serum Glucose 85 74-106 mg/dL Calcium Level 7.6 L 8.7-10.4 mg/dL Urine Osmolality 223 mOsm/kg Urine Creatinine 20.02 L 30.0-125.0 mg/dL Urine Protein/Creatinine Ratio 11.14 Urine Sodium 84 40-220 mmol/L Urine Total Protein 223.1 H 1-14 mg/dL Serum Osmolality 283 278-298 mOsm/kg Test 09/03/24 05:30 09/02/24 05:57 08/31/24 12:00 08/31/24 05:56 Range/Units Eosinophils # (Auto) 0.5 0-0.8 10 ^3/uL Basophils # (Auto) 0 0-0.2 10 ^3/uL Nucleated Red Blood Cells 0.5 % Phosphorus Level 3.8 2.4-5.1 mg/dL Parathyroid Hormone (Intact) 200.4 H 18.4-80.1 pg/mL Magnesium Level 1.8 1.6-2.6 mg/dL Body Fluid Glucose <2 . mg/dL Prothrombin Time 12.6 H 9.3-11.8 sec Prothrombin Time INR 1.21 H 0.9-1.15 Activated Partial Thromboplast Time 35.5 H 24.5-34.5 SEC Anti-Nuclear Antibody Comment Comment . KATIE-1 Antibody <0.2 0.0-0.9 AI SS-A/Ro Antibody <0.2 0.0-0.9 AI SS-B/La Antibody <0.2 0.0-0.9 AI Sm Antibody <0.2 0.0-0.9 AI VICE PRESIDENT OF [employer]ULTING SERVICES Antibody <0.2 0.0-0.9 AI Scl-70 (Scleroderma) Antibody <0.2 0.0-0.9 AI Anti-Double Strand DNA Antibody <1 0-9 IU/mL Chromatin Antibody 0.2 0.0-0.9 AI Centromere B Antibody <0.2 0.0-0.9 AI Test 08/28/24 08:29 08/26/24 06:59 08/18/24 05:36 08/17/24 06:33 Range/Units Smudge Cells 3 /100 WBC Anisocytosis (manual) Slight Total Bilirubin < 0.2 L 0.2-1.0 mg/dL Aspartate Amino Transferase (AST) 14 13-40 U/L Alanine Aminotransferase (ALT) 10 7-40 U/L Alkaline Phosphatase 126 H 46-116 U/L Total Protein 6.7 5.7-8.2 g/dL Albumin 3.1 L 3.2-4.8 g/dL Iron Level 51 50-170 ug/dL Total Iron Binding Capacity 239 L 250-425 ug/dL Percent Iron Saturation 21.3 15-50 % Hypochromasia (manual) Moderate Ferritin 30.4 10-291 ng/mL Triglycerides Level 132 < 150 mg/dL Cholesterol Level 104 < 200 mg/dL LDL Cholesterol 65 < 100 mg/dL HDL Cholesterol 21 L 40-59 mg/dL Vitamin D 25-Hydroxy 9.0 L 30.0-100 ng/mL Thyroid Stimulating Hormone (TSH) 1.57 0.55-4.78 uIU/mL Test 08/16/24 14:09 08/16/24 11:56 08/16/24 09:54 08/16/24 07:53 Range/Units Blood Gas Specimen Type Arterial Blood Gas Sample Site Right radial Blood Gas Patient Temperature 37.0 Arterial Blood Date Drawn [id number] Arterial Blood pH 7.160 *L 7.350-7.450 Arterial Blood Partial Pressure CO2 < 12.6 *L 32.0-45.0 mmHg Arterial Blood Partial Pressure O2 117.7 H 83.0-108.0 mmHg Arterial Blood Oxygen Saturation 92.6 L 94.0-98.0 % Arterial Blood Oxyhemoglobin 92.1 L 94.0-98.0 % Arterial Blood Carboxyhemoglobin 0.5 0.5-1.5 % Arterial Blood Methemoglobin 0.0 0.0-1.5 % Geraldo Test Yes Blood Gas Total Hemoglobin 7.30 L 12.0-16.0 g/dL Blood Gas Liter Flow 0.00 Blood Gas Modality Room air FiO2 % 21.0 Blood Gas Critical Value Read Back Yes Blood Gas Notified Whom Laina henderson Blood Gas Notified Time [id number] Blood Gas Notified By antonio toure Hemoglobin A1c 4.3 <5.7 % A1C Urine Color Dark-brown Yellow Urine Clarity Ex.turbid Clear Urine pH 7.5 5.0-9.0 Urine Specific Edwards 1.018 1.001-1.035 Urine Protein 2+ H Negative Urine Ketones Negative Negative Urine Blood 1+ H Negative /uL Urine Nitrite Negative Negative Urine Bilirubin Negative Negative Urine Urobilinogen Normal Negative mg/dL Urine Leukocyte Esterase 3+ Negative /uL Urine RBC 104 0 - 4 /hpf Urine WBC Clumps Present None Seen /hpf Urine Microscopic WBC 760 H 0-5 /HPF Urine Squamous Epithelial Cells None seen <5 /hpf Urine Bacteria Many H None Seen /hpf Urine Mucus Many None Seen Urine Glucose Normal Normal mg/dL Urine Test Negative Negative Reticulocyte Count (auto) 1.80 H 0.5-1.5 % Lactic Acid Level 1.2 0.4-2.0 mmol/L Lactate Dehydrogenase 134 120-246 U/L Vitamin B12 Level 573 211-911 pg/mL Folic Acid 13.21 >5.38 ng/mL Microbiology Date/Time Source Procedure Growth Status 09/02/24 23:15 Blood Blood Culture - Preliminary NO GROWTH AFTER 24 HOURS OF INCUBATION. Resulted 08/31/24 12:00 Aspirate Gram Stain - Final Complete 08/31/24 12:00 Aspirate Body Fluid Culture - Final Complete 08/23/24 12:50 Other Urine Culture - Final Complete 08/16/24 09:54 Voided Urine Urine Culture - Final Complete Problems(with codes): (1) Urinary tract infection (2) Intractable headache (3) rule out acute appendicitis (4) Spina bifida (5) history of spina bifida (6) acute dehydration (7) UTI with possible pyelonephritis (8) Staghorn calculus (9) Leukocytosis (10) Sepsis (11) Acute renal failure Plan/Recommendation ASSESSMENT AND PLAN: ID Problem List: - Sepsis secondary to urinary tract infection (UTI) and perinephric abscess - Spina bifida with paraplegia - Chronic kidney disease (CKD) stage 3 - Acute kidney injury (JOSE) - Hydronephrosis, bilateral - Staghorn calculi, bilateral - Iron deficiency anemia/anemia of chronic disease - Vitamin D deficiency - History of tobacco and marijuana use Assessment This is a 39-year-old female with a complex medical history notable for spina bifida with secondary paraplegia, chronic stage 3 kidney disease and bilateral staghorn calculi, presenting with acute abdominal pain, dysuria, nausea, vomiting and a recent history of UTI treated with ciprofloxacin. Patient has a significant urological history including self-catheterization and prior bladder expansion. She reports a history of tobacco and marijuana use (current, half pack per day smoker). No relevant family history. Upon admission, patient was febrile and tachycardic. Labs showed leukocytosis, anemia, thrombocytosis, and acute kidney injury. Initial blood cultures were negative; urine cultures grew mixed gram positive glen as well as many bacteria including Streptococcus viridans and diphtheroids, with pyuria, high leukocyte esterase, and abundant mucus. Imaging demonstrated: - Severe left hydronephrosis and hydroureter, moderate right hydronephrosis/hydroureter, with associated inflammatory stranding and findings consistent with ascending UTI and bilateral cystitis. Multiple left renal calculi including staghorn calculi, bilateral chronic hip dislocations, and bilateral renal abscesses. - Nuclear medicine renal perfusion showed delayed perfusion and high-grade obst ruction of the right kidney, essentially non-functioning left kidney. - Large volume colonic stool noted on abdominal imaging. Procedures included bilateral nephrostomy tube placements and subsequent repeat exchange and repositioning as well as drainage of a left flank abscess. Cultures from nephrostomy drains confirmed multiple organisms including Streptococcus viridans and diphtheroids. Hospital course notable for persistent fevers and intermittent tachycardia, which have improved over time. Patient received cefepime and was transitioned to meropenem, now being transitioned back to oral ciprofloxacin (500 mg by mouth every 24 hours for 6 weeks) for targeted suppression. Iron deficiency anemia has been managed with intravenous iron. Further iron supplementation is deferred until resolution of sepsis to avoid shunting iron to pathogens. Given the finding of Streptococcus viridans in multiple cultures, consideration is being given to obtain an echocardiogram to rule out endocarditis. Plan - Continue ciprofloxacin 500 mg orally every 24 hours for 6 weeks - Monitor closely for clinical improvement, with particular attention to reso lution of fever and normalization of laboratory parameters prior to discharge - Defer further iron supplementation until completion of infection treatment - Continue nephrology and urology involvement - Echocardiogram to rule out endocarditis - Supportive care for JOSE/CKD; monitor electrolytes and adjust medications as needed - Continue vitamin D supplementation as indicated - Monitor and manage constipation given imaging findings - Smoking cessation counseling - Continue to monitor nephrostomy tubes and percutaneous drains for patency and signs of infection - Hold further iron infusions while infection remains active Assessment and plan was discussed with the patient as written above. Plan is subject to change pending incorporation of new information/diagnostics. Updates may be added as addendum to this note. Thank you for consulting. Please contact Infectious Disease with any questions or concerns. Gaurav Carter M.D. Electronically signed by: Gaurav Carter MD, 09/04/2024 History: The patient's chart and medications were reviewed in detail and the patient was seen and examined. History obtained from: patient Pipe Doan is a 39-year-old female with spina bifida and secondary paraplegia, bilateral staghorn calculi s/p bladder expansion, presenting with acute abdominal pain, dysuria, nausea, vomiting. Reports ongoing tobacco and marijuana use. Self-catheterizes. No known relevant family history. Patient has experienced recurrent UTIs and was most recently treated with ciprofloxacin. On admission, lab work revealed leukocytosis, anemia, thrombocytosis, and evidence of acute renal failure on chronic kidney disease. Blood cultures negative; urine culture positive for mixed gram positive glen and abundant bacteria. Imaging and subsequent interventions as detailed above. Review of Systems: A complete 10-system review of systems was completed and negative except as noted in the HPI or here. ROS: - CONSTITUTIONAL: Denies fevers, chills, weight loss. - HEENT: Not discussed. - RESPIRATORY: Not discussed. - CARDIOVASCULAR: Denies chest pain. - GASTROINTESTINAL: Reports abdominal pain, nausea, vomiting. Denies flank pain. - GENITOURINARY: Reports dysuria. Denies new hematuria. - MUSCULOSKELETAL: Not discussed. - SKIN: Not discussed. - NEUROLOGICAL: History of paraplegia secondary to spina bifida. Denies new symptoms. - PSYCHIATRIC: Not discussed. Past Medical History: - Spina bifida with secondary paraplegia - Staghorn calculi, bilateral - Chronic kidney disease (stage 3) - Acute kidney injury - Recurrent UTIs - Iron deficiency anemia / anemia of chronic disease - Vitamin D deficiency - Hydronephrosis, bilateral - Nonfunctioning left kidney - Tobacco and marijuana use Past Surgical History: - Bladder expansion - Bilateral nephrostomy tube placement - Other surgical history: Not discussed Home Medications: - Ciprofloxacin (recent use for UTI, now being resumed) - Iron infusions (recent administration inpatient) - Others: Not detailed Allergies: - Sulfamethoxazole-trimethoprim (Bactrim): Unknown reaction Family History: No relevant family history Social History: - Tobacco use: Half pack per day - Marijuana use: Yes - Alcohol use: Not discussed - Sexual activity: Not discussed - Lives independently, self-catheterizes Objective: Vital Signs on Arrival: - Temp: 36.6C (97.9F) BP: 154/82 - Pulse: 92 - Resp: 24 - SpO2: 99% on room air Most Recent Vital Signs: Not provided in transcript. Admission Weight: Not provided in transcript. Physical Exam: General: NAD Neck: Supple. No masses. HEENT: PERRL. Normal lids and conjunctiva. Moist mucous membranes. Oropharynx without lesions, exudates or excessive erythema. Normal appearance of the external aspects of the nose and ears. Heart: Regular rhythm, normal rate. No murmur. No lower extremity edema. Lungs: Normal respiratory effort. Clear to auscultation bilaterally. No wheezes. No crackles. Abdomen: Soft. Non-tender. Non-distended. No masses or abdominal hernia. Msk: No digital cyanosis. Normal strength and tone in all 4 limbs. Paraplegia noted. Skin: Warm and dry, no rashes. Neuro: Alert. No facial droop or slurred speech. Extra-ocular movements intact. Sensation intact to soft touch in all 4 limbs. Paraplegia present. Psych: Appropriate mood. Full affect. Oriented to person, place, time, and situation. Lines: - Bilateral nephrostomy tubes present - Percutaneous left flank drain present - Other lines: Not discussed Diagnostic Studies: Available diagnostic studies were reviewed personally. Significant relevant results and findings are outlined below or addressed in the Assessment and Plan above. Pertinent Imaging: - CT Abdomen/Pelvis: Severe left hydronephrosis/hydroureter, moderate right hydronephrosis/hydroureter, multiple left renal calculi including staghorn calculi, bilateral cystitis, right kidney lobulated (multiple renal lesions, not clearly delineated). Bilateral hip dislocations, possibly chronic. No mass or abdominal wall hernia or lymphadenopathy. - Nuclear Medicine Perfusion: Delayed right kidney perfusion and function, mild response to Lasix (high-grade obstruction). Minimal tracer uptake in left kidney, consistent with nonfunctioning kidney. - Abdominal/KUB X-ray: Large volume colonic stool. - Chest X-ray: Not discussed. - Other Imaging: Multiple nephrostomy tubes and percutaneous drains in place, as above. Laboratory Data: - Sodium: 139 (on admission), 136 (recent) - Potassium: 4.8 - BUN: 82 (admission), 37 (recent) - Creatinine: 3.9 (admission), 3.35 (recent) GFR: 15 - Bilirubin: <0.2 AST: 11 ALT: <9 - Alk phos: 183 - Hemoglobin A1c: 4.3 - Platelet count: 749 (admission), 17.8 (likely a legal transcriptionist error, clarify) - WBC: 17.5 (admission), 5.2 (recent) - Hgb: 8.9 (admission), 7.8 (recent) - Urinalysis: Many bacteria, mucus, high leukocyte esterase, pyuria - Urine and nephrostomy cultures: Streptococcus viridans, diphtheroids - Blood cultures: No growth to date Procedures: - Bilateral nephrostomy tube placement, exchanges, and repositioning - Left flank abscess drainage (8 Occitan pigtail) Additional Clinical Considerations: - Evaluate for endocarditis as indicated by recurrent isolation of Streptococcus viridans. - Continue multidisciplinary approach with urology and nephrology involvement. Electronically signed by: Gaurav Carter MD, 09/04/2024 Plan discussed with: Patient GAURAV CARTER MD September 04, 2024 21:18
--- NOTE | 2024-09-04 21:57 | DVHPNRES ---
Progress Note Date Seen: September 04, 2024 Resident Creating Document: ELEN TAY RESIDENT Medical Necessity Reason Pt with a Central, PICC or Fol: No The following are medically ne: Wilcox Catheter Reason for wilcox catheter: Bladder Retention/Obstruc, Total Immobilization Subjective Review of Systems Patient seen and examined at the bedside Bilateral nephrostomy tubes draining well, no blood-tinged urine Patient reports pain in the left flank improved No fever Objective vital signs Vital Sign Date Time Temp Pulse Resp B/P (MAP) Pulse Ox O2 Delivery O2 Flow Rate FiO2 09/04/24 21:00 98.0 103 18 111/70 (84) 91 98.0 09/04/24 08:00 Room Air* 0 21 Total Intake and Output 09/03/24 09/03/24 09/04/24 15:00 23:00 07:00 Intake Total 250 ml 650 ml Output Total 300 ml 525 ml Balance -50 ml 125 ml medications Current Medications Medications Dose Ordered Sig/Leeanne Route Start Time Stop Time Status Last Admin Dose Admin Acetaminophen 650 mg Q6HP PRN PO 08/16/24 10:30 09/04/24 12:22 650 MG Nicotine 1 patch DAILY TD 08/17/24 10:00 09/04/24 10:28 1 PATCH Potassium Chloride 100 ml @ 50 mls/hr Q2H IV 08/17/24 08:30 08/17/24 12:29 UNV Ergocalciferol 50,000 unit Q7D PO 08/17/24 12:00 08/31/24 12:51 50,000 UNIT Polyethylene Glycol 17 gm DAILY PO 08/22/24 10:00 09/01/24 14:31 17 GM Melatonin 5 mg HS PO 08/22/24 22:00 09/04/24 20:59 5 MG Ondansetron HCl 4 mg Q4HPRN PRN IV 08/23/24 12:00 08/23/24 18:43 4 MG Hydroxyzine HCl 20 mg Q6HP PRN PO 08/26/24 13:15 09/04/24 13:34 20 MG Acetaminophen/ Hydrocodone Bitart 1 tab Q4HPRN PRN PO 08/29/24 05:00 09/04/24 20:59 1 TAB Morphine Sulfate 1 mg Q4HP PRN IV 08/30/24 16:30 09/04/24 02:30 1 MG Pantoprazole Sodium 40 mg DAILY@0600 PO 09/01/24 06:00 09/04/24 06:26 40 MG Sevelamer HCl 800 mg DAILY@BREAKFAST PO 09/03/24 08:00 09/04/24 10:26 800 MG Lactated Ringer's 1,000 ml @ 60 mls/hr [id number] IV 09/03/24 12:00 09/04/24 21:01 60 MLS/HR Ferrous Sulfate 325 mg DAILY PO 09/05/24 10:00 Ciprofloxacin 200 ml @ 200 mls/hr DAILY IV 09/05/24 10:00 UNV Examination en - no pallor, no icterus, no cyanosis, no clubbing, no LAD, no edema . Skin - Patients skin is warm and dry. HEENT - normocephalic, atraumatic, moist mucous membranes. Neck - full ROM, no LAD, no JVD Pulmonary - B/L equal breath sounds, no crackles , no wheezing, no stridor. cardiovascular - regular S1,S2 heard, no added sounds, no murmurs heard. GI - soft, nontender abdomen. no hepatospleenomegaly. Bowel sounds normoactive - bilateral nephrostomy tubes with bag and draining well. Left flank 8 Ivorian pigtail draining greenish pus Neurological - Patient is A/O X 3 . Bilateral upper extremity strength 5/5, paraplegia, no facial droop, normal speech laboratory and microbiology Laboratory Tests 09/04/24 06:22 Test 09/04/24 06:22 Range/Units Serum Glucose 85 74-106 mg/dL Microbiology Date/Time Source Procedure Growth Status 09/02/24 23:15 Blood Blood Culture - Preliminary NO GROWTH AFTER 24 HOURS OF INCUBATION. Resulted 08/31/24 12:00 Aspirate Gram Stain - Final Complete 08/31/24 12:00 Aspirate Body Fluid Culture - Final Complete 08/23/24 12:50 Other Urine Culture - Final Complete 08/16/24 09:54 Voided Urine Urine Culture - Final Complete Problem List/Assessment/Plan Problem List/Assessment/Plan Sepsis due to UTI/perinephric abscess left peripnephric abscess Hematuria likely due to above -IV meropenam -No growth in urine and blood culture -Urologic consultation: s/p bilateral nephrostomy tube -status post drainage of the perinephric abscess with IR, drainage catheter in place, cultures pending Non functional left kidney -Outpatient follow up for nephrectomy -Renal scan: 1. Delayed perfusion and function of the right kidney with mild response to Lasix. Favored high-grade functional obstruction. 2. Minimal radiotracer uptake in the left kidney. Favored to reflect a nonfunctioning kidney. JOSE likely related to hemodynamically mediated and obstruction with CKD unknown stage Left-sided staghorn calculi with moderate hydronephrosis Moderate right hydronephrosis and hydroureter Metabolic acidosis due to CKD, resolved Hyperphosphatemia Vitamin-D deficiency -continue monitor kidney function, status post Wilcox insertion and B/L nephrostomy tubes -CT scan showed bilateral renal calculi with hydronephrosis. -monitoring BUN creatinine Severe anemia of chronic disease, status post IV iron load, IV Iron toxicity -received 5 bags of IV iron, status post deferoxamine -repeat Iron panel:Iron level normalized 51 Chronic bilateral hip dislocation -Stable History of spina bifida with Paraplegia -Stable Marijuana use disorder -counseled on cessation PUD prophylaxis with Protonix Goals of care discussed with the patient for over 35 minutes. Full code Plan discussed with Dr David Plan discussed with: Patient, Other Dietary Evaluation Review Recommendations by RD: Dietary education by RD, Protein Supplementation Comments: 1) Initiate Nepro qd. Encourage optimal PO intake 2) Continue Renagel @ 800 mg tid. Advise patient about the importance of limiting intake dairy products, nuts, seeds, soy, beans, dark alexandra, bran, chocolate, etc d/t hyperphosphatemia. 3) Follow-up with urology and nephrology 4) Continue to monitor I&O, labs, and skin integrity Expected Outcomes/Goals: 1) appetite and labs to improve 2) wound to improve 3) follow-up in 3-5 days Date of Service: September 04, 2024 Billing Provider: SID DAVID MD Common Visit Codes: [id number] INP/OBS CARE(HIGH) ELEN TAY RESIDENT September 04, 2024 21:57 SID DAVID MD September 08, 2024 12:42
[2024-09-05] VITALS (8 sets, daily range): BP systolic 94–125; BP diastolic 59–92; PULSE 93–108; RESP 16–20; TEMP 97.8–98.7; O2SAT 91–99
[2024-09-05 06:48] LABS: Hemoglobin 7.5 g/dL (12.2-16.2); White Blood Cell 5.7 10^3/uL (4.4-10.8)
[2024-09-05 06:54] LABS: Hematocrit 24.3 % (36.0-46.0); Mean Corpuscular Hemoglobin 26.2 pg (28.0-32.0); Mean Corpuscular Hgb Conc. 30.9 g/dL (32.0-36.0); Mean Corpuscular Volume 84.9 fL (80.0-100.0); Platelet Count (auto) 315 10^3/uL (140-450); Red Blood Cells 2.86 10^6/uL (4.0-5.20); Red Cell Distribution Width 18.5 % (11.8-14.3)
[2024-09-05 07:02] LABS: Anion Gap 11 (5-15); Potassium 4.6 mmol/L (3.5-5.1); Sodium 137 mmol/L (136-145)
[2024-09-05 07:08] LABS: BUN/Creatinine Ratio 10.9 (10.0-20.0); Glucose 89 mg/dL (74-106)
[2024-09-05 07:10] LABS: Phosphorus 3.6 mg/dL (2.4-5.1)
[2024-09-05 07:16] LABS: Blood Urea Nitrogen 33 mg/dL (9-23); Carbon Dioxide 16 mmol/L (20-31); Chloride 110 mmol/L (98-107)
[2024-09-05 07:17] LABS: Basophils % (manual) 0 (0.0-2.0); Blast Cells 0; Metamyelocytes % 0; Myelocytes % 0; Promyelocytes % 0; Reactive Lymphocytes 0
[2024-09-05 08:29] LABS: Anisocytosis Slight; Band Neutrophils % (manual) 8; Eosinophils % (manual) 33 (0-7); Hypochromia Slight; Lymphocytes % (manual) 10 (10.0-50.0); Monocytes % (manual) 7 (0-12); Platelet Estimate Adequate
[2024-09-05] MEDS ORDERED: CIPROFLOXACIN HCL 500 MG TAB PO SCH (10:00)
[2024-09-05] MEDS: FERROUS SULFATE 325mg EC TAB PO SCH (12:27)
[2024-09-05] MEDS: CIPROFLOXACIN 400MG/200ML 200 ML IV SCH (12:32)
[2024-09-05] MEDS ORDERED: traMADol HCL 50 MG TAB PO PRN (13:00)
--- NOTE | 2024-09-05 13:18 | DVHPN2 ---
Progress Note Date Seen: September 05, 2024 Medical Necessity Reason Pt with a Central, PICC or Fol: No The following are medically ne: Wilcox Catheter Reason for wilcox catheter: Bladder Retention/Obstruc, Total Immobilization Subjective Patient reports: Other (Reports nephrostomy tube is leaking ) Review of Systems: Deferred Objective vital signs Vital Sign Date Time Temp Pulse Resp B/P (MAP) Pulse Ox O2 Delivery O2 Flow Rate FiO2 09/05/24 08:53 98 18 116/73 09/05/24 08:50 98.7 99 98.7 09/04/24 19:30 Room Air* 0 21 Total Intake and Output 09/04/24 09/04/24 09/05/24 15:00 23:00 07:00 Intake Total 1230 ml 940 ml Output Total 1050 ml 1010 ml Balance 180 ml -70 ml medications Current Medications Medications Dose Ordered Sig/Leeanne Route Start Time Stop Time Status Last Admin Dose Admin Acetaminophen 650 mg Q6HP PRN PO 08/16/24 10:30 09/04/24 12:22 650 MG Nicotine 1 patch DAILY TD 08/17/24 10:00 09/05/24 12:40 1 PATCH Potassium Chloride 100 ml @ 50 mls/hr Q2H IV 08/17/24 08:30 08/17/24 12:29 UNV Ergocalciferol 50,000 unit Q7D PO 08/17/24 12:00 08/31/24 12:51 50,000 UNIT Polyethylene Glycol 17 gm DAILY PO 08/22/24 10:00 09/01/24 14:31 17 GM Melatonin 5 mg HS PO 08/22/24 22:00 09/04/24 20:59 5 MG Ondansetron HCl 4 mg Q4HPRN PRN IV 08/23/24 12:00 08/23/24 18:43 4 MG Hydroxyzine HCl 20 mg Q6HP PRN PO 08/26/24 13:15 09/05/24 12:27 20 MG Acetaminophen/ Hydrocodone Bitart 1 tab Q4HPRN PRN PO 08/29/24 05:00 09/05/24 12:28 1 TAB Morphine Sulfate 1 mg Q4HP PRN IV 08/30/24 16:30 09/05/24 08:23 1 MG Pantoprazole Sodium 40 mg DAILY@0600 PO 09/01/24 06:00 09/05/24 05:21 40 MG Sevelamer HCl 800 mg DAILY@BREAKFAST PO 09/03/24 08:00 09/05/24 08:21 800 MG Lactated Ringer's 1,000 ml @ 60 mls/hr [id number] IV 09/03/24 12:00 09/04/24 21:01 60 MLS/HR Ferrous Sulfate 325 mg DAILY PO 09/05/24 10:00 09/05/24 12:27 325 MG Ciprofloxacin 200 ml @ 200 mls/hr DAILY IV 09/05/24 10:00 09/05/24 12:32 200 MLS/HR Sodium Bicarbonate 650 mg QID PO 09/05/24 18:00 Tramadol HCl 50 mg Q8HP PRN PO 09/05/24 13:00 UNV Examination: GENERAL:Normal, MSK:Abnormal, NEURO:Normal laboratory and microbiology Laboratory Tests 09/05/24 05:10 Test 09/05/24 05:10 Range/Units Serum Glucose 89 74-106 mg/dL Microbiology Date/Time Source Procedure Growth Status 09/02/24 23:15 Blood Blood Culture - Preliminary NO GROWTH AFTER 48 HOURS OF INCUBATION. Resulted 08/31/24 12:00 Aspirate Gram Stain - Final Complete 08/31/24 12:00 Aspirate Body Fluid Culture - Final Complete 08/23/24 12:50 Other Urine Culture - Final Complete 08/16/24 09:54 Voided Urine Urine Culture - Final Complete Problem List/Assessment/Plan Problem List/Assessment/Plan Acute kidney injury multifactorial in the setting of sepsis as well as chronic obstruction Chronic kidney disease due to chronic urinary retention however baseline is unknown Sepsis secondary to urinary tract infection //staghorn calculi Bilateral hydronephrosis status post bilateral nephrostomy tube Acute left perinephric abscess status post drainage 08/31 Chronic bilateral hip dislocation Metabolic acidosis Paraplegia and spina bifida Anemia due to iron deficiency s/p iron overload and desferoxime Hypomagnesemia Hypokalemia Plan Continue IV fluids Renal function slightly better Patient reported leak of nephrostomy tube---consider IR re-evaluation on Saturday Plan discussed with: Patient My Orders My Orders Orders - HAYLIE GRAY MD Procedure Category Date Status Time Sodium Bicarb Tab PHA 09/05/24 In Process 18:00 Dietary Evaluation Review Recommendations by RD: Dietary education by RD, Protein Supplementation Comments: 1) Initiate Nepro qd. Encourage optimal PO intake 2) Continue Renagel @ 800 mg tid. Advise patient about the importance of limiting intake dairy products, nuts, seeds, soy, beans, dark alexandra, bran, chocolate, etc d/t hyperphosphatemia. 3) Follow-up with urology and nephrology 4) Continue to monitor I&O, labs, and skin integrity Expected Outcomes/Goals: 1) appetite and labs to improve 2) wound to improve 3) follow-up in 3-5 days HAYLIE GRAY MD September 05, 2024 13:18
[2024-09-05] MEDS: SODIUM BICARBONATE 650 MG TAB PO SCH (18:31)
--- NOTE | 2024-09-05 20:04 | DVHPNRES ---
Progress Note Date Seen: September 05, 2024 Resident Creating Document: ELEN TAY RESIDENT Medical Necessity Reason Pt with a Central, PICC or Fol: No The following are medically ne: Wilcox Catheter Reason for wilcox catheter: Bladder Retention/Obstruc, Total Immobilization Subjective Review of Systems Patient seen and examined at the bedside Bilateral nephrostomy tubes draining well, no blood-tinged urine Patient reports pain in the left flank improved but had leakage around the drainage site from the abscess , dressing was changed No fever Objective vital signs Vital Sign Date Time Temp Pulse Resp B/P (MAP) Pulse Ox O2 Delivery O2 Flow Rate FiO2 09/05/24 13:00 98.4 104 20 118/83 (95) 98 98.4 09/05/24 08:00 Room Air* 0 21 Total Intake and Output 09/04/24 09/04/24 09/05/24 15:00 23:00 07:00 Intake Total 1230 ml 940 ml Output Total 1050 ml 1010 ml Balance 180 ml -70 ml medications Current Medications Medications Dose Ordered Sig/Leeanne Route Start Time Stop Time Status Last Admin Dose Admin Acetaminophen 650 mg Q6HP PRN PO 08/16/24 10:30 09/04/24 12:22 650 MG Nicotine 1 patch DAILY TD 08/17/24 10:00 09/05/24 12:40 1 PATCH Potassium Chloride 100 ml @ 50 mls/hr Q2H IV 08/17/24 08:30 08/17/24 12:29 UNV Ergocalciferol 50,000 unit Q7D PO 08/17/24 12:00 08/31/24 12:51 50,000 UNIT Polyethylene Glycol 17 gm DAILY PO 08/22/24 10:00 09/01/24 14:31 17 GM Melatonin 5 mg HS PO 08/22/24 22:00 09/04/24 20:59 5 MG Ondansetron HCl 4 mg Q4HPRN PRN IV 08/23/24 12:00 08/23/24 18:43 4 MG Hydroxyzine HCl 20 mg Q6HP PRN PO 08/26/24 13:15 09/05/24 12:27 20 MG Acetaminophen/ Hydrocodone Bitart 1 tab Q4HPRN PRN PO 08/29/24 05:00 09/05/24 12:28 1 TAB Morphine Sulfate 1 mg Q4HP PRN IV 08/30/24 16:30 Hold 09/05/24 08:23 1 MG Pantoprazole Sodium 40 mg DAILY@0600 PO 09/01/24 06:00 09/05/24 05:21 40 MG Sevelamer HCl 800 mg DAILY@BREAKFAST PO 09/03/24 08:00 09/05/24 08:21 800 MG Lactated Ringer's 1,000 ml @ 60 mls/hr [id number] IV 09/03/24 12:00 09/04/24 21:01 60 MLS/HR Ferrous Sulfate 325 mg DAILY PO 09/05/24 10:00 09/05/24 12:27 325 MG Ciprofloxacin 200 ml @ 200 mls/hr DAILY IV 09/05/24 10:00 09/05/24 12:32 200 MLS/HR Sodium Bicarbonate 650 mg QID PO 09/05/24 18:00 09/05/24 18:31 650 MG Tramadol HCl 50 mg Q8HP PRN PO 09/05/24 13:00 Examination Gen - no pallor, no icterus, no cyanosis, no clubbing, no LAD, no edema . Skin - Patients skin is warm and dry. HEENT - normocephalic, atraumatic, moist mucous membranes. Neck - full ROM, no LAD, no JVD Pulmonary - B/L equal breath sounds, no crackles , no wheezing, no stridor. cardiovascular - regular S1,S2 heard, no added sounds, no murmurs heard. GI - soft, nontender abdomen. no hepatospleenomegaly. Bowel sounds normoactive - bilateral nephrostomy tubes with bag and draining well. Left flank 8 [place] pigtail draining greenish pus Neurological - Patient is A/O X 3 . Bilateral upper extremity strength 5/5, paraplegia, no facial droop, normal speech laboratory and microbiology Laboratory Tests 09/05/24 05:10 Test 09/05/24 05:10 Range/Units Serum Glucose 89 74-106 mg/dL Microbiology Date/Time Source Procedure Growth Status 09/02/24 23:15 Blood Blood Culture - Preliminary NO GROWTH AFTER 48 HOURS OF INCUBATION. Resulted 08/31/24 12:00 Aspirate Gram Stain - Final Complete 08/31/24 12:00 Aspirate Body Fluid Culture - Final Complete 08/23/24 12:50 Other Urine Culture - Final Complete 08/16/24 09:54 Voided Urine Urine Culture - Final Complete Problem List/Assessment/Plan Problem List/Assessment/Plan Sepsis due to UTI/perinephric abscess left peripnephric abscess Hematuria likely due to above -No growth in urine and blood culture -Urologic consultation: s/p bilateral nephrostomy tube -status post drainage of the perinephric abscess with IR, drainage catheter in place, cultures pending - ID consulted and started on IV ciprofloxacin Non functional left kidney -Outpatient follow up for nephrectomy -Renal scan: 1. Delayed perfusion and function of the right kidney with mild response to Lasix. Favored high-grade functional obstruction. 2. Minimal radiotracer uptake in the left kidney. Favored to reflect a nonfunctioning kidney. JOSE likely related to hemodynamically mediated and obstruction with CKD unknown stage Left-sided staghorn calculi with moderate hydronephrosis Moderate right hydronephrosis and hydroureter Metabolic acidosis due to CKD, resolved Hyperphosphatemia Vitamin-D deficiency -continue monitor kidney function, status post Wilcox insertion and B/L nephrostomy tubes -CT scan showed bilateral renal calculi with hydronephrosis. -monitoring BUN creatinine Severe anemia of chronic disease, status post IV iron load, IV Iron toxicity -received 5 bags of IV iron, status post deferoxamine -repeat Iron panel:Iron level normalized 51 Chronic bilateral hip dislocation -Stable History of spina bifida with Paraplegia -Stable Marijuana use disorder -counseled on cessation PUD prophylaxis with Protonix Goals of care discussed with the patient for over 35 minutes. Full code Plan discussed with Dr Napier Plan discussed with: Patient My Orders My Orders Orders - ELEN TAY RESIDENT Procedure Category Date Status Time Wound Culture W/ Gs BRI 09/05/24 In Process 10:09 Dietary Evaluation Review Recommendations by RD: Dietary education by RD, Protein Supplementation Comments: 1) Initiate Nepro qd. Encourage optimal PO intake 2) Continue Renagel @ 800 mg tid. Advise patient about the importance of limiting intake dairy products, nuts, seeds, soy, beans, dark alexandra, bran, chocolate, etc d/t hyperphosphatemia. 3) Follow-up with urology and nephrology 4) Continue to monitor I&O, labs, and skin integrity Expected Outcomes/Goals: 1) appetite and labs to improve 2) wound to improve 3) follow-up in 3-5 days Date of Service: September 05, 2024 Billing Provider: GEOFFREY NAPIER MD Common Visit Codes: [id number] INP/OBS CARE(HIGH) ELEN TAY RESIDENT September 05, 2024 20:04 GEOFFREY NAPIER MD September 05, 2024 22:00
--- NOTE | 2024-09-05 20:27 | DVHPN2 ---
Consult Progress Note Date Seen: September 05, 2024 Subjective Patient reports: Other (having good urine output through nephrostomy tubes and some sediment but no signs of prelance or dark drainage ) Objective vital signs Vital Sign Date Time Temp Pulse Resp B/P (MAP) Pulse Ox O2 Delivery O2 Flow Rate FiO2 09/05/24 13:00 98.4 104 20 118/83 (95) 98 98.4 09/05/24 08:00 Room Air* 0 21 Total Intake and Output 09/04/24 09/04/24 09/05/24 15:00 23:00 07:00 Intake Total 1230 ml 940 ml Output Total 1050 ml 1010 ml Balance 180 ml -70 ml medications Current Medications Medications Dose Ordered Sig/Leeanne Route Start Time Stop Time Status Last Admin Dose Admin Acetaminophen 650 mg Q6HP PRN PO 08/16/24 10:30 09/04/24 12:22 650 MG Nicotine 1 patch DAILY TD 08/17/24 10:00 09/05/24 12:40 1 PATCH Potassium Chloride 100 ml @ 50 mls/hr Q2H IV 08/17/24 08:30 08/17/24 12:29 UNV Ergocalciferol 50,000 unit Q7D PO 08/17/24 12:00 08/31/24 12:51 50,000 UNIT Polyethylene Glycol 17 gm DAILY PO 08/22/24 10:00 09/01/24 14:31 17 GM Melatonin 5 mg HS PO 08/22/24 22:00 09/04/24 20:59 5 MG Ondansetron HCl 4 mg Q4HPRN PRN IV 08/23/24 12:00 08/23/24 18:43 4 MG Hydroxyzine HCl 20 mg Q6HP PRN PO 08/26/24 13:15 09/05/24 12:27 20 MG Acetaminophen/ Hydrocodone Bitart 1 tab Q4HPRN PRN PO 08/29/24 05:00 09/05/24 12:28 1 TAB Morphine Sulfate 1 mg Q4HP PRN IV 08/30/24 16:30 Hold 09/05/24 08:23 1 MG Pantoprazole Sodium 40 mg DAILY@0600 PO 09/01/24 06:00 09/05/24 05:21 40 MG Sevelamer HCl 800 mg DAILY@BREAKFAST PO 09/03/24 08:00 09/05/24 08:21 800 MG Lactated Ringer's 1,000 ml @ 60 mls/hr [id number] IV 09/03/24 12:00 09/04/24 21:01 60 MLS/HR Ferrous Sulfate 325 mg DAILY PO 09/05/24 10:00 09/05/24 12:27 325 MG Ciprofloxacin 200 ml @ 200 mls/hr DAILY IV 09/05/24 10:00 09/05/24 12:32 200 MLS/HR Sodium Bicarbonate 650 mg QID PO 09/05/24 18:00 09/05/24 18:31 650 MG Tramadol HCl 50 mg Q8HP PRN PO 09/05/24 13:00 Physical Exam: General: NAD Neck: Supple. No masses. HEENT: PERRL. Normal lids and conjunctiva. Moist mucous membranes. Oropharynx without lesions, exudates or excessive erythema. Normal appearance of the external aspects of the nose and ears. Heart: Regular rhythm, normal rate. No murmur. No lower extremity edema. Lungs: Normal respiratory effort. Clear to auscultation bilaterally. No wheezes. No crackles. Abdomen: Soft. Non-tender. Non-distended. No masses or abdominal hernia. Msk: No digital cyanosis. Normal strength and tone in all 4 limbs. Paraplegia noted. Skin: Warm and dry, no rashes. Neuro: Alert. No facial droop or slurred speech. Extra-ocular movements intact. Sensation intact to soft touch in all 4 limbs. Paraplegia present. Psych: Appropriate mood. Full affect. Oriented to person, place, time, and situation. laboratory and microbiology Laboratory Tests 09/05/24 05:10 Test 09/05/24 05:10 Range/Units Serum Glucose 89 74-106 mg/dL Problem List/Assessment/Plan Problems(with codes): (1) rule out acute appendicitis (2) Intractable headache (3) Urinary tract infection (4) Spina bifida (5) history of spina bifida (6) acute dehydration (7) Malnutrition (8) UTI with possible pyelonephritis (9) Nausea & vomiting Problem List/Assessment/Plan ASSESSMENT AND PLAN: ID Problem List: - Sepsis secondary to urinary tract infection (UTI) and perinephric abscess - Spina bifida with paraplegia - Chronic kidney disease (CKD) stage 3 - Acute kidney injury (JOSE) - Hydronephrosis, bilateral - Staghorn calculi, bilateral - Iron deficiency anemia/anemia of chronic disease - Vitamin D deficiency - History of tobacco and marijuana use Assessment This is a 39-year-old female with a complex medical history notable for spina bifida with secondary paraplegia, chronic stage 3 kidney disease and bilateral staghorn calculi, presenting with acute abdominal pain, dysuria, nausea, vomiting and a recent history of UTI treated with ciprofloxacin. Patient has a significant urological history including self-catheterization and prior bladder expansion. She reports a history of tobacco and marijuana use (current, half pack per day smoker). No relevant family history. Upon admission, patient was febrile and tachycardic. Labs showed leukocytosis, anemia, thrombocytosis, and acute kidney injury. Initial blood cultures were negative; urine cultures grew mixed gram positive glen as well as many bacteria including Streptococcus viridans and diphtheroids, with pyuria, high leukocyte esterase, and abundant mucus. Imaging demonstrated: - Severe left hydronephrosis and hydroureter, moderate right hydronephrosis/hydroureter, with associated inflammatory stranding and findings consistent with ascending UTI and bilateral cystitis. Multiple left renal calculi including staghorn calculi, bilateral chronic hip dislocations, and bilateral renal abscesses. - Nuclear medicine renal perfusion showed delayed perfusion and high-grade obstruction of the right kidney, essentially non-functioning left kidney. - Large volume colonic stool noted on abdominal imaging. Procedures included bilateral nephrostomy tube placements and subsequent repeat exchange and repositioning as well as drainage of a left flank abscess. Cultures from nephrostomy drains confirmed multiple organisms including Streptococcus viridans and diphtheroids. Hospital course notable for persistent fevers and intermittent tachycardia, which have improved over time. Patient received cefepime and was transitioned to meropenem, now being transitioned back to oral ciprofloxacin (500 mg by mouth every 24 hours for 6 weeks) for targeted suppression. Iron deficiency anemia has been managed with intravenous iron. Further iron supplementation is deferred until resolution of sepsis to avoid shunting iron to pathogens. Given the finding of Streptococcus viridans in multiple cultures, consideration is being given to obtain an echocardiogram to rule out endocarditis. 09/05: patient appears to be clinically doing well and awaiting ciprofloxacin treatment to begin today Plan - Continue ciprofloxacin 500 mg orally every 24 hours for 6 weeks - Monitor closely for clinical improvement, with particular attention to resolution of fever and normalization of laboratory parameters prior to discharge - Defer further iron supplementation until completion of infection treatment - Continue nephrology and urology involvement - Echocardiogram to rule out endocarditis - Supportive care for JOSE/CKD; monitor electrolytes and adjust medications as needed - Continue vitamin D supplementation as indicated - Monitor and manage constipation given imaging findings - Smoking cessation counseling - Continue to monitor nephrostomy tubes and percutaneous drains for patency and signs of infection - Hold further iron infusions while infection remains active Plan discussed with: Other Dietary Evaluation Review Recommendations by RD: Dietary education by RD, Protein Supplementation Comments: 1) Initiate Nepro qd. Encourage optimal PO intake 2) Continue Renagel @ 800 mg tid. Advise patient about the importance of limiting intake dairy products, nuts, seeds, soy, beans, dark alexandra, bran, chocolate, etc d/t hyperphosphatemia. 3) Follow-up with urology and nephrology 4) Continue to monitor I&O, labs, and skin integrity Expected Outcomes/Goals: 1) appetite and labs to improve 2) wound to improve 3) follow-up in 3-5 days GAURAV ANGLIN MD September 05, 2024 20:27
--- NOTE | 2024-09-05 20:31 | DVHSR ---
APPROVED REPORT EXAM: LIMITED Two-dimensional and M-mode echocardiogram with Doppler and color Doppler. Blood Pressure: 94/60 mmHg INDICATION Evaluate for Endocarditis RISK FACTORS Height: 5', Weight: 145 DIMENSIONS LVDd4.2 (3.8-5.7cm)LA (2D)3.6 (1.9-4.0cm)Aortic Root3.1 (2.0-3.7cm) LVDs2.9 (2.5-4.0cm)LA (MM) (1.9-4.0cm)Aortic Cusp Exc1.8 (1.5-2.0cm) EF (%) 60.0 (55-70%)Rt. Atrium3.0 (1.9-4.0cm)Asc. Aorta cm IVSd0.8 (0.7-1.1cm)RV (D) (1.8-2.4cm) PWd0.8 (0.7-1.1cm) Mitral Valve MitralMitral Stenosis E wave1.10m/sMV Mean GR.mmHg A wave1.20m/sMV Peak GR.mmHg E/A ratio0.92D MVAcm2 DECEL [id number] 1/2 Timems Aortic Valve Aortic ValveAortic Stenosis V11.20m/Trinity Mean GR.7mmHg V21.70m/Trinity Peak GR.12mmHg LVOT Diameter2.2 (1.8-2.4cm)Doppler AVA2.68cm2 Pulmonic Valve V20.80m/s Tricuspid Valve TR Velocity1.80m/s [id number] Conclusion Technically a good study, SR Normal chamber sizes Valves are normal LVEF is normal at 65% with normal RV function. Doppler is normal No masses or vegetations No PE
[2024-09-06] VITALS (8 sets, daily range): BP systolic 90–121; BP diastolic 52–84; PULSE 90–112; RESP 16–20; TEMP 97.6–98.1; O2SAT 95–98
[2024-09-06 09:15] LABS: Hemoglobin 8.2 g/dL (12.2-16.2); Platelet Count (auto) 314 10^3/uL (140-450); Red Blood Cells 3.19 10^6/uL (4.0-5.20)
[2024-09-06 09:21] LABS: Hematocrit 26.6 % (36.0-46.0); Mean Corpuscular Hemoglobin 25.9 pg (28.0-32.0); Mean Corpuscular Volume 83.4 fL (80.0-100.0); Red Cell Distribution Width 18.3 % (11.8-14.3)
[2024-09-06 09:24] LABS: Potassium 4.4 mmol/L (3.5-5.1); Sodium 139 mmol/L (136-145)
[2024-09-06 09:25] LABS: Anion Gap 11 (5-15)
[2024-09-06 09:29] LABS: Basophils % (manual) 0 (0.0-2.0); Blast Cells 0; Metamyelocytes % 0; Myelocytes % 0; Promyelocytes % 0; Reactive Lymphocytes 0
[2024-09-06 09:30] LABS: BUN/Creatinine Ratio 12.6 (10.0-20.0); Glucose 92 mg/dL (74-106)
[2024-09-06 09:39] LABS: Blood Urea Nitrogen 38 mg/dL (9-23); Calcium 8.3 mg/dL (8.7-10.4); Carbon Dioxide 15 mmol/L (20-31); Chloride 113 mmol/L (98-107)
[2024-09-06 10:18] LABS: Band Neutrophils % (manual) 1; Eosinophils % (manual) 37 (0-7); Lymphocytes % (manual) 19 (10.0-50.0); Monocytes % (manual) 7 (0-12)
[2024-09-06 10:19] LABS: Anisocytosis Slight; Hypochromia Slight
[2024-09-06 10:20] LABS: Platelet Estimate Adequate
--- NOTE | 2024-09-06 12:33 | DVHPN2 ---
Progress Note Date Seen: September 06, 2024 Medical Necessity Reason Pt with a Central, PICC or Fol: No The following are medically ne: Wilcox Catheter Reason for wilcox catheter: Bladder Retention/Obstruc, Total Immobilization Subjective Patient reports: No new complaints Review of Systems: Deferred Objective vital signs Vital Sign Date Time Temp Pulse Resp B/P (MAP) Pulse Ox O2 Delivery O2 Flow Rate FiO2 09/06/24 08:43 97.8 90 20 121/84 (96) 98 97.8 09/05/24 19:30 Room Air* 0 21 Total Intake and Output 09/05/24 09/05/24 09/06/24 15:00 23:00 07:00 Intake Total 1365 ml 500 ml Output Total 1425 ml 700 ml Balance -60 ml -200 ml medications Current Medications Medications Dose Ordered Sig/Leeanne Route Start Time Stop Time Status Last Admin Dose Admin Acetaminophen 650 mg Q6HP PRN PO 08/16/24 10:30 09/04/24 12:22 650 MG Nicotine 1 patch DAILY TD 08/17/24 10:00 09/06/24 08:12 1 PATCH Potassium Chloride 100 ml @ 50 mls/hr Q2H IV 08/17/24 08:30 08/17/24 12:29 UNV Ergocalciferol 50,000 unit Q7D PO 08/17/24 12:00 08/31/24 12:51 50,000 UNIT Polyethylene Glycol 17 gm DAILY PO 08/22/24 10:00 09/01/24 14:31 17 GM Melatonin 5 mg HS PO 08/22/24 22:00 09/05/24 21:58 5 MG Ondansetron HCl 4 mg Q4HPRN PRN IV 08/23/24 12:00 08/23/24 18:43 4 MG Acetaminophen/ Hydrocodone Bitart 1 tab Q4HPRN PRN PO 08/29/24 05:00 09/06/24 10:25 1 TAB Morphine Sulfate 1 mg Q4HP PRN IV 08/30/24 16:30 Hold 09/05/24 08:23 1 MG Pantoprazole Sodium 40 mg DAILY@0600 PO 09/01/24 06:00 09/06/24 05:43 40 MG Sevelamer HCl 800 mg DAILY@BREAKFAST PO 09/03/24 08:00 09/06/24 08:12 800 MG Lactated Ringer's 1,000 ml @ 60 mls/hr [id number] IV 09/03/24 12:00 09/06/24 05:43 60 MLS/HR Ferrous Sulfate 325 mg DAILY PO 09/05/24 10:00 09/06/24 08:12 325 MG Ciprofloxacin 200 ml @ 200 mls/hr DAILY IV 09/05/24 10:00 09/06/24 10:26 200 MLS/HR Sodium Bicarbonate 650 mg QID PO 09/05/24 18:00 09/06/24 05:43 650 MG Tramadol HCl 50 mg Q8HP PRN PO 09/05/24 13:00 Cancel Examination: GENERAL:Normal, MSK:Abnormal laboratory and microbiology Laboratory Tests 09/06/24 08:54 Test 09/06/24 08:54 Range/Units Serum Glucose 92 74-106 mg/dL Microbiology Date/Time Source Procedure Growth Status 09/05/24 10:15 Sacrum Gram Stain Pending Resulted 09/05/24 10:15 Sacrum Wound Culture - Preliminary Resulted 09/02/24 23:15 Blood Blood Culture - Preliminary NO GROWTH AFTER 72 HOURS OF INCUBATION. Resulted 08/31/24 12:00 Aspirate Gram Stain - Final Complete 08/31/24 12:00 Aspirate Body Fluid Culture - Final Complete 08/16/24 09:54 Voided Urine Urine Culture - Final Complete Problem List/Assessment/Plan Problem List/Assessment/Plan Acute kidney injury multifactorial in the setting of sepsis as well as chronic obstruction Chronic kidney disease due to chronic urinary retention however baseline is unknown Sepsis secondary to urinary tract infection //staghorn calculi Bilateral hydronephrosis status post bilateral nephrostomy tube Acute left perinephric abscess status post drainage 08/31 Chronic bilateral hip dislocation Metabolic acidosis Paraplegia and spina bifida Anemia due to iron deficiency s/p iron overload and desferoxime Hypomagnesemia Hypokalemia Plan Continue IV fluids Renal function slightly better Patient reported leak of nephrostomy tube---consider IR re-evaluation on Saturday abx has a drain and nephrostomy tubes Plan discussed with: Patient Dietary Evaluation Review Recommendations by RD: Dietary education by RD, Protein Supplementation Comments: 1) Initiate Nepro qd. Encourage optimal PO intake 2) Continue Renagel @ 800 mg tid. Advise patient about the importance of limiting intake dairy products, nuts, seeds, soy, beans, dark alexandra, bran, chocolate, etc d/t hyperphosphatemia. 3) Follow-up with urology and nephrology 4) Continue to monitor I&O, labs, and skin integrity Expected Outcomes/Goals: 1) appetite and labs to improve 2) wound to improve 3) follow-up in 3-5 days HAYLIE GRAY MD September 06, 2024 12:33
[2024-09-06] MEDS: hydrOXYzine HCL 10 MG TAB PO PRN (16:12)
[2024-09-07 00:58] VITALS: BP 98/52; PULSE 102; RESP 17; TEMP 98; O2SAT 97
[2024-09-07 05:00] VITALS: BP 114/72; PULSE 94; RESP 18; TEMP 97.7; O2SAT 98
[2024-09-07 08:00] VITALS: PULSE 98
[2024-09-07 10:03] LABS: Mean Corpuscular Hemoglobin 26.1 pg (28.0-32.0); Mean Corpuscular Hgb Conc. 30.6 g/dL (32.0-36.0); Mean Corpuscular Volume 85.2 fL (80.0-100.0); Platelet Count (auto) 278 10^3/uL (140-450); Red Blood Cells 3.05 10^6/uL (4.0-5.20); Red Cell Distribution Width 18.6 % (11.8-14.3); White Blood Cell 6.6 10^3/uL (4.4-10.8)
[2024-09-07 10:05] LABS: Band Neutrophils % (manual) 0; Basophils % (manual) 0 (0.0-2.0); Blast Cells 0; Eosinophils % (manual) 0 (0-7); Metamyelocytes % 0; Myelocytes % 0; Promyelocytes % 0; Reactive Lymphocytes 0
[2024-09-07 10:10] LABS: Potassium 4.1 mmol/L (3.5-5.1); Sodium 139 mmol/L (136-145)
[2024-09-07 10:11] LABS: Anion Gap 10 (5-15); Carbon Dioxide 17 mmol/L (20-31); Chloride 112 mmol/L (98-107)
[2024-09-07 10:12] LABS: Calcium 8.1 mg/dL (8.7-10.4)
[2024-09-07 10:16] LABS: BUN/Creatinine Ratio 14.2 (10.0-20.0); Glucose 96 mg/dL (74-106)
[2024-09-07 10:17] LABS: Blood Urea Nitrogen 37 mg/dL (9-23)
[2024-09-07 10:54] LABS: Anisocytosis Slight; Lymphocytes % (manual) 20 (10.0-50.0); Monocytes % (manual) 4 (0-12); Platelet Estimate Adequate
[2024-09-07 10:55] LABS: Large Platelets FEW; Ovalocytes FEW
--- NOTE | 2024-09-07 11:07 | DVH ---
CT CT AB PEL WO CON-NO ORAL OR IV INDICATION: EVALUATION OF PERIRENAL DRAIN EXAM DATE: 09/07/2024 10:24 AM COMPARISON: CT CT AB PEL WO CON-NO ORAL OR IV on DOS: 08/31/24, CT CT AB PEL WO CON-NO ORAL OR IV on D OS: 08/23/24, CT CT AB PEL WO CON-NO ORAL OR IV on DOS: 08/16/24 RADIATION DOSE: CTDIvol: 9.89 mGy, DLP: 528.91 mGy*cm PROCEDURE: Helical CT images were obtained of the abdomen and pelvis without IV contrast Sagittal and coronal reconstructions are provided. ORAL CONTRAST: None. ADDITIONAL IMAGES / REFORMATS: None All C T scans at this medical facility are performed using dose modulation techniques as appropriate to a p erformed exam including the following: Automated exposure control was utilized; adjustment of the MA and/or KV according to patient size; and use of iterative reconstruction technique. FINDINGS: LUNG BASE: Normal. LIVER: Normal. GALLBLADDER AND BILIARY TREE: No calcified gallstones. Normal caliber wall. No intra- or extrahepatic biliary ductal dilation. PANCREAS: Normal. SPLEEN: Normal. BOWEL: No small bowel dilation seen. Post surgical changes from bowel resection is seen. ADRENALS: Normal. KIDNEYS AND URETER: Bilateral nephrostomy tubes are in the renal pelvis. Similar kidneys, bilaterally . BLADDER: Marte, thick wall bladder. REPRODUCTIVE ORGANS: Normal. LYMPH NODES:Prominent graham-aortic lymph nodes, likely reactive. PERITONEUM: No ascites or free air. No other fluid collection. VESSELS: Scattered atherosclerotic calcifications are noted. RETROPERITONEUM: Decreased size of the left perirenal abscess with the drain in stable position. ABDOMINAL WALL: Edematous. 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 IMPRESSION: Decreased size of the left perirenal abscess with the drain in stable position. Recommend retracting the drain by 4 cm. Bilateral nephrostomy tubes are in the renal pelvis. No hydronephrosis is seen.
[2024-09-07] MEDS: LIDOCAINE 2%HCL (LOCAL ANESTH.) INJ 10ml MDV ONE (11:29)
[2024-09-07] MEDS: SODIUM BICARB 50mEq/50ml Vial 100 ML in SOD CHL 0.45% 1,000 ML IV SCH (13:04)
--- NOTE | 2024-09-07 13:07 | DVHPN2 ---
Progress Note Date Seen: September 07, 2024 Resident Creating Document: URMILA HASKINS RESIDENT Medical Necessity Reason Pt with a Central, PICC or Fol: No The following are medically ne: Wilcox Catheter Reason for wilcox catheter: Bladder Retention/Obstruc, Total Immobilization Subjective Review of Systems This is a 38-year-old female with past medical history of paraplegia, staghorn calculi, hydronephrosis who presented to the ER with chief complaint of suprapubic pain. Patient was diagnosed with UTI along with bilateral kidney stones. Nephrology was consulted. Patient underwent bilateral nephrostomy tube placement 08/18 by IR, repeat CT scan showed resolving hydronephrosis. Left perirenal abscess was also seen on the repeat CT scan for which IR was consulted but patient declined any treatment. Prelim urine cultures are negative. Prelim blood cultures are negative. Patient was started on IV cefepime which was switched to IV meropenem. Given the iron-deficiency, patient received 5 bags of iron and later iron chelator deferoxamine. 08/25 - Patient seen and examined at the bedside. Overnight, left nephrostomy tube draining 275 cc, right draining 350 cc. Patient agreed to be seen by IR. Creatinine downtrending 08/26 - Patient seen and examined at the bedside. Increasing u/o via blnt. Pending IR drainage 08/27 - patient seen and examined at the bedside. Per IR, no percutaneous sepsis, need surgical consult. Surgical consultation pending. 08/28 - patient seen and examined at the bedside. Surgeon recommended IR. 08/31-patient seen and examined at the bedside. Underwent IR guided drainage of the perinephric abscess. 09/01 - patient is seen and examined at the bedside. 09/03-patient seen and examined. Reports feeling warm and cold, sweating. Overnight low-grade fever 99.8 F. patient received 750 cc of NS overnight given tachycardia and fever episodes. Creatinine trending up to 3.1. Left perirenal abscess drainage growing Gram-positive glen. Blood cultures negative. Wilcox output is improving 09/04-patient seen and examined at the bedside. Reports feeling better. Vitally stable. Urine output 800 cc. Left upper extremity bruising resolving. GFR steadily decreasing. H&H downtrending. Iron p.o. started 09/07-patient seen and examined at bedside. Reports that the left side drainage leaking. CT abdomen shows Decreased size of the left perirenal abscess with the drain in stable position. Recommend retracting the drain by 4 cm. Discontinued LR, started half NS with bicarb given acidosis. Other Systems: Patient seen and examined by myself today in rounds with the resident, I agree with his assessment and plan Objective vital signs Vital Sign Date Time Temp Pulse Resp B/P (MAP) Pulse Ox O2 Delivery O2 Flow Rate FiO2 09/07/24 08:00 98 09/07/24 08:00 Room Air* 0 21 09/07/24 05:00 97.7 18 114/72 (86) 98 97.7 Total Intake and Output 09/06/24 09/06/24 09/07/24 15:00 23:00 07:00 Intake Total 410 ml 850 ml 650 ml Output Total 970 ml 100 ml 1340 ml Balance -560 ml 750 ml -690 ml medications Current Medications Medications Dose Ordered Sig/Leeanne Route Start Time Stop Time Status Last Admin Dose Admin Acetaminophen 650 mg Q6HP PRN PO 08/16/24 10:30 09/04/24 12:22 650 MG Nicotine 1 patch DAILY TD 08/17/24 10:00 09/07/24 10:02 1 PATCH Potassium Chloride 100 ml @ 50 mls/hr Q2H IV 08/17/24 08:30 08/17/24 12:29 UNV Ergocalciferol 50,000 unit Q7D PO 08/17/24 12:00 08/31/24 12:51 50,000 UNIT Polyethylene Glycol 17 gm DAILY PO 08/22/24 10:00 09/01/24 14:31 17 GM Melatonin 5 mg HS PO 08/22/24 22:00 09/06/24 21:37 5 MG Ondansetron HCl 4 mg Q4HPRN PRN IV 08/23/24 12:00 08/23/24 18:43 4 MG Acetaminophen/ Hydrocodone Bitart 1 tab Q4HPRN PRN PO 08/29/24 05:00 09/07/24 09:51 1 TAB Morphine Sulfate 1 mg Q4HP PRN IV 08/30/24 16:30 09/06/24 13:52 1 MG Pantoprazole Sodium 40 mg DAILY@0600 PO 09/01/24 06:00 09/07/24 04:54 40 MG Sevelamer HCl 800 mg DAILY@BREAKFAST PO 09/03/24 08:00 09/07/24 08:06 800 MG Ferrous Sulfate 325 mg DAILY PO 09/05/24 10:00 09/07/24 09:51 325 MG Ciprofloxacin 200 ml @ 200 mls/hr DAILY IV 09/05/24 10:00 09/07/24 09:52 200 MLS/HR Sodium Bicarbonate 650 mg QID PO 09/05/24 18:00 09/07/24 04:53 650 MG Tramadol HCl 50 mg Q8HP PRN PO 09/05/24 13:00 Cancel Hydroxyzine HCl 20 mg Q6HPRN PRN PO 09/06/24 15:30 09/07/24 10:01 20 MG Sodium Bicarbonate 100 ml/Sodium Chloride 1,100 ml @ 75 mls/hr [id number] IV 09/07/24 10:00 Examination Patient lying in bed, in no acute distress General: Well-built, afebrile, mucosae are moist Cardiovascular: Regular S1 and S2. No murmurs, gallops or rubs. No JVD elevation. No pedal edema Respiratory: Normal B/L air entry on room air. Clear lung sounds on auscultation Abdomen: Soft, nontender, nondistended, normoactive bowel sounds, no rebound tenderness, no organomegaly, no masses. B/L cva tenderness. Bilateral nephrostomy tube draining serous. Left-sided perinephric drain seen with purulent substance Genitourinary: Deferred MSK/skin: Skin is dry and warm. Resolving erythema and bruise seen on left arm. Lower side Psych/Mental Status: A/Ox3 laboratory and microbiology Laboratory Tests 09/07/24 09:49 Test 09/07/24 09:49 Range/Units Serum Glucose 96 74-106 mg/dL Microbiology Date/Time Source Procedure Growth Status 09/05/24 10:15 Sacrum Gram Stain Pending Resulted 09/05/24 10:15 Sacrum Wound Culture - Preliminary Resulted 09/02/24 23:15 Blood Blood Culture - Preliminary NO GROWTH AFTER 72 HOURS OF INCUBATION. Resulted 08/31/24 12:00 Aspirate Gram Stain - Final Complete 08/31/24 12:00 Aspirate Body Fluid Culture - Final Complete 08/16/24 09:54 Voided Urine Urine Culture - Final Complete Labs and/or images reviewed: Labs reviewed by me, Image(s) reviewed by me Problem List/Assessment/Plan Problem List/Assessment/Plan Acute kidney injury multifactorial in the setting of sepsis as well as chronic obstruction Chronic kidney disease due to chronic urinary retention however baseline is unknown Sepsis secondary to urinary tract infection //staghorn calculi Bilateral hydronephrosis status post bilateral nephrostomy tube Acute left perinephric abscess status post drainage 08/31 Chronic bilateral hip dislocation Metabolic acidosis Paraplegia and spina bifida Anemia due to iron deficiency s/p iron overload and desferoxime Hypomagnesemia Hypokalemia Plan BUN/creatinine trending down, GFR improving. Discontinued LR, started half NS with bicarb. FENA 10% which is intrinsic. Urine protein/creatinine 11 g per day. Given the downtrending hemoglobin, Started oral iron daily, Epogen once administered SC We will continue to monitor, with a GFR drops less than 15 patient may require renal replacement therapy Patient underwent perinephric abscess drainage 08/31 by IR. Prelim culture growing Gram-positive glen. Follow up with culture and sensitivity report Renal NM scan completed by Urology, showed delayed perfusion and function of the right kidney with mild response to Lasix.Reflects a nonfunctioning left kidney. Differential renal function (uptake percent) of 93.9 % by the right kidney and 6.1 % by the left. Bilateral percutaneous nephrostomy tube draining serous secretion Prelim urine and blood cultures were negative Antibiotics per primary team No indication for dialysis for now Fluid restriction 2L / day Plan discussed with patient in which all questions have been answered Plan discussed with Dr. Penn Plan discussed with: Patient Dietary Evaluation Review Recommendations by RD: Dietary education by RD, Protein Supplementation Comments: 1) Initiate Nepro qd. Encourage optimal PO intake 2) Continue Renagel @ 800 mg tid. Advise patient about the importance of limiting intake dairy products, nuts, seeds, soy, beans, dark alexandra, bran, chocolate, etc d/t hyperphosphatemia. 3) Follow-up with urology and nephrology 4) Continue to monitor I&O, labs, and skin integrity Expected Outcomes/Goals: 1) appetite and labs to improve 2) wound to improve 3) follow-up in 3-5 days URMILA HASKINS September 07, 2024 13:07 QUITA PENN MD September 07, 2024 14:48
--- NOTE | 2024-09-07 16:59 | DVHPNRES ---
Progress Note Date Seen: September 07, 2024 Resident Creating Document: ELEN TAY RESIDENT Medical Necessity Reason Pt with a Central, PICC or Fol: No The following are medically ne: Wilcox Catheter Reason for wilcox catheter: Bladder Retention/Obstruc, Total Immobilization Subjective Review of Systems Patient seen and examined at the bedside Bilateral nephrostomy tubes draining well, no blood-tinged urine today patient underwent repositioning of the pigtail catheter in the left perinephric abscess which has seem to be decreased in size Objective vital signs Vital Sign Date Time Temp Pulse Resp B/P (MAP) Pulse Ox O2 Delivery O2 Flow Rate FiO2 09/07/24 08:00 98 09/07/24 08:00 Room Air* 0 21 09/07/24 05:00 97.7 18 114/72 (86) 98 97.7 Total Intake and Output 09/06/24 09/06/24 09/07/24 15:00 23:00 07:00 Intake Total 410 ml 850 ml 650 ml Output Total 970 ml 100 ml 1340 ml Balance -560 ml 750 ml -690 ml medications Current Medications Medications Dose Ordered Sig/Leeanne Route Start Time Stop Time Status Last Admin Dose Admin Acetaminophen 650 mg Q6HP PRN PO 08/16/24 10:30 09/04/24 12:22 650 MG Nicotine 1 patch DAILY TD 08/17/24 10:00 09/07/24 10:02 1 PATCH Potassium Chloride 100 ml @ 50 mls/hr Q2H IV 08/17/24 08:30 08/17/24 12:29 UNV Ergocalciferol 50,000 unit Q7D PO 08/17/24 12:00 09/07/24 13:05 50,000 UNIT Polyethylene Glycol 17 gm DAILY PO 08/22/24 10:00 09/01/24 14:31 17 GM Melatonin 5 mg HS PO 08/22/24 22:00 09/06/24 21:37 5 MG Ondansetron HCl 4 mg Q4HPRN PRN IV 08/23/24 12:00 08/23/24 18:43 4 MG Acetaminophen/ Hydrocodone Bitart 1 tab Q4HPRN PRN PO 08/29/24 05:00 09/07/24 13:56 1 TAB Morphine Sulfate 1 mg Q4HP PRN IV 08/30/24 16:30 09/06/24 13:52 1 MG Pantoprazole Sodium 40 mg DAILY@0600 PO 09/01/24 06:00 09/07/24 04:54 40 MG Sevelamer HCl 800 mg DAILY@BREAKFAST PO 09/03/24 08:00 09/07/24 08:06 800 MG Ferrous Sulfate 325 mg DAILY PO 09/05/24 10:00 09/07/24 09:51 325 MG Ciprofloxacin 200 ml @ 200 mls/hr DAILY IV 09/05/24 10:00 09/07/24 09:52 200 MLS/HR Sodium Bicarbonate 650 mg QID PO 09/05/24 18:00 09/07/24 13:55 650 MG Tramadol HCl 50 mg Q8HP PRN PO 09/05/24 13:00 Cancel Hydroxyzine HCl 20 mg Q6HPRN PRN PO 09/06/24 15:30 09/07/24 10:01 20 MG Sodium Bicarbonate 100 ml/Sodium Chloride 1,100 ml @ 75 mls/hr [id number] IV 09/07/24 10:00 09/07/24 13:04 75 MLS/HR Examination Gen - no pallor, no icterus, no cyanosis, no clubbing, no LAD, no edema . Skin - Patients skin is warm and dry. HEENT - normocephalic, atraumatic, moist mucous membranes. Neck - full ROM, no LAD, no JVD Pulmonary - B/L equal breath sounds, no crackles , no wheezing, no stridor. cardiovascular - regular S1,S2 heard, no added sounds, no murmurs heard. GI - soft, nontender abdomen. no hepatospleenomegaly. Bowel sounds normoactive - bilateral nephrostomy tubes with bag and draining well. Left flank 8 [place] pigtail draining greenish pus Neurological - Patient is A/O X 3 . Bilateral upper extremity strength 5/5, paraplegia, no facial droop, normal speech laboratory and microbiology Laboratory Tests 09/07/24 09:49 Test 09/07/24 09:49 Range/Units Serum Glucose 96 74-106 mg/dL Microbiology Date/Time Source Procedure Growth Status 09/05/24 10:15 Sacrum Gram Stain - Final Resulted 09/05/24 10:15 Sacrum Wound Culture - Preliminary Resulted 09/02/24 23:15 Blood Blood Culture - Preliminary NO GROWTH AFTER 72 HOURS OF INCUBATION. Resulted 08/31/24 12:00 Aspirate Gram Stain - Final Complete 08/31/24 12:00 Aspirate Body Fluid Culture - Final Complete 08/16/24 09:54 Voided Urine Urine Culture - Final Complete Problem List/Assessment/Plan Problem List/Assessment/Plan Sepsis due to UTI/perinephric abscess left peripnephric abscess Hematuria likely due to above -No growth in urine and blood culture -Urologic consultation: s/p bilateral nephrostomy tube -status post drainage of the perinephric abscess with IR, drainage catheter in place, cultures pending - ID consulted and started on IV ciprofloxacin - repositioning of the drainage catheter in the left perinephric abscess which has seemed to decrease in size Non functional left kidney -Outpatient follow up for nephrectomy -Renal scan: 1. Delayed perfusion and function of the right kidney with mild response to Lasix. Favored high-grade functional obstruction. 2. Minimal radiotracer uptake in the left kidney. Favored to reflect a nonfunctioning kidney. JOSE likely related to hemodynamically mediated and obstruction with CKD unknown stage Left-sided staghorn calculi with moderate hydronephrosis Moderate right hydronephrosis and hydroureter Metabolic acidosis due to CKD, resolved Hyperphosphatemia Vitamin-D deficiency -continue monitor kidney function, status post Wilcox insertion and B/L nephrostomy tubes -CT scan showed bilateral renal calculi with hydronephrosis. -monitoring BUN creatinine Severe anemia of chronic disease, status post IV iron load, IV Iron toxicity -received 5 bags of IV iron, status post deferoxamine -repeat Iron panel:Iron level normalized 51 Chronic bilateral hip dislocation -Stable History of spina bifida with Paraplegia -Stable Marijuana use disorder -counseled on cessation PUD prophylaxis with Protonix Goals of care discussed with the patient for over 35 minutes. Full code Plan discussed with Dr Frankie Mott discussed with: Patient Dietary Evaluation Review Recommendations by RD: Dietary education by RD, Protein Supplementation Comments: 1) Initiate Nepro qd. Encourage optimal PO intake 2) Continue Renagel @ 800 mg tid. Advise patient about the importance of limiting intake dairy products, nuts, seeds, soy, beans, dark alexandra, bran, chocolate, etc d/t hyperphosphatemia. 3) Follow-up with urology and nephrology 4) Continue to monitor I&O, labs, and skin integrity Expected Outcomes/Goals: 1) appetite and labs to improve 2) wound to improve 3) follow-up in 3-5 days Date of Service: September 07, 2024 Billing Provider: SID BECKWITH MD Common Visit Codes: [id number] INP/OBS CARE(HIGH) ELEN TAY RESIDENT September 07, 2024 16:59 SID BECKWITH MD September 08, 2024 12:50
[2024-09-07 17:00] VITALS: BP 122/84; PULSE 104; RESP 18; TEMP 98.6; O2SAT 98
[2024-09-07 20:00] VITALS: PULSE 106; PULSE 111; RESP 17; O2SAT 98
[2024-09-07 21:00] VITALS: BP 122/72; PULSE 106; RESP 17; TEMP 98; O2SAT 98
[2024-09-08] VITALS (8 sets, daily range): BP systolic 101–128; BP diastolic 58–86; PULSE 94–116; RESP 17–20; TEMP 97.5–98.5; O2SAT 96–100
[2024-09-08] MEDS: MINOCYCLINE HCL 100 MG CAP PO SCH
[2024-09-08 06:55] LABS: Eosinophils # (auto) 0.6 10 ^3/uL (0-0.8); Hemoglobin 7.3 g/dL (12.2-16.2); Monocytes # (auto) 0.4 10 ^3/uL (0-1.3); Neutrophils # (auto) 3.6 10 ^3/uL (1.6-8.6); White Blood Cell 5.8 10^3/uL (4.4-10.8)
[2024-09-08 06:59] LABS: Basophils # (auto) 0.1 10 ^3/uL (0-0.2); Basophils % (auto) 0.9 % (0.0-2.0); Lymphocytes # (auto) 1.2 10 ^3/uL (0.4-5.4); Lymphocytes % (auto) 20.2 % (10.0-50.0); Mean Corpuscular Hgb Conc. 31.7 g/dL (32.0-36.0); Monocytes % (auto) 6.1 % (0.0-12.0); Neutrophils % (auto) 62.8 % (37.0-80.0); Nucleated Red Blood Cells % 0.1 %; Platelet Count (auto) 281 10^3/uL (140-450); Red Cell Distribution Width 18.6 % (11.8-14.3)
[2024-09-08 07:04] LABS: Anion Gap 9 (5-15); Carbon Dioxide 21 mmol/L (20-31); Potassium 4.8 mmol/L (3.5-5.1); Sodium 142 mmol/L (136-145)
[2024-09-08 07:10] LABS: BUN/Creatinine Ratio 16.4 (10.0-20.0); Blood Urea Nitrogen 40 mg/dL (9-23); Calcium 7.6 mg/dL (8.7-10.4); Chloride 112 mmol/L (98-107); Glucose 78 mg/dL (74-106)
[2024-09-08 07:12] LABS: Phosphorus 4.2 mg/dL (2.4-5.1)
[2024-09-08] MEDS: CEFEPIME 2GM/50ML NS 50 ML IV SCH (09:52)
--- NOTE | 2024-09-08 12:29 | DVHPN2 ---
Progress Note Date Seen: September 08, 2024 Resident Creating Document: URMILA HASKINS RESIDENT Medical Necessity Reason Pt with a Central, PICC or Fol: No The following are medically ne: Wilcox Catheter Reason for wilcox catheter: Bladder Retention/Obstruc, Total Immobilization Subjective Review of Systems This is a 38-year-old female with past medical history of paraplegia, staghorn calculi, hydronephrosis who presented to the ER with chief complaint of suprapubic pain. Patient was diagnosed with UTI along with bilateral kidney stones. Nephrology was consulted. Patient underwent bilateral nephrostomy tube placement 08/18 by IR, repeat CT scan showed resolving hydronephrosis. Left perirenal abscess was also seen on the repeat CT scan for which IR was consulted but patient declined any treatment. Prelim urine cultures are negative. Prelim blood cultures are negative. Patient was started on IV cefepime which was switched to IV meropenem. Given the iron-deficiency, patient received 5 bags of iron and later iron chelator deferoxamine. 08/25 - Patient seen and examined at the bedside. Overnight, left nephrostomy tube draining 275 cc, right draining 350 cc. Patient agreed to be seen by IR. Creatinine downtrending 08/26 - Patient seen and examined at the bedside. Increasing u/o via blnt. Pending IR drainage 08/27 - patient seen and examined at the bedside. Per IR, no percutaneous sepsis, need surgical consult. Surgical consultation pending. 08/28 - patient seen and examined at the bedside. Surgeon recommended IR. 08/31-patient seen and examined at the bedside. Underwent IR guided drainage of the perinephric abscess. 09/01 - patient is seen and examined at the bedside. 09/03-patient seen and examined. Reports feeling warm and cold, sweating. Overnight low-grade fever 99.8 F. patient received 750 cc of NS overnight given tachycardia and fever episodes. Creatinine trending up to 3.1. Left perirenal abscess drainage growing Gram-positive glen. Blood cultures negative. Wilcox output is improving 09/04-patient seen and examined at the bedside. Reports feeling better. Vitally stable. Urine output 800 cc. Left upper extremity bruising resolving. GFR steadily decreasing. H&H downtrending. Iron p.o. started 09/07-patient seen and examined at bedside. Reports that the left side drainage leaking. CT abdomen shows Decreased size of the left perirenal abscess with the drain in stable position. Recommend retracting the drain by 4 cm. Discontinued LR, started half NS with bicarb given acidosis. 09/08-patient is seen and examined better. Underwent left perinephric abscess drainage reposition yesterday. IV Cipro to cefepime. Creatinine trending down, GFR trending up. Other Systems: Patient seen and examined by myself today on rounds with the medicine resident, I agree with his assessment and plan Objective vital signs Vital Sign Date Time Temp Pulse Resp B/P (MAP) Pulse Ox O2 Delivery O2 Flow Rate FiO2 09/08/24 09:00 98.1 94 19 128/85 (99) 97 98.1 09/08/24 08:00 Room Air* 0 21 Total Intake and Output 09/07/24 09/07/24 09/08/24 15:00 23:00 07:00 Intake Total 200 ml 700 ml 1800 ml Output Total 900 ml 50 ml Balance 200 ml -200 ml 1750 ml medications Current Medications Medications Dose Ordered Sig/Leeanne Route Start Time Stop Time Status Last Admin Dose Admin Acetaminophen 650 mg Q6HP PRN PO 08/16/24 10:30 09/04/24 12:22 650 MG Nicotine 1 patch DAILY TD 08/17/24 10:00 09/08/24 09:52 1 PATCH Potassium Chloride 100 ml @ 50 mls/hr Q2H IV 08/17/24 08:30 08/17/24 12:29 UNV Ergocalciferol 50,000 unit Q7D PO 08/17/24 12:00 09/07/24 13:05 50,000 UNIT Polyethylene Glycol 17 gm DAILY PO 08/22/24 10:00 09/01/24 14:31 17 GM Melatonin 5 mg HS PO 08/22/24 22:00 09/07/24 21:22 5 MG Ondansetron HCl 4 mg Q4HPRN PRN IV 08/23/24 12:00 08/23/24 18:43 4 MG Acetaminophen/ Hydrocodone Bitart 1 tab Q4HPRN PRN PO 08/29/24 05:00 09/08/24 10:10 1 TAB Morphine Sulfate 1 mg Q4HP PRN IV 08/30/24 16:30 09/08/24 08:50 1 MG Pantoprazole Sodium 40 mg DAILY@0600 PO 09/01/24 06:00 09/08/24 06:02 40 MG Sevelamer HCl 800 mg DAILY@BREAKFAST PO 09/03/24 08:00 09/08/24 08:50 800 MG Ferrous Sulfate 325 mg DAILY PO 09/05/24 10:00 09/08/24 09:51 325 MG Sodium Bicarbonate 650 mg QID PO 09/05/24 18:00 09/08/24 12:10 650 MG Tramadol HCl 50 mg Q8HP PRN PO 09/05/24 13:00 Cancel Hydroxyzine HCl 20 mg Q6HPRN PRN PO 09/06/24 15:30 09/07/24 10:01 20 MG Sodium Bicarbonate 100 ml/Sodium Chloride 1,100 ml @ 75 mls/hr [id number] IV 09/07/24 10:00 09/08/24 00:40 75 MLS/HR Cefepime HCl 50 ml @ 12.5 mls/hr DAILY IV 09/08/24 10:00 09/08/24 09:52 12.5 MLS/HR Trimethoprim/ Sulfamethoxazole 1 tab Q12HR PO 09/08/24 22:00 UNV Examination Patient lying in bed, in no acute distress General: Well-built, afebrile, mucosae are moist Cardiovascular: Regular S1 and S2. No murmurs, gallops or rubs. No JVD elevation. No pedal edema Respiratory: Normal B/L air entry on room air. Clear lung sounds on auscultation Abdomen: Soft, nontender, nondistended, normoactive bowel sounds, no rebound tenderness, no organomegaly, no masses. B/L cva tenderness. Bilateral nephrostomy tube draining serous. Left-sided perinephric drain seen with purulent substance Genitourinary: Deferred MSK/skin: Skin is dry and warm. Resolving erythema and bruise seen on left arm. Lower side Psych/Mental Status: A/Ox3 laboratory and microbiology Laboratory Tests 09/08/24 06:05 Test 09/08/24 06:05 Range/Units Serum Glucose 78 74-106 mg/dL Microbiology Date/Time Source Procedure Growth Status 09/05/24 10:15 Sacrum Gram Stain - Final Resulted 09/05/24 10:15 Wound Culture - Preliminary Stenotrophomonas maltophilia Resulted 09/02/24 23:15 Blood Blood Culture - Final NO GROWTH AFTER 5 DAYS OF INCUBATION. Complete 08/31/24 12:00 Aspirate Gram Stain - Final Complete 08/31/24 12:00 Aspirate Body Fluid Culture - Final Complete 08/16/24 09:54 Voided Urine Urine Culture - Final Complete Labs and/or images reviewed: Labs reviewed by me Problem List/Assessment/Plan Problem List/Assessment/Plan Acute kidney injury multifactorial in the setting of sepsis as well as chronic obstruction Chronic kidney disease due to chronic urinary retention however baseline is unknown Sepsis secondary to urinary tract infection //staghorn calculi Bilateral hydronephrosis status post bilateral nephrostomy tube Acute left perinephric abscess status post drainage 08/31 Chronic bilateral hip dislocation Metabolic acidosis Paraplegia and spina bifida Anemia due to iron deficiency s/p iron overload and desferoxime Hypomagnesemia Hypokalemia Plan BUN/creatinine trending down, GFR improving. Discontinued LR, continue half NS with bicarb. FENA 10% which is intrinsic. Urine protein/creatinine 11 g per day. Given the downtrending hemoglobin, Started oral iron daily, Epogen once administered SC We will continue to monitor, with a GFR drops less than 15 patient may require renal replacement therapy Patient underwent perinephric abscess drainage 08/31 by IR. Prelim culture growing Gram-positive glen. Follow up with culture and sensitivity report Renal NM scan completed by Urology, showed delayed perfusion and function of the right kidney with mild response to Lasix.Reflects a nonfunctioning left kidney. Differential renal function (uptake percent) of 93.9 % by the right kidney and 6.1 % by the left. Bilateral percutaneous nephrostomy tube draining serous secretion Prelim urine and blood cultures were negative Antibiotics per primary team No indication for dialysis for now Fluid restriction 2L / day Plan discussed with patient in which all questions have been answered Plan discussed with Dr. Penn Plan discussed with: Patient Dietary Evaluation Review Recommendations by RD: Dietary education by RD, Protein Supplementation Comments: 1) Initiate Nepro qd. Encourage optimal PO intake 2) Continue Renagel @ 800 mg tid. Advise patient about the importance of limiting intake dairy products, nuts, seeds, soy, beans, dark alexandra, bran, chocolate, etc d/t hyperphosphatemia. 3) Follow-up with urology and nephrology 4) Continue to monitor I&O, labs, and skin integrity Expected Outcomes/Goals: 1) appetite and labs to improve 2) wound to improve 3) follow-up in 3-5 days URMILA HASKINS September 08, 2024 12:29 QUITA PENN MD September 08, 2024 18:43
[2024-09-08] MEDS: SULFAMETHOX W/TRIMETH(800/160MG) DS TAB PO ONE (14:05)
[2024-09-08] MEDS: SULFAMETHOX W/TRIMETH(800/160MG) DS TAB PO SCH (21:06)
--- NOTE | 2024-09-08 21:13 | DVHPNRES ---
Progress Note Date Seen: September 08, 2024 Resident Creating Document: ELEN TAY RESIDENT Medical Necessity Reason Pt with a Central, PICC or Fol: No The following are medically ne: Wilcox Catheter Reason for wilcox catheter: Bladder Retention/Obstruc, Total Immobilization Subjective Review of Systems Patient seen and examined at the bedside Reports feeling better, no fever, shortness of breath Urine output is better No drainage noted in the pigtail catheter in the perinephric abscess Objective vital signs Vital Sign Date Time Temp Pulse Resp B/P (MAP) Pulse Ox O2 Delivery O2 Flow Rate FiO2 09/08/24 20:59 97.5 111 20 119/86 (97) 97 97.5 09/08/24 08:00 Room Air* 0 21 Total Intake and Output 09/07/24 09/07/24 09/08/24 15:00 23:00 07:00 Intake Total 200 ml 700 ml 1800 ml Output Total 900 ml 50 ml Balance 200 ml -200 ml 1750 ml medications Current Medications Medications Dose Ordered Sig/Leeanne Route Start Time Stop Time Status Last Admin Dose Admin Acetaminophen 650 mg Q6HP PRN PO 08/16/24 10:30 09/04/24 12:22 650 MG Nicotine 1 patch DAILY TD 08/17/24 10:00 09/08/24 09:52 1 PATCH Potassium Chloride 100 ml @ 50 mls/hr Q2H IV 08/17/24 08:30 08/17/24 12:29 UNV Ergocalciferol 50,000 unit Q7D PO 08/17/24 12:00 09/07/24 13:05 50,000 UNIT Polyethylene Glycol 17 gm DAILY PO 08/22/24 10:00 09/01/24 14:31 17 GM Melatonin 5 mg HS PO 08/22/24 22:00 09/07/24 21:22 5 MG Ondansetron HCl 4 mg Q4HPRN PRN IV 08/23/24 12:00 08/23/24 18:43 4 MG Acetaminophen/ Hydrocodone Bitart 1 tab Q4HPRN PRN PO 08/29/24 05:00 09/08/24 10:10 1 TAB Morphine Sulfate 1 mg Q4HP PRN IV 08/30/24 16:30 09/08/24 18:16 1 MG Pantoprazole Sodium 40 mg DAILY@0600 PO 09/01/24 06:00 09/08/24 06:02 40 MG Sevelamer HCl 800 mg DAILY@BREAKFAST PO 09/03/24 08:00 09/08/24 08:50 800 MG Ferrous Sulfate 325 mg DAILY PO 09/05/24 10:00 09/08/24 09:51 325 MG Sodium Bicarbonate 650 mg QID PO 09/05/24 18:00 09/08/24 18:15 650 MG Tramadol HCl 50 mg Q8HP PRN PO 09/05/24 13:00 Cancel Hydroxyzine HCl 20 mg Q6HPRN PRN PO 09/06/24 15:30 09/07/24 10:01 20 MG Sodium Bicarbonate 100 ml/Sodium Chloride 1,100 ml @ 75 mls/hr [id number] IV 09/07/24 10:00 09/08/24 00:40 75 MLS/HR Cefepime HCl 50 ml @ 12.5 mls/hr DAILY IV 09/08/24 10:00 09/08/24 09:52 12.5 MLS/HR Trimethoprim/ Sulfamethoxazole 1 tab Q12HR PO 09/08/24 22:00 Minocycline HCl 100 mg Q12HR PO 09/08/24 22:00 Examination Gen - no pallor, no icterus, no cyanosis, no clubbing, no LAD, no edema . Skin - Patients skin is warm and dry. HEENT - normocephalic, atraumatic, moist mucous membranes. Neck - full ROM, no LAD, no JVD Pulmonary - B/L equal breath sounds, no crackles , no wheezing, no stridor. cardiovascular - regular S1,S2 heard, no added sounds, no murmurs heard. GI - soft, nontender abdomen. no hepatospleenomegaly. Bowel sounds normoactive - bilateral nephrostomy tubes with bag and draining well. Left flank 8 Amharic pigtail draining greenish pus Neurological - Patient is A/O X 3 . Bilateral upper extremity strength 5/5, paraplegia, no facial droop, normal speech laboratory and microbiology Laboratory Tests 09/08/24 06:05 Test 09/08/24 06:05 Range/Units Serum Glucose 78 74-106 mg/dL Microbiology Date/Time Source Procedure Growth Status 09/05/24 10:15 Sacrum Gram Stain - Final Resulted 09/05/24 10:15 Wound Culture - Preliminary Stenotrophomonas maltophilia Resulted 09/02/24 23:15 Blood Blood Culture - Final NO GROWTH AFTER 5 DAYS OF INCUBATION. Complete 08/31/24 12:00 Aspirate Gram Stain - Final Complete 08/31/24 12:00 Aspirate Body Fluid Culture - Final Complete 08/16/24 09:54 Voided Urine Urine Culture - Final Complete Problem List/Assessment/Plan Problem List/Assessment/Plan Sepsis due to UTI/perinephric abscess left peripnephric abscess Hematuria likely due to above -No growth in urine and blood culture -Urologic consultation: s/p bilateral nephrostomy tube -status post drainage of the perinephric abscess with IR, drainage catheter in place, cultures pending - ID consulted - repositioning of the drainage catheter in the left perinephric abscess which has seemed to decrease in size - on cefepime 2 g daily Non functional left kidney -Outpatient follow up for nephrectomy -Renal scan: 1. Delayed perfusion and function of the right kidney with mild response to Lasix. Favored high-grade functional obstruction. 2. Minimal radiotracer uptake in the left kidney. Favored to reflect a nonfunctioning kidney. JOSE likely related to hemodynamically mediated and obstruction with CKD unknown stage Left-sided staghorn calculi with moderate hydronephrosis Moderate right hydronephrosis and hydroureter Metabolic acidosis due to CKD, resolved Hyperphosphatemia Vitamin-D deficiency -continue monitor kidney function, status post Wilcox insertion and B/L nephrostomy tubes -CT scan showed bilateral renal calculi with hydronephrosis. -monitoring BUN creatinine - urine output improving - kidney function improving Severe anemia of chronic disease, status post IV iron load, IV Iron toxicity -received 5 bags of IV iron, status post deferoxamine -repeat Iron panel:Iron level normalized 51 Chronic bilateral hip dislocation -Stable History of spina bifida with Paraplegia -Stable Marijuana use disorder -counseled on cessation PUD prophylaxis with Protonix Goals of care discussed with the patient for over 33 minutes. Full code Plan discussed with Dr David Plan discussed with: Patient My Orders My Orders Orders - ELEN TAY RESIDENT Procedure Category Date Status Time Sulfamethoxazole PHA 09/08/24 In Process W/Trimeth Tab (Bactrim 22:00 Transfer Orders XFER 09/08/24 Transmitted 19:09 Discontinue Tele DIANNA 09/08/24 In Process 19:09 Dietary Evaluation Review Recommendations by RD: Dietary education by RD, Protein Supplementation Comments: 1) Initiate Nepro qd. Encourage optimal PO intake 2) Continue Renagel @ 800 mg tid. Advise patient about the importance of limiting intake dairy products, nuts, seeds, soy, beans, dark alexandra, bran, chocolate, etc d/t hyperphosphatemia. 3) Follow-up with urology and nephrology 4) Continue to monitor I&O, labs, and skin integrity Expected Outcomes/Goals: 1) appetite and labs to improve 2) wound to improve 3) follow-up in 3-5 days Date of Service: September 08, 2024 Billing Provider: SID DAVID MD Common Visit Codes: [id number] INP/OBS CARE(HIGH) ELEN TAY RESIDENT September 08, 2024 21:13 SID DAVID MD September 08, 2024 22:28
--- NOTE | 2024-09-08 22:03 | DVHPN2 ---
Consult Progress Note Date Seen: September 08, 2024 Subjective Patient reports: Other (output through nephrostomy tube continues to improve , no longer havign pain at site of tube , no output or redness . tachycardic ) Objective vital signs Vital Sign Date Time Temp Pulse Resp B/P (MAP) Pulse Ox O2 Delivery O2 Flow Rate FiO2 09/08/24 20:59 97.5 111 20 119/86 (97) 97 97.5 09/08/24 20:00 Room Air* 0 21 Total Intake and Output 09/07/24 09/07/24 09/08/24 15:00 23:00 07:00 Intake Total 200 ml 700 ml 1800 ml Output Total 900 ml 50 ml Balance 200 ml -200 ml 1750 ml medications Current Medications Medications Dose Ordered Sig/Leeanne Route Start Time Stop Time Status Last Admin Dose Admin Acetaminophen 650 mg Q6HP PRN PO 08/16/24 10:30 09/04/24 12:22 650 MG Nicotine 1 patch DAILY TD 08/17/24 10:00 09/08/24 09:52 1 PATCH Potassium Chloride 100 ml @ 50 mls/hr Q2H IV 08/17/24 08:30 08/17/24 12:29 UNV Ergocalciferol 50,000 unit Q7D PO 08/17/24 12:00 09/07/24 13:05 50,000 UNIT Polyethylene Glycol 17 gm DAILY PO 08/22/24 10:00 09/01/24 14:31 17 GM Melatonin 5 mg HS PO 08/22/24 22:00 09/08/24 21:06 5 MG Ondansetron HCl 4 mg Q4HPRN PRN IV 08/23/24 12:00 08/23/24 18:43 4 MG Acetaminophen/ Hydrocodone Bitart 1 tab Q4HPRN PRN PO 08/29/24 05:00 09/08/24 21:11 1 TAB Morphine Sulfate 1 mg Q4HP PRN IV 08/30/24 16:30 09/08/24 18:16 1 MG Pantoprazole Sodium 40 mg DAILY@0600 PO 09/01/24 06:00 09/08/24 06:02 40 MG Sevelamer HCl 800 mg DAILY@BREAKFAST PO 09/03/24 08:00 09/08/24 08:50 800 MG Ferrous Sulfate 325 mg DAILY PO 09/05/24 10:00 09/08/24 09:51 325 MG Sodium Bicarbonate 650 mg QID PO 09/05/24 18:00 09/08/24 18:15 650 MG Tramadol HCl 50 mg Q8HP PRN PO 09/05/24 13:00 Cancel Hydroxyzine HCl 20 mg Q6HPRN PRN PO 09/06/24 15:30 09/07/24 10:01 20 MG Sodium Bicarbonate 100 ml/Sodium Chloride 1,100 ml @ 75 mls/hr [id number] IV 09/07/24 10:00 09/08/24 00:40 75 MLS/HR Cefepime HCl 50 ml @ 12.5 mls/hr DAILY IV 09/08/24 10:00 09/08/24 09:52 12.5 MLS/HR Trimethoprim/ Sulfamethoxazole 1 tab Q12HR PO 09/08/24 22:00 09/08/24 21:06 1 TAB Minocycline HCl 100 mg Q12HR PO 09/08/24 22:00 Physical Exam: General: NAD Neck: Supple. No masses. HEENT: PERRL. Normal lids and conjunctiva. Moist mucous membranes. Oropharynx without lesions, exudates or excessive erythema. Normal appearance of the external aspects of the nose and ears. Heart: Regular rhythm, normal rate. No murmur. No lower extremity edema. Lungs: Normal respiratory effort. Clear to auscultation bilaterally. No wheezes. No crackles. Abdomen: Soft. Non-tender. Non-distended. No masses or abdominal hernia. Msk: No digital cyanosis. Normal strength and tone in all 4 limbs. Paraplegia noted. Skin: Warm and dry, no rashes. Neuro: Alert. No facial droop or slurred speech. Extra-ocular movements intact. Sensation intact to soft touch in all 4 limbs. Paraplegia present. Psych: Appropriate mood. Full affect. Oriented to person, place, time, and situation. laboratory and microbiology Laboratory Tests 09/08/24 06:05 Test 09/08/24 06:05 Range/Units Serum Glucose 78 74-106 mg/dL Problem List/Assessment/Plan Problems(with codes): (1) rule out acute appendicitis (2) Intractable headache (3) Urinary tract infection (4) Spina bifida (5) history of spina bifida (6) acute dehydration (7) Malnutrition (8) UTI with possible pyelonephritis Problem List/Assessment/Plan ASSESSMENT AND PLAN: ID Problem List: - Sepsis secondary to urinary tract infection (UTI) and perinephric abscess - Spina bifida with paraplegia - Chronic kidney disease (CKD) stage 3 - Acute kidney injury (JOSE) - Hydronephrosis, bilateral - Staghorn calculi, bilateral - Iron deficiency anemia/anemia of chronic disease - Vitamin D deficiency - History of tobacco and marijuana use Assessment This is a 39-year-old female with a complex medical history notable for spina bifida with secondary paraplegia, chronic stage 3 kidney disease and bilateral staghorn calculi, presenting with acute abdominal pain, dysuria, nausea, vomiting and a recent history of UTI treated with ciprofloxacin. Patient has a significant urological history including self-catheterization and prior bladder expansion. She reports a history of tobacco and marijuana use (current, half pack per day smoker). No relevant family history. Upon admission, patient was febrile and tachycardic. Labs showed leukocytosis, anemia, thrombocytosis, and acute kidney injury. Initial blood cultures were negative; urine cultures grew mixed gram positive glen as well as many bacteria including Streptococcus viridans and diphtheroids, with pyuria, high leukocyte esterase, and abundant mucus. Imaging demonstrated: - Severe left hydronephrosis and hydroureter, moderate right hydronephrosis/hydroureter, with associated inflammatory stranding and findings consistent with ascending UTI and bilateral cystitis. Multiple left renal calculi including staghorn calculi, bilateral chronic hip dislocations, and bilateral renal abscesses. - Nuclear medicine renal perfusion showed delayed perfusion and high-grade obstruction of the right kidney, essentially non-functioning left kidney. - Large volume colonic stool noted on abdominal imaging. Procedures included bilateral nephrostomy tube placements and subsequent repeat exchange and repositioning as well as drainage of a left flank abscess. Cultures from nephrostomy drains confirmed multiple organisms including Streptococcus viridans and diphtheroids. Hospital course notable for persistent fevers and intermittent tachycardia, which have improved over time. Patient received cefepime and was transitioned to meropenem, now being transitioned back to oral ciprofloxacin (500 mg by mouth every 24 hours for 6 weeks) for targeted suppression. Iron deficiency anemia has been managed with intravenous iron. Further iron supplementation is deferred until resolution of sepsis to avoid shunting iron to pathogens. Given the finding of Streptococcus viridans in multiple cultures, consideration is being given to obtain an echocardiogram to rule out endocarditis. 09/05: patient appears to be clinically doing well and awaiting ciprofloxacin treatment to begin today 09/06: possible leaking of prelant abscess outside of nephrostomy tube on the left side 09/07: CT abdomen shows that the left renal abscess is getting smaller , nephrostomy tube requires retraction and has been done . Patient has a prolonged QTC on EKG in the setting of ciprofloxacin use 09/08: Stenotrophomonas growth was identified on culture from the drainage site of the left side Plan - Start oral Minocycline for Stenotrophomonas for 6 weeks - follow up on wound culture to see if it is growing bacteria that requires additional coverage - Continue IV cefepime for 6 weeks and adjust frequency as renal function continues to improve - piccline placement to complete antibiotic coarse - Monitor closely for clinical improvement, with particular attention to resolution of fever and normalization of laboratory parameters prior to discharge - Defer further iron supplementation until completion of infection treatment - Continue nephrology and urology involvement - Echocardiogram to rule out endocarditis - Supportive care for JOSE/CKD; monitor electrolytes and adjust medications as needed - Continue vitamin D supplementation as indicated - Monitor and manage constipation given imaging findings - Smoking cessation counseling - Continue to monitor nephrostomy tubes and percutaneous drains for patency and signs of infection - Hold further iron infusions while infection remains active Plan discussed with: Other Dietary Evaluation Review Recommendations by RD: Dietary education by RD, Protein Supplementation Comments: 1) Initiate Nepro qd. Encourage optimal PO intake 2) Continue Renagel @ 800 mg tid. Advise patient about the importance of limiting intake dairy products, nuts, seeds, soy, beans, dark alexandra, bran, chocolate, etc d/t hyperphosphatemia. 3) Follow-up with urology and nephrology 4) Continue to monitor I&O, labs, and skin integrity Expected Outcomes/Goals: 1) appetite and labs to improve 2) wound to improve 3) follow-up in 3-5 days GAURAV ANGLIN MD September 08, 2024 22:03
--- NOTE | 2024-09-08 22:03 | DVHPN2 ---
Consult Progress Note Date Seen: September 06, 2024 Subjective Patient reports: Other (having some local cellulitis pus at the site of left nephrostomy tube , the site is minimally tender and patient is noting some pain ) Objective vital signs Vital Sign Date Time Temp Pulse Resp B/P (MAP) Pulse Ox O2 Delivery O2 Flow Rate FiO2 09/08/24 20:59 97.5 111 20 119/86 (97) 97 97.5 09/08/24 20:00 Room Air* 0 21 Total Intake and Output 09/07/24 09/07/24 09/08/24 15:00 23:00 07:00 Intake Total 200 ml 700 ml 1800 ml Output Total 900 ml 50 ml Balance 200 ml -200 ml 1750 ml medications Current Medications Medications Dose Ordered Sig/Leeanne Route Start Time Stop Time Status Last Admin Dose Admin Acetaminophen 650 mg Q6HP PRN PO 08/16/24 10:30 09/04/24 12:22 650 MG Nicotine 1 patch DAILY TD 08/17/24 10:00 09/08/24 09:52 1 PATCH Potassium Chloride 100 ml @ 50 mls/hr Q2H IV 08/17/24 08:30 08/17/24 12:29 UNV Ergocalciferol 50,000 unit Q7D PO 08/17/24 12:00 09/07/24 13:05 50,000 UNIT Polyethylene Glycol 17 gm DAILY PO 08/22/24 10:00 09/01/24 14:31 17 GM Melatonin 5 mg HS PO 08/22/24 22:00 09/08/24 21:06 5 MG Ondansetron HCl 4 mg Q4HPRN PRN IV 08/23/24 12:00 08/23/24 18:43 4 MG Acetaminophen/ Hydrocodone Bitart 1 tab Q4HPRN PRN PO 08/29/24 05:00 09/08/24 21:11 1 TAB Morphine Sulfate 1 mg Q4HP PRN IV 08/30/24 16:30 09/08/24 18:16 1 MG Pantoprazole Sodium 40 mg DAILY@0600 PO 09/01/24 06:00 09/08/24 06:02 40 MG Sevelamer HCl 800 mg DAILY@BREAKFAST PO 09/03/24 08:00 09/08/24 08:50 800 MG Ferrous Sulfate 325 mg DAILY PO 09/05/24 10:00 09/08/24 09:51 325 MG Sodium Bicarbonate 650 mg QID PO 09/05/24 18:00 09/08/24 18:15 650 MG Tramadol HCl 50 mg Q8HP PRN PO 09/05/24 13:00 Cancel Hydroxyzine HCl 20 mg Q6HPRN PRN PO 09/06/24 15:30 09/07/24 10:01 20 MG Sodium Bicarbonate 100 ml/Sodium Chloride 1,100 ml @ 75 mls/hr [id number] IV 09/07/24 10:00 09/08/24 00:40 75 MLS/HR Cefepime HCl 50 ml @ 12.5 mls/hr DAILY IV 09/08/24 10:00 09/08/24 09:52 12.5 MLS/HR Trimethoprim/ Sulfamethoxazole 1 tab Q12HR PO 09/08/24 22:00 09/08/24 21:06 1 TAB Minocycline HCl 100 mg Q12HR PO 09/08/24 22:00 Physical Exam: General: NAD Neck: Supple. No masses. HEENT: PERRL. Normal lids and conjunctiva. Moist mucous membranes. Oropharynx without lesions, exudates or excessive erythema. Normal appearance of the external aspects of the nose and ears. Heart: Regular rhythm, normal rate. No murmur. No lower extremity edema. Lungs: Normal respiratory effort. Clear to auscultation bilaterally. No wheezes. No crackles. Abdomen: Soft. Non-tender. Non-distended. No masses or abdominal hernia. Msk: No digital cyanosis. Normal strength and tone in all 4 limbs. Paraplegia noted. Skin: Warm and dry, no rashes. Neuro: Alert. No facial droop or slurred speech. Extra-ocular movements intact. Sensation intact to soft touch in all 4 limbs. Paraplegia present. Psych: Appropriate mood. Full affect. Oriented to person, place, time, and situation. laboratory and microbiology Laboratory Tests 09/08/24 06:05 Test 09/08/24 06:05 Range/Units Serum Glucose 78 74-106 mg/dL Problem List/Assessment/Plan Problems(with codes): (1) rule out acute appendicitis (2) Intractable headache (3) Urinary tract infection (4) Spina bifida (5) history of spina bifida (6) acute dehydration (7) Malnutrition (8) UTI with possible pyelonephritis Problem List/Assessment/Plan ASSESSMENT AND PLAN: ID Problem List: - Sepsis secondary to urinary tract infection (UTI) and perinephric abscess - Spina bifida with paraplegia - Chronic kidney disease (CKD) stage 3 - Acute kidney injury (JOSE) - Hydronephrosis, bilateral - Staghorn calculi, bilateral - Iron deficiency anemia/anemia of chronic disease - Vitamin D deficiency - History of tobacco and marijuana use Assessment This is a 39-year-old female with a complex medical history notable for spina bifida with secondary paraplegia, chronic stage 3 kidney disease and bilateral staghorn calculi, presenting with acute abdominal pain, dysuria, nausea, vomiting and a recent history of UTI treated with ciprofloxacin. Patient has a significant urological history including self-catheterization and prior bladder expansion. She reports a history of tobacco and marijuana use (current, half pack per day smoker). No relevant family history. Upon admission, patient was febrile and tachycardic. Labs showed leukocytosis, anemia, thrombocytosis, and acute kidney injury. Initial blood cultures were negative; urine cultures grew mixed gram positive glen as well as many bacteria including Streptococcus viridans and diphtheroids, with pyuria, high leukocyte esterase, and abundant mucus. Imaging demonstrated: - Severe left hydronephrosis and hydroureter, moderate right hydronephrosis/hydroureter, with associated inflammatory stranding and findings consistent with ascending UTI and bilateral cystitis. Multiple left renal calculi including staghorn calculi, bilateral chronic hip dislocations, and bilateral renal abscesses. - Nuclear medicine renal perfusion showed delayed perfusion and high-grade obstruction of the right kidney, essentially non-functioning left kidney. - Large volume colonic stool noted on abdominal imaging. Procedures included bilateral nephrostomy tube placements and subsequent repeat exchange and repositioning as well as drainage of a left flank abscess. Cultures from nephrostomy drains confirmed multiple organisms including Streptococcus viridans and diphtheroids. Hospital course notable for persistent fevers and intermittent tachycardia, which have improved over time. Patient received cefepime and was transitioned to meropenem, now being transitioned back to oral ciprofloxacin (500 mg by mouth every 24 hours for 6 weeks) for targeted suppression. Iron deficiency anemia has been managed with intravenous iron. Further iron supplementation is deferred until resolution of sepsis to avoid shunting iron to pathogens. Given the finding of Streptococcus viridans in multiple cultures, consideration is being given to obtain an echocardiogram to rule out endocarditis. 09/05: patient appears to be clinically doing well and awaiting ciprofloxacin treatment to begin today 09/06: possible leaking of prelant abscess outside of nephrostomy tube on the left side Plan - follow up on wound culture to see if it is growing bacteria that requires additional coverage - Continue ciprofloxacin 500 mg orally every 24 hours for 6 weeks - Monitor closely for clinical improvement, with particular attention to resolution of fever and normalization of laboratory parameters prior to discharge - Defer further iron supplementation until completion of infection treatment - Continue nephrology and urology involvement - Echocardiogram to rule out endocarditis - Supportive care for JOSE/CKD; monitor electrolytes and adjust medications as needed - Continue vitamin D supplementation as indicated - Monitor and manage constipation given imaging findings - Smoking cessation counseling - Continue to monitor nephrostomy tubes and percutaneous drains for patency and signs of infection - Hold further iron infusions while infection remains active Plan discussed with: Other Dietary Evaluation Review Recommendations by RD: Dietary education by RD, Protein Supplementation Comments: 1) Initiate Nepro qd. Encourage optimal PO intake 2) Continue Renagel @ 800 mg tid. Advise patient about the importance of limiting intake dairy products, nuts, seeds, soy, beans, dark alexandra, bran, chocolate, etc d/t hyperphosphatemia. 3) Follow-up with urology and nephrology 4) Continue to monitor I&O, labs, and skin integrity Expected Outcomes/Goals: 1) appetite and labs to improve 2) wound to improve 3) follow-up in 3-5 days GAURAV ANGLIN MD September 08, 2024 22:03
--- NOTE | 2024-09-08 22:03 | DVHPN2 ---
Consult Progress Note Date Seen: September 07, 2024 Subjective Patient reports: Other (improved urine output from both nephrostomy drains , left nephrostomy tube has been retrtacted several cm and no longer output or redness at the site ) Objective vital signs Vital Sign Date Time Temp Pulse Resp B/P (MAP) Pulse Ox O2 Delivery O2 Flow Rate FiO2 09/08/24 20:59 97.5 111 20 119/86 (97) 97 97.5 09/08/24 20:00 Room Air* 0 21 Total Intake and Output 09/07/24 09/07/24 09/08/24 15:00 23:00 07:00 Intake Total 200 ml 700 ml 1800 ml Output Total 900 ml 50 ml Balance 200 ml -200 ml 1750 ml medications Current Medications Medications Dose Ordered Sig/Leeanne Route Start Time Stop Time Status Last Admin Dose Admin Acetaminophen 650 mg Q6HP PRN PO 08/16/24 10:30 09/04/24 12:22 650 MG Nicotine 1 patch DAILY TD 08/17/24 10:00 09/08/24 09:52 1 PATCH Potassium Chloride 100 ml @ 50 mls/hr Q2H IV 08/17/24 08:30 08/17/24 12:29 UNV Ergocalciferol 50,000 unit Q7D PO 08/17/24 12:00 09/07/24 13:05 50,000 UNIT Polyethylene Glycol 17 gm DAILY PO 08/22/24 10:00 09/01/24 14:31 17 GM Melatonin 5 mg HS PO 08/22/24 22:00 09/08/24 21:06 5 MG Ondansetron HCl 4 mg Q4HPRN PRN IV 08/23/24 12:00 08/23/24 18:43 4 MG Acetaminophen/ Hydrocodone Bitart 1 tab Q4HPRN PRN PO 08/29/24 05:00 09/08/24 21:11 1 TAB Morphine Sulfate 1 mg Q4HP PRN IV 08/30/24 16:30 09/08/24 18:16 1 MG Pantoprazole Sodium 40 mg DAILY@0600 PO 09/01/24 06:00 09/08/24 06:02 40 MG Sevelamer HCl 800 mg DAILY@BREAKFAST PO 09/03/24 08:00 09/08/24 08:50 800 MG Ferrous Sulfate 325 mg DAILY PO 09/05/24 10:00 09/08/24 09:51 325 MG Sodium Bicarbonate 650 mg QID PO 09/05/24 18:00 09/08/24 18:15 650 MG Tramadol HCl 50 mg Q8HP PRN PO 09/05/24 13:00 Cancel Hydroxyzine HCl 20 mg Q6HPRN PRN PO 09/06/24 15:30 09/07/24 10:01 20 MG Sodium Bicarbonate 100 ml/Sodium Chloride 1,100 ml @ 75 mls/hr [id number] IV 09/07/24 10:00 09/08/24 00:40 75 MLS/HR Cefepime HCl 50 ml @ 12.5 mls/hr DAILY IV 09/08/24 10:00 09/08/24 09:52 12.5 MLS/HR Trimethoprim/ Sulfamethoxazole 1 tab Q12HR PO 09/08/24 22:00 09/08/24 21:06 1 TAB Minocycline HCl 100 mg Q12HR PO 09/08/24 22:00 Physical Exam: General: NAD Neck: Supple. No masses. HEENT: PERRL. Normal lids and conjunctiva. Moist mucous membranes. Oropharynx without lesions, exudates or excessive erythema. Normal appearance of the external aspects of the nose and ears. Heart: Regular rhythm, normal rate. No murmur. No lower extremity edema. Lungs: Normal respiratory effort. Clear to auscultation bilaterally. No wheezes. No crackles. Abdomen: Soft. Non-tender. Non-distended. No masses or abdominal hernia. Msk: No digital cyanosis. Normal strength and tone in all 4 limbs. Paraplegia noted. Skin: Warm and dry, no rashes. Neuro: Alert. No facial droop or slurred speech. Extra-ocular movements intact. Sensation intact to soft touch in all 4 limbs. Paraplegia present. Psych: Appropriate mood. Full affect. Oriented to person, place, time, and situation. laboratory and microbiology Laboratory Tests 09/08/24 06:05 Test 09/08/24 06:05 Range/Units Serum Glucose 78 74-106 mg/dL Problem List/Assessment/Plan Problems(with codes): (1) rule out acute appendicitis (2) Intractable headache (3) Urinary tract infection (4) Spina bifida (5) history of spina bifida (6) acute dehydration (7) Malnutrition (8) UTI with possible pyelonephritis Problem List/Assessment/Plan ASSESSMENT AND PLAN: ID Problem List: - Sepsis secondary to urinary tract infection (UTI) and perinephric abscess - Spina bifida with paraplegia - Chronic kidney disease (CKD) stage 3 - Acute kidney injury (JOSE) - Hydronephrosis, bilateral - Staghorn calculi, bilateral - Iron deficiency anemia/anemia of chronic disease - Vitamin D deficiency - History of tobacco and marijuana use Assessment This is a 39-year-old female with a complex medical history notable for spina bifida with secondary paraplegia, chronic stage 3 kidney disease and bilateral staghorn calculi, presenting with acute abdominal pain, dysuria, nausea, vomiting and a recent history of UTI treated with ciprofloxacin. Patient has a significant urological history including self-catheterization and prior bladder expansion. She reports a history of tobacco and marijuana use (current, half pack per day smoker). No relevant family history. Upon admission, patient was febrile and tachycardic. Labs showed leukocytosis, anemia, thrombocytosis, and acute kidney injury. Initial blood cultures were negative; urine cultures grew mixed gram positive glen as well as many bacteria including Streptococcus viridans and diphtheroids, with pyuria, high leukocyte esterase, and abundant mucus. Imaging demonstrated: - Severe left hydronephrosis and hydroureter, moderate right hydronephrosis/hydroureter, with associated inflammatory stranding and findings consistent with ascending UTI and bilateral cystitis. Multiple left renal calculi including staghorn calculi, bilateral chronic hip dislocations, and bilateral renal abscesses. - Nuclear medicine renal perfusion showed delayed perfusion and high-grade obstruction of the right kidney, essentially non-functioning left kidney. - Large volume colonic stool noted on abdominal imaging. Procedures included bilateral nephrostomy tube placements and subsequent repeat exchange and repositioning as well as drainage of a left flank abscess. Cultures from nephrostomy drains confirmed multiple organisms including Streptococcus viridans and diphtheroids. Hospital course notable for persistent fevers and intermittent tachycardia, which have improved over time. Patient received cefepime and was transitioned to meropenem, now being transitioned back to oral ciprofloxacin (500 mg by mouth every 24 hours for 6 weeks) for targeted suppression. Iron deficiency anemia has been managed with intravenous iron. Further iron supplementation is deferred until resolution of sepsis to avoid shunting iron to pathogens. Given the finding of Streptococcus viridans in multiple cultures, consideration is being given to obtain an echocardiogram to rule out endocarditis. 09/05: patient appears to be clinically doing well and awaiting ciprofloxacin treatment to begin today 09/06: possible leaking of prelant abscess outside of nephrostomy tube on the left side 09/07: CT abdomen shows that the left renal abscess is getting smaller , nephrostomy tube requires retraction and has been done . Patient has a prolonged QTC on EKG in the setting of ciprofloxacin use Plan - follow up on wound culture to see if it is growing bacteria that requires additional coverage - Stop ciprofloxacin and start cefepime - Monitor closely for clinical improvement, with particular attention to resolution of fever and normalization of laboratory parameters prior to discharge - Defer further iron supplementation until completion of infection treatment - Continue nephrology and urology involvement - Echocardiogram to rule out endocarditis - Supportive care for JOSE/CKD; monitor electrolytes and adjust medications as needed - Continue vitamin D supplementation as indicated - Monitor and manage constipation given imaging findings - Smoking cessation counseling - Continue to monitor nephrostomy tubes and percutaneous drains for patency and signs of infection - Hold further iron infusions while infection remains active Plan discussed with: Other Dietary Evaluation Review Recommendations by RD: Dietary education by RD, Protein Supplementation Comments: 1) Initiate Nepro qd. Encourage optimal PO intake 2) Continue Renagel @ 800 mg tid. Advise patient about the importance of limiting intake dairy products, nuts, seeds, soy, beans, dark alexandra, bran, chocolate, etc d/t hyperphosphatemia. 3) Follow-up with urology and nephrology 4) Continue to monitor I&O, labs, and skin integrity Expected Outcomes/Goals: 1) appetite and labs to improve 2) wound to improve 3) follow-up in 3-5 days GAURAV ANGLIN MD September 08, 2024 22:03
[2024-09-09] VITALS (7 sets, daily range): BP systolic 105–123; BP diastolic 74–81; PULSE 91–111; RESP 16–20; TEMP 96.1–98.4; O2SAT 95–98
[2024-09-09 06:07] LABS: Lymphocytes # (auto) 1.1 10 ^3/uL (0.4-5.4); Monocytes # (auto) 0.6 10 ^3/uL (0-1.3); Nucleated Red Blood Cells % 0.1 %; White Blood Cell 5.9 10^3/uL (4.4-10.8)
[2024-09-09 06:13] LABS: Basophils # (auto) 0.1 10 ^3/uL (0-0.2); Eosinophils # (auto) 0.4 10 ^3/uL (0-0.8); Eosinophils % (auto) 5.9 % (0.0-7.0); Hematocrit 22.4 % (36.0-46.0); Hemoglobin 7.1 g/dL (12.2-16.2); Lymphocytes % (auto) 17.8 % (10.0-50.0); Mean Corpuscular Hemoglobin 26.1 pg (28.0-32.0); Mean Corpuscular Hgb Conc. 31.6 g/dL (32.0-36.0); Mean Corpuscular Volume 82.8 fL (80.0-100.0); Monocytes % (auto) 9.7 % (0.0-12.0); Neutrophils # (auto) 3.9 10 ^3/uL (1.6-8.6); Neutrophils % (auto) 65.6 % (37.0-80.0); Platelet Count (auto) 251 10^3/uL (140-450); Red Cell Distribution Width 18.9 % (11.8-14.3)
[2024-09-09 06:29] LABS: Anion Gap 10 (5-15); Potassium 4.5 mmol/L (3.5-5.1); Sodium 140 mmol/L (136-145)
[2024-09-09 06:35] LABS: BUN/Creatinine Ratio 15.1 (10.0-20.0); Glucose 75 mg/dL (74-106)
[2024-09-09 06:36] LABS: Blood Urea Nitrogen 38 mg/dL (9-23); Calcium 7.5 mg/dL (8.7-10.4); Carbon Dioxide 19 mmol/L (20-31); Chloride 111 mmol/L (98-107)
[2024-09-09 06:37] LABS: Phosphorus 4.3 mg/dL (2.4-5.1)
[2024-09-09] MEDS ORDERED: SULFAMETHOX W/TRIMETH(800/160MG) DS TAB PO SCH (10:00)
--- NOTE | 2024-09-09 13:43 | DVHPN2 ---
Progress Note Date Seen: September 09, 2024 Resident Creating Document: URMILA HASKINS RESIDENT Medical Necessity Reason Pt with a Central, PICC or Fol: No The following are medically ne: Wilcox Catheter Reason for wilcox catheter: Bladder Retention/Obstruc, Total Immobilization Subjective Review of Systems This is a 38-year-old female with past medical history of paraplegia, staghorn calculi, hydronephrosis who presented to the ER with chief complaint of suprapubic pain. Patient was diagnosed with UTI along with bilateral kidney stones. Nephrology was consulted. Patient underwent bilateral nephrostomy tube placement 08/18 by IR, repeat CT scan showed resolving hydronephrosis. Left perirenal abscess was also seen on the repeat CT scan for which IR was consulted but patient declined any treatment. Prelim urine cultures are negative. Prelim blood cultures are negative. Patient was started on IV cefepime which was switched to IV meropenem. Given the iron-deficiency, patient received 5 bags of iron and later iron chelator deferoxamine. 08/25 - Patient seen and examined at the bedside. Overnight, left nephrostomy tube draining 275 cc, right draining 350 cc. Patient agreed to be seen by IR. Creatinine downtrending 08/26 - Patient seen and examined at the bedside. Increasing u/o via blnt. Pending IR drainage 08/27 - patient seen and examined at the bedside. Per IR, no percutaneous sepsis, need surgical consult. Surgical consultation pending. 08/28 - patient seen and examined at the bedside. Surgeon recommended IR. 08/31-patient seen and examined at the bedside. Underwent IR guided drainage of the perinephric abscess. 09/01 - patient is seen and examined at the bedside. 09/03-patient seen and examined. Reports feeling warm and cold, sweating. Overnight low-grade fever 99.8 F. patient received 750 cc of NS overnight given tachycardia and fever episodes. Creatinine trending up to 3.1. Left perirenal abscess drainage growing Gram-positive glen. Blood cultures negative. Wilcox output is improving 09/04-patient seen and examined at the bedside. Reports feeling better. Vitally stable. Urine output 800 cc. Left upper extremity bruising resolving. GFR steadily decreasing. H&H downtrending. Iron p.o. started 09/07-patient seen and examined at bedside. Reports that the left side drainage leaking. CT abdomen shows Decreased size of the left perirenal abscess with the drain in stable position. Recommend retracting the drain by 4 cm. Discontinued LR, started half NS with bicarb given acidosis. 09/08-patient is seen and examined better. Underwent left perinephric abscess drainage reposition yesterday. IV Cipro to cefepime. Creatinine trending down, GFR trending up. 09/09 - patient seen and examined at the bedside. Reports left-sided back pain. Urine output in total 3000 cc per 24 hours. Sacral wound culture growing stenotrophomonas. Other Systems: patient seen and examined by myself today on rounds with the medicine resident, I agree with the assessment and plan Objective vital signs Vital Sign Date Time Temp Pulse Resp B/P (MAP) Pulse Ox O2 Delivery O2 Flow Rate FiO2 09/09/24 13:00 97.6 107 20 105/80 (88) 98 97.6 09/09/24 08:00 Room Air* 0 21 Total Intake and Output 09/08/24 09/08/24 09/09/24 15:00 23:00 07:00 Intake Total 50 ml 1560 ml 1800 ml Output Total 1150 ml 1280 ml 900 ml Balance -1100 ml 280 ml 900 ml medications Current Medications Medications Dose Ordered Sig/Leeanne Route Start Time Stop Time Status Last Admin Dose Admin Acetaminophen 650 mg Q6HP PRN PO 08/16/24 10:30 09/04/24 12:22 650 MG Nicotine 1 patch DAILY TD 08/17/24 10:00 09/09/24 08:35 1 PATCH Potassium Chloride 100 ml @ 50 mls/hr Q2H IV 08/17/24 08:30 08/17/24 12:29 UNV Ergocalciferol 50,000 unit Q7D PO 08/17/24 12:00 09/07/24 13:05 50,000 UNIT Polyethylene Glycol 17 gm DAILY PO 08/22/24 10:00 09/01/24 14:31 17 GM Melatonin 5 mg HS PO 08/22/24 22:00 09/08/24 21:06 5 MG Ondansetron HCl 4 mg Q4HPRN PRN IV 08/23/24 12:00 08/23/24 18:43 4 MG Acetaminophen/ Hydrocodone Bitart 1 tab Q4HPRN PRN PO 08/29/24 05:00 09/09/24 12:51 1 TAB Morphine Sulfate 1 mg Q4HP PRN IV 08/30/24 16:30 09/09/24 09:41 1 MG Pantoprazole Sodium 40 mg DAILY@0600 PO 09/01/24 06:00 09/09/24 06:06 40 MG Sevelamer HCl 800 mg DAILY@BREAKFAST PO 09/03/24 08:00 09/09/24 08:34 800 MG Ferrous Sulfate 325 mg DAILY PO 09/05/24 10:00 09/09/24 08:35 325 MG Sodium Bicarbonate 650 mg QID PO 09/05/24 18:00 09/09/24 12:41 650 MG Tramadol HCl 50 mg Q8HP PRN PO 09/05/24 13:00 Cancel Hydroxyzine HCl 20 mg Q6HPRN PRN PO 09/06/24 15:30 09/07/24 10:01 20 MG Sodium Bicarbonate 100 ml/Sodium Chloride 1,100 ml @ 75 mls/hr [id number] IV 09/07/24 10:00 09/09/24 06:06 75 MLS/HR Cefepime HCl 50 ml @ 12.5 mls/hr DAILY IV 09/08/24 10:00 09/09/24 08:36 12.5 MLS/HR Minocycline HCl 100 mg Q12HR PO 09/08/24 22:00 09/09/24 09:32 100 MG Examination Patient lying in bed, in no acute distress General: Well-built, afebrile, mucosae are moist Cardiovascular: Regular S1 and S2. No murmurs, gallops or rubs. No JVD elevation. No pedal edema Respiratory: Normal B/L air entry on room air. Clear lung sounds on auscultation Abdomen: Soft, nontender, nondistended, normoactive bowel sounds, no rebound tenderness, no organomegaly, no masses. B/L cva tenderness. Bilateral nephrostomy tube draining serous. Left-sided perinephric drain seen with purulent substance Genitourinary: Deferred MSK/skin: Skin is dry and warm. Resolving erythema and bruise seen on left arm. Psych/Mental Status: A/Ox3 laboratory and microbiology Laboratory Tests 09/09/24 05:30 Test 09/09/24 05:30 Range/Units Serum Glucose 75 74-106 mg/dL Microbiology Date/Time Source Procedure Growth Status 09/05/24 10:15 Sacrum Gram Stain - Final Resulted 09/05/24 10:15 Wound Culture - Preliminary Stenotrophomonas maltophilia Resulted 09/02/24 23:15 Blood Blood Culture - Final NO GROWTH AFTER 5 DAYS OF INCUBATION. Complete 08/31/24 12:00 Aspirate Gram Stain - Final Complete 08/31/24 12:00 Aspirate Body Fluid Culture - Final Complete 08/16/24 09:54 Voided Urine Urine Culture - Final Complete Labs and/or images reviewed: Labs reviewed by me, Image(s) reviewed by me Problem List/Assessment/Plan Problem List/Assessment/Plan Acute kidney injury multifactorial in the setting of sepsis as well as chronic obstruction Chronic kidney disease due to chronic urinary retention however baseline is unknown Sepsis secondary to urinary tract infection //staghorn calculi Bilateral hydronephrosis status post bilateral nephrostomy tube Acute left perinephric abscess status post drainage 08/31 Chronic bilateral hip dislocation Metabolic acidosis Paraplegia and spina bifida Anemia due to iron deficiency s/p iron overload and desferoxime Hypomagnesemia Hypokalemia Plan BUN/creatinine trending down, GFR improving. Discontinued LR, continue half NS with bicarb. FENA 10% which is intrinsic. Urine protein/creatinine 11 g per day. Given the downtrending hemoglobin, Started oral iron daily, Epogen once administered SC We will continue to monitor, with a GFR drops less than 15 patient may require renal replacement therapy Patient underwent perinephric abscess drainage 08/31 by IR. Prelim culture growing Gram-positive glen. Follow up with culture and sensitivity report Renal NM scan completed by Urology, showed delayed perfusion and function of the right kidney with mild response to Lasix.Reflects a nonfunctioning left kidney. Differential renal function (uptake percent) of 93.9 % by the right kidney and 6.1 % by the left. Bilateral percutaneous nephrostomy tube draining serous secretion Prelim urine and blood cultures were negative Sacral wound culture growing stenotrophomonas. Antibiotics per primary team No indication for dialysis for now Fluid restriction 2L / day Plan discussed with patient in which all questions have been answered Plan discussed with Dr. Penn Plan discussed with: Patient Dietary Evaluation Review Recommendations by RD: Dietary education by RD, Protein Supplementation Comments: 1) Initiate Nepro qd. Encourage optimal PO intake 2) Continue Renagel @ 800 mg tid. Advise patient about the importance of limiting intake dairy products, nuts, seeds, soy, beans, dark alexandra, bran, chocolate, etc d/t hyperphosphatemia. 3) Follow-up with urology and nephrology 4) Continue to monitor I&O, labs, and skin integrity Expected Outcomes/Goals: 1) appetite and labs to improve 2) wound to improve 3) follow-up in 3-5 days URMILA HASKINS September 09, 2024 13:43 QUITA PENN MD September 09, 2024 16:07
--- NOTE | 2024-09-09 21:27 | DVHPNRES ---
Progress Note Date Seen: September 09, 2024 Resident Creating Document: ELEN TAY RESIDENT Medical Necessity Reason Pt with a Central, PICC or Fol: No The following are medically ne: Wilcox Catheter Reason for wilcox catheter: Bladder Retention/Obstruc, Total Immobilization Subjective Review of Systems Patient seen and examined at the bedside Reports feeling better, no fever, shortness of breath Urine output is better No drainage noted in the pigtail catheter in the perinephric abscess Objective vital signs Vital Sign Date Time Temp Pulse Resp B/P (MAP) Pulse Ox O2 Delivery O2 Flow Rate FiO2 09/09/24 17:44 108 18 121/90 09/09/24 16:30 98.4 98 98.4 09/09/24 08:00 Room Air* 0 21 Total Intake and Output 09/08/24 09/08/24 09/09/24 15:00 23:00 07:00 Intake Total 50 ml 1560 ml 1800 ml Output Total 1150 ml 1280 ml 900 ml Balance -1100 ml 280 ml 900 ml medications Current Medications Medications Dose Ordered Sig/Leeanne Route Start Time Stop Time Status Last Admin Dose Admin Acetaminophen 650 mg Q6HP PRN PO 08/16/24 10:30 09/04/24 12:22 650 MG Nicotine 1 patch DAILY TD 08/17/24 10:00 09/09/24 08:35 1 PATCH Potassium Chloride 100 ml @ 50 mls/hr Q2H IV 08/17/24 08:30 08/17/24 12:29 UNV Ergocalciferol 50,000 unit Q7D PO 08/17/24 12:00 09/07/24 13:05 50,000 UNIT Polyethylene Glycol 17 gm DAILY PO 08/22/24 10:00 09/01/24 14:31 17 GM Melatonin 5 mg HS PO 08/22/24 22:00 09/08/24 21:06 5 MG Ondansetron HCl 4 mg Q4HPRN PRN IV 08/23/24 12:00 08/23/24 18:43 4 MG Acetaminophen/ Hydrocodone Bitart 1 tab Q4HPRN PRN PO 08/29/24 05:00 09/09/24 20:33 1 TAB Morphine Sulfate 1 mg Q4HP PRN IV 08/30/24 16:30 09/09/24 17:14 1 MG Pantoprazole Sodium 40 mg DAILY@0600 PO 09/01/24 06:00 09/09/24 06:06 40 MG Sevelamer HCl 800 mg DAILY@BREAKFAST PO 09/03/24 08:00 09/09/24 08:34 800 MG Ferrous Sulfate 325 mg DAILY PO 09/05/24 10:00 09/09/24 08:35 325 MG Sodium Bicarbonate 650 mg QID PO 09/05/24 18:00 09/09/24 18:08 650 MG Tramadol HCl 50 mg Q8HP PRN PO 09/05/24 13:00 Cancel Hydroxyzine HCl 20 mg Q6HPRN PRN PO 09/06/24 15:30 09/09/24 18:08 20 MG Sodium Bicarbonate 100 ml/Sodium Chloride 1,100 ml @ 75 mls/hr [id number] IV 09/07/24 10:00 09/09/24 06:06 75 MLS/HR Cefepime HCl 50 ml @ 12.5 mls/hr DAILY IV 09/08/24 10:00 09/09/24 08:36 12.5 MLS/HR Minocycline HCl 100 mg Q12HR PO 09/08/24 22:00 09/09/24 09:32 100 MG Examination Gen - no pallor, no icterus, no cyanosis, no clubbing, no LAD, no edema . Skin - Patients skin is warm and dry. HEENT - normocephalic, atraumatic, moist mucous membranes. Neck - full ROM, no LAD, no JVD Pulmonary - B/L equal breath sounds, no crackles , no wheezing, no stridor. cardiovascular - regular S1,S2 heard, no added sounds, no murmurs heard. GI - soft, nontender abdomen. no hepatospleenomegaly. Bowel sounds normoactive - bilateral nephrostomy tubes with bag and draining well. Left flank 8 Nepali pigtail no drainage noted Neurological - Patient is A/O X 3 . Bilateral upper extremity strength 5/5, paraplegia, no facial droop, normal speech laboratory and microbiology Laboratory Tests 09/09/24 05:30 Test 09/09/24 05:30 Range/Units Serum Glucose 75 74-106 mg/dL Microbiology Date/Time Source Procedure Growth Status 09/05/24 10:15 Sacrum Gram Stain - Final Resulted 09/05/24 10:15 Wound Culture - Preliminary Stenotrophomonas maltophilia Resulted 09/02/24 23:15 Blood Blood Culture - Final NO GROWTH AFTER 5 DAYS OF INCUBATION. Complete 08/31/24 12:00 Aspirate Gram Stain - Final Complete 08/31/24 12:00 Aspirate Body Fluid Culture - Final Complete 08/16/24 09:54 Voided Urine Urine Culture - Final Complete Problem List/Assessment/Plan Problem List/Assessment/Plan Sepsis due to UTI/perinephric abscess left peripnephric abscess Hematuria likely due to above -No growth in urine and blood culture -Urologic consultation: s/p bilateral nephrostomy tube -status post drainage of the perinephric abscess with IR, drainage catheter in place, cultures pending - ID consulted - repositioning of the drainage catheter in the left perinephric abscess which has seemed to decrease in size - on cefepime 2 g daily Non functional left kidney -Outpatient follow up for nephrectomy -Renal scan: 1. Delayed perfusion and function of the right kidney with mild response to Lasix. Favored high-grade functional obstruction. 2. Minimal radiotracer uptake in the left kidney. Favored to reflect a nonfunctioning kidney. JOSE likely related to hemodynamically mediated and obstruction with CKD unknown stage Left-sided staghorn calculi with moderate hydronephrosis Moderate right hydronephrosis and hydroureter Metabolic acidosis due to CKD, resolved Hyperphosphatemia Vitamin-D deficiency -continue monitor kidney function, status post Wilcox insertion and B/L nephrostomy tubes -CT scan showed bilateral renal calculi with hydronephrosis. -monitoring BUN creatinine - urine output improving - kidney function improving Severe anemia of chronic disease, status post IV iron load, IV Iron toxicity -received 5 bags of IV iron, status post deferoxamine -repeat Iron panel:Iron level normalized 51 Chronic bilateral hip dislocation -Stable History of spina bifida with Paraplegia -Stable Marijuana use disorder -counseled on cessation PUD prophylaxis with Protonix Goals of care discussed with the patient for over 23 minutes. Full code Plan discussed with Dr Chavez Plan discussed with: Patient My Orders My Orders Orders - ELEN TAY RESIDENT Procedure Category Date Status Time * Boiler Attendant CONS 09/09/24 Transmitted Consult Apply Barrier Cream DIANNA 09/09/24 In Process 10:05 * Radiologist Consult CONS 09/10/24 Verified 06:00 Complete Blood Count LAB 09/10/24 Verified 04:00 Basic Metabolic Panel LAB 09/10/24 Verified 04:00 Phosphorus LAB 09/10/24 Verified 04:00 Dietary Evaluation Review Recommendations by RD: Dietary education by RD, Protein Supplementation Comments: 1) Initiate Nepro qd. Encourage optimal PO intake 2) Continue Renagel @ 800 mg tid. Advise patient about the importance of limiting intake dairy products, nuts, seeds, soy, beans, dark alexandra, bran, chocolate, etc d/t hyperphosphatemia. 3) Follow-up with urology and nephrology 4) Continue to monitor I&O, labs, and skin integrity Expected Outcomes/Goals: 1) appetite and labs to improve 2) wound to improve 3) follow-up in 3-5 days Date of Service: September 09, 2024 Billing Provider: JAZMINE CHAVEZ MD Common Visit Codes: [id number] INP/OBS CARE(HIGH) ELEN TAY RESIDENT September 09, 2024 21:27 JAZMINE CHAVEZ MD September 09, 2024 22:41
--- NOTE | 2024-09-09 22:08 | DVHPN2 ---
Consult Progress Note Date Seen: September 09, 2024 Subjective Patient reports: Other (bactrum was discontinued out of concern for patients renal function , outputting good urine through nephrostomy tubes ) Objective vital signs Vital Sign Date Time Temp Pulse Resp B/P (MAP) Pulse Ox O2 Delivery O2 Flow Rate FiO2 09/09/24 21:59 103 16 123/81 09/09/24 21:00 97.6 98 97.6 09/09/24 08:00 Room Air* 0 21 Total Intake and Output 09/08/24 09/08/24 09/09/24 15:00 23:00 07:00 Intake Total 50 ml 1560 ml 1800 ml Output Total 1150 ml 1280 ml 900 ml Balance -1100 ml 280 ml 900 ml medications Current Medications Medications Dose Ordered Sig/Leeanne Route Start Time Stop Time Status Last Admin Dose Admin Acetaminophen 650 mg Q6HP PRN PO 08/16/24 10:30 09/04/24 12:22 650 MG Nicotine 1 patch DAILY TD 08/17/24 10:00 09/09/24 08:35 1 PATCH Potassium Chloride 100 ml @ 50 mls/hr Q2H IV 08/17/24 08:30 08/17/24 12:29 UNV Ergocalciferol 50,000 unit Q7D PO 08/17/24 12:00 09/07/24 13:05 50,000 UNIT Polyethylene Glycol 17 gm DAILY PO 08/22/24 10:00 09/01/24 14:31 17 GM Melatonin 5 mg HS PO 08/22/24 22:00 09/09/24 21:56 5 MG Ondansetron HCl 4 mg Q4HPRN PRN IV 08/23/24 12:00 08/23/24 18:43 4 MG Acetaminophen/ Hydrocodone Bitart 1 tab Q4HPRN PRN PO 08/29/24 05:00 09/09/24 20:33 1 TAB Morphine Sulfate 1 mg Q4HP PRN IV 08/30/24 16:30 09/09/24 21:59 1 MG Pantoprazole Sodium 40 mg DAILY@0600 PO 09/01/24 06:00 09/09/24 06:06 40 MG Sevelamer HCl 800 mg DAILY@BREAKFAST PO 09/03/24 08:00 09/09/24 08:34 800 MG Ferrous Sulfate 325 mg DAILY PO 09/05/24 10:00 09/09/24 08:35 325 MG Sodium Bicarbonate 650 mg QID PO 09/05/24 18:00 09/09/24 21:56 650 MG Tramadol HCl 50 mg Q8HP PRN PO 09/05/24 13:00 Cancel Hydroxyzine HCl 20 mg Q6HPRN PRN PO 09/06/24 15:30 09/09/24 18:08 20 MG Sodium Bicarbonate 100 ml/Sodium Chloride 1,100 ml @ 75 mls/hr [id number] IV 09/07/24 10:00 09/09/24 06:06 75 MLS/HR Cefepime HCl 50 ml @ 12.5 mls/hr DAILY IV 09/08/24 10:00 09/09/24 08:36 12.5 MLS/HR Minocycline HCl 100 mg Q12HR PO 09/08/24 22:00 09/09/24 21:56 100 MG Physical Exam: General: NAD Neck: Supple. No masses. HEENT: PERRL. Normal lids and conjunctiva. Moist mucous membranes. Oropharynx without lesions, exudates or excessive erythema. Normal appearance of the external aspects of the nose and ears. Heart: Regular rhythm, normal rate. No murmur. No lower extremity edema. Lungs: Normal respiratory effort. Clear to auscultation bilaterally. No wheezes. No crackles. Abdomen: Soft. Non-tender. Non-distended. No masses or abdominal hernia. Msk: No digital cyanosis. Normal strength and tone in all 4 limbs. Paraplegia noted. Skin: Warm and dry, no rashes. Neuro: Alert. No facial droop or slurred speech. Extra-ocular movements intact. Sensation intact to soft touch in all 4 limbs. Paraplegia present. Psych: Appropriate mood. Full affect. Oriented to person, place, time, and situation. laboratory and microbiology Laboratory Tests 09/09/24 05:30 Test 09/09/24 05:30 Range/Units Serum Glucose 75 74-106 mg/dL Problem List/Assessment/Plan Problems(with codes): (1) rule out acute appendicitis (2) Intractable headache (3) Urinary tract infection (4) Spina bifida (5) history of spina bifida (6) acute dehydration (7) Malnutrition (8) UTI with possible pyelonephritis Problem List/Assessment/Plan ASSESSMENT AND PLAN: ID Problem List: - Sepsis secondary to urinary tract infection (UTI) and perinephric abscess - Spina bifida with paraplegia - Chronic kidney disease (CKD) stage 3 - Acute kidney injury (JOSE) - Hydronephrosis, bilateral - Staghorn calculi, bilateral - Iron deficiency anemia/anemia of chronic disease - Vitamin D deficiency - History of tobacco and marijuana use Assessment This is a 39-year-old female with a complex medical history notable for spina bifida with secondary paraplegia, chronic stage 3 kidney disease and bilateral staghorn calculi, presenting with acute abdominal pain, dysuria, nausea, vomiting and a recent history of UTI treated with ciprofloxacin. Patient has a significant urological history including self-catheterization and prior bladder expansion. She reports a history of tobacco and marijuana use (current, half pack per day smoker). No relevant family history. Upon admission, patient was febrile and tachycardic. Labs showed leukocytosis, anemia, thrombocytosis, and acute kidney injury. Initial blood cultures were negative; urine cultures grew mixed gram positive glen as well as many bacteria including Streptococcus viridans and diphtheroids, with pyuria, high leukocyte esterase, and abundant mucus. Imaging demonstrated: - Severe left hydronephrosis and hydroureter, moderate right hydronephrosis/hydroureter, with associated inflammatory stranding and findings consistent with ascending UTI and bilateral cystitis. Multiple left renal calculi including staghorn calculi, bilateral chronic hip dislocations, and bilateral renal abscesses. - Nuclear medicine renal perfusion showed delayed perfusion and high-grade obstruction of the right kidney, essentially non-functioning left kidney. - Large volume colonic stool noted on abdominal imaging. Procedures included bilateral nephrostomy tube placements and subsequent repeat exchange and repositioning as well as drainage of a left flank abscess. Cultures from nephrostomy drains confirmed multiple organisms including Streptococcus viridans and diphtheroids. Hospital course notable for persistent fevers and intermittent tachycardia, which have improved over time. Patient received cefepime and was transitioned to meropenem, now being transitioned back to oral ciprofloxacin (500 mg by mouth every 24 hours for 6 weeks) for targeted suppression. Iron deficiency anemia has been managed with intravenous iron. Further iron supplementation is deferred until resolution of sepsis to avoid shunting iron to pathogens. Given the finding of Streptococcus viridans in multiple cultures, consideration is being given to obtain an echocardiogram to rule out endocarditis. 09/05: patient appears to be clinically doing well and awaiting ciprofloxacin treatment to begin today 09/06: possible leaking of prelant abscess outside of nephrostomy tube on the left side 09/07: CT abdomen shows that the left renal abscess is getting smaller , nephrostomy tube requires retraction and has been done . Patient has a prolonged QTC on EKG in the setting of ciprofloxacin use 09/08: Stenotrophomonas growth was identified on culture from the drainage site of the left side 09/09: tolerating oral minocycline which should adequately cover patients Stenotrophomonas growth Plan - Start oral Minocycline for Stenotrophomonas for 6 weeks - follow up on wound culture to see if it is growing bacteria that requires additional coverage - Continue IV cefepime for 6 weeks and adjust frequency as renal function continues to improve - piccline placement to complete antibiotic coarse - Monitor closely for clinical improvement, with particular attention to resolution of fever and normalization of laboratory parameters prior to discharge - Defer further iron supplementation until completion of infection treatment - Continue nephrology and urology involvement - Echocardiogram to rule out endocarditis - Supportive care for JOSE/CKD; monitor electrolytes and adjust medications as needed - Continue vitamin D supplementation as indicated - Monitor and manage constipation given imaging findings - Smoking cessation counseling - Continue to monitor nephrostomy tubes and percutaneous drains for patency and signs of infection - Hold further iron infusions while infection remains active Plan discussed with: Other Dietary Evaluation Review Recommendations by RD: Dietary education by RD, Protein Supplementation Comments: 1) Initiate Nepro qd. Encourage optimal PO intake 2) Continue Renagel @ 800 mg tid. Advise patient about the importance of limiting intake dairy products, nuts, seeds, soy, beans, dark alexandra, bran, chocolate, etc d/t hyperphosphatemia. 3) Follow-up with urology and nephrology 4) Continue to monitor I&O, labs, and skin integrity Expected Outcomes/Goals: 1) appetite and labs to improve 2) wound to improve 3) follow-up in 3-5 days GAURAV ANGLIN MD September 09, 2024 22:08
[2024-09-10] VITALS (11 sets, daily range): BP systolic 106–124; BP diastolic 68–90; PULSE 89–110; RESP 16–18; TEMP 96.2–98.3; O2SAT 96–98
[2024-09-10 06:41] LABS: Lymphocytes # (auto) 0.9 10 ^3/uL (0.4-5.4); Monocytes # (auto) 0.8 10 ^3/uL (0-1.3); Nucleated Red Blood Cells % 0.1 %
[2024-09-10 06:43] LABS: Potassium 4.6 mmol/L (3.5-5.1); Sodium 142 mmol/L (136-145)
[2024-09-10 06:44] LABS: Anion Gap 10 (5-15); Basophils # (auto) 0 10 ^3/uL (0-0.2); Basophils % (auto) 0.6 % (0.0-2.0); Carbon Dioxide 22 mmol/L (20-31); Eosinophils # (auto) 0.1 10 ^3/uL (0-0.8); Eosinophils % (auto) 2.3 % (0.0-7.0); Hematocrit 21.6 % (36.0-46.0); Lymphocytes % (auto) 14.6 % (10.0-50.0); Mean Corpuscular Hemoglobin 26.2 pg (28.0-32.0); Mean Corpuscular Volume 81.7 fL (80.0-100.0); Monocytes % (auto) 11.9 % (0.0-12.0); Neutrophils # (auto) 4.5 10 ^3/uL (1.6-8.6); Neutrophils % (auto) 70.6 % (37.0-80.0); Platelet Count (auto) 238 10^3/uL (140-450); Red Blood Cells 2.64 10^6/uL (4.0-5.20); Red Cell Distribution Width 18.5 % (11.8-14.3); White Blood Cell 6.4 10^3/uL (4.4-10.8)
[2024-09-10 06:49] LABS: BUN/Creatinine Ratio 15.4 (10.0-20.0); Glucose 79 mg/dL (74-106)
[2024-09-10 07:02] LABS: Chloride 110 mmol/L (98-107)
[2024-09-10 07:03] LABS: Blood Urea Nitrogen 40 mg/dL (9-23); Calcium 7.8 mg/dL (8.7-10.4)
[2024-09-10 07:32] LABS: Hemoglobin 6.9 g/dL (12.2-16.2)
--- NOTE | 2024-09-10 10:43 | DVHPN2 ---
Progress Note Date Seen: September 10, 2024 Resident Creating Document: URMILA HASKINS RESIDENT Medical Necessity Reason Pt with a Central, PICC or Fol: No The following are medically ne: Wilcox Catheter Reason for wilcox catheter: Bladder Retention/Obstruc, Total Immobilization Subjective Review of Systems This is a 38-year-old female with past medical history of paraplegia, staghorn calculi, hydronephrosis who presented to the ER with chief complaint of suprapubic pain. Patient was diagnosed with UTI along with bilateral kidney stones. Nephrology was consulted. Patient underwent bilateral nephrostomy tube placement 08/18 by IR, repeat CT scan showed resolving hydronephrosis. Left perirenal abscess was also seen on the repeat CT scan for which IR was consulted but patient declined any treatment. Prelim urine cultures are negative. Prelim blood cultures are negative. Patient was started on IV cefepime which was switched to IV meropenem. Given the iron-deficiency, patient received 5 bags of iron and later iron chelator deferoxamine. 08/25 - Patient seen and examined at the bedside. Overnight, left nephrostomy tube draining 275 cc, right draining 350 cc. Patient agreed to be seen by IR. Creatinine downtrending 08/26 - Patient seen and examined at the bedside. Increasing u/o via blnt. Pending IR drainage 08/27 - patient seen and examined at the bedside. Per IR, no percutaneous sepsis, need surgical consult. Surgical consultation pending. 08/28 - patient seen and examined at the bedside. Surgeon recommended IR. 08/31-patient seen and examined at the bedside. Underwent IR guided drainage of the perinephric abscess. 09/01 - patient is seen and examined at the bedside. 09/03-patient seen and examined. Reports feeling warm and cold, sweating. Overnight low-grade fever 99.8 F. patient received 750 cc of NS overnight given tachycardia and fever episodes. Creatinine trending up to 3.1. Left perirenal abscess drainage growing Gram-positive glen. Blood cultures negative. Wilcox output is improving 09/04-patient seen and examined at the bedside. Reports feeling better. Vitally stable. Urine output 800 cc. Left upper extremity bruising resolving. GFR steadily decreasing. H&H downtrending. Iron p.o. started 09/07-patient seen and examined at bedside. Reports that the left side drainage leaking. CT abdomen shows Decreased size of the left perirenal abscess with the drain in stable position. Recommend retracting the drain by 4 cm. Discontinued LR, started half NS with bicarb given acidosis. 09/08-patient is seen and examined better. Underwent left perinephric abscess drainage reposition yesterday. IV Cipro to cefepime. Creatinine trending down, GFR trending up. 09/09 - patient seen and examined at the bedside. Reports left-sided back pain. Urine output in total 3000 cc per 24 hours. Sacral wound culture growing stenotrophomonas. 09/10 - patient seen and examined at the bedside. BUN/creatinine stable. H&H 6.01/10. One packed RBC ordered by the primary team. Urine output 2100 cc. Removal of the drain today by IR. Patient reports: No new complaints Other Systems: Patient seen and examined by myself today in follow-up with the medicine resident, I agree with his assessment and plan Objective vital signs Vital Sign Date Time Temp Pulse Resp B/P (MAP) Pulse Ox O2 Delivery O2 Flow Rate FiO2 09/10/24 09:00 98.1 94 16 121/83 (96) 96 98.1 09/09/24 20:00 Room Air* 0 21 Total Intake and Output 09/09/24 09/09/24 09/10/24 15:00 23:00 07:00 Intake Total 50 ml 1690 ml 450 ml Output Total 540 ml 600 ml 1000 ml Balance -490 ml 1090 ml -550 ml medications Current Medications Medications Dose Ordered Sig/Leeanne Route Start Time Stop Time Status Last Admin Dose Admin Acetaminophen 650 mg Q6HP PRN PO 08/16/24 10:30 09/04/24 12:22 650 MG Nicotine 1 patch DAILY TD 08/17/24 10:00 09/09/24 08:35 1 PATCH Potassium Chloride 100 ml @ 50 mls/hr Q2H IV 08/17/24 08:30 08/17/24 12:29 UNV Ergocalciferol 50,000 unit Q7D PO 08/17/24 12:00 09/07/24 13:05 50,000 UNIT Polyethylene Glycol 17 gm DAILY PO 08/22/24 10:00 09/01/24 14:31 17 GM Melatonin 5 mg HS PO 08/22/24 22:00 09/09/24 21:56 5 MG Ondansetron HCl 4 mg Q4HPRN PRN IV 08/23/24 12:00 08/23/24 18:43 4 MG Acetaminophen/ Hydrocodone Bitart 1 tab Q4HPRN PRN PO 08/29/24 05:00 09/09/24 20:33 1 TAB Morphine Sulfate 1 mg Q4HP PRN IV 08/30/24 16:30 09/10/24 06:57 1 MG Pantoprazole Sodium 40 mg DAILY@0600 PO 09/01/24 06:00 09/10/24 06:54 40 MG Sevelamer HCl 800 mg DAILY@BREAKFAST PO 09/03/24 08:00 09/10/24 08:22 800 MG Ferrous Sulfate 325 mg DAILY PO 09/05/24 10:00 09/09/24 08:35 325 MG Sodium Bicarbonate 650 mg QID PO 09/05/24 18:00 09/10/24 06:54 650 MG Tramadol HCl 50 mg Q8HP PRN PO 09/05/24 13:00 Cancel Hydroxyzine HCl 20 mg Q6HPRN PRN PO 09/06/24 15:30 09/09/24 18:08 20 MG Sodium Bicarbonate 100 ml/Sodium Chloride 1,100 ml @ 75 mls/hr [id number] IV 09/07/24 10:00 09/09/24 06:06 75 MLS/HR Cefepime HCl 50 ml @ 12.5 mls/hr DAILY IV 09/08/24 10:00 09/09/24 08:36 12.5 MLS/HR Minocycline HCl 100 mg Q12HR PO 09/08/24 22:00 09/09/24 21:56 100 MG Examination Patient lying in bed, in no acute distress General: Well-built, afebrile, mucosae are moist Cardiovascular: Regular S1 and S2. No murmurs, gallops or rubs. No JVD elevation. No pedal edema Respiratory: Normal B/L air entry on room air. Clear lung sounds on auscultation Abdomen: Soft, nontender, nondistended, normoactive bowel sounds, no rebound tenderness, no organomegaly, no masses. B/L cva tenderness. Bilateral nephrostomy tube draining serous. Left-sided perinephric abscess drain removed Genitourinary: Deferred MSK/skin: Skin is dry and warm. Resolving erythema and bruise seen on left arm. Psych/Mental Status: A/Ox3 laboratory and microbiology Laboratory Tests 09/10/24 06:15 Test 09/10/24 06:15 Range/Units Serum Glucose 79 74-106 mg/dL Microbiology Date/Time Source Procedure Growth Status 09/05/24 10:15 Sacrum Gram Stain - Final Resulted 09/05/24 10:15 Wound Culture - Preliminary Stenotrophomonas maltophilia Escherichia coli Resulted 09/02/24 23:15 Blood Blood Culture - Final NO GROWTH AFTER 5 DAYS OF INCUBATION. Complete 08/31/24 12:00 Aspirate Gram Stain - Final Complete 08/31/24 12:00 Aspirate Body Fluid Culture - Final Complete 08/16/24 09:54 Voided Urine Urine Culture - Final Complete Labs and/or images reviewed: Labs reviewed by me, Image(s) reviewed by me Problem List/Assessment/Plan Problem List/Assessment/Plan Acute kidney injury multifactorial in the setting of sepsis as well as chronic obstruction Chronic kidney disease due to chronic urinary retention however baseline is unknown Sepsis secondary to urinary tract infection //staghorn calculi Bilateral hydronephrosis status post bilateral nephrostomy tube Acute left perinephric abscess status post drainage 08/31 Chronic bilateral hip dislocation Metabolic acidosis Paraplegia and spina bifida Anemia due to iron deficiency s/p iron overload and desferoxime Hypomagnesemia Hypokalemia Plan BUN/creatinine trending down, GFR improving. Patient underwent removal of the drain by IR. Monitor H&H, transfuse as necessary. Continue half NS with bicarb. FENA 10% which is intrinsic. Urine protein/creatinine 11 g per day. Given the downtrending hemoglobin, Started oral iron daily, Epogen once administered SC We will continue to monitor, with a GFR drops less than 15 patient may require renal replacement therapy Patient underwent perinephric abscess drainage 08/31 by IR. Prelim culture growing Gram-positive glen. Follow up with culture and sensitivity report Renal NM scan completed by Urology, showed delayed perfusion and function of the right kidney with mild response to Lasix.Reflects a nonfunctioning left kidney. Differential renal function (uptake percent) of 93.9 % by the right kidney and 6.1 % by the left. Bilateral percutaneous nephrostomy tube draining serous secretion Prelim urine and blood cultures were negative Sacral wound culture growing stenotrophomonas. Antibiotics per primary team No indication for dialysis for now Fluid restriction 2L / day Plan discussed with patient in which all questions have been answered Plan discussed with Dr. Penn Plan discussed with: Patient Dietary Evaluation Review Recommendations by RD: Dietary education by RD, Protein Supplementation Comments: 1) Initiate Nepro qd. Encourage optimal PO intake 2) Continue Renagel @ 800 mg tid. Advise patient about the importance of limiting intake dairy products, nuts, seeds, soy, beans, dark alexandra, bran, chocolate, etc d/t hyperphosphatemia. 3) Follow-up with urology and nephrology 4) Continue to monitor I&O, labs, and skin integrity Expected Outcomes/Goals: 1) appetite and labs to improve 2) wound to improve 3) follow-up in 3-5 days URMILA HASKINS RESIDENT September 10, 2024 10:43 QUITA PENN MD September 10, 2024 13:05
--- NOTE | 2024-09-10 21:27 | DVHPNRES ---
Progress Note Date Seen: September 10, 2024 Resident Creating Document: ELEN TAY RESIDENT Medical Necessity Reason Pt with a Central, PICC or Fol: No The following are medically ne: Wilcox Catheter Reason for wilcox catheter: Bladder Retention/Obstruc, Total Immobilization Subjective Review of Systems Patient seen and examined at the bedside Reports feeling better, no fever, shortness of breath Urine output is better removed pigtail catheter from the perinephric abscess today patient had low Hgb in the morning, 1 unit PRBC transfused Objective vital signs Vital Sign Date Time Temp Pulse Resp B/P (MAP) Pulse Ox O2 Delivery O2 Flow Rate FiO2 09/10/24 17:33 98.0 108 18 124/90 98.0 09/10/24 16:53 97 09/10/24 08:00 Room Air* 0 21 Total Intake and Output 09/09/24 09/09/24 09/10/24 15:00 23:00 07:00 Intake Total 50 ml 1690 ml 450 ml Output Total 540 ml 600 ml 1000 ml Balance -490 ml 1090 ml -550 ml medications Current Medications Medications Dose Ordered Sig/Leeanne Route Start Time Stop Time Status Last Admin Dose Admin Acetaminophen 650 mg Q6HP PRN PO 08/16/24 10:30 09/04/24 12:22 650 MG Nicotine 1 patch DAILY TD 08/17/24 10:00 09/10/24 10:26 1 PATCH Potassium Chloride 100 ml @ 50 mls/hr Q2H IV 08/17/24 08:30 08/17/24 12:29 UNV Ergocalciferol 50,000 unit Q7D PO 08/17/24 12:00 09/07/24 13:05 50,000 UNIT Polyethylene Glycol 17 gm DAILY PO 08/22/24 10:00 09/01/24 14:31 17 GM Melatonin 5 mg HS PO 08/22/24 22:00 09/09/24 21:56 5 MG Ondansetron HCl 4 mg Q4HPRN PRN IV 08/23/24 12:00 08/23/24 18:43 4 MG Acetaminophen/ Hydrocodone Bitart 1 tab Q4HPRN PRN PO 08/29/24 05:00 09/10/24 18:43 1 TAB Morphine Sulfate 1 mg Q4HP PRN IV 08/30/24 16:30 09/10/24 06:57 1 MG Pantoprazole Sodium 40 mg DAILY@0600 PO 09/01/24 06:00 09/10/24 06:54 40 MG Sevelamer HCl 800 mg DAILY@BREAKFAST PO 09/03/24 08:00 09/10/24 08:22 800 MG Ferrous Sulfate 325 mg DAILY PO 09/05/24 10:00 09/10/24 10:26 325 MG Sodium Bicarbonate 650 mg QID PO 09/05/24 18:00 09/10/24 18:08 650 MG Tramadol HCl 50 mg Q8HP PRN PO 09/05/24 13:00 Cancel Hydroxyzine HCl 20 mg Q6HPRN PRN PO 09/06/24 15:30 09/10/24 19:57 20 MG Sodium Bicarbonate 100 ml/Sodium Chloride 1,100 ml @ 75 mls/hr [id number] IV 09/07/24 10:00 09/10/24 12:00 75 MLS/HR Cefepime HCl 50 ml @ 12.5 mls/hr DAILY IV 09/08/24 10:00 09/10/24 10:26 12.5 MLS/HR Minocycline HCl 100 mg Q12HR PO 09/08/24 22:00 09/10/24 10:27 100 MG Examination Gen - no pallor, no icterus, no cyanosis, no clubbing, no LAD, no edema . Skin - Patients skin is warm and dry. HEENT - normocephalic, atraumatic, moist mucous membranes. Neck - full ROM, no LAD, no JVD Pulmonary - B/L equal breath sounds, no crackles , no wheezing, no stridor. cardiovascular - regular S1,S2 heard, no added sounds, no murmurs heard. GI - soft, nontender abdomen. no hepatospleenomegaly. Bowel sounds normoactive - bilateral nephrostomy tubes with bag and draining well. Neurological - Patient is A/O X 3 . Bilateral upper extremity strength 5/5, paraplegia, no facial droop, normal speech laboratory and microbiology Laboratory Tests 09/10/24 06:15 Test 09/10/24 06:15 Range/Units Serum Glucose 79 74-106 mg/dL Microbiology Date/Time Source Procedure Growth Status 09/05/24 10:15 Sacrum Gram Stain - Final Resulted 09/05/24 10:15 Wound Culture - Preliminary Stenotrophomonas maltophilia Escherichia coli Resulted 09/02/24 23:15 Blood Blood Culture - Final NO GROWTH AFTER 5 DAYS OF INCUBATION. Complete 08/31/24 12:00 Aspirate Gram Stain - Final Complete 08/31/24 12:00 Aspirate Body Fluid Culture - Final Complete 08/16/24 09:54 Voided Urine Urine Culture - Final Complete Problem List/Assessment/Plan Problem List/Assessment/Plan Sepsis due to UTI/perinephric abscess left peripnephric abscess Hematuria likely due to above -No growth in urine and blood culture -Urologic consultation: s/p bilateral nephrostomy tube -status post drainage of the perinephric abscess with IR, drainage catheter in place, cultures pending - ID consulted - drain removed - on cefepime 2 g daily Non functional left kidney -Outpatient follow up for nephrectomy -Renal scan: 1. Delayed perfusion and function of the right kidney with mild response to Lasix. Favored high-grade functional obstruction. 2. Minimal radiotracer uptake in the left kidney. Favored to reflect a nonfunctioning kidney. JOSE likely related to hemodynamically mediated and obstruction with CKD unknown stage Left-sided staghorn calculi with moderate hydronephrosis Moderate right hydronephrosis and hydroureter Metabolic acidosis due to CKD, resolved Hyperphosphatemia Vitamin-D deficiency -continue monitor kidney function, status post Wilcox insertion and B/L nephrostomy tubes -CT scan showed bilateral renal calculi with hydronephrosis. -monitoring BUN creatinine - urine output improving - kidney function improving Severe anemia of chronic disease, status post IV iron load, IV Iron toxicity -received 5 bags of IV iron, status post deferoxamine -repeat Iron panel:Iron level normalized 51 - s/p 3 PRBCs Chronic bilateral hip dislocation -Stable History of spina bifida with Paraplegia -Stable Marijuana use disorder -counseled on cessation PUD prophylaxis with Protonix Goals of care discussed with the patient for over 27 minutes. Full code Plan discussed with Dr Chavez Plan discussed with: Patient My Orders My Orders Orders - ELEN TAY RESIDENT Procedure Category Date Status Time * Radiologist Consult CONS 09/10/24 Transmitted 06:00 Complete Blood Count LAB 09/11/24 Verified 04:00 Dietary Evaluation Review Recommendations by RD: Dietary education by RD, Protein Supplementation Comments: 1) Initiate Nepro qd. Encourage optimal PO intake 2) Continue Renagel @ 800 mg tid. Advise patient about the importance of limiting intake dairy products, nuts, seeds, soy, beans, dark alexandra, bran, chocolate, etc d/t hyperphosphatemia. 3) Follow-up with urology and nephrology 4) Continue to monitor I&O, labs, and skin integrity Expected Outcomes/Goals: 1) appetite and labs to improve 2) wound to improve 3) follow-up in 3-5 days Date of Service: September 10, 2024 Billing Provider: JAZMINE CHAVEZ MD Common Visit Codes: [id number] INP/OBS CARE(HIGH) ELEN TAY RESIDENT September 10, 2024 21:26 JAZMINE CHAVEZ MD September 10, 2024 22:05
--- NOTE | 2024-09-10 22:00 | DVHPN2 ---
Consult Progress Note Date Seen: September 10, 2024 Subjective Patient reports: Feels better (no diarrhea or rash, no fever or chills) Objective vital signs Vital Sign Date Time Temp Pulse Resp B/P (MAP) Pulse Ox O2 Delivery O2 Flow Rate FiO2 09/10/24 21:00 98.3 104 18 120/87 (98) 97 98.3 09/10/24 08:00 Room Air* 0 21 Total Intake and Output 09/09/24 09/09/24 09/10/24 15:00 23:00 07:00 Intake Total 50 ml 1690 ml 450 ml Output Total 540 ml 600 ml 1000 ml Balance -490 ml 1090 ml -550 ml medications Current Medications Medications Dose Ordered Sig/Leeanne Route Start Time Stop Time Status Last Admin Dose Admin Acetaminophen 650 mg Q6HP PRN PO 08/16/24 10:30 09/04/24 12:22 650 MG Nicotine 1 patch DAILY TD 08/17/24 10:00 09/10/24 10:26 1 PATCH Potassium Chloride 100 ml @ 50 mls/hr Q2H IV 08/17/24 08:30 08/17/24 12:29 UNV Ergocalciferol 50,000 unit Q7D PO 08/17/24 12:00 09/07/24 13:05 50,000 UNIT Polyethylene Glycol 17 gm DAILY PO 08/22/24 10:00 09/01/24 14:31 17 GM Melatonin 5 mg HS PO 08/22/24 22:00 09/10/24 21:52 5 MG Ondansetron HCl 4 mg Q4HPRN PRN IV 08/23/24 12:00 08/23/24 18:43 4 MG Acetaminophen/ Hydrocodone Bitart 1 tab Q4HPRN PRN PO 08/29/24 05:00 09/10/24 18:43 1 TAB Morphine Sulfate 1 mg Q4HP PRN IV 08/30/24 16:30 09/10/24 06:57 1 MG Pantoprazole Sodium 40 mg DAILY@0600 PO 09/01/24 06:00 09/10/24 06:54 40 MG Sevelamer HCl 800 mg DAILY@BREAKFAST PO 09/03/24 08:00 09/10/24 08:22 800 MG Ferrous Sulfate 325 mg DAILY PO 09/05/24 10:00 09/10/24 10:26 325 MG Sodium Bicarbonate 650 mg QID PO 09/05/24 18:00 09/10/24 21:52 650 MG Tramadol HCl 50 mg Q8HP PRN PO 09/05/24 13:00 Cancel Hydroxyzine HCl 20 mg Q6HPRN PRN PO 09/06/24 15:30 09/10/24 19:57 20 MG Sodium Bicarbonate 100 ml/Sodium Chloride 1,100 ml @ 75 mls/hr [id number] IV 09/07/24 10:00 09/10/24 12:00 75 MLS/HR Cefepime HCl 50 ml @ 12.5 mls/hr DAILY IV 09/08/24 10:00 09/10/24 10:26 12.5 MLS/HR Minocycline HCl 100 mg Q12HR PO 09/08/24 22:00 09/10/24 21:52 100 MG Examination: GENERAL:Normal, HEENT:Abnormal, NECK:Normal, ABDOMEN:Normal, MSK:Normal, SKIN:Normal, NEURO:Normal, :Normal laboratory and microbiology Laboratory Tests 09/10/24 06:15 Test 09/10/24 06:15 Range/Units Serum Glucose 79 74-106 mg/dL Problem List/Assessment/Plan Problem List/Assessment/Plan ASSESSMENT AND PLAN: ID Problem List: - Sepsis secondary to urinary tract infection (UTI) and perinephric abscess - Spina bifida with paraplegia - Chronic kidney disease (CKD) stage 3 - Acute kidney injury (JOSE) - Hydronephrosis, bilateral - Staghorn calculi, bilateral - Iron deficiency anemia/anemia of chronic disease - Vitamin D deficiency - History of tobacco and marijuana use Assessment This is a 39-year-old female with a complex medical history notable for spina bifida with secondary paraplegia, chronic stage 3 kidney disease and bilateral staghorn calculi, presenting with acute abdominal pain, dysuria, nausea, vomiting and a recent history of UTI treated with ciprofloxacin. Patient has a significant urological history including self-catheterization and prior bladder expansion. She reports a history of tobacco and marijuana use (current, half pack per day smoker). No relevant family history. Upon admission, patient was febrile and tachycardic. Labs showed leukocytosis, anemia, thrombocytosis, and acute kidney injury. Initial blood cultures were negative; urine cultures grew mixed gram positive glen as well as many bacteria including Streptococcus viridans and diphtheroids, with pyuria, high leukocyte esterase, and abundant mucus. Imaging demonstrated: - Severe left hydronephrosis and hydroureter, moderate right hydronephrosis/hydroureter, with associated inflammatory stranding and findings consistent with ascending UTI and bilateral cystitis. Multiple left renal calculi including staghorn calculi, bilateral chronic hip dislocations, and bilateral renal abscesses. - Nuclear medicine renal perfusion showed delayed perfusion and high-grade obstruction of the right kidney, essentially non-functioning left kidney. - Large volume colonic stool noted on abdominal imaging. Procedures included bilateral nephrostomy tube placements and subsequent repeat exchange and repositioning as well as drainage of a left flank abscess. Cultures from nephrostomy drains confirmed multiple organisms including Streptococcus viridans and diphtheroids. Hospital course notable for persistent fevers and intermittent tachycardia, which have improved over time. Patient received cefepime and was transitioned to meropenem, now being transitioned back to oral ciprofloxacin (500 mg by mouth every 24 hours for 6 weeks) for targeted suppression. Iron deficiency anemia has been managed with intravenous iron. Further iron supplementation is deferred until resolution of sepsis to avoid shunting iron to pathogens. Given the finding of Streptococcus viridans in multiple cultures, consideration is being given to obtain an echocardiogram to rule out endocarditis. 09/05: patient appears to be clinically doing well and awaiting ciprofloxacin treatment to begin today 09/06: possible leaking of prelant abscess outside of nephrostomy tube on the left side 09/07: CT abdomen shows that the left renal abscess is getting smaller , nephrostomy tube requires retraction and has been done . Patient has a prolonged QTC on EKG in the setting of ciprofloxacin use 09/08: Stenotrophomonas growth was identified on culture from the drainage site of the left side 09/09: tolerating oral minocycline which should adequately cover patients Stenotrophomonas growth Plan - Start oral Minocycline for Stenotrophomonas for 6 weeks - follow up on wound culture to see if it is growing bacteria that requires additional coverage - Continue IV cefepime for 6 weeks and adjust frequency as renal function continues to improve - piccline placement to complete antibiotic coarse - Monitor closely for clinical improvement, with particular attention to resolution of fever and normalization of laboratory parameters prior to discharge - Defer further iron supplementation until completion of infection treatment - Continue nephrology and urology involvement - Echocardiogram to rule out endocarditis - Supportive care for JOSE/CKD; monitor electrolytes and adjust medications as needed - Continue vitamin D supplementation as indicated - Monitor and manage constipation given imaging findings - Smoking cessation counseling - Continue to monitor nephrostomy tubes and percutaneous drains for patency and signs of infection - Hold further iron infusions while infection remains active Plan discussed with: Patient Dietary Evaluation Review Recommendations by RD: Dietary education by RD, Protein Supplementation Comments: 1) Initiate Nepro qd. Encourage optimal PO intake 2) Continue Renagel @ 800 mg tid. Advise patient about the importance of limiting intake dairy products, nuts, seeds, soy, beans, dark alexandra, bran, chocolate, etc d/t hyperphosphatemia. 3) Follow-up with urology and nephrology 4) Continue to monitor I&O, labs, and skin integrity Expected Outcomes/Goals: 1) appetite and labs to improve 2) wound to improve 3) follow-up in 3-5 days GAURAV ANGLIN MD September 10, 2024 22:00
[2024-09-11 01:00] VITALS: BP 112/70; PULSE 95; RESP 17; TEMP 96.6; O2SAT 96
[2024-09-11 05:02] VITALS: BP 120/69; PULSE 87; RESP 16; TEMP 98.6; O2SAT 95
[2024-09-11 06:20] LABS: Anion Gap 10 (5-15); Carbon Dioxide 22 mmol/L (20-31); Potassium 5.1 mmol/L (3.5-5.1); Sodium 140 mmol/L (136-145)
[2024-09-11 06:25] LABS: Calcium 8.2 mg/dL (8.7-10.4); Chloride 108 mmol/L (98-107)
[2024-09-11 06:26] LABS: BUN/Creatinine Ratio 16.5 (10.0-20.0); Glucose 82 mg/dL (74-106)
[2024-09-11 06:28] LABS: Phosphorus 3.9 mg/dL (2.4-5.1)
[2024-09-11 06:29] LABS: Blood Urea Nitrogen 44 mg/dL (9-23)
[2024-09-11 07:05] LABS: Eosinophils # (auto) 0.1 10 ^3/uL (0-0.8); Lymphocytes # (auto) 1.3 10 ^3/uL (0.4-5.4); Red Cell Distribution Width 17.9 % (11.8-14.3); White Blood Cell 8.5 10^3/uL (4.4-10.8)
[2024-09-11 07:07] LABS: Basophils # (auto) 0.1 10 ^3/uL (0-0.2); Basophils % (auto) 0.7 % (0.0-2.0); Eosinophils % (auto) 1.4 % (0.0-7.0); Hematocrit 23.6 % (36.0-46.0); Hemoglobin 7.7 g/dL (12.2-16.2); Lymphocytes % (auto) 14.6 % (10.0-50.0); Mean Corpuscular Hemoglobin 26.4 pg (28.0-32.0); Mean Corpuscular Hgb Conc. 32.6 g/dL (32.0-36.0); Mean Corpuscular Volume 81.1 fL (80.0-100.0); Monocytes # (auto) 1.2 10 ^3/uL (0-1.3); Monocytes % (auto) 14.3 % (0.0-12.0); Neutrophils # (auto) 5.9 10 ^3/uL (1.6-8.6); Nucleated Red Blood Cells % 0.2 %; Platelet Count (auto) 254 10^3/uL (140-450)
[2024-09-11 08:30] VITALS: PULSE 97; RESP 16
[2024-09-11 09:00] VITALS: BP 134/101; PULSE 95; RESP 17; TEMP 97.5; O2SAT 97
--- NOTE | 2024-09-11 10:12 | DVHPN2 ---
Progress Note Date Seen: September 11, 2024 Resident Creating Document: URMILA HASKINS RESIDENT Medical Necessity Reason Pt with a Central, PICC or Fol: No The following are medically ne: Wilcox Catheter Reason for wilcox catheter: Bladder Retention/Obstruc, Total Immobilization Subjective Review of Systems This is a 38-year-old female with past medical history of paraplegia, staghorn calculi, hydronephrosis who presented to the ER with chief complaint of suprapubic pain. Patient was diagnosed with UTI along with bilateral kidney stones. Nephrology was consulted. Patient underwent bilateral nephrostomy tube placement 08/18 by IR, repeat CT scan showed resolving hydronephrosis. Left perirenal abscess was also seen on the repeat CT scan for which IR was consulted but patient declined any treatment. Prelim urine cultures are negative. Prelim blood cultures are negative. Patient was started on IV cefepime which was switched to IV meropenem. Given the iron-deficiency, patient received 5 bags of iron and later iron chelator deferoxamine. 08/25 - Patient seen and examined at the bedside. Overnight, left nephrostomy tube draining 275 cc, right draining 350 cc. Patient agreed to be seen by IR. Creatinine downtrending 08/26 - Patient seen and examined at the bedside. Increasing u/o via blnt. Pending IR drainage 08/27 - patient seen and examined at the bedside. Per IR, no percutaneous sepsis, need surgical consult. Surgical consultation pending. 08/28 - patient seen and examined at the bedside. Surgeon recommended IR. 08/31-patient seen and examined at the bedside. Underwent IR guided drainage of the perinephric abscess. 09/01 - patient is seen and examined at the bedside. 09/03-patient seen and examined. Reports feeling warm and cold, sweating. Overnight low-grade fever 99.8 F. patient received 750 cc of NS overnight given tachycardia and fever episodes. Creatinine trending up to 3.1. Left perirenal abscess drainage growing Gram-positive glen. Blood cultures negative. Wilcox output is improving 09/04-patient seen and examined at the bedside. Reports feeling better. Vitally stable. Urine output 800 cc. Left upper extremity bruising resolving. GFR steadily decreasing. H&H downtrending. Iron p.o. started 09/07-patient seen and examined at bedside. Reports that the left side drainage leaking. CT abdomen shows Decreased size of the left perirenal abscess with the drain in stable position. Recommend retracting the drain by 4 cm. Discontinued LR, started half NS with bicarb given acidosis. 09/08-patient is seen and examined better. Underwent left perinephric abscess drainage reposition yesterday. IV Cipro to cefepime. Creatinine trending down, GFR trending up. 09/09 - patient seen and examined at the bedside. Reports left-sided back pain. Urine output in total 3000 cc per 24 hours. Sacral wound culture growing stenotrophomonas. 09/10 - patient seen and examined at the bedside. BUN/creatinine stable. H&H 6.9. One packed RBC ordered by the primary team. Urine output 2100 cc. Removal of the drain today by IR. 09/11 - patient seen and examined at the bedside. H&H 7.11/11 after 1 unit PRBC transfusion. Urine output 2000 cc. Objective vital signs Vital Sign Date Time Temp Pulse Resp B/P (MAP) Pulse Ox O2 Delivery O2 Flow Rate FiO2 09/11/24 09:00 97.5 95 17 134/101 (112) 97 97.5 09/11/24 08:30 Room Air* 0 21 Total Intake and Output 09/10/24 09/10/24 09/11/24 15:00 23:00 07:00 Intake Total 50 ml 1750 ml 650 ml Output Total 1425 ml 800 ml Balance 50 ml 325 ml -150 ml medications Current Medications Medications Dose Ordered Sig/Leeanne Route Start Time Stop Time Status Last Admin Dose Admin Acetaminophen 650 mg Q6HP PRN PO 08/16/24 10:30 09/04/24 12:22 650 MG Nicotine 1 patch DAILY TD 08/17/24 10:00 09/11/24 10:06 1 PATCH Potassium Chloride 100 ml @ 50 mls/hr Q2H IV 08/17/24 08:30 08/17/24 12:29 UNV Ergocalciferol 50,000 unit Q7D PO 08/17/24 12:00 09/07/24 13:05 50,000 UNIT Polyethylene Glycol 17 gm DAILY PO 08/22/24 10:00 09/01/24 14:31 17 GM Melatonin 5 mg HS PO 08/22/24 22:00 09/10/24 21:52 5 MG Ondansetron HCl 4 mg Q4HPRN PRN IV 08/23/24 12:00 08/23/24 18:43 4 MG Acetaminophen/ Hydrocodone Bitart 1 tab Q4HPRN PRN PO 08/29/24 05:00 09/11/24 06:19 1 TAB Morphine Sulfate 1 mg Q4HP PRN IV 08/30/24 16:30 09/11/24 04:21 1 MG Pantoprazole Sodium 40 mg DAILY@0600 PO 09/01/24 06:00 09/11/24 06:19 40 MG Sevelamer HCl 800 mg DAILY@BREAKFAST PO 09/03/24 08:00 09/11/24 08:15 800 MG Ferrous Sulfate 325 mg DAILY PO 09/05/24 10:00 09/11/24 10:06 325 MG Sodium Bicarbonate 650 mg QID PO 09/05/24 18:00 09/11/24 06:18 650 MG Tramadol HCl 50 mg Q8HP PRN PO 09/05/24 13:00 Cancel Hydroxyzine HCl 20 mg Q6HPRN PRN PO 09/06/24 15:30 09/10/24 19:57 20 MG Sodium Bicarbonate 100 ml/Sodium Chloride 1,100 ml @ 75 mls/hr [id number] IV 09/07/24 10:00 09/10/24 12:00 75 MLS/HR Cefepime HCl 50 ml @ 12.5 mls/hr DAILY IV 09/08/24 10:00 09/11/24 10:04 12.5 MLS/HR Minocycline HCl 100 mg Q12HR PO 09/08/24 22:00 09/11/24 10:07 100 MG Examination Patient lying in bed, in no acute distress General: Well-built, afebrile, mucosae are moist Cardiovascular: Regular S1 and S2. No murmurs, gallops or rubs. No JVD elevation. No pedal edema Respiratory: Normal B/L air entry on room air. Clear lung sounds on auscultation Abdomen: Soft, nontender, nondistended, normoactive bowel sounds, no rebound tenderness, no organomegaly, no masses. B/L cva tenderness. Bilateral nephrostomy tube draining serous. Left-sided perinephric abscess drain removed Genitourinary: Deferred MSK/skin: Skin is dry and warm. Resolving erythema and bruise seen on left arm. Psych/Mental Status: A/Ox3 laboratory and microbiology Laboratory Tests 09/11/24 05:47 Test 09/11/24 05:47 Range/Units Serum Glucose 82 74-106 mg/dL Microbiology Date/Time Source Procedure Growth Status 09/05/24 10:15 Sacrum Gram Stain - Final Resulted 09/05/24 10:15 Wound Culture - Preliminary Stenotrophomonas maltophilia Escherichia coli Resulted 09/02/24 23:15 Blood Blood Culture - Final NO GROWTH AFTER 5 DAYS OF INCUBATION. Complete 08/31/24 12:00 Aspirate Gram Stain - Final Complete 08/31/24 12:00 Aspirate Body Fluid Culture - Final Complete 08/16/24 09:54 Voided Urine Urine Culture - Final Complete Labs and/or images reviewed: Labs reviewed by me, Image(s) reviewed by me Problem List/Assessment/Plan Problem List/Assessment/Plan Acute kidney injury multifactorial in the setting of sepsis as well as chronic obstruction Chronic kidney disease due to chronic urinary retention however baseline is unknown Sepsis secondary to urinary tract infection //staghorn calculi Bilateral hydronephrosis status post bilateral nephrostomy tube Acute left perinephric abscess status post drainage 08/31 Chronic bilateral hip dislocation Metabolic acidosis Paraplegia and spina bifida Anemia due to iron deficiency s/p iron overload and desferoxime Hypomagnesemia Hypokalemia Plan BUN/creatinine trending down, GFR improving. Patient is stable to be discharge. No nephrology workup indicated at this time. Outpatient follow up advised. Recommended Discharge medications per nephrology: Ferrous sulfate 325 mg b.i.d., sodium bicarb 650 mg t.i.d., low potassium diet H&H 7.11/11, 1 unit transfused 09/10 Discontinue half NS with bicarb. FENA 10% which is intrinsic. Urine protein/creatinine 11 g per day. IR guided removal of perinephric drain 09/10 Given the downtrending hemoglobin, Started oral iron daily, Epogen once administered SC We will continue to monitor, with a GFR drops less than 15 patient may require renal replacement therapy Patient underwent perinephric abscess drainage 08/31 by IR. Prelim culture growing Gram-positive glen. Follow up with culture and sensitivity report Renal NM scan completed by Urology, showed delayed perfusion and function of the right kidney with mild response to Lasix.Reflects a nonfunctioning left kidney. Differential renal function (uptake percent) of 93.9 % by the right kidney and 6.1 % by the left. Bilateral percutaneous nephrostomy tube draining serous secretion Prelim urine and blood cultures were negative Sacral wound culture growing stenotrophomonas. Antibiotics per primary team No indication for dialysis for now Fluid restriction 2L / day Plan discussed with patient in which all questions have been answered Plan discussed with Dr. Scott Plan discussed with: Patient Dietary Evaluation Review Recommendations by RD: Dietary education by RD, Protein Supplementation Comments: 1) Initiate Nepro qd. Encourage optimal PO intake 2) Continue Renagel @ 800 mg tid. Advise patient about the importance of limiting intake dairy products, nuts, seeds, soy, beans, dark alexandra, bran, chocolate, etc d/t hyperphosphatemia. 3) Follow-up with urology and nephrology 4) Continue to monitor I&O, labs, and skin integrity Expected Outcomes/Goals: 1) appetite and labs to improve 2) wound to improve 3) follow-up in 3-5 days URMILA HASKINS RESIDENT September 11, 2024 10:12
[2024-09-11] MEDS: SODIUM ZIRCONIUM CYCL 10 GM PAK PO ONE (10:53)
[2024-09-11 13:03] VITALS: BP 132/91; PULSE 92; RESP 18; TEMP 97; O2SAT 99
[2024-09-11] MEDS ORDERED: ERGO1CAP23 PO (13:54)
[2024-09-11] MEDS ORDERED: SODI650T PO (13:54)
[2024-09-11] MEDS ORDERED: NICO14DI9 TD (13:54)
[2024-09-11] MEDS ORDERED: SEVE800T7 PO (13:54)
[2024-09-11] MEDS ORDERED: FER325T PO (13:54)
[2024-09-11] MEDS ORDERED: MINO100C4 PO ×2 (13:54→16:01)
[2024-09-11] MEDS ORDERED: POLY335015 PO (13:54)
[2024-09-11 14:05] VITALS: BP 132/91; PULSE 72; RESP 18; TEMP 97; O2SAT 99
--- NOTE | 2024-09-11 15:34 | DVHDSRES ---
Discharge Summary Date of Admission Resident Creating Document: ELEN TAY RESIDENT Aug 16, 2024 at 10:18 Date of Discharge: September 11, 2024 Admitting Diagnosis # Sepsis, like due to complicated UTI # acute cystitis # acute renal failure # hematuria # proteinuria # rule out kidney stones given hx of staghorn calculi # hx of bladder expansion # anemia # tobacco depend, 1/2 PPD # marijuana use # spina bifida # paraplegic Wounds: Stage II sacral wound Labs/Diagnostic Data: Laboratory Results Test 09/11/24 05:47 09/07/24 09:49 09/06/24 08:54 09/04/24 06:29 White Blood Count 8.5 10^3/uL (4.4-10.8) Red Blood Count 2.90 10^6/uL (4.0-5.20) Hemoglobin 7.7 g/dL (12.2-16.2) Hematocrit 23.6 % (36.0-46.0) Mean Corpuscular Volume 81.1 fL (80.0-100.0) Mean Corpuscular Hemoglobin 26.4 pg (28.0-32.0) Mean Corpuscular Hemoglobin Concent 32.6 g/dL (32.0-36.0) Red Cell Distribution Width 17.9 % (11.8-14.3) Platelet Count 254 10^3/uL (140-450) Mean Platelet Volume 6.3 fL (6.9-10.8) Neutrophils (%) (Auto) 69.0 % (37.0-80.0) Lymphocytes (%) (Auto) 14.6 % (10.0-50.0) Monocytes (%) (Auto) 14.3 % (0.0-12.0) Eosinophils (%) (Auto) 1.4 % (0.0-7.0) Basophils (%) (Auto) 0.7 % (0.0-2.0) Neutrophils # (Auto) 5.9 10 ^3/uL (1.6-8.6) Lymphocytes # (Auto) 1.3 10 ^3/uL (0.4-5.4) Monocytes # (Auto) 1.2 10 ^3/uL (0-1.3) Eosinophils # (Auto) 0.1 10 ^3/uL (0-0.8) Basophils # (Auto) 0.1 10 ^3/uL (0-0.2) Nucleated Red Blood Cells 0.2 % Sodium Level 140 mmol/L (136-145) Potassium Level 5.1 mmol/L (3.5-5.1) Chloride Level 108 mmol/L (98-107) Carbon Dioxide Level 22 mmol/L (20-31) Anion Gap 10 (5-15) Blood Urea Nitrogen 44 mg/dL (9-23) Creatinine 2.67 mg/dL (0.550-1.02) Glomerular Filtration Rate Calc 23 mL/min (>90) BUN/Creatinine Ratio 16.5 (10.0-20.0) Serum Glucose 82 mg/dL (74-106) Calcium Level 8.2 mg/dL (8.7-10.4) Phosphorus Level 3.9 mg/dL (2.4-5.1) Differential Total Cells Counted 87.0 (100) Neutrophils % (Manual) 63 (37.0-80.0) Band Neutrophils % (Manual) 0 Lymphocytes % (Manual) 20 (10.0-50.0) Monocytes % (Manual) 4 (0-12) Eosinophils % (Manual) 0 (0-7) Basophils % (Manual) 0 (0.0-2.0) Metamyelocytes % (manual) 0 Myelocytes % (Manual) 0 Promyelocytes % (Manual) 0 Blast Cells % (Manual) 0 Reactive Lymphocytes 0 Platelet Estimate Adequate Large Platelets Few Anisocytosis (manual) Slight Ovalocytes Few Hypochromasia (manual) Slight POC Glucose 78 mg/dl (70-106) Test 09/03/24 12:40 09/03/24 10:44 09/03/24 05:30 09/02/24 05:57 Urine Osmolality 223 mOsm/kg Urine Creatinine 20.02 mg/dL (30.0-125.0) Urine Protein/Creatinine Ratio 11.14 Urine Sodium 84 mmol/L (40-220) Urine Total Protein 223.1 mg/dL (1-14) Serum Osmolality 283 mOsm/kg (278-298) Parathyroid Hormone (Intact) 200.4 pg/mL (18.4-80.1) Magnesium Level 1.8 mg/dL (1.6-2.6) Test 08/31/24 12:00 08/31/24 05:56 08/28/24 08:29 08/26/24 06:59 Body Fluid Glucose <2 mg/dL (.) Prothrombin Time 12.6 sec (9.3-11.8) Prothrombin Time INR 1.21 (0.9-1.15) Activated Partial Thromboplast Time 35.5 SEC (24.5-34.5) Anti-Nuclear Antibody Comment Comment (.) KATIE-1 Antibody <0.2 AI (0.0-0.9) SS-A/Ro Antibody <0.2 AI (0.0-0.9) SS-B/La Antibody <0.2 AI (0.0-0.9) Sm Antibody <0.2 AI (0.0-0.9) LARD MIXER Antibody <0.2 AI (0.0-0.9) Scl-70 (Scleroderma) Antibody <0.2 AI (0.0-0.9) Anti-Double Strand DNA Antibody <1 IU/mL (0-9) Chromatin Antibody 0.2 AI (0.0-0.9) Centromere B Antibody <0.2 AI (0.0-0.9) Smudge Cells 3 /100 WBC Total Bilirubin < 0.2 mg/dL (0.2-1.0) Aspartate Amino Transferase (AST) 14 U/L (13-40) Alanine Aminotransferase (ALT) 10 U/L (7-40) Alkaline Phosphatase 126 U/L (46-116) Total Protein 6.7 g/dL (5.7-8.2) Albumin 3.1 g/dL (3.2-4.8) Test 08/18/24 05:36 08/17/24 06:33 08/16/24 14:09 08/16/24 11:56 Iron Level 51 ug/dL (50-170) Total Iron Binding Capacity 239 ug/dL (250-425) Percent Iron Saturation 21.3 % (15-50) Ferritin 30.4 ng/mL (10-291) Triglycerides Level 132 mg/dL (< 150) Cholesterol Level 104 mg/dL (< 200) LDL Cholesterol 65 mg/dL (< 100) HDL Cholesterol 21 mg/dL (40-59) Vitamin D 25-Hydroxy 9.0 ng/mL (30.0-100) Thyroid Stimulating Hormone (TSH) 1.57 uIU/mL (0.55-4.78) Blood Gas Specimen Type Arterial Blood Gas Sample Site Right radial Blood Gas Patient Temperature 37.0 Arterial Blood Date Drawn [id number] Arterial Blood pH 7.160 (7.350-7.450) Arterial Blood Partial Pressure CO2 < 12.6 mmHg (32.0-45.0) Arterial Blood Partial Pressure O2 117.7 mmHg (83.0-108.0) Arterial Blood Oxygen Saturation 92.6 % (94.0-98.0) Arterial Blood Oxyhemoglobin 92.1 % (94.0-98.0) Arterial Blood Carboxyhemoglobin 0.5 % (0.5-1.5) Arterial Blood Methemoglobin 0.0 % (0.0-1.5) Geraldo Test Yes Blood Gas Total Hemoglobin 7.30 g/dL (12.0-16.0) Blood Gas Liter Flow 0.00 Blood Gas Modality Room air FiO2 % 21.0 Blood Gas Critical Value Read Back Yes Blood Gas Notified Whom Laina carrollp Blood Gas Notified Time [id number] Blood Gas Notified By antonio toure Hemoglobin A1c 4.3 % A1C (<5.7) Test 08/16/24 09:54 08/16/24 07:53 Urine Color Dark-brown (Yellow) Urine Clarity Ex.turbid (Clear) Urine pH 7.5 (5.0-9.0) Urine Specific [place] 1.018 (1.001-1.035) Urine Protein 2+ (Negative) Urine Ketones Negative (Negative) Urine Blood 1+ /uL (Negative) Urine Nitrite Negative (Negative) Urine Bilirubin Negative (Negative) Urine Urobilinogen Normal mg/dL (Negative) Urine Leukocyte Esterase 3+ /uL (Negative) Urine RBC 104 /hpf (0 - 4) Urine WBC Clumps Present /hpf (None Seen) Urine Microscopic WBC 760 /HPF (0-5) Urine Squamous Epithelial Cells None seen /hpf (<5) Urine Bacteria Many /hpf (None Seen) Urine Mucus Many (None Seen) Urine Glucose Normal mg/dL (Normal) Urine Test Negative (Negative) Reticulocyte Count (auto) 1.80 % (0.5-1.5) Lactic Acid Level 1.2 mmol/L (0.4-2.0) Lactate Dehydrogenase 134 U/L (120-246) Vitamin B12 Level 573 pg/mL (211-911) Folic Acid 13.21 ng/mL (>5.38) Other Laboratory Tests 09/11/24 05:47 Brief Hx & Hospital Course: Patient is a 38-year-old female with a past medical history of paraplegia, staghorn renal calculi, hydronephrosis, status post bladder expansion presented to the ED with a chief complaint of generalized abdominal pain in the suprapubic area mostly and radiating to the right in the left upper quadrant of the abdomen. On admission patient was septic which was likely due to UTI following which she was started on IV antibiotics. CT scan of the abdomen shows bilateral renal calculi with hydronephrosis following which urology were consulted. Nuclear medicine Mag 3 renal scan showed delayed perfusion and function of the right kidney with mild responds to Lasix which favored high-grade functional obstruction, minimal radiotracer uptake in the left kidney which reflected a nonfunctioning left kidney. Nephrology were consulted. Patient underwent placement of bilateral nephrostomy tubes with drainage. She later was found to have a left perinephric abscess for which a drainage catheter was placed. Bilateral nephrostomy tubes drained well and urine cultures showed no growth. Cultures from the left perinephric abscess show growth of viridans streptococci, lactobacillus species. Infectious disease were consulted who recommended starting the patient on cefepime 2 g daily and the patient to be discharged on the same medication for a total of [address] abdomen pelvis was done to check for the progression/regression of the left perinephric abscess which was found to be decreased incised and the drain was repositioned. Before the patient was discharged, the drain in the left perinephric abscess was not having any drainage for 3 days following which Radiology evaluated and removed the drain. Patient was also found to have a sacral wound from which the culture was sent which grew stenotrophomonas maltophilia, E coli, Enterococcus faecium for which the patient was started on minocycline 100 mg b.i.d. for 6 weeks and linezolid 600 mg b.i.d. for 2 weeks. On the day of discharge patient was hemodynamically stable, reported that the pain around the left nephrostomy tube insertion site improved with improved tenderness, did not have any fevers and white blood cell count and hemoglobin was within normal limits. Discharge plan Discharged in stable condition to home Medications: For the sacral wound- linezolid 600 mg b.i.d. for 2 weeks, minocycline 100 mg b.i.d. for 6 weeks For left perinephric abscess- cefepime 2 g daily for total of 6 weeks IV via right midline For CKD- sodium bicarb 650 mg t.i.d., ferrous sulfate 325 mg b.i.d., sevelamer 800 mg daily with breakfast, vitamin-D 70448 units Q 7 days Follow up- patient advised to follow up with the PCP in 1 week and in the Urology outpatient clinic within 2 weeks, nephrology Outpatient Clinic within 1- 2 weeks Consults/Reason for consult Nephrology consultation for JOSE on CKD Urology consultation for hydronephrosis Radiology consultation for nephrostomy and abscess drainage Infectious disease consult for left perinephric abscess Operations or Procedures XY PERCUTANEOUS NEPHROSTOMY, HISTORY: NEPH TUBE PROCEDURE: Informed consent was obtained. The patient was placed on the fluoroscopic table in a prone position and IV sedation administered. The bilateral flank was prepped with chlorhexidine which was allowed to dry and draped in the usual sterile fashion. Time out was performed. and the soft tissues infiltrated with 1% lidocaine local anesthetic. Utilizing ultrasound guidance, a 21 gauge Accu Stick needle was advanced from a posterolateral approach into an left upper pole calyx, and a small amount of contrast was injected under fluoroscopy to confirm positioning. Over a mandril wire, exchange was made to a non-vascular access set, through which was advanced an 0.035 wire. Following serial dilation, an 8.5 Armenian multipurpose nephrostomy catheter was placed with tip pigtailed within the renal pelvis. Position was confirmed with antegrade nephrostogram. The catheter was secured in place and connected to gravity drainage. Utilizing ultrasound guidance, a 21 gauge Accu Stick needle was advanced from a posterolateral approach into an right lower pole calyx, and a small amount of contrast was injected under fluoroscopy to confirm positioning. Over a mandril wire, exchange was made to a non-vascular access set, through which was advanced an 0.035 wire. Following serial dilation, an 8.5 Armenian multipurpose nephrostomy catheter was placed with tip pigtailed within the renal pelvis. Position was confirmed with antegrade nephrostogram. The catheter was secured in place and connected to gravity drainage. A sterile dressing was applied. No immediate complication was identified. DAP 832 FLUOROSCOPY TIME: 6.2 minutes. CONTRAST USED: 20 mL . SEDATION: Dr. Daphnie Rao was personally responsible for the administration of moderate sedation during the procedure performed, including the use of an independent trained observer who had no other duties during the procedure. The drugs utilized were IV fentanyl and versed (see nursing log for details). The total time of supervision by the attending physician was approximately 60 minutes. FINDINGS: Moderately dilated left renal collecting system with debris and foul urine. Placement of the left-sided nephrostomy tube into the renal pelvis. Severely dilated right renal collecting system with placement of a right-sided nephrostomy tube into the renal pelvis. IMPRESSION: Moderately dilated left renal collecting system with debris and foul urine. A sample is collected for analysis. Placement of the left-sided nephrostomy tube into the renal pelvis. Severely dilated right renal collecting system with placement of a right-sided nephrostomy tube into the renal pelvis. PLAN: Routine catheter care. Routine catheter exchanges every 3 months. ATED BY: DARIUSZ RAO MD DICTATED DATE/TIME: 08/18/24 1047 EXAM: NM NM MAG3 RENAL SCAN DATE OF SERVICE: 08/26/2024 02:05 PM ORDERING PHYSICIAN: MIGUEL KRUEGER REASON FOR EXAM: split function, JOSE on CKD TECHNIQUE: During the injection of radiopharmaceutical, posterior flow images of the kidneys were acquired immediately at one frame per second for one minute, immediately followed by posterior imaging at 30 seconds per frame for 30 minutes. Approximately 20 minutes after the radiopharmaceutical administration, the indicated dose of lasix was administered. Regions of interest were drawn around the kidneys and time activity curves were generated. Differential function was calculated. COMPARISON: None FINDINGS: Blood flow images demonstrate delayed and asymmetric flow to the kidneys. Functional images demonstrate a cortical transit time ([id number]) of 13.4 on the right and 1.4 on the left (normal is < 6 minutes). There is no adequate spontaneous excretion from the kidneys. Differential function (uptake %) is 93.9 % by the right kidney and 6.1 % by the left kidney. After Lasix administration, there was mild excretion from the right collecting system. The post-Lasix half-emptying time (diuretic T1/2) was 55.9 minutes on the right and not calculable on the left. IMPRESSION: 1. Delayed perfusion and function of the right kidney with mild response to Lasix. Favored high-grade functional obstruction. 2. Minimal radiotracer uptake in the left kidney. Favored to reflect a nonfunctioning kidney. 3. Differential renal function (uptake percent) of 93.9 % by the right kidney and 6.1 % by the left. HISTORY: left pararenal abscess COMPARISON: CT CT AB PEL WO CON-NO ORAL OR IV on DOS: 08/23/24, CT CT AB PEL WO CON-NO ORAL OR IV on DOS: 08/16/24 PROCEDURE: Informed consent was obtained. The patient was placed oblique on the CT scanner. IV sedation was administered. The fluid collection was localized under CT scan and the overlying skin prepped with chlorhexidine which was allowed to dry and draped in the usual sterile fashion and infiltrated with Xylocaine. Time out was performed. With US/CT guidance, an 8 Fr pigtail drain was placed into the abscess with US guidance. The position was confirmed with CT. Approximately 100 cc of foul purulent fluid was aspirated, with specimen sent for appropriate laboratory/cytology/laboratory and cytology evaluation. The drain was sutured at the skin surface and connected to suction drainage. No immediate complication was noted. Post procedure CT imaging through the drain site was obtained. DLP =1566 mGy-cm. SEDATION: Dr. Daphnie Rao was personally responsible for the administration of moderate sedation during the procedure performed, including the use of an independent trained observer who had no other duties during the procedure. The drugs utilized were IV fentanyl and versed (see nursing log for details). The total time of supervision by the attending physician was approximately 30 minutes. FINDINGS: Limited CT scan of through the abdomen demonstrates a medium sized fluid collection in the left flank. Collection appears complex. Post procedure scan shows pigtail drain within the collection , which is decreased in size. No immediate complication was identified. IMPRESSION: US/CT guided placement of 8 bahamian pigtail drain into a left flank abscess with 100 mL purulent fluid removed. PLAN: Recommend exchange of the left nephrostomy tube due to pus draining along side the tube and is likely infected. ATED BY: DARIUSZ RAO MD DICTATED DATE/TIME: 08/31/24 1226 Condition at Discharge: Good Final Diagnosis/Problems List Sepsis due to UTI/perinephric abscess left peripnephric abscess Non functional left kidney JOSE likely related to hemodynamically mediated and obstruction with CKD unknown stage Left-sided staghorn calculi with moderate hydronephrosis Moderate right hydronephrosis and hydroureter Metabolic acidosis due to CKD, resolved Hyperphosphatemia Vitamin-D deficiency Severe anemia of chronic disease History of spina bifida with Paraplegia Discharge Disposition: Home Discharge Instruct/Medications Diet: Renal Activity: No Restrictions, As Tolerated Follow Up/Referral: Follow up with the PCP in one week Follow up with Urology in the outpatient clinic in 2 weeks Medications: as per EMR Discharge Statement: "Patient was advised to return to the ER or call 911 if any headaches, dizziness, shortness of breath, chest pain, abdominal pain, bleeding, fevers, or worsening of medical condition. Patient was counseled about treatment plan, medications, possible side effects, patientverbalized understanding. All questions were answered to the best of my ability. This discharge took greater then 30 minutes in planning, reviewing documentation, counseling the patient, and discussing with other team members." ASSESSMENT ASSESSMENT Assessment SEPSIS DUE TO UTI Date of Service: September 11, 2024 Billing Provider: JAZMINE CHAVEZ MD Common Visit Codes: 61469-FHY/OBS DISCH DAY >30min ELEN TAY RESIDENT September 11, 2024 15:34 JAZMINE CHAVEZ MD September 12, 2024 08:49
[2024-09-11] MEDS ORDERED: LINE1TAB6 PO (15:55)
[2024-09-11] MEDS ORDERED: FERROUS SULFATE 325mg EC TAB PO SCH (22:00)
== END 2024-09-11 15:30 | disposition home or self-care (01) | DRG 720 ==
LOC: ER 07:22 → EDBD 07:22 → OVERFLOW 10:18 → EAST 17:34 → TELE-EAST 08-21 07:14 → EAST 09-08 20:56
PROVIDERS: ADMIT Internal Medicine; ATTEND Internal Medicine
PROC: 05HA33Z Insertion of Infusion Device into Left Brachial Vein, Percutaneous Approach (ICD-10-PCS; 2024-08-16)
PROC: B54NZZA Ultrasonography of Left Upper Extremity Veins, Guidance (ICD-10-PCS; 2024-08-16)
PROC: 30233N1 Transfusion of Nonautologous Red Blood Cells into Peripheral Vein, Percutaneous Approach (ICD-10-PCS; 2024-08-17)
PROC: 0T9430Z Drainage of Left Kidney Pelvis with Drainage Device, Percutaneous Approach (ICD-10-PCS; 2024-08-17)
PROC: 0T9330Z Drainage of Right Kidney Pelvis with Drainage Device, Percutaneous Approach (ICD-10-PCS; 2024-08-17)
PROC: BT131ZZ Fluoroscopy of Bilateral Kidneys using Low Osmolar Contrast (ICD-10-PCS; 2024-08-17)
PROC: 0W9F30Z Drainage of Abdominal Wall with Drainage Device, Percutaneous Approach (ICD-10-PCS; principal; 2024-08-31)
PROC: 0T9430Z Drainage of Left Kidney Pelvis with Drainage Device, Percutaneous Approach (ICD-10-PCS; 2024-09-01)
PROC: 0T9330Z Drainage of Right Kidney Pelvis with Drainage Device, Percutaneous Approach (ICD-10-PCS; 2024-09-01)
PROC: BT131ZZ Fluoroscopy of Bilateral Kidneys using Low Osmolar Contrast (ICD-10-PCS; 2024-09-01)
PROC: 05HB33Z Insertion of Infusion Device into Right Basilic Vein, Percutaneous Approach (ICD-10-PCS; 2024-09-03)
PROC: B54MZZA Ultrasonography of Right Upper Extremity Veins, Guidance (ICD-10-PCS; 2024-09-03)
DX: A41.9 Sepsis, unspecified organism (principal); N17.0 Acute kidney failure with tubular necrosis; E87.20 Acidosis, unspecified; N15.1 Renal and perinephric abscess; D63.1 Anemia in chronic kidney disease; E83.39 Other disorders of phosphorus metabolism; G82.20 Paraplegia, unspecified; T83.032A Leakage of nephrostomy catheter, initial encounter; N13.6 Pyonephrosis; E86.0 Dehydration; E87.6 Hypokalemia; D50.0 Iron deficiency anemia secondary to blood loss (chronic); N11.9 Chronic tubulo-interstitial nephritis, unspecified; F17.210 Nicotine dependence, cigarettes, uncomplicated; E66.3 Overweight; E83.42 Hypomagnesemia; F12.10 Cannabis abuse, uncomplicated; L02.211 Cutaneous abscess of abdominal wall; D75.839 Thrombocytosis, unspecified; N18.30 Chronic kidney disease, stage 3 unspecified; Z87.442 Personal history of urinary calculi; Q05.9 Spina bifida, unspecified; Z68.28 Body mass index [BMI] 28.0-28.9, adult; Z88.5 Allergy status to narcotic agent; Z88.3 Allergy status to other anti-infective agents; Z82.62 Family history of osteoporosis; Z82.5 Family history of asthma and other chronic lower respiratory diseases; Z82.49 Family history of ischemic heart disease and other diseases of the circulatory system; Z82.3 Family history of stroke; Z83.3 Family history of diabetes mellitus; Z82.0 Family history of epilepsy and other diseases of the nervous system; Z81.8 Family history of other mental and behavioral disorders; Z80.8 Family history of malignant neoplasm of other organs or systems; Z80.41 Family history of malignant neoplasm of ovary; Z80.3 Family history of malignant neoplasm of breast; Z80.1 Family history of malignant neoplasm of trachea, bronchus and lung; Z79.899 Other long term (current) drug therapy; Y83.8 Other surgical procedures as the cause of abnormal reaction of the patient, or of later complication, without mention of misadventure at the time of the procedure; Y92.238 Other place in hospital as the place of occurrence of the external cause
CPT/HCPCS: 10005; 36415; 36600; 50430; 50432; 71045; 74018; 74176; 74425; 75989; 76775; 76942; 77012; 78707; 80048; 80053; 80061; 81001; 81025; 82306; 82570; 82607; 82728; 82746; 82805; 82962; 83036; 83516; 83540; 83550; 83605; 83615; 83735; 83930; 83935; 83970; 84100; 84156; 84300; 84443; 84450; 84460; 85007; 85025; 85027; 85045; 85610; 85730; 86225; 86235; 86850; 86900; 86901; 86920; 87040; 87077; 87086; 87186; 87205; 93005; 93306; 93971; 96361; 96374; 96375; 97110; 97116; 97163; 99152; 99291; C1729; G0378; J0692; J1756; J1885; J2003; J2185; J2250; J2405; J2470; J7060; Q9967